=== PATIENT | male | born 1955 | race Hispanic/Latino ===

== ENCOUNTER 2017-10-12 10:39 | Emergency (ER) | payer MEDICARE, OTHER ==
[~2017-10-12] VITALS: Ht 190.5 cm; Wt 104.3 kg
[~2017-10-12 10:39] MED LIST: AMBIEN5 MG PO; ASPIR 8181 MG PO; AUGMENTIN 500-1 EACH PO; HUMALOG100 UNIT/1; HYDROCODON-ACE1 EAC9 PO; LOPRESSOR25 MG PO; LOVASTATIN20 MG PO; METOPROLOL SUC100 MG PO; NORCO 10-325 T1 EACH PO; PRINIVIL20 MG PO; RENAGEL800 MG; ULTRAM50 MG PO; Z.0.HUMALOG100 UNIT/; Z.0.JANUVIA100 MG; Z.0.LISINOPRIL20 MG PO; Z.0.PLAVIX75 MG PO
--- OUTSIDE RECORDS SUMMARY | 2017-10-12 10:42 | XMS REPORT | Clinical Summary ---
Author Author D[facility]ON [facility] Address Unknown Phone Unavailable Care Team Providers Care Academic Assistant Name Role Phone PCP Unavailable Allergies Active Allergy Reactions Severity Noted Date Comments Iodine And Iodide Rash High 05/09/2016 TO CONTRAST DYE Containing Products Medical Supply, Rash Low 05/09/2016 TO PLASTIC TAPE Miscellaneous Current Medications Prescription Sig. Disp. Refills Start End Date Status Date clopidogrel (PLAVIX) 75 Take 75 mg by mouth Active mg tablet daily. HYDROcodone-acetaminophen Take 1 tablet by mouth Active (NORCO 10-325) 10-325 mg every 6 (six) hours as per tablet needed for Pain. insulin lispro (HUMALOG) Inject 1.4 Units Active 100 unit/mL injection subcutaneously continuous DURING THE DAYTIME 1.4 UNITS CONTINUOUS, DURING THE NIGHTTIME IS VARIABLE. lovastatin (MEVACOR) 10 Take 10 mg by mouth Active MG tablet nightly. metoprolol (LOPRESSOR) 25 Take 25 mg by mouth 2 Active MG tablet (two) times daily. lisinopril Take 20 mg by mouth Active (PRINIVIL,ZESTRIL) 20 MG daily. tablet zolpidem (AMBIEN) 5 MG Take 2.5 mg by mouth Active tablet every night as needed for Insomnia . BABY ASPIRIN ORAL Take by mouth daily. Active Active Problems Problem Noted Date PAD (peripheral artery disease) ([facility]) 05/13/2016 Social History Tobacco Use Types Packs/Day Years Used Date Former Smoker Quit: 05/22/1985 Alcohol Use Drinks/Week oz/Week Comments No Sex Assigned at Date Recorded Not on file Last Filed Vital Signs Not on file Plan of Treatment Not on file Implants Implanted Type Area Cardiac Nurse Specialist Device Expiration Model / Identifier Date Serial / Lot Zilver Ptx Drug-Eluting Stents-Per [employer] 06/03/2016 [id number] Peripheral Stent ipheral 25-7-40-PT Implanted: Qty: 1 on 05/13/2016 by X / Jass Hong MD / [id number] [employer] Vascular Stents-Per [place] 03/21/2019 [id number] Implanted: Qty: 1 on 05/13/2016 by [employer] [id number] / Jass Hong MD / [id number] Results Not on fileafter 10/11/2016
--- OUTSIDE RECORDS SUMMARY | 2017-10-12 10:42 | XMS REPORT ---
Author Author [facility] Address Unknown Phone Unavailable Care Team Providers Care Geodetic Survey Director Name Role Phone DANNY PARKER Unavailable Unavailable Problems This patient has no known problems. Allergies, Adverse Reactions, Alerts This patient has no known allergies or adverse reactions. Medications This patient has no known medications. Results Test Description Test Time Test Comments Text Results Atomic Results Result Comments CHEST SINGLE (PORTABLE) [place] [address] Patient Name: RAKEL LIN MR #: [id number] : 1955 Age/Sex: 61/M Req #: [id number] Adm Physician: Ordered by: DANNY PARKER MD Report #: [id number] Location: ER Room/Bed: Procedure: [id number] DX/CHEST SINGLE (PORTABLE) Exam Date: 04/17/17 Exam Time: 1155 REPORT STATUS: Signed PROCEDURE: CHEST SINGLE (PORTABLE) TECHNIQUE: Portable AP chest INDICATION: Weakness; sweating COMPARISON: [facility], DX, CHEST SINGLE ( PORTABLE), 10/17/2016, 7:19. FINDINGS: Lungs are clear and symmetrically inflated. No pleural effusions. Mild cardiac prominence for technique, with postoperative sequela of CABG. Intact midline sternotomy wires. Intact skeleton. CONCLUSION: 1. No acute abnormality. 2. Stable postoperative sequela of CABG. Dictated by: Hudson Reid M.D. on 04/17/2017 at 12:26 Electronically approved by: Hudson Reid M.D. on 04/17/2017 at 12:26 Dictated By: HUDSON REID MD [id number] Transcribed By: ROBIN on 04/17/17 1226 COPY TO: DANNY PARKER MD
[2017-10-12] MEDS ORDERED: MORPHINE SULFATE 2 MG/ML SYR IV STA (10:56)
[2017-10-12] MEDS ORDERED: ASPIRIN 81 MG CHEW TAB PO ONE (11:00)
[2017-10-12 11:28] LABS: BASOPHILS % 0.5 % (0.0-1.0); EOSINOPHILS # (AUTO) 0.2 (0.0-0.4); EOSINOPHILS % 2.5 % (0.0-6.0); HEMATOCRIT 33.6 % (38.2-49.6); HEMOGLOBIN 11.4 g/dL (14.0-18.0); LYMPHOCYTES # (AUTO) 1.4 (1.0-3.2); LYMPHOCYTES % 17.7 % (18.0-39.1); MEAN CORPUSCULAR HEMOGLOBIN 30.7 pg (28-32); MEAN CORPUSCULAR HGB CONC 33.9 g/dL (31-35); MEAN CORPUSCULAR VOLUME 90.6 fL (81-99); MONOCYTES # (AUTO) 0.6 (0.2-0.8); MONOCYTES % 7.2 % (4.4-11.3); NEUTROPHILS # (AUTO) 5.8 (2.1-6.9); NEUTROPHILS % 71.6 % (38.7-80.0); PLATELET COUNT 213 x10e3/uL (140-360); RED BLOOD COUNT 3.71 x10e6/uL (4.3-5.7); RED CELL DISTRIBUTION WIDTH 12.9 % (11.7-14.4)
--- NOTE | 2017-10-12 11:40 | Diagnostic Imaging Report ---
PROCEDURE: X-RAY CHEST, TWO VIEWS COMPARISON: [facility], DX, CHEST SINGLE (PORTABLE), 04/17/2017, 11:53. INDICATIONS: FALL FINDINGS: LUNGS: No consolidations or edema. PLEURA: No effusions or pneumothorax. HEART \T\ MEDIASTINUM: The heart is within normal size-limits. There are sternotomy wire sutures and small mediastinal clips. BONES \T\ SOFT TISSUES: No obvious rib fractures. No acute findings. CONCLUSION: No acute thoracic abnormality. Chay Culver D.O. Dictated by: Chay Culver D.O. on 10/12/2017 at 11:42 Electronically approved by: Chay Culver D.O. on 10/12/2017 at 11:42
[2017-10-12 11:48] LABS: ANION GAP 14.8 mmol/L (8-16); CALCIUM 9.3 mg/dL (8.4-10.2); CREATININE, SERUM 1.35 mg/dL (0.72-1.25); MAGNESIUM 2.4 MG/DL (1.3-2.1); POTASSIUM 4.8 mmol/L (3.5-5.1)
--- NOTE | 2017-10-12 11:54 | Diagnostic Imaging Report ---
EXAMINATION: Head CT HISTORY: Status post fall, head trauma COMPARISON: Head CT on 01/16/2012 TECHNIQUE: Multidetector axial images were obtained without contrast from the foramen magnum to the vertex . The images were reconstructed using brain and bone algorithms. Thin section brain images were reformatted into coronal and sagittal planes. Intravenous contrast: None. Motion/streaking artifact limits the evaluation of the skull base and posterior cranial fossa. FINDINGS: Parenchyma: 1. Mildly confluent periventricular and ibrahim radiata white matter chronic microvascular ischemic changes. 2. Small chronic lacunar infarct in the posterior limb of the left internal capsule, left posterior lentiform nucleus, bilateral thalami and right frontal deep white matter. 3. No mass or hemorrhage. No CT evidence of acute territorial vascular insult. Extra-axial spaces:No abnormal density. No extra-axial fluid collections Brain volume: Significant development of generalized brain volume loss, which is slightly disproportionate for age, with particular involvement of the midbrain/al and cerebellar hemispheres. Ventricles: No hydrocephalus or displacement. Arteries: No density suggestive of thrombus. Dural sinuses: No abnormal density. Extra-axial spaces: No abnormal density. Foramen magnum: No mass, Chiari malformation, or basilar invagination. Sella: No obvious mass. Paranasal/mastoid sinuses: Persistent nonspecific likely chronic opacification, scleroses and hypo pneumatization of the right mastoid air cells and middle ear. Skull/Scalp: No lytic or blastic lesions. No fractures. IMPRESSION: 1. No acute posttraumatic intracranial abnormality, particularly no hemorrhage. 2. Significant progression of generalized brain volume loss with infratentorial predominance as detailed above. 3. Mild progression of nonspecific chronic microvascular ischemic changes and small chronic lacunar infarcts when compared to head CT on 01/16/2012. Signed by: Dr. Virgie Mitchell M.D. on 10/12/2017 11:50 AM
[2017-10-12 11:55] LABS: CREATINE KINASE MB 2.2 ng/mL (0-5.0)
[2017-10-12 13:51] VITALS: BP 143/75
[2017-10-12 13:59] LABS: CLARITY,URINE CLEAR (CLEAR); COLOR,URINE YELLOW (YELLOW); KETONES,URINE NEGATIVE (NEGATIVE); LEUKOCYTE ESTERASE ,URINE NEGATIVE (NEGATIVE); NITRITE,URINE NEGATIVE (NEGATIVE); PROTEIN,URINE DIPSTICK NEGATIVE (NEGATIVE); URINE UROBILINOGEN 0.2 mg/dL (0.2 - 1)
[2017-10-12 14:00] LABS: BILIRUBIN,URINE NEGATIVE (NEGATIVE); EPITHELIAL CELLS,URINE RARE /LPF; RBC,URINE 0-5 /HPF (0-5)
== END 2017-10-12 14:32 | disposition home or self-care (01) ==
LOC: ER 10:39
DX: S01.111A Laceration without foreign body of right eyelid and periocular area, initial encounter (principal); W01.0XXA Fall on same level from slipping, tripping and stumbling without subsequent striking against object, initial encounter; Y92.002 Bathroom of unspecified non-institutional (private) residence as the place of occurrence of the external cause; E86.0 Dehydration; E11.21 Type 2 diabetes mellitus with diabetic nephropathy; R94.31 Abnormal electrocardiogram [ECG] [EKG]; I10 Essential (primary) hypertension; I45.10 Unspecified right bundle-branch block; I51.9 Heart disease, unspecified
CPT/HCPCS: 12011; 36415; 70450; 71046; 80048; 81001; 82550; 82553; 83735; 83880; 84484; 85025; 93005; 99284; J2270

== ENCOUNTER → 2018-02-14 | Day surgery (SDC) | payer MEDICARE, OTHER ==
[2018-02-12 11:55] LABS: BASOPHILS % 0.4 % (0.0-1.0); EOSINOPHILS # (AUTO) 0.2 (0.0-0.4); EOSINOPHILS % 1.9 % (0.0-6.0); HEMATOCRIT 34.8 % (38.2-49.6); HEMOGLOBIN 11.7 g/dL (14.0-18.0); LYMPHOCYTES # (AUTO) 1.5 (1.0-3.2); LYMPHOCYTES % 13.3 % (18.0-39.1); MEAN CORPUSCULAR HEMOGLOBIN 29.8 pg (28-32); MEAN CORPUSCULAR HGB CONC 33.6 g/dL (31-35); MEAN CORPUSCULAR VOLUME 88.8 fL (81-99); MONOCYTES # (AUTO) 0.5 (0.2-0.8); MONOCYTES % 4.6 % (4.4-11.3); NEUTROPHILS % 79.4 % (38.7-80.0); PLATELET COUNT 218 x10e3/uL (140-360); RED BLOOD COUNT 3.92 x10e6/uL (4.3-5.7); RED CELL DISTRIBUTION WIDTH 13.1 % (11.7-14.4)
[2018-02-12 12:00] LABS: PROTHROMBIN TIME 14.1 seconds (11.9-14.5)
[2018-02-12 12:01] LABS: PARTIAL THROMBOPLASTIN TIME 33.4 seconds (23.8-35.5)
[2018-02-12 12:10] LABS: ALBUMIN 3.7 g/dL (3.5-5.0); ALBUMIN/GLOBULIN RATIO 1.1 (0.8-2.0); ANION GAP 14.1 mmol/L (8-16); CALCIUM 9.4 mg/dL (8.4-10.2); CREATININE, SERUM 1.44 mg/dL (0.72-1.25); POTASSIUM 4.1 mmol/L (3.5-5.1)
--- NOTE | 2018-02-12 12:51 | Diagnostic Imaging Report ---
EXAMINATION: PA and lateral views of the chest. COMPARISON: 10/17/2016 CLINICAL HISTORY: Preop DISCUSSION: The lungs are well-inflated and without focal consolidation, pleural effusion, or pneumothorax. Postsurgical changes of the mediastinum with otherwise stable cardiomediastinal contour. Atherosclerotic calcification of the aortic arch with normal heart size. No acute osseous abnormalities. IMPRESSION: No acute cardiopulmonary abnormalities. Signed by: Dr. Kendell Marina M.D. on 02/12/2018 12:46 PM
[~2018-02-14] VITALS: Ht 193 cm; Wt 104.3 kg
[~2018-02-14] MED LIST changes: +FENTANYL CITRATE/PF 100MCG/2 ML INJ ONE; +HEPARIN SOD/SOD CHLORIDE 2,000 ML ONE; +IOPAMIDOL 370 MG/ML 200 ML INFUS..BTL INJ ONE; +LIDOCAINE HCL 2% LOCAL 20 ML VIAL ONE; +MIDAZOLAM HCL 2 MG/2 ML VIAL ONE; +SODIUM CHLORIDE 0.9% 1000ML 1,000 ML ONE
[2018-02-14 08:00] VITALS: BP 173/95
--- OUTSIDE RECORDS SUMMARY | 2018-03-06 07:11 | XMS REPORT | Clinical Summary ---
Author Author DARRON [facility] Address Unknown Phone Unavailable Care Team Providers Care Warehouse Material Handler Name Role Phone PCP Unavailable Allergies Active [...] Not on file Implants Implanted Type Area Staff Trainer Device Expiration Model / Identifier Date Serial / Lot Zilver Ptx Drug-Eluting Stents-Per [employer] 06/03/2016 [id number] Peripheral Stent ipheral 25-7-40-PT Implanted: Qty: 1 on 05/13/2016 by X / Jass Hong MD / [id number] [employer] Vascular Stents-Per [place] 03/21/2019 [id number] Implanted: Qty: 1 on 05/13/2016 by kSARIA [id number] / Jass Hong MD / [id number] Results Not on fileafter 02/13/2017
== END | disposition home or self-care (01) ==
LOC: CATH LAB 06:32
DX: I25.10 Atherosclerotic heart disease of native coronary artery without angina pectoris (principal); Z53.8 Procedure and treatment not carried out for other reasons; R94.39 Abnormal result of other cardiovascular function study; Z79.01 Long term (current) use of anticoagulants; Z91.041 Radiographic dye allergy status; Z88.1 Allergy status to other antibiotic agents; Z87.891 Personal history of nicotine dependence; Z79.4 Long term (current) use of insulin; E78.5 Hyperlipidemia, unspecified; E11.51 Type 2 diabetes mellitus with diabetic peripheral angiopathy without gangrene; Z89.511 Acquired absence of right leg below knee; Z96.41 Presence of insulin pump (external) (internal); I50.22 Chronic systolic (congestive) heart failure; I45.19 Other right bundle-branch block; Z86.010 Personal history of colon polyps; Z01.810 Encounter for preprocedural cardiovascular examination; Z01.812 Encounter for preprocedural laboratory examination; Z01.811 Encounter for preprocedural respiratory examination; I11.0 Hypertensive heart disease with heart failure
CPT/HCPCS: 36415; 71046; 80053; 85025; 85610; 85730; 93005; J2001; J2250; J7030; Q9967

== ENCOUNTER 2018-06-30 15:39 | Emergency (ER) | payer MEDICARE, OTHER ==
[~2018-06-30] VITALS: Ht 193 cm; Wt 104.3 kg
[~2018-06-30 15:39] MED LIST changes: -FENTANYL CITRATE/PF 100MCG/2 ML INJ ONE; -HEPARIN SOD/SOD CHLORIDE 2,000 ML ONE; -IOPAMIDOL 370 MG/ML 200 ML INFUS..BTL INJ ONE; -LIDOCAINE HCL 2% LOCAL 20 ML VIAL ONE; -MIDAZOLAM HCL 2 MG/2 ML VIAL ONE; -SODIUM CHLORIDE 0.9% 1000ML 1,000 ML ONE
--- OUTSIDE RECORDS SUMMARY | 2018-06-30 15:43 | XMS REPORT | Clinical Summary ---
Author Author [facility]RXE[facility] Address Unknown Phone Unavailable Care Team Providers Care Organ Assembler Name Role Phone Rohan Hernandez PCP Allergies Comments Active Allergy Reactions Severity Noted Date Adhesive Tape 03/02/2018 Iodine Rash Low 04/21/2010 TO CONTRAST DYE Iodine And Iodide Rash High 05/09/2016 Containing Products TO PLASTIC TAPE Medical Supply, Rash Low 05/09/2016 Miscellaneous Vancomycin Rash Low 04/21/2010 Medications End Date Status Medication Sig Dispensed Refills Start Date Active clopidogrel (PLAVIX) 75 Take 75 mg by 0 mg tablet mouth daily. Active HYDROcodone-acetaminophen Take 1 tablet 0 (NORCO 10-325) 10-325 mg by mouth per tablet every 6 (six) hours as needed for Pain. Active insulin lispro (HUMALOG) Inject 1.4 0 100 unit/mL injection Units subcutaneousl y continuous DURING THE DAYTIME 1.4 UNITS CONTINUOUS, DURING THE NIGHTTIME IS VARIABLE. Active metoprolol (LOPRESSOR) 25 Take 25 mg by 0 MG tablet mouth 2 (two) times daily. Active lisinopril Take 20 mg by 0 (PRINIVIL,ZESTRIL) 20 MG mouth daily. tablet Active zolpidem (AMBIEN) 5 MG Take 2.5 mg 0 tablet by mouth every night as needed for Insomnia . Active aspirin 81 MG EC tablet Take 81 mg by 0 mouth daily. Active atorvastatin (LIPITOR) 80 Take 1 tablet 30 tablet 0 MG tablet (80 mg total) 8 by mouth nightly Take instead of lovastatin. Active cyanocobalamin (VITAMIN Take 1 tablet 30 tablet 0 B-12) 100 MCG tablet (100 mcg 8 total) by mouth daily. Active gabapentin (NEURONTIN) Take 1 30 capsule 0 100 MG capsule capsule (100 8 mg total) by mouth daily For nerve pain. 04/26/2018 Discontinued lovastatin (MEVACOR) 10 Take 10 mg by 0 MG tablet mouth nightly. 04/26/2018 Discontinued BABY ASPIRIN ORAL Take by mouth 0 daily. 04/27/2018 Discontinued atorvastatin (LIPITOR) 40 Take 1 tablet 30 tablet 0 MG tablet (40 mg total) 8 by mouth nightly Take instead of lovastatin for cholesterol. Active Problems Problem Noted Date Stroke 04/27/2018 CAD (coronary artery disease) 03/08/2018 PAD (peripheral artery disease) 05/13/2016 Encounters Care Team Description Date Type Specialty Leonora Oliver MD 04/25/2018 Anesthesia Event Segundo Hoyos MD PCI 04/25/2018 Surgery Segundo Hoyos MD Narcisse, Victor Joseph III, MD Lin, Fang-Ying, MD Coronary artery disease involving tuolumne coronary artery of tuolumne heart without angina pectoris (Primary Dx); S/P CABG (coronary artery bypass graft); PAD (peripheral artery disease) ([facility]); Stenosis of carotid artery, unspecified laterality; Essential hypertension; Hyperlipidemia, unspecified hyperlipidemia type; Type 1 diabetes mellitus on insulin therapy ([facility]); Type 2 diabetes mellitus treated with insulin ([facility]) 04/24/2018 Hospital Cardiology - Encounter 04/27/2018 04/24/2018 Travel Polo Guzmán III, MD 04/24/2018 Orders Only Internal Medicine Segundo Hoyos MD L CATH & CORONARY ANGIOS 03/08/2018 Surgery Segundo Hoyos MD Coronary artery disease involving tu[place]ne coronary artery of tuolumne heart without angina pectoris; PAD (peripheral artery disease) ([facility]); Essential hypertension; Other hyperlipidemia; Stenosis of carotid artery, unspecified laterality; Type 1 diabetes mellitus with diabetic chronic kidney disease, unspecified CKD stage ([facility]); Status post left heart catheterization (LHC); S/P CABG (coronary artery bypass graft); SOB (shortness of breath) 03/08/2018 Hospital Cardiology - Encounter 03/10/2018 03/08/2018 Orders Only General Internal Medicine Segundo Hoyos MD PAD (peripheral artery disease) ([facility]); Coronary artery disease involving tu[place]ne coronary artery of tuolumne heart without angina pectoris 03/07/2018 Hospital Radiology Encounter Segundo Hoyos MD PAD (peripheral artery disease) (HCC); Coronary artery disease involving tu[place]ne coronary artery of tuolumne heart without angina pectoris 03/07/2018 Hospital Radiology Encounter Segundo Hoyos MD PAD (peripheral artery disease) ([facility]) (Primary Dx); Coronary artery disease involving tu[place]ne coronary artery of tuolumne heart without angina pectoris 03/06/2018 Outside Orders Radiology after 06/29/2017 Social History Date Tobacco Use Types Packs/Day Years Used Quit: 05/22/1985 Former Smoker Smokeless Tobacco: Never Used Alcohol Use Drinks/Week oz/Week Comments No Sex Assigned at Date Recorded Not on file Industry Job Start Date Occupation Not on file Not on file Not on file Travel End Travel History Travel Start No recent travel history available. Last Filed Vital Signs Time Taken Vital Sign Reading 04/27/2018 12:57 PM TERMINOLOGIST Blood Pressure 140/65 04/27/2018 12:57 PM TERMINOLOGIST Pulse 78 04/27/2018 12:57 PM TERMINOLOGIST Temperature 36.7 C (98 F) 04/27/2018 12:57 PM TERMINOLOGIST Respiratory Rate 19 04/27/2018 12:57 PM TERMINOLOGIST Oxygen Saturation 100% 04/25/2018 11:51 PM TERMINOLOGIST Inhaled Oxygen 21% Concentration 04/26/2018 7:50 AM TERMINOLOGIST Weight 104.2 kg (229 lb 12.2 oz) 04/24/2018 3:30 PM TERMINOLOGIST Height 193 cm (6' 4") 04/26/2018 7:50 AM TERMINOLOGIST Body Mass Index 27.97 Plan of Treatment Not on file Implants Device Identifier Shelf Expiration Date Model / Serial / Lot Implanted Type Area [facility] [id number] 12/19/2018 [id number] / / [id number] Device Clsr Angio-Seal Vip 8fr Cardiovasc [facility] [id number] - [id number] esme MED:CARDIA Implanted: Qty: 1 on 04/25/2018 by Segundo Miller MD 06/03/2016 [id number] / / [id number] Zilvgermaine Ptx Drug-Eluting Stents-Per COOK Peripheral Stent ipheral VASCULAR Implanted: Qty: 1 on 05/13/2016 by Jass Hong MD 03/21/2019 [id number] / / [id number] Innova Vascular Stents-Per [place] Implanted: Qty: 1 on 05/13/2016 by HotchalkJass June MD [id number] 09/13/2019 [id number] / / [id number] Synergy [place] Implanted: Qty: 1 on 04/25/2018 by Segundo Kothari MD Procedures Comments Procedure Name Priority Date/Time Associated Diagnosis VASCULAR DIAGRAM -SCAN 05/07/2018 12:21 PM TERMINOLOGIST RHYTHM STRIP - SCAN 05/04/2018 10:01 AM TERMINOLOGIST CARDIAC CATH REPORT - 05/04/2018 SCAN 10:01 AM TERMINOLOGIST ECHOCARDIOGRAM REPORT - 04/27/2018 SCAN 4:20 PM TERMINOLOGIST 2D ECHO W/ DOPPLER Routine 04/27/2018 (CW/PW/COLOR) 11:05 AM TERMINOLOGIST POCT-GLUCOSE METER Routine 04/27/2018 9:48 AM TERMINOLOGIST T4, FREE Routine 04/27/2018 5:12 AM TERMINOLOGIST VITAMIN B12 AND FOLATE Routine 04/27/2018 5:12 AM TERMINOLOGIST HIV-1 ANTIGEN WITH Routine 04/27/2018 HIV-1/2 ANTIBODY 5:12 AM TERMINOLOGIST TSH/FREE T4 IF INDICATED Routine 04/27/2018 5:12 AM TERMINOLOGIST RPR Routine 04/27/2018 5:12 AM TERMINOLOGIST HEMOGLOBIN A1C Routine 04/27/2018 5:12 AM TERMINOLOGIST BASIC METABOLIC PANEL (7) Routine 04/27/2018 5:12 AM TERMINOLOGIST MR BRAIN WITHOUT IV STAT 04/26/2018 CONTRAST 10:20 PM TERMINOLOGIST MR MRA NECK WITHOUT IV STAT 04/26/2018 CONTRAST 10:20 PM TERMINOLOGIST MR MRA HEAD WITHOUT STAT 04/26/2018 CONTRAST 10:20 PM TERMINOLOGIST URINALYSIS WITH Routine 04/26/2018 MICROSCOPIC IF INDICATED 7:24 PM TERMINOLOGIST BLOOD CULTURE STAT 04/26/2018 7:24 PM TERMINOLOGIST CBC W/PLT COUNT & AUTO Routine 04/26/2018 DIFFERENTIAL 7:23 PM TERMINOLOGIST LACTIC ACID, VENOUS, Routine 04/26/2018 WHOLE BLOOD 7:23 PM TERMINOLOGIST PHOSPHORUS Routine 04/26/2018 7:23 PM TERMINOLOGIST MAGNESIUM Routine 04/26/2018 7:23 PM TERMINOLOGIST APTT Routine 04/26/2018 7:23 PM TERMINOLOGIST PROTHROMBIN TIME/INR Routine 04/26/2018 7:23 PM TERMINOLOGIST COMPREHENSIVE METABOLIC Routine 04/26/2018 PANEL 7:23 PM TERMINOLOGIST CBC W/PLT COUNT & AUTO Routine 04/26/2018 DIFFERENTIAL 7:23 PM TERMINOLOGIST POCT-GLUCOSE METER Routine 04/26/2018 6:21 PM TERMINOLOGIST POCT-GLUCOSE METER Routine 04/26/2018 6:[address] BRAIN WITHOUT IV STAT 04/26/2018 CONTRAST 5:16 PM TERMINOLOGIST POCT-GLUCOSE METER Routine 04/26/2018 11:36 AM TERMINOLOGIST POCT-GLUCOSE METER Routine 04/26/2018 7:57 AM TERMINOLOGIST CBC W/PLT COUNT & AUTO Routine 04/26/2018 DIFFERENTIAL 4:02 AM TERMINOLOGIST BASIC METABOLIC PANEL (7) Routine 04/26/2018 4:02 AM TERMINOLOGIST CBC W/PLT COUNT & AUTO Routine 04/26/2018 DIFFERENTIAL 4:02 AM TERMINOLOGIST PHOSPHORUS Routine 04/26/2018 4:02 AM TERMINOLOGIST MAGNESIUM Routine 04/26/2018 4:02 AM TERMINOLOGIST CALCIUM, IONIZED Routine 04/26/2018 4:02 AM TERMINOLOGIST POCT-GLUCOSE METER Routine 04/25/2018 9:21 PM TERMINOLOGIST ELECTROLYTE PANEL STAT 04/25/2018 4:09 PM TERMINOLOGIST CREATININE, RANDOM URINE Routine 04/25/2018 4:09 PM TERMINOLOGIST PROTEIN, RANDOM URINE Routine 04/25/2018 4:09 PM TERMINOLOGIST URINALYSIS W/ MICROSCOPIC Routine 04/25/2018 4:09 PM TERMINOLOGIST POCT-GLUCOSE METER Routine 04/25/2018 10:14 AM TERMINOLOGIST POCT-GLUCOSE METER Routine 04/25/2018 9:12 AM TERMINOLOGIST POCT-ACT Routine 04/25/2018 9:05 AM TERMINOLOGIST POCT-ACT Routine 04/25/2018 8:54 AM TERMINOLOGIST PCI 04/25/2018 Coronary artery disease 7:30 AM TERMINOLOGIST involving tu[place]umne heart, angina presence unspecified, unspecified vessel or lesion type Case Notes (1) CASE POP6 . 663mGy POCT-GLUCOSE METER Routine 04/25/2018 6:35 AM TERMINOLOGIST CBC W/PLT COUNT & AUTO STAT 04/25/2018 DIFFERENTIAL 4:40 AM TERMINOLOGIST LIPID PANEL Routine 04/25/2018 4:40 AM TERMINOLOGIST PROTHROMBIN TIME/INR STAT 04/25/2018 4:40 AM TERMINOLOGIST BASIC METABOLIC PANEL (7) STAT 04/25/2018 4:40 AM TERMINOLOGIST CBC W/PLT COUNT & AUTO STAT 04/25/2018 DIFFERENTIAL 4:40 AM TERMINOLOGIST ECG 12-LEAD Routine 04/25/2018 4:33 AM TERMINOLOGIST POCT-GLUCOSE METER Routine 04/25/2018 2:51 AM TERMINOLOGIST POCT-GLUCOSE METER Routine 04/24/2018 11:32 PM TERMINOLOGIST POCT-GLUCOSE METER Routine 04/24/2018 10:08 PM TERMINOLOGIST BASIC METABOLIC PANEL (7) Routine 04/24/2018 7:06 PM TERMINOLOGIST RHYTHM STRIP - SCAN 03/13/2018 11:20 AM CDT CARDIAC CATH REPORT - 03/13/2018 SCAN 11:20 AM CDT VASCULAR DIAGRAM -SCAN 03/13/2018 11:20 AM CDT POCT-GLUCOSE METER Routine 03/10/2018 12:13 PM CDT POCT-GLUCOSE METER Routine 03/10/2018 11:05 AM CDT POCT-GLUCOSE METER Routine 03/10/2018 8:06 AM CDT POCT-GLUCOSE METER Routine 03/10/2018 5:34 AM CDT POCT-GLUCOSE METER Routine 03/10/2018 4:46 AM CDT POCT-GLUCOSE METER Routine 03/10/2018 4:27 AM CDT CBC W/PLT COUNT & AUTO Routine 03/10/2018 DIFFERENTIAL 4:23 AM CDT CBC W/PLT COUNT & AUTO Routine 03/10/2018 DIFFERENTIAL 4:23 AM CDT MAGNESIUM Routine 03/10/2018 4:23 AM CDT BASIC METABOLIC PANEL (7) Routine 03/10/2018 4:23 AM CDT POCT-GLUCOSE METER Routine 03/10/2018 12:07 AM CDT POCT-GLUCOSE METER Routine 03/09/2018 10:17 PM CDT POCT-GLUCOSE METER Routine 03/09/2018 7:09 PM CDT TRANSFUSION SERVICE 03/09/2018 REPORT - SCAN 6:09 PM CDT POCT-GLUCOSE METER Routine 03/09/2018 3:08 PM CDT NM CARDIAC PET PERFUSION Routine 03/09/2018 REST AND/OR STRESS 2:56 PM CDT TREADMILL Routine 03/09/2018 TOLERANCE(NON-NUCLEAR 2:43 PM CDT TREADMILL) ECG 12-LEAD Routine 03/09/2018 2:30 PM CDT ECG 12-LEAD Routine 03/09/2018 2:30 PM CDT Procedure Note - Interface, External Ris In - 03/09/2018 3:00 PM CDT Ventricula r Rate 79 BPM Atrial Rate 79 BPM P-R Interval 154 ms QRS Duration 164 ms Q-T Interval 454 ms QTC Calculatio n(Bazett) 520 ms P E[place] 59 degrees R Eolia 67 degrees T E[place] 38 degrees Sinus rhythm with Premature atrial complexes Right bundle branch block Abnormal ECG POCT-GLUCOSE METER Routine 03/09/2018 1:08 PM CDT POCT-GLUCOSE METER Routine 03/09/2018 11:51 AM CDT PROTEIN, RANDOM URINE Routine 03/09/2018 7:10 AM CDT PHOSPHORUS Routine 03/09/2018 4:26 AM CDT MAGNESIUM Routine 03/09/2018 4:26 AM CDT CBC (HEMOGRAM ONLY) Routine 03/09/2018 4:26 AM CDT BASIC METABOLIC PANEL (7) Routine 03/09/2018 4:26 AM CDT POCT-GLUCOSE METER Routine 03/09/2018 2:07 AM CDT POCT-GLUCOSE METER Routine 03/09/2018 12:49 AM CDT POCT-GLUCOSE METER Routine 03/08/2018 10:10 PM CDT POCT-GLUCOSE METER Routine 03/08/2018 2:06 PM CDT L CATH & CORONARY ANGIOS 03/08/2018 Coronary artery disease 12:24 PM CDT involving tuolumne coronary artery of tuolumne heart, angina presence unspecified Case Notes POP6 PT ALLERGIC TO IODINE. Special Needs PT ALLERGIC TO IODINE ECG 12-LEAD Routine 03/08/2018 9:27 AM CDT Procedure Note - Interface, External Ris In - 03/08/2018 12:04 PM CDT Ventricula r Rate 78 BPM Atrial Rate 78 BPM P-R Interval 184 ms QRS Duration 170 ms Q-T Interval 424 ms QTC Calculatio n(Bazett) 483 ms P E[place] 54 degrees R Eolia 67 degrees T E[place] 47 degrees Sinus rhythm with Premature atrial complexes Right bundle branch block Abnormal ECG When compared with ECG of 6 11:29, Premature atrial complexes are now Present Inverted T waves have replaced nonspecifi c T wave abnormalit y in Anterior leads ECG 12-LEAD STAT 03/08/2018 9:27 AM CDT TYPE AND SCREEN, Routine 03/08/2018 AUTOMATED 9:16 AM CDT PROTHROMBIN TIME/INR STAT 03/08/2018 9:16 AM CDT CBC (HEMOGRAM ONLY) STAT 03/08/2018 9:16 AM CDT BASIC METABOLIC PANEL (7) STAT 03/08/2018 9:[address]/CTA ABDOMEN & PELVIS Routine 03/07/2018 PAD (peripheral artery 12:00 PM CDT disease) (HCC) Coronary artery disease involving tu[place] coronary artery of tuolumne heart without angina pectoris CT/CTA CHEST Routine 03/07/2018 PAD (peripheral artery 12:00 PM CDT disease) (HCC) Coronary artery disease involving tu[place] coronary artery of tu[place]ne heart without angina pectoris POCT-CREATININE Routine 03/07/2018 11:29 AM CDT after 06/29/2017 Results * VASCULAR DIAGRAM -SCAN (05/07/2018 12:21 PM TERMINOLOGIST) Only the most recent of 2 results within the time period is included. Narrative Performed At * RHYTHM STRIP - SCAN (05/04/2018 10:01 AM TERMINOLOGIST) Only the most recent of 2 results within the time period is included. Narrative Performed At * CARDIAC CATH REPORT - SCAN (05/04/2018 10:01 AM TERMINOLOGIST) Narrative Performed At * ECHOCARDIOGRAM REPORT - SCAN (04/27/2018 4:20 PM TERMINOLOGIST) Narrative Performed At * 2D Echo W/Doppler(CW/PW/Color) (04/27/2018 11:05 AM TERMINOLOGIST) Ejection Fraction [facility] Narrative Performed At Transthoracic Echocardiography Report (TTE) [facility] Demographics [facility] Patient Name TIM COUCH Date of Study 04/27/2018 MATIAS [id number] Male Visit Number [id number] Room Number C624 Number Date of Birth1955Referring Physician Soha Crews Age62 year(s)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 Clinical History HGB 12.2 HCT 36.6 % ANEMIA, CAD, DM I, HLD, HTN, SLEEP APNEA, CVA (04/2014), ACB X5 (2007), L. CATH (03/08/18), PCI (04/25/18), HX SMOKING Contrast Medium: Bubble Study. Height: 76 inches Weight: 103.87 kg (229 lbs) BSA: 2.35 m^2 BMI: 27.87 kg/m^2 HR: 74 bpm BP: 131/62 mmHg Summary IV saline contrast injection was negative for a PFO (patent foramen ovale) at rest and post Valsalva . The left ventricle is chamber size (by PSLAX dimension) is normal (male - LVIDd 4.2-5.8cm) . Mild concentric LV hypertrophy. Global LV systolic function mildly reduced . Estimated LVEF by qualitative assessment is low normal. (50-55%) . Abnormal septal motion due to conduction abnormality; all segments have low normal contractility. Grade 1 diastolic dysfunction (impaired relaxation and low-normal LA pressure). Otherwise, essentially normal exam. Signature Findings Left Ventricle The left ventricle is chamber size (by PSLAX dimension) is normal (male - LVIDd 4.2-5.8cm) . Mild concentric LV hypertrophy. Global LV systolic function mildly reduced . Estimated LVEF by qualitative assessment is low normal. (50-55%) . Abnormal septal motion due to conduction abnormality; all segments have low normal contractility. Grade 1 diastolic dysfunction (impaired relaxation and low-normal LA pressure). Left AtriumLA size is normal . Right VentricleNormal right ventricle structure and function. Right Atrium Normal right atrium. Atrial SeptumIV saline contrast injection was negative for a PFO (patent foramen ovale) at rest and post Valsalva . Aortic Valve Normal AoV structure and function. Mitral Valve Normal MV structure and function. Tricuspid ValveA trace of tricuspid regurgitation. Unable to estimate peak systolic PA pressure; inadequate TR velocity signal. Pulmonic Valve Normal PV structure and function by limited views and Doppler. AortaAortic root size (SInus of Valsalva diameter) is normal . PericardiumNo evidence of pericardial effusion. IVC/SVC/PA/PV/PleuralThe estimated RA pressure by IVC dynamics 5-10mmHg . Chambers/Structures Left Atrium LA Dimension: 3.68 cmLA Area: 19.03 cm^2 LA Volume: 54.37 ml LA Vol. Index: 23 ml/m^2 Left Ventricle LVIDd: 5.17 cm LVEDV:169.73 ml LV Septum Diastolic: 1.27 cm LV PW Diastolic: 1.37 cm LVEDV Cifuentes's:166.66 mlLV Length: 8.83 cm LVESV Cifuentes's:90.32 ml LVEF Cifuentes's: 45.8 % LVEDVI: 71 ml/m^2 LVESVI: 38 ml/m^2 LVOT Diameter: 2.22 cm Aorta Ao Root S of Sallie.: 3.69 cm Doppler/Quantitative Measurements Mitral Valve MV Peak E-Wave: 0.72 m/s MV Peak A-Wave: 0.95 m/s E/A Ratio: 0.76 Peak Gradient: 2.07 mmHg Decelera tion Time: 307.3 msec MV Williams. Peak: Aortic Valve Peak Velocity: 0.94 m/sMean Velocity: 0.68 m/s Peak Gradient: 3.55 mmHg Mean Gradient: 1.98 mmHg AV Area (continuity): 3.32 cm^2 AV VTI: 19.2 cm AV DVI: 0.86 LVOT Peak Velocity: 0.85 m/s Peak Gradient: 2.86 mmHg Mean Velocity: 0.42 m/s Mean Gradient: 0.97 mmHg LVOT Diameter: 2.22 cmLVOT VTI: 16.47 cm LVOT Area: 3.87 cm^2LVOT SV:63.72 ml LVOT CO: 4.72 l/min LVOT CI: 2.01 l/min/m^2 Procedure Note Interface, External Ris In - 04/27/2018 3:51 PM TERMINOLOGIST Transthoracic Echocardiography Report (TTE) Demographics Patient Name TIM COUCH Date of Study 04/27/2018 MATIAS Gender Male Visit Number [id number] Race Room Number C624 Number Date of 1955 Referring Physician Soha Crews Age 62 year(s) 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 Clinical History HGB 12.2 HCT 36.6 % ANEMIA, CAD, DM I, HLD, HTN, SLEEP APNEA, CVA (04/2014), ACB X5 (2007), L. CATH (03/08/18), PCI (04/25/18), HX SMOKING Contrast Medium: Bubble Study. Height: 76 inches Weight: 103.87 kg (229 lbs) BSA: 2.35 m^2 BMI: 27.87 kg/m^2 HR: 74 bpm BP: 131/62 mmHg Summary IV saline contrast injection was negative for a PFO (patent foramen ovale) at rest and post Valsalva . The left ventricle is chamber size (by PSLAX dimension) is normal (male - LVIDd 4.2-5.8cm) . Mild concentric LV hypertrophy. Global LV systolic function mildly reduced . Estimated LVEF by qualitative assessment is low normal. (50-55%) . Abnormal septal motion due to conduction abnormality; all segments have low normal contractility. Grade 1 diastolic dysfunction (impaired relaxation and low-normal LA pressure). Otherwise, essentially normal exam. Signature Findings Left Ventricle The left ventricle is chamber size (by PSLAX dimension) is normal (male - LVIDd 4.2-5.8cm) . Mild concentric LV hypertrophy. Global LV systolic function mildly reduced . Estimated LVEF by qualitative assessment is low normal. (50-55%) . Abnormal septal motion due to conduction abnormality; all segments have low normal contractility. Grade 1 diastolic dysfunction (impaired relaxation and low-normal LA pressure). Left Atrium LA size is normal . Right Ventricle Normal right ventricle structure and function. Right Atrium Normal right atrium. Atrial Septum IV saline contrast injection was negative for a PFO (patent foramen ovale) at rest and post Valsalva . Aortic Valve Normal AoV structure and function. Mitral Valve Normal MV structure and function. Tricuspid Valve A trace of tricuspid regurgitation. Unable to estimate peak systolic PA pressure; inadequate TR velocity signal. Pulmonic Valve Normal PV structure and function by limited views and Doppler. Aorta Aortic root size (SInus of Valsalva diameter) is normal . Pericardium No evidence of pericardial effusion. IVC/SVC/PA/PV/Pleural The estimated RA pressure by IVC dynamics 5-10mmHg . Chambers/Structures Left Atrium LA Dimension: 3.68 cm LA Area: 19.03 cm^2 LA Volume: 54.37 ml LA Vol. Index: 23 ml/m^2 Left Ventricle LVIDd: 5.17 cm LVEDV:169.73 ml LV Septum Diastolic: 1.27 cm LV PW Diastolic: 1.37 cm LVEDV Cifuentes's:166.66 ml LV Length: 8.83 cm LVESV Cifuentes's:90.32 ml LVEF Cifuentes's: 45.8 % LVEDVI: 71 ml/m^2 LVESVI: 38 ml/m^2 LVOT Diameter: 2.22 cm Aorta Ao Root S of Sallie.: 3.69 cm Doppler/Quantitative Measurements Mitral Valve MV Peak E-Wave: 0.72 m/s MV Peak A-Wave: 0.95 m/s E/A Ratio: 0.76 Peak Gradient: 2.07 mmHg Deceleration Time: 307.3 msec MV Williams. Peak: Aortic Valve Peak Velocity: 0.94 m/s Mean Velocity: 0.68 m/s Peak Gradient: 3.55 mmHg Mean Gradient: 1.98 mmHg AV Area (continuity): 3.32 cm^2 AV VTI: 19.2 cm AV DVI: 0.86 LVOT Peak Velocity: 0.85 m/s Peak Gradient: 2.86 mmHg Mean Velocity: 0.42 m/s Mean Gradient: 0.97 mmHg LVOT Diameter: 2.22 cm LVOT VTI: 16.47 cm LVOT Area: 3.87 cm^2 LVOT SV:63.72 ml LVOT CO: 4.72 l/min LVOT CI: 2.01 l/min/m^2 Performing Organization Address City/State/Zipcode Phone Number [facility] * POC-Glucose meter (04/27/2018 9:48 AM TERMINOLOGIST) Only the most recent of 28 results within the time period is included. POC-Glucose Meter 244 (H)Comment: TESTED AT 70 - 110 mg/dL [facility] [address] [facility] [address] Specimen Blood Performing Organization Address City/[facility] Phone Number [phone] [place] [address] * Vitamin B12 and Folate (04/27/2018 5:12 AM TERMINOLOGIST) Vitamin B12 206 (L) 213 - 816 pg/mL [facility] Folate 11.1 >=7.0 ng/mL [facility] Specimen Blood - Arm, Left Performing Organization Address City/[facility] Phone Number [phone] [place] [address] * TSH/Free T4 If Indicated (04/27/2018 5:12 AM TERMINOLOGIST) TSH 0.35 0.35 - 4.94 uIU/mL [facility] Specimen Blood - Arm, Left Performing Organization Address [facility] Phone Number [phone] [place] [address] * HIV-1 Antigen with HIV-1/2 Antibody (04/27/2018 5:12 AM TERMINOLOGIST) HIV-1 Antigen with HIV NON-REACTIVE Nonreactive [facility] 1&2 Antibody [facility] Specimen Blood - Arm, Left Performing Organization Address [facility] Phone Number [phone] [place] [address] * RPR (04/27/2018 5:12 AM TERMINOLOGIST) RPR Nonreactive Nonreactive [facility] Specimen Blood - Arm, Left Performing Organization Address City/[facility] Phone Number [phone] [place] [address] * T4, free (04/27/2018 5:12 AM TERMINOLOGIST) Free T4 1.30 0.70 - 1.48 ng/dL [facility] Specimen Blood - Arm, Left Performing Organization Address City/State/[facility] Phone Number [facility] [address] [place] [address] [facility] * Hemoglobin A1c (04/27/2018 5:12 AM TERMINOLOGIST) Hemoglobin A1C 8.7 (H) 4.3 - 6.1 % [facility] Specimen Blood - Arm, Left Performing Organization Address [facility] Phone Number [address] [phone] [facility] * Basic Metabolic Panel (04/27/2018 5:12 AM TERMINOLOGIST) Only the most recent of 7 results within the time period is included. Sodium 139 136 - 145 meq/L [facility] Potassium 4.1 3.5 - 5.1 meq/L [facility] Chloride 104 98 - 107 meq/L [facility] CO2 24 22 - 29 meq/L [facility] BUN 24 (H) 7 - 21 mg/dL [facility] Creatinine 1.23 0.57 - 1.25 mg/dL [facility] Glucose 215 (H) 70 - 105 mg/dL [facility] Calcium 9.3 8.4 - 10.2 mg/dL [facility] EGFR 59Comment: ESTIMATED GFR IS mL/min/1.[address] [facility] NOT ACCURATE CREATININE [facility] CLEARANCE IN PREDICTING GLOMERULAR FILTRATION RATE. ESTIMATED GFR IS NOT APPLICABLE FOR DIALYSIS PATIENTS. Specimen Blood - Arm, Left Performing Organization Address [facility] Phone Number [place] [phone] [place] [address] [facility] * MR brain without IV contrast (04/26/2018 10:20 PM TERMINOLOGIST) Narrative Performed At FINAL REPORT [employer] CLINICAL HISTORY: Stroke Ischemic Stroke Evaluation TECHNIQUE: MRI of the brain utilizing axial T2, FLAIR, GRE, DWI; sagittal and coronal T1-weighted images. MRA of the head utilizing 3-D zbhv-uw-tbnrca technique, with 3-D reconstructions. MRA of the neck utilizing 2-D and 3-D cemx-qf-mumipa technique, with 3-D reconstructions. COMPARISON: Same day CT head. 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 Small bilateral basal ganglia thalamic and ibrahim radiata infarctions. Multiple bilateral T2 and FLAIR hyperintense white matter foci likely represent chronic white matter microvascular disease. Generalized parenchymal volume loss with commensurate enlargement of CSF spaces and ventricles are advanced for age. In particular there is atrophy of the brainstem and vermis.There is no hydrocephalus or midline shift. There are no extra-axial fluid collections. The craniocervical junction is preserved. The major intracranial flow-voids appear patent. Mucosal thickening in the bilateral maxillary sinuses. Bilateral mastoid air cell effusions.Intraorbital contents are unremarkable. 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 MRA head: There is narrowing of the left internal carotid artery at the petrous canal and the clinoid portions. Possible 1 mm aneurysm emanating from the medial aspect of the distal right petrous internal carotid artery. Multifocal lsob-ft-mrlljnwe stenosis of the right A2 and A3 segments of the anterior cerebral artery. There is mild stenosis of the A1 segment of the left anterior cerebral artery. Multifocal mild stenosis of the left M1 middle cerebral artery. Moderate stenosis of the right M1 middle cerebral artery. The right vertebral artery is patent. There is stenosis of the proximal V4 segment of the left vertebral artery. Moderate stenosis of the P2 segment of the right posterior cerebral artery with mild stenosis of the junction of the P2 and P2 three segment right posterior cerebral artery. MRA Neck 50% stenosis of the left proximal internal carotid artery by NASCET criteria. 20% stenosis of the proximal right internal carotid artery by NASCET criteria. There is antegrade flow in the vertebral arteries in the neck. 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 Chronic ischemic and involutional changes as described above. MRA head: Multifocal intracranial arterial stenosis as described above, worst in the right M1 middle cerebral artery, V4 left vertebral artery and P2 right posterior cerebral artery where it is moderate. Possible 1 mm aneurysm emanating from the medial aspect of the distal right petrous internal carotid artery. This could be further evaluated with CTA head a nonemergent basis. MRA Neck 50% stenosis of the left and 20% stenosis of the right proximal internal carotid arteries by NASCET criteria. There is antegrade flow in the vertebral arteries in the neck. NOTIFICATION: The significant results of this study were discussed with and acknowledged by In house neurology resident, by telephone on 04/26/2018 11:10 PM. Signed: Katty Jarquin MD Report Verified Date/Time:04/26/2018 23:11:40 Reading Location: [address] Transitional Reading Room Procedure Note Interface, External Ris In - 04/26/2018 11:13 PM TERMINOLOGIST FINAL REPORT CLINICAL HISTORY: Stroke Ischemic Stroke Evaluation TECHNIQUE: MRI of the brain utilizing axial T2, FLAIR, GRE, DWI; sagittal and coronal T1-weighted images. MRA of the head utilizing 3-D ymfl-uf-pjjfwd technique, with 3-D reconstructions. MRA of the neck utilizing 2-D and 3-D cllo-zf-pdtszf technique, with 3-D reconstructions. COMPARISON: Same day CT head. 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 Small bilateral basal ganglia thalamic and ibrahim radiata infarctions. Multiple bilateral T2 and FLAIR hyperintense white matter foci likely represent chronic white matter microvascular disease. Generalized parenchymal volume loss with commensurate enlargement of CSF spaces and ventricles are advanced for age. In particular there is atrophy of the brainstem and vermis. There is no hydrocephalus or midline shift. There are no extra-axial fluid collections. The craniocervical junction is preserved. The major intracranial flow-voids appear patent. Mucosal thickening in the bilateral maxillary sinuses. Bilateral mastoid air cell effusions. Intraorbital contents are unremarkable. 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 MRA head: There is narrowing of the left internal carotid artery at the petrous canal and the clinoid portions. Possible 1 mm aneurysm emanating from the medial aspect of the distal right petrous internal carotid artery. Multifocal wcaf-qs-isfcflpn stenosis of the right A2 and A3 segments of the anterior cerebral artery. There is mild stenosis of the A1 segment of the left anterior cerebral artery. Multifocal mild stenosis of the left M1 middle cerebral artery. Moderate stenosis of the right M1 middle cerebral artery. The right vertebral artery is patent. There is stenosis of the proximal V4 segment of the left vertebral artery. Moderate stenosis of the P2 segment of the right posterior cerebral artery with mild stenosis of the junction of the P2 and P2 three segment right posterior cerebral artery. MRA Neck 50% stenosis of the left proximal internal carotid artery by NASCET criteria. 20% stenosis of the proximal right internal carotid artery by NASCET criteria. There is antegrade flow in the vertebral arteries in the neck. 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 Chronic ischemic and involutional changes as described above. MRA head: Multifocal intracranial arterial stenosis as described above, worst in the right M1 middle cerebral artery, V4 left vertebral artery and P2 right posterior cerebral artery where it is moderate. Possible 1 mm aneurysm emanating from the medial aspect of the distal right petrous internal carotid artery. This could be further evaluated with CTA head a nonemergent basis. MRA Neck 50% stenosis of the left and 20% stenosis of the right proximal internal carotid arteries by NASCET criteria. There is antegrade flow in the vertebral arteries in the neck. NOTIFICATION: The significant results of this study were discussed with and acknowledged by In house neurology resident, by telephone on 04/26/2018 11:10 PM. Signed: Katty Jarquin MD Report Verified Date/Time: 04/26/2018 23:11:40 Reading Location: [address] Reading Room Performing Organization Address City/State/Zipcode Phone Number [employer] [facility] * MRA neck without IV contrast (04/26/2018 10:20 PM TERMINOLOGIST) Narrative Performed At FINAL REPORT [employer] CLINICAL HISTORY: Stroke Ischemic Stroke Evaluation TECHNIQUE: MRI of the brain utilizing axial T2, FLAIR, GRE, DWI; sagittal and coronal T1-weighted images. MRA of the head utilizing 3-D yxya-aa-mqfrtr technique, with 3-D reconstructions. MRA of the neck utilizing 2-D and 3-D cfos-yi-uvbynd technique, with 3-D reconstructions. COMPARISON: Same day CT head. 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 Small bilateral basal ganglia thalamic and ibrahim radiata infarctions. Multiple bilateral T2 and FLAIR hyperintense white matter foci likely represent chronic white matter microvascular disease. Generalized parenchymal volume loss with commensurate enlargement of CSF spaces and ventricles are advanced for age. In particular there is atrophy of the brainstem and vermis.There is no hydrocephalus or midline shift. There are no extra-axial fluid collections. The craniocervical junction is preserved. The major intracranial flow-voids appear patent. Mucosal thickening in the bilateral maxillary sinuses. Bilateral mastoid air cell effusions.Intraorbital contents are unremarkable. 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 MRA head: There is narrowing of the left internal carotid artery at the petrous canal and the clinoid portions. Possible 1 mm aneurysm emanating from the medial aspect of the distal right petrous internal carotid artery. Multifocal vlyf-ap-wnnagyvx stenosis of the right A2 and A3 segments of the anterior cerebral artery. There is mild stenosis of the A1 segment of the left anterior cerebral artery. Multifocal mild stenosis of the left M1 middle cerebral artery. Moderate stenosis of the right M1 middle cerebral artery. The right vertebral artery is patent. There is stenosis of the proximal V4 segment of the left vertebral artery. Moderate stenosis of the P2 segment of the right posterior cerebral artery with mild stenosis of the junction of the P2 and P2 three segment right posterior cerebral artery. MRA Neck 50% stenosis of the left proximal internal carotid artery by NASCET criteria. 20% stenosis of the proximal right internal carotid artery by NASCET criteria. There is antegrade flow in the vertebral arteries in the neck. 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 Chronic ischemic and involutional changes as described above. MRA head: Multifocal intracranial arterial stenosis as described above, worst in the right M1 middle cerebral artery, V4 left vertebral artery and P2 right posterior cerebral artery where it is moderate. Possible 1 mm aneurysm emanating from the medial aspect of the distal right petrous internal carotid artery. This could be further evaluated with CTA head a nonemergent basis. MRA Neck 50% stenosis of the left and 20% stenosis of the right proximal internal carotid arteries by NASCET criteria. There is antegrade flow in the vertebral arteries in the neck. NOTIFICATION: The significant results of this study were discussed with and acknowledged by In house neurology resident, by telephone on 04/26/2018 11:10 PM. Signed: Katty Jarquin MD Report Verified Date/Time:04/26/2018 23:11:40 Reading Location: [id number] Transitional Reading Room Procedure Note Interface, External Ris In - 04/30/2018 11:08 PM TERMINOLOGIST FINAL REPORT CLINICAL HISTORY: Stroke Ischemic Stroke Evaluation TECHNIQUE: MRI of the brain utilizing axial T2, FLAIR, GRE, DWI; sagittal and coronal T1-weighted images. MRA of the head utilizing 3-D wrrp-yb-vjmpag technique, with 3-D reconstructions. MRA of the neck utilizing 2-D and 3-D hsug-qk-gfehey technique, with 3-D reconstructions. COMPARISON: Same day CT head. 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 Small bilateral basal ganglia thalamic and ibrahim radiata infarctions. Multiple bilateral T2 and FLAIR hyperintense white matter foci likely represent chronic white matter microvascular disease. Generalized parenchymal volume loss with commensurate enlargement of CSF spaces and ventricles are advanced for age. In particular there is atrophy of the brainstem and vermis. There is no hydrocephalus or midline shift. There are no extra-axial fluid collections. The craniocervical junction is preserved. The major intracranial flow-voids appear patent. Mucosal thickening in the bilateral maxillary sinuses. Bilateral mastoid air cell effusions. Intraorbital contents are unremarkable. 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 MRA head: There is narrowing of the left internal carotid artery at the petrous canal and the clinoid portions. Possible 1 mm aneurysm emanating from the medial aspect of the distal right petrous internal carotid artery. Multifocal ujxf-ra-hfbcxdpl stenosis of the right A2 and A3 segments of the anterior cerebral artery. There is mild stenosis of the A1 segment of the left anterior cerebral artery. Multifocal mild stenosis of the left M1 middle cerebral artery. Moderate stenosis of the right M1 middle cerebral artery. The right vertebral artery is patent. There is stenosis of the proximal V4 segment of the left vertebral artery. Moderate stenosis of the P2 segment of the right posterior cerebral artery with mild stenosis of the junction of the P2 and P2 three segment right posterior cerebral artery. MRA Neck 50% stenosis of the left proximal internal carotid artery by NASCET criteria. 20% stenosis of the proximal right internal carotid artery by NASCET criteria. There is antegrade flow in the vertebral arteries in the neck. 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 Chronic ischemic and involutional changes as described above. MRA head: Multifocal intracranial arterial stenosis as described above, worst in the right M1 middle cerebral artery, V4 left vertebral artery and P2 right posterior cerebral artery where it is moderate. Possible 1 mm aneurysm emanating from the medial aspect of the distal right petrous internal carotid artery. This could be further evaluated with CTA head a nonemergent basis. MRA Neck 50% stenosis of the left and 20% stenosis of the right proximal internal carotid arteries by NASCET criteria. There is antegrade flow in the vertebral arteries in the neck. NOTIFICATION: The significant results of this study were discussed with and acknowledged by In house neurology resident, by telephone on 04/26/2018 11:10 PM. Signed: Katty Jarquin MD Report Verified Date/Time: 04/26/2018 23:11:40 Reading Location: [address] Transitional Reading Room Performing Organization Address City/State/Zipcode Phone Number [employer] * MRA head without IV contrast (04/26/2018 10:20 PM TERMINOLOGIST) Narrative Performed At FINAL REPORT [employer] CLINICAL HISTORY: Stroke Ischemic Stroke Evaluation TECHNIQUE: MRI of the brain utilizing axial T2, FLAIR, GRE, DWI; sagittal and coronal T1-weighted images. MRA of the head utilizing 3-D sqcs-md-yhacbx technique, with 3-D reconstructions. MRA of the neck utilizing 2-D and 3-D zvfq-je-euolnj technique, with 3-D reconstructions. COMPARISON: Same day CT head. 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 Small bilateral basal ganglia thalamic and ibrahim radiata infarctions. Multiple bilateral T2 and FLAIR hyperintense white matter foci likely represent chronic white matter microvascular disease. Generalized parenchymal volume loss with commensurate enlargement of CSF spaces and ventricles are advanced for age. In particular there is atrophy of the brainstem and vermis.There is no hydrocephalus or midline shift. There are no extra-axial fluid collections. The craniocervical junction is preserved. The major intracranial flow-voids appear patent. Mucosal thickening in the bilateral maxillary sinuses. Bilateral mastoid air cell effusions.Intraorbital contents are unremarkable. 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 MRA head: There is narrowing of the left internal carotid artery at the petrous canal and the clinoid portions. Possible 1 mm aneurysm emanating from the medial aspect of the distal right petrous internal carotid artery. Multifocal yunw-xr-itjzpxkv stenosis of the right A2 and A3 segments of the anterior cerebral artery. There is mild stenosis of the A1 segment of the left anterior cerebral artery. Multifocal mild stenosis of the left M1 middle cerebral artery. Moderate stenosis of the right M1 middle cerebral artery. The right vertebral artery is patent. There is stenosis of the proximal V4 segment of the left vertebral artery. Moderate stenosis of the P2 segment of the right posterior cerebral artery with mild stenosis of the junction of the P2 and P2 three segment right posterior cerebral artery. MRA Neck 50% stenosis of the left proximal internal carotid artery by NASCET criteria. 20% stenosis of the proximal right internal carotid artery by NASCET criteria. There is antegrade flow in the vertebral arteries in the neck. 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 Chronic ischemic and involutional changes as described above. MRA head: Multifocal intracranial arterial stenosis as described above, worst in the right M1 middle cerebral artery, V4 left vertebral artery and P2 right posterior cerebral artery where it is moderate. Possible 1 mm aneurysm emanating from the medial aspect of the distal right petrous internal carotid artery. This could be further evaluated with CTA head a nonemergent basis. MRA Neck 50% stenosis of the left and 20% stenosis of the right proximal internal carotid arteries by NASCET criteria. There is antegrade flow in the vertebral arteries in the neck. NOTIFICATION: The significant results of this study were discussed with and acknowledged by In house neurology resident, by telephone on 04/26/2018 11:10 PM. Signed: Katty Jarquin MD Report Verified Date/Time:04/26/2018 23:11:40 Reading Location: [address] Reading Room Procedure Note Interface, External Ris In - 04/26/2018 11:13 PM TERMINOLOGIST FINAL REPORT CLINICAL HISTORY: Stroke Ischemic Stroke Evaluation TECHNIQUE: MRI of the brain utilizing axial T2, FLAIR, GRE, DWI; sagittal and coronal T1-weighted images. MRA of the head utilizing 3-D tmyj-zb-iwxjel technique, with 3-D reconstructions. MRA of the neck utilizing 2-D and 3-D ufnc-tr-dlfljc technique, with 3-D reconstructions. COMPARISON: Same day CT head. 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 Small bilateral basal ganglia thalamic and ibrahim radiata infarctions. Multiple bilateral T2 and FLAIR hyperintense white matter foci likely represent chronic white matter microvascular disease. Generalized parenchymal volume loss with commensurate enlargement of CSF spaces and ventricles are advanced for age. In particular there is atrophy of the brainstem and vermis. There is no hydrocephalus or midline shift. There are no extra-axial fluid collections. The craniocervical junction is preserved. The major intracranial flow-voids appear patent. Mucosal thickening in the bilateral maxillary sinuses. Bilateral mastoid air cell effusions. Intraorbital contents are unremarkable. 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 MRA head: There is narrowing of the left internal carotid artery at the petrous canal and the clinoid portions. Possible 1 mm aneurysm emanating from the medial aspect of the distal right petrous internal carotid artery. Multifocal psxl-nl-hgwxnfzp stenosis of the right A2 and A3 segments of the anterior cerebral artery. There is mild stenosis of the A1 segment of the left anterior cerebral artery. Multifocal mild stenosis of the left M1 middle cerebral artery. Moderate stenosis of the right M1 middle cerebral artery. The right vertebral artery is patent. There is stenosis of the proximal V4 segment of the left vertebral artery. Moderate stenosis of the P2 segment of the right posterior cerebral artery with mild stenosis of the junction of the P2 and P2 three segment right posterior cerebral artery. MRA Neck 50% stenosis of the left proximal internal carotid artery by NASCET criteria. 20% stenosis of the proximal right internal carotid artery by NASCET criteria. There is antegrade flow in the vertebral arteries in the neck. 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 Chronic ischemic and involutional changes as described above. MRA head: Multifocal intracranial arterial stenosis as described above, worst in the right M1 middle cerebral artery, V4 left vertebral artery and P2 right posterior cerebral artery where it is moderate. Possible 1 mm aneurysm emanating from the medial aspect of the distal right petrous internal carotid artery. This could be further evaluated with CTA head a nonemergent basis. MRA Neck 50% stenosis of the left and 20% stenosis of the right proximal internal carotid arteries by NASCET criteria. There is antegrade flow in the vertebral arteries in the neck. NOTIFICATION: The significant results of this study were discussed with and acknowledged by In house neurology resident, by telephone on 04/26/2018 11:10 PM. Signed: Katty Jarquin MD Report Verified Date/Time: 04/26/2018 23:11:40 Reading Location: [facility] [id number] Transitional Reading Room Performing Organization Address City/[facility] Phone Number [facility] * Urinalysis with Microscopic If Indicated (04/26/2018 7:24 PM TERMINOLOGIST) Color, UA Light Yellow [facility] Clarity, UA Clear [facility] Specific [place], UA 1.010 1.001 - 1.035 [facility] pH, UA 5.0 5.0 - 8.0 [facility] Protein, UA Negative Negative [facility] Glucose, UA Negative Negative [facility] Ketones, UA Negative Negative [facility] Bilirubin, UA Negative Negative [facility] Blood, UA Negative Negative [facility] Nitrite, UA Negative Negative [facility] Leukocytes, UA Negative Negative [facility] Urobilinogen, UA 0.2 0.2 - 1.0 mg/dL [facility] Specimen Source [facility] Specimen Urine Performing Organization Address City/[facility]/Zipcode Phone Number [facility] [phone] [place] [address] [facility] * Blood culture (04/26/2018 7:24 PM TERMINOLOGIST) Result No growth in 5 days [facility] Specimen Blood - Arm, Right Performing Organization Address City/State/Zipcode Phone Number [facility] [phone] [place] [address] [facility] * CBC with platelet count + automated diff (04/26/2018 7:23 PM TERMINOLOGIST) Only the most recent of 4 results within the time period is included. WBC 13.9 (H) 3.5 - 10.5 K/L [facility] RBC 4.05 (L) 4.63 - 6.08 M/L [facility] Hemoglobin 12.2 (L) 13.7 - 17.5 GM/DL [facility] Hematocrit 36.6 (L) 40.1 - 51.0 % [facility] MCV 90.4 79.0 - 92.2 fL [facility] MCH 30.1 25.7 - 32.2 pg [facility] MCHC 33.3 32.3 - 36.5 GM/DL [facility] RDW 13.7 11.6 - 14.4 % [facility] Platelets 217 150 - 450 K/CU MM [facility] MPV 10.7 9.4 - 12.4 fL [facility] nRBC 0 0 - 0 /100 WBC [facility] % Neutros 74 % [facility] % Lymphs 19 % [facility] % Monos 6 % [facility] % Eos 1 % [facility] % Baso 0 % [facility] # Neutros 10.27 (H) 1.78 - 5.38 K/L [facility] # Lymphs 2.60 1.32 - 3.57 K/L [facility] # Monos 0.88 (H) 0.30 - 0.82 K/L [facility] # Eos 0.08 0.04 - 0.54 K/L [facility] # Baso 0.03 0.01 - 0.08 K/L [facility] Immature 0 0 - 1 % [facility] Granulocytes-Relative [facility] Specimen Blood Performing Organization Address City/[facility] Phone Number [address] [address] [facility] * Lactic acid, venous, whole blood (04/26/2018 7:23 PM TERMINOLOGIST) Lactate, Venous 1.8Comment: Specimen slightly 0.5 - 2.2 mmol/L [facility] hemolyzed [facility] Specimen Blood Performing Organization Address City/[facility] [place] [address] [phone] [place] [address] * aPTT (04/26/2018 7:23 PM TERMINOLOGIST) PTT 31.0 22.5 - 36.0 seconds [facility] Specimen Blood Performing Organization Address City/[facility] [place] [address] [phone] [place] [address] * Prothrombin time/INR (04/26/2018 7:23 PM TERMINOLOGIST) Only the most recent of 3 results within the time period is included. Protime 13.5 11.7 - 14.7 seconds [facility] INR 1.0 <=5.9 [facility] Specimen Blood Narrative Performed At RECOMMENDED COUMADIN/WARFARIN INR THERAPY RANGES [facility] STANDARD DOSE: 2.0 - 3.0 Includes: PROPHYLAXIS for venous thrombosis, [facility] systemic embolization; TREATMENT for venous thrombosis and/or pulmonary embolus. HIGH RISK: Target INR is 2.5-3.5 for patients with mechanical heart valves. Performing Organization Address City/[facility] Phone Number [address] [address] [facility] * Phosphorus (04/26/2018 7:23 PM TERMINOLOGIST) Only the most recent of 3 results within the time period is included. Phosphorus 3.5Comment: Specimen markedly 2.3 - 4.7 mg/dL [facility] Specimen Blood Performing Organization Address City/[facility] Phone Number [address] [address] [facility] * Magnesium (04/26/2018 7:23 PM TERMINOLOGIST) Only the most recent of 4 results within the time period is included. Magnesium 3.1 (H)Comment: Specimen 1.6 - 2.6 mg/dL [facility] Specimen Blood Performing Organization Address [facility] [place] [address] [phone] [place] [address] * Comprehensive metabolic panel (04/26/2018 7:23 PM TERMINOLOGIST) Protein, Total 8.5 (H)Comment: Specimen 6.0 - 8.3 gm/dL [facility] markedly [facility] Albumin 4.2Comment: Specimen markedly 3.5 - 5.0 g/dL [facility] Alkaline Phosphatase 72 40 - 150 U/L [facility] Total Bilirubin 0.4Comment: Specimen markedly 0.2 - 1.2 mg/dL [facility] Sodium 139 136 - 145 meq/L [facility] Potassium 5.1Comment: Specimen markedly 3.5 - 5.1 meq/L [facility] Chloride 102 98 - 107 meq/L [facility] CO2 25 22 - 29 meq/L [facility] BUN 27 (H) 7 - 21 mg/dL [facility] Creatinine 1.34 (H)Comment: Specimen 0.57 - 1.25 mg/dL [facility] markedly hemolyzed [facility] Glucose 110 (H) 70 - 105 mg/dL [facility] Calcium 9.5 8.4 - 10.2 mg/dL [facility] AST 35 (H)Comment: Specimen 5 - 34 U/L [facility] markedly hemolyzed [facility] ALT 10Comment: Specimen markedly 6 - 55 U/L [facility] hemolyzed [facility] EGFR 54Comment: ESTIMATED GFR IS mL/min/1.[address] [facility] NOT ACCURATE CREATININE [facility] CLEARANCE IN PREDICTING GLOMERULAR FILTRATION RATE. ESTIMATED GFR IS NOT APPLICABLE FOR DIALYSIS PATIENTS. Specimen Blood Performing Organization Address City/State/Zipcode Phone Number [facility] [address] [place] [address] [facility] * CT brain without IV contrast (04/26/2018 5:16 PM TERMINOLOGIST) Narrative Performed At FINAL REPORT [employer] [facility] CT head without contrast 04/26/2018 5:12 PM CLINICAL HISTORY: acute monocular diplopia TECHNIQUE: Axial noncontrast CT images through the head were obtained. This examination was performed according to our departmental dose optimization program, which includes automated exposure control, adjustment of the mA and/or kV according to patient size, and/or use of iterated reconstruction technique. COMPARISON: None available FINDINGS: There is no hemorrhage, extra-axial collection, mass, hydrocephalus, or midline shift. 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 There is atherosclerotic calcification of the intracranial arterial vasculature. There is generalized parenchymal volume loss. There is debris in the bilateral mastoid air cells and right middle ear cavity, with a remote left mastoidectomy. 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 The paranasal sinuses are otherwise well aerated. The skull is otherwise intact. IMPRESSION: No intracranial hemorrhage or mass effect. Ischemic changes, which can be further characterized with MRI if clinically indicated. Tympanomastoid cavities disease. Signed: Manuel Cruz MD Report Verified Date/Time:04/26/2018 18:36:43 Reading Location: [facility] Radiology Reading Room Procedure Note Interface, External Ris In - 04/26/2018 6:49 PM TERMINOLOGIST FINAL REPORT CT head without contrast 04/26/2018 5:12 PM CLINICAL HISTORY: acute monocular diplopia TECHNIQUE: Axial noncontrast CT images through the head were obtained. This examination was performed according to our departmental dose optimization program, which includes automated exposure control, adjustment of the mA and/or kV according to patient size, and/or use of iterated reconstruction technique. COMPARISON: None available FINDINGS: There is no hemorrhage, extra-axial collection, mass, hydrocephalus, or midline shift. 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 There is atherosclerotic calcification of the intracranial arterial vasculature. There is generalized parenchymal volume loss. There is debris in the bilateral mastoid air cells and right middle ear cavity, with a remote left mastoidectomy. 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 The paranasal sinuses are otherwise well aerated. The skull is otherwise intact. IMPRESSION: No intracranial hemorrhage or mass effect. Ischemic changes, which can be further characterized with MRI if clinically indicated. Tympanomastoid cavities disease. Signed: Manuel Curz MD Report Verified Date/Time: 04/26/2018 18:36:43 Reading Location: [facility] Radiology Reading Room Performing Organization Address City/[facility]/Zipcode Phone Number [facility] * Calcium, Ionized (04/26/2018 4:02 AM TERMINOLOGIST) Calcium, Ion 1.13 1.12 - 1.27 mmol/L [facility] pH, Blood 7.39 [facility] Specimen Blood - Arm, Right Performing Organization Address [facility]/Zipcode Phone Number [facility] [address] [place] [address] [phone] * Protein, random urine (04/25/2018 4:09 PM TERMINOLOGIST) Only the most recent of 2 results within the time period is included. Protein, Urine 20 (H) 0 - 14 mg/dL [facility] Specimen Urine Performing Organization Address City/[facility] Phone Number [address] * Creatinine, random urine (04/25/2018 4:09 PM TERMINOLOGIST) Creatinine, Ur 73.5 mg/dL [facility] Specimen Urine Narrative Performed At Reference Range: No Normals [facility] Performing Organization Address [facility] Phone Number [address] * Urinalysis w/Microscopic (04/25/2018 4:09 PM TERMINOLOGIST) Color, UA Yellow [facility] Clarity, UA Clear [facility] Specific [place], UA 1.037 (H) 1.001 - 1.035 [facility] pH, UA 5.0 5.0 - 8.0 [facility] Protein, UA 20 mg/dL (A) Negative [facility] Glucose, UA 500 mg/dL (A) Negative [facility] Ketones, UA Negative Negative [facility] Bilirubin, UA Negative Negative [facility] Blood, UA Trace (A) Negative [facility] Nitrite, UA Negative Negative [facility] Leukocytes, UA Negative Negative [facility] Urobilinogen, UA 0.2 0.2 - 1.0 mg/dL [facility] RBC, UA 1 /HPF [facility] WBC, UA <1 /HPF [facility] Squam Epithel, UA <1 /HPF [facility] Specimen Source [facility] Specimen Urine Performing Organization Address City/[facility]/Zipcode Phone Number [address] * Electrolytes (04/25/2018 4:09 PM TERMINOLOGIST) Sodium 136 136 - 145 meq/L [facility] Potassium 4.1 3.5 - 5.1 meq/L [facility] Chloride 103 98 - 107 meq/L [facility] CO2 23 22 - 29 meq/L [facility] Specimen Blood Narrative Performed At Call [phone] with results [facility] Performing Organization Address City/[facility] Phone Number [address] * POC ACTIVATED CLOTTING TIME (04/25/2018 9:05 AM TERMINOLOGIST) Only the most recent of 2 results within the time period is included. Activated Clotting Time 362Comment: TESTED AT [facility] sec [address] Specimen Blood Performing Organization Address City/[facility] Phone Number [address] * Lipid panel (04/25/2018 4:40 AM TERMINOLOGIST) Triglycerides 90 mg/dL [facility] Cholesterol 159 mg/dL [facility] HDL 35 mg/dL [facility] LDL Calculated 106 mg/dL [facility] Specimen Blood - Arm, Right Narrative Performed At Triglyceride Reference Range: [facility] Low Risk <150 [facility] [id number] High Risk 200-499 Very High Risk>=500 Cholesterol Reference Range: Low Risk <200 Bqvotpcdeg113-150 High Risk>240 HDL Cholesterol Reference Range: Low Risk >=60 High Risk <40 LDL Cholesterol Reference Range: Optimal<100 Near [id number] [id number] Eucd316-393 Very High >=190 Performing Organization Address City/State/Zipcode Phone Number [facility] [address] [place] [address] [facility] * ECG 12 lead (04/25/2018 4:33 AM TERMINOLOGIST) Only the most recent of 3 results within the time period is included. Narrative Performed At Ventricular Rate 97 BPM GE MUSE Atrial Rate 97 BPM P-R Interval 188 ms QRS Duration 164 ms Q-T Interval 406 ms QTC Calculation(Bazett) 515 ms P Eolia 61 degrees R Eolia 151 degrees T Eolia 22 degrees Normal sinus rhythm Right bundle branch block Abnormal ECG When compared with ECG of 09-MAR-2018 14:30, Premature atrial complexes are no longer Present Confirmed by MD ESTEVEZ JORGE ([id number]) on 04/25/2018 1:58:33 PM Procedure Note Interface, External Ris In - 04/25/2018 1:58 PM TERMINOLOGIST Ventricular Rate 97 BPM Atrial Rate 97 BPM P-R Interval 188 ms QRS Duration 164 ms Q-T Interval 406 ms QTC Calculation(Bazett) 515 ms P Eolia 61 degrees R Eolia 151 degrees T Eolia 22 degrees Normal sinus rhythm Right bundle branch block Abnormal ECG When compared with ECG of 09-MAR-2018 14:30, Premature atrial complexes are no longer Present Confirmed by MD ESTEVEZ JORGE ([id number]) on 04/25/2018 1:58:33 PM Performing Organization Address City/[facility] Phone Number [employer] * CARDIAC CATH REPORT - SCAN (03/13/2018 11:20 AM CDT) Narrative Performed At * TRANSFUSION SERVICE REPORT - SCAN (03/09/2018 6:09 PM CDT) Narrative Performed At * NM myocardial perfusion PET (rest and stress) (03/09/2018 2:56 PM CDT) Narrative Performed At FINAL REPORT [employer] PROCEDURE:Rest/Stress MYOCARDIAL PERFUSION PET with regadenoson\\XA9\\ CPT CODE: 88603 INDICATION: CAD HISTORY:Cardiac risk factors: Diabetes, hypertension, hyperlipidemia, cerebrovascular disease. Other cardiovascular history: Abnormal EKG, PCI 04/2016, CABG 2007. PROTOCOL: Limited low-dose CT imaging was performed for attenuation correction. 40.2 mCi of Rb-82 chloride was injected iv at rest, and PET (positron emission tomography) images were obtained. Subsequently, 40.1 mCi of Rb-82 chloride was injected iv at expected peak pharmacologic effect, and PET images were obtained. Functional images were not adequate due to poor tracer uptake. PRELIMINARY STRESS TEST DATA FROM NONINVASIVE CARDIOLOGY: Pharmacologic stress was by 10-second iv infusion of 0.4 mg of regadenoson. Radiotracer was injected 30 seconds after start of stress. Heart rate was 78 beats/min at rest and 82 beats/min (52% of MPHR) at tracer injection. BP was 130/60 mmHg at rest and 139/52 mmHg at tracer injection. Stress was stopped for predetermined endpoint. The patient experienced palpitations; treatment was not required. Preliminary ECG evaluation was not available from cardiology at the time of this report. (Final ECG interpretation and other stress and monitoring data are reported separately by Cardiology.) IMAGING FINDINGS:Study quality is fair with stress and poor at rest due to delayed tracer uptake into the myocardium. Images obtained after stress injection show moderate to marked decrease in activity in the inferolateral and inferior LV. Resting images show normal distribution. LV volume appears normal. RV volume appears normal. IMPRESSION: 1. Abnormal study.2. Appropriate pharmacologic stress.3. Abnormal myocardial perfusion.There is a moderate to marked severity, large size, reversible, perfusion defect in the inferior and inferolateral LV.4.Extracardiac tracer distribution is normal.6. No prior study. Signed: Nuzhat Del Castillo MD Report Verified Date/Time:03/09/2018 16:42:51 Reading Location: [address] Reading Room Procedure Note Interface, External Ris In - 03/09/2018 4:45 PM CDT FINAL REPORT PROCEDURE: Rest/Stress MYOCARDIAL PERFUSION PET with regadenoson\\XA9\\ CPT CODE: 44871 INDICATION: CAD HISTORY: Cardiac risk factors: Diabetes, hypertension, hyperlipidemia, cerebrovascular disease. Other cardiovascular history: Abnormal EKG, PCI 04/2016, CABG 2007. PROTOCOL: Limited low-dose CT imaging was performed for attenuation correction. 40.2 mCi of Rb-82 chloride was injected iv at rest, and PET (positron emission tomography) images were obtained. Subsequently, 40.1 mCi of Rb-82 chloride was injected iv at expected peak pharmacologic effect, and PET images were obtained. Functional images were not adequate due to poor tracer uptake. PRELIMINARY STRESS TEST DATA FROM NONINVASIVE CARDIOLOGY: Pharmacologic stress was by 10-second iv infusion of 0.4 mg of regadenoson. Radiotracer was injected 30 seconds after start of stress. Heart rate was 78 beats/min at rest and 82 beats/min (52% of MPHR) at tracer injection. BP was 130/60 mmHg at rest and 139/52 mmHg at tracer injection. Stress was stopped for predetermined endpoint. The patient experienced palpitations; treatment was not required. Preliminary ECG evaluation was not available from cardiology at the time of this report. (Final ECG interpretation and other stress and monitoring data are reported separately by Cardiology.) IMAGING FINDINGS: Study quality is fair with stress and poor at rest due to delayed tracer uptake into the myocardium. Images obtained after stress injection show moderate to marked decrease in activity in the inferolateral and inferior LV. Resting images show normal distribution. LV volume appears normal. RV volume appears normal. IMPRESSION: 1. Abnormal study. 2. Appropriate pharmacologic stress. 3. Abnormal myocardial perfusion. There is a moderate to marked severity, large size, reversible, perfusion defect in the inferior and inferolateral LV. 4. Extracardiac tracer distribution is normal. 6. No prior study. Signed: Nuzhat Del Castillo MD Report Verified Date/Time: 03/09/2018 16:42:51 Reading Location: [address] Reading Room Performing Organization Address City/State/Zipcode Phone Number [facility] * Treadmill tolerance(Non-Nuclear Treadmill) (03/09/2018 2:43 PM CDT) Narrative Performed At Protocol Name Regadenoson [facility] Time In Exercise Phase 00:01:00 Max. Systolic BP 139 mmHg Max Diastolic BP 52 mmHg Max Heart Rate 82 BPM Max Predicted Heart Rate 157 BPM Reason For Termination Predetermined end point Reason for Test Chest Pain,Known CAD Target HR Formula (220 - Age)*100% Arrhythmias ventricular premature beats Resting ECG Normal sinus rhythm right bundle branch block Premature Ventricular contraction ST Changes No Significant Changes Overall Impression Indeterminate due to pharmacological stress Chest Pain none HR Response To Exercise BP Response To Exercise ECASA CLONIDINE plavix metoprolol LIPITOR Confirmed by fellow Bev Arnold ([id number]) on 03/12/2018 8:24:14 AM Confirmed by MD ESTEVEZ JORGE ([id number]) on 03/29/2018 3:47:55 PM Procedure Note Interface, External Ris In - 03/29/2018 3:48 PM TERMINOLOGIST Protocol Name [place] Time In Exercise Phase 00:01:00 Max. Systolic BP 139 mmHg Max Diastolic BP 52 mmHg Max Heart Rate 82 BPM Max Predicted Heart Rate 157 BPM Reason For Termination Predetermined end point Reason for Test Chest Pain,Known CAD Target HR Formula (220 - Age)*100% Arrhythmias ventricular premature beats Resting ECG Normal sinus rhythm right bundle branch block Premature Ventricular contraction ST Changes No Significant Changes Overall Impression Indeterminate due to pharmacological stress Chest Pain none HR Response To Exercise BP Response To Exercise ECASA CLONIDINE plavix metoprolol LIPITOR Confirmed by fellow Bev Arnold ([id number]) on 03/12/2018 8:24:14 AM Confirmed by MD ESTEVEZ JORGE ([id number]) on 03/29/2018 3:47:55 PM Performing Organization Address City/State/[facility] Phone Number [facility] * CBC (Hemogram only) (03/09/2018 4:26 AM CDT) Only the most recent of 2 results within the time period is included. WBC 10.7 (H) 3.5 - 10.5 K/L [facility] RBC 3.56 (L) 4.63 - 6.08 M/L [facility] Hemoglobin 10.7 (L) 13.7 - 17.5 GM/DL [facility] Hematocrit 31.7 (L) 40.1 - 51.0 % [facility] MCV 89.0 79.0 - 92.2 fL [facility] MCH 30.1 25.7 - 32.2 pg [facility] MCHC 33.8 32.3 - 36.5 GM/DL [facility] RDW 13.6 11.6 - 14.4 % [facility] Platelets 196 150 - 450 K/CU MM [facility] MPV 10.3 9.4 - 12.4 fL [facility] nRBC 0 0 - 0 /100 WBC [facility] Specimen Blood Performing Organization Address City/State/Zipcode Phone Number [facility] [address] [place] [address] [facility] * Type and screen, automated (03/08/2018 9:16 AM CDT) ABO/RH AUTOMATED (BEAKER) O POSITIVE [facility] Ab Scrn NEGATIVE [facility] Specimen Blood Performing Organization Address City/[facility] [place] [address] [phone] [place] [address] * CTA chest (03/07/2018 12:00 PM CDT) Narrative Performed At Addendum Begins [employer] [facility] REPORT STATUS:A Addendum: I agree with the previously described non vascular findings by Dr. Wilcox. Signed: Leo Mccloud MD Report Verified Date/Time:03/07/2018 16:03:23 Reading Location: [place] [address] Angio Body Reading Room Addendum Ends FINAL REPORT CT angiography of the thoracoabdominal aorta and pelvic arteries, 07 March 2018 INDICATION: This is a 62 year old male with PAD and coronary artery disease presents for assessment. The request is for thoracoabdominal aortic study. This study is performed in an attempt to avoid an invasive procedure. TECHNIQUE: Spiral acquisition before and during intravenous contrast administration using a [employer] multidetector CT scanner. Images were obtained before and during the dynamic passage of intravenous contrast material.Multi-planar 3-D volume-rendering reconstruction was performed using an independent workstation interactively by the interpreting physician as well as the 3-D specialist for optimal visualization of the thoracoabdominal aorta, the pelvic arteries as well as its proximal branches. Please refer to the contrast sheet scanned in the EPIC system for the amount and route of contrast given. This exam was performed according to our departmental dose-optimisation programme, which includes automated exposure control, adjustment of the mA and/or kV according to patient size and/or use of iterative reconstruction technique. Dose modulation, iterative reconstruction, and/or weight based adjustment of the mA/kV was utilized to reduce the radiation dose to as low as reasonably achievable. Two doses of contrast is being given as the initial dose has substantial imaging noise. Heart rate was 85 bpm systolic data set was obtained to minimize motion artefact. FINDINGS: VASCULAR: The central pulmonary artery is is at the upper limits of normal in calibre. The cardiac chambers demonstrate normal atrioventricular and ventriculoarterial concordance, and systemic and pulmonary venous return. In the systolic data set, the left ventricle is normal in size. There is likely mild left atrial prominence identified. Coronary artery origins are normal and diffuse coronary artery calcification is identified. The pericardium appears unremarkable. Patient is post coronary artery bypass surgery. In the second dynamic data set, a left internal mammary artery is identified, to the LAD territory. Minimum distance between the internal mammary graft to the sternum, at image 211 is approximately 16 mm. There are two other bypass grafts seen to the LAD and LCx territory. However, one of the graft is seen to be occluded at its ostium. There is another bypass graft presumably to the diagonal territory, and the minimum distance between the graft to the sternum at image 227 is approximately 2.3 cm. That could be a bypass graft to the right coronary territory, however, this could be occluded. The thoracoabdominal aorta is normal in course and calibre. Of note, there is minimal ectasia is seen in the aortic root. The ascending thoracic aorta is essentially free of calcification. Mild and scattered calcification is seen at the proximal descending thoracic aorta with associated noncalcific atherosclerosis. The abdominal aorta has moderate calcific atherosclerosis identified. No ectasia or aneurysmal dilation is seen. No acute pathology is identified including dissection or contained rupture. Arch vessel branching pattern is normal and the visualised arch vessels are seen to be widely patent proximally. Calcification that is nonobstructive is seen in the takeoff of the left subclavian artery. The coeliac axis, SMA, DYLAN are patent with nonobstructive calcification identified. Single left and right renal arteries are seen with nonobstructive calcific atherosclerosis identified. Mild to moderate calcific atherosclerosis seen at the ostium of the common iliac arteries, though they are nonobstructive. Remainder of the common iliac and external iliac arteries are also seen to be patent. The left SFA is unremarkable for nonobstructive calcific atherosclerosis increased calcific atherosclerosis is identified in the most distal right common femoral artery. Despite patient received 2 injections, enhancement of the SFA origin is suboptimal. The origin of the right SFA is likely unremarkable. However, some dilation is identified at visualised proximal right SFA, at image 627, and surgical clips are identified at this level. It is uncertain if there is localised dilation identified, versus the appearance is sequelae of prior right femoral bypass surgery as there appears to be a vascular structure that may be consistent with a bypass graft. Please correlate with patient's operative report. Quantitative dimensions of the aorta are as follows: 4.1 x 3.9 cm at the sinuses of Valsalva (the sino-tubular junction is preserved); 3.3 x 3.4 cm at the proximal ascending thoracic aorta; 3.9 x 3.8cm at the mid ascending aorta; 3.5cm at the distal ascending aorta; 2.9 cm at the mid transverse arch; 2.7 cm at the proximal descending aorta; 2.6 cm at the mid descending aorta; 2.4 cm at the diaphragmatic hiatus. In the abdomen,the aorta measures2.1 cm at the mesenteric segment; 1.9cm at the renal segment,; and 1.9 cm at the aortic bifurcation. NON-VASCULAR: The visualised thyroid gland appears unremarkable. The chest wall and mediastinum is remarkable for prior median sternotomy. The RV free wall is at most 3 to 4 mm behind the sternum at image 276. No significant adenopathy is identified except for some small lymph nodes, considered nonspecific in nature. In the lung windows, no obvious endobronchial lesion is seen and no pleural effusions identified. Some dependent changes are seen in the lung bases. Some subsegmental atelectatic changes are seen. Some apical scarring is noted. Overall, no suspicious pulmonary nodule is identified. In the abdomen, the liver and spleen appears unremarkable. The liver edge is smooth. No abnormal enhancing structure is identified. The adrenal glands are not enlarged. The gallbladder is not present. Assessment of the pancreas is limited and the pancreas could be atrophic. No acute renal pathology is seen and no hydronephrosis or perirenal fluid collections identified. Bowel is incompletely assessed by CT angiography as enteric contrast is not given. No obvious bowel dilation is identified. The appendix appears unremarkable. No free air or free fluid seen in the abdomen and pelvis. The prostate gland is prominent. High density material is seen that may represent radiation seeds. Correlate with procedure history. The bladder has contrast present, as expected. In the bony windows, no acute bony pathology is identified. Some degenerative changes are noted. CONCLUSIONS: 1.The aortic root and ascending thoracic aorta is free of calcification. There is calcification seen in the transverse arch and descending thoracic aorta and the abdominal aorta, however, no acute aortic pathology is identified. No acute aortic pathology is identified. Quantitative dimensions of the thoracoabdominal aorta as described above. There is mild ectasia is seen in the aortic root and mid ascending thoracic aorta with maximum diameter measures 4.1 and 3.9 cm, respectively. Thereafter, the transverse arch and descending thoracic aorta and the abdominal aorta is normal in calibre. The pelvic arteries are patent though with calcific atherosclerosis identified. Despite 2 injections, the origin of the SFA, in particular the right, is not well appreciated and some dilation is identified, at image 632. However, it is uncertain if this would represent localized dilation versus surgical sequelae due to prior femoral bypass as well as there appears to be a vascular structure identified medial to the expected [place] right SFA. Enhancement is suboptimal at this level. Please kindly correlate clinically. 2.Coronary atherosclerosis. Patient is post coronary artery bypass surgery. 3.The central pulmonary artery is at the upper limits of normal in calibre. No evidence of central pulmonary artery embolism is seen. 4.Other findings as described above. 5.An addendum will be dictated by the Procurement Cost Coordinator Radiologist regarding the nonvascular findings. Signed: Jose Wilcox MD Report Verified Date/Time:03/07/2018 13:30:05 Reading Location: [place] [address] Cardiology MRI Procedure Note Interface, External Ris In - 03/07/2018 4:05 PM CDT Addendum Begins REPORT STATUS:A Addendum: I agree with the previously described non vascular findings by Dr. Wilcox. Signed: Leo Mccloud MD Report Verified Date/Time: 03/07/2018 16:03:23 Reading Location: [place] [id number] Angio Body Reading Room Addendum Ends FINAL REPORT CT angiography of the thoracoabdominal aorta and pelvic arteries, 07 March 2018 INDICATION: This is a 62 year old male with PAD and coronary artery disease presents for assessment. The request is for thoracoabdominal aortic study. This study is performed in an attempt to avoid an invasive procedure. TECHNIQUE: Spiral acquisition before and during intravenous contrast administration using a [employer] multidetector CT scanner. Images were obtained before and during the dynamic passage of intravenous contrast material. Multi-planar 3-D volume-rendering reconstruction was performed using an independent workstation interactively by the interpreting physician as well as the 3-D specialist for optimal visualization of the thoracoabdominal aorta, the pelvic arteries as well as its proximal branches. Please refer to the contrast sheet scanned in the EPIC system for the amount and route of contrast given. This exam was performed according to our departmental dose-optimisation programme, which includes automated exposure control, adjustment of the mA and/or kV according to patient size and/or use of iterative reconstruction technique. Dose modulation, iterative reconstruction, and/or weight based adjustment of the mA/kV was utilized to reduce the radiation dose to as low as reasonably achievable. Two doses of contrast is being given as the initial dose has substantial imaging noise. Heart rate was 85 bpm systolic data set was obtained to minimize motion artefact. FINDINGS: VASCULAR: The central pulmonary artery is is at the upper limits of normal in calibre. The cardiac chambers demonstrate normal atrioventricular and ventriculoarterial concordance, and systemic and pulmonary venous return. In the systolic data set, the left ventricle is normal in size. There is likely mild left atrial prominence identified. Coronary artery origins are normal and diffuse coronary artery calcification is identified. The pericardium appears unremarkable. Patient is post coronary artery bypass surgery. In the second dynamic data set, a left internal mammary artery is identified, to the LAD territory. Minimum distance between the internal mammary graft to the sternum, at image 211 is approximately 16 mm. There are two other bypass grafts seen to the LAD and LCx territory. However, one of the graft is seen to be occluded at its ostium. There is another bypass graft presumably to the diagonal territory, and the minimum distance between the graft to the sternum at image 227 is approximately 2.3 cm. That could be a bypass graft to the right coronary territory, however, this could be occluded. The thoracoabdominal aorta is normal in course and calibre. Of note, there is minimal ectasia is seen in the aortic root. The ascending thoracic aorta is essentially free of calcification. Mild and scattered calcification is seen at the proximal descending thoracic aorta with associated noncalcific atherosclerosis. The abdominal aorta has moderate calcific atherosclerosis identified. No ectasia or aneurysmal dilation is seen. No acute pathology is identified including dissection or contained rupture. Arch vessel branching pattern is normal and the visualised arch vessels are seen to be widely patent proximally. Calcification that is nonobstructive is seen in the takeoff of the left subclavian artery. The coeliac axis, SMA, DYLAN are patent with nonobstructive calcification identified. Single left and right renal arteries are seen with nonobstructive calcific atherosclerosis identified. Mild to moderate calcific atherosclerosis seen at the ostium of the common iliac arteries, though they are nonobstructive. Remainder of the common iliac and external iliac arteries are also seen to be patent. The left SFA is unremarkable for nonobstructive calcific atherosclerosis increased calcific atherosclerosis is identified in the most distal right common femoral artery. Despite patient received 2 injections, enhancement of the SFA origin is suboptimal. The origin of the right SFA is likely unremarkable. However, some dilation is identified at visualised proximal right SFA, at image 627, and surgical clips are identified at this level. It is uncertain if there is localised dilation identified, versus the appearance is sequelae of prior right femoral bypass surgery as there appears to be a vascular structure that may be consistent with a bypass graft. Please correlate with patient's operative report. Quantitative dimensions of the aorta are as follows: 4.1 x 3.9 cm at the sinuses of Valsalva (the sino-tubular junction is preserved); 3.3 x 3.4 cm at the proximal ascending thoracic aorta; 3.9 x 3.8 cm at the mid ascending aorta; 3.5 cm at the distal ascending aorta; 2.9 cm at the mid transverse arch; 2.7 cm at the proximal descending aorta; 2.6 cm at the mid descending aorta; 2.4 cm at the diaphragmatic hiatus. In the abdomen, the aorta measures 2.1 cm at the mesenteric segment; 1.9 cm at the renal segment,; and 1.9 cm at the aortic bifurcation. NON-VASCULAR: The visualised thyroid gland appears unremarkable. The chest wall and mediastinum is remarkable for prior median sternotomy. The RV free wall is at most 3 to 4 mm behind the sternum at image 276. No significant adenopathy is identified except for some small lymph nodes, considered nonspecific in nature. In the lung windows, no obvious endobronchial lesion is seen and no pleural effusions identified. Some dependent changes are seen in the lung bases. Some subsegmental atelectatic changes are seen. Some apical scarring is noted. Overall, no suspicious pulmonary nodule is identified. In the abdomen, the liver and spleen appears unremarkable. The liver edge is smooth. No abnormal enhancing structure is identified. The adrenal glands are not enlarged. The gallbladder is not present. Assessment of the pancreas is limited and the pancreas could be atrophic. No acute renal pathology is seen and no hydronephrosis or perirenal fluid collections identified. Bowel is incompletely assessed by CT angiography as enteric contrast is not given. No obvious bowel dilation is identified. The appendix appears unremarkable. No free air or free fluid seen in the abdomen and pelvis. The prostate gland is prominent. High density material is seen that may represent radiation seeds. Correlate with procedure history. The bladder has contrast present, as expected. In the bony windows, no acute bony pathology is identified. Some degenerative changes are noted. CONCLUSIONS: 1. The aortic root and ascending thoracic aorta is free of calcification. There is calcification seen in the transverse arch and descending thoracic aorta and the abdominal aorta, however, no acute aortic pathology is identified. No acute aortic pathology is identified. Quantitative dimensions of the thoracoabdominal aorta as described above. There is mild ectasia is seen in the aortic root and mid ascending thoracic aorta with maximum diameter measures 4.1 and 3.9 cm, respectively. Thereafter, the transverse arch and descending thoracic aorta and the abdominal aorta is normal in calibre. The pelvic arteries are patent though with calcific atherosclerosis identified. Despite 2 injections, the origin of the SFA, in particular the right, is not well appreciated and some dilation is identified, at image 632. However, it is uncertain if this would represent localized dilation versus surgical sequelae due to prior femoral bypass as well as there appears to be a vascular structure identified medial to the expected [place] right SFA. Enhancement is suboptimal at this level. Please kindly correlate clinically. 2. Coronary atherosclerosis. Patient is post coronary artery bypass surgery. 3. The central pulmonary artery is at the upper limits of normal in calibre. No evidence of central pulmonary artery embolism is seen. 4. Other findings as described above. 5. An addendum will be dictated by the Procurement Cost Coordinator Radiologist regarding the nonvascular findings. Signed: Jose Wilcox MD Report Verified Date/Time: 03/07/2018 13:30:05 Reading Location: [place] [id number] Cardiology MRI Performing Organization Address City/State/Zipcode Phone Number [employer] [facility] * CTA abdomen & pelvis (03/07/2018 12:00 PM CDT) Narrative Performed At Addendum Begins [facility] REPORT STATUS:A Addendum: I agree with the previously described non vascular findings by Dr. Wilcox. Signed: Leo Mccloud MD Report Verified Date/Time:03/07/2018 16:03:23 Reading Location: [place] [id number] Angio Body Reading Room Addendum Ends FINAL REPORT CT angiography of the thoracoabdominal aorta and pelvic arteries, 07 March 2018 INDICATION: This is a 62 year old male with PAD and coronary artery disease presents for assessment. The request is for thoracoabdominal aortic study. This study is performed in an attempt to avoid an invasive procedure. TECHNIQUE: Spiral acquisition before and during intravenous contrast administration using a [employer] multidetector CT scanner. Images were obtained before and during the dynamic passage of intravenous contrast material.Multi-planar 3-D volume-rendering reconstruction was performed using an independent workstation interactively by the interpreting physician as well as the 3-D specialist for optimal visualization of the thoracoabdominal aorta, the pelvic arteries as well as its proximal branches. Please refer to the contrast sheet scanned in the EPIC system for the amount and route of contrast given. This exam was performed according to our departmental dose-optimisation programme, which includes automated exposure control, adjustment of the mA and/or kV according to patient size and/or use of iterative reconstruction technique. Dose modulation, iterative reconstruction, and/or weight based adjustment of the mA/kV was utilized to reduce the radiation dose to as low as reasonably achievable. Two doses of contrast is being given as the initial dose has substantial imaging noise. Heart rate was 85 bpm systolic data set was obtained to minimize motion artefact. FINDINGS: VASCULAR: The central pulmonary artery is is at the upper limits of normal in calibre. The cardiac chambers demonstrate normal atrioventricular and ventriculoarterial concordance, and systemic and pulmonary venous return. In the systolic data set, the left ventricle is normal in size. There is likely mild left atrial prominence identified. Coronary artery origins are normal and diffuse coronary artery calcification is identified. The pericardium appears unremarkable. Patient is post coronary artery bypass surgery. In the second dynamic data set, a left internal mammary artery is identified, to the LAD territory. Minimum distance between the internal mammary graft to the sternum, at image 211 is approximately 16 mm. There are two other bypass grafts seen to the LAD and LCx territory. However, one of the graft is seen to be occluded at its ostium. There is another bypass graft presumably to the diagonal territory, and the minimum distance between the graft to the sternum at image 227 is approximately 2.3 cm. That could be a bypass graft to the right coronary territory, however, this could be occluded. The thoracoabdominal aorta is normal in course and calibre. Of note, there is minimal ectasia is seen in the aortic root. The ascending thoracic aorta is essentially free of calcification. Mild and scattered calcification is seen at the proximal descending thoracic aorta with associated noncalcific atherosclerosis. The abdominal aorta has moderate calcific atherosclerosis identified. No ectasia or aneurysmal dilation is seen. No acute pathology is identified including dissection or contained rupture. Arch vessel branching pattern is normal and the visualised arch vessels are seen to be widely patent proximally. Calcification that is nonobstructive is seen in the takeoff of the left subclavian artery. The coeliac axis, SMA, DYLAN are patent with nonobstructive calcification identified. Single left and right renal arteries are seen with nonobstructive calcific atherosclerosis identified. Mild to moderate calcific atherosclerosis seen at the ostium of the common iliac arteries, though they are nonobstructive. Remainder of the common iliac and external iliac arteries are also seen to be patent. The left SFA is unremarkable for nonobstructive calcific atherosclerosis increased calcific atherosclerosis is identified in the most distal right common femoral artery. Despite patient received 2 injections, enhancement of the SFA origin is suboptimal. The origin of the right SFA is likely unremarkable. However, some dilation is identified at visualised proximal right SFA, at image 627, and surgical clips are identified at this level. It is uncertain if there is localised dilation identified, versus the appearance is sequelae of prior right femoral bypass surgery as there appears to be a vascular structure that may be consistent with a bypass graft. Please correlate with patient's operative report. Quantitative dimensions of the aorta are as follows: 4.1 x 3.9 cm at the sinuses of Valsalva (the sino-tubular junction is preserved); 3.3 x 3.4 cm at the proximal ascending thoracic aorta; 3.9 x 3.8cm at the mid ascending aorta; 3.5cm at the distal ascending aorta; 2.9 cm at the mid transverse arch; 2.7 cm at the proximal descending aorta; 2.6 cm at the mid descending aorta; 2.4 cm at the diaphragmatic hiatus. In the abdomen,the aorta measures2.1 cm at the mesenteric segment; 1.9cm at the renal segment,; and 1.9 cm at the aortic bifurcation. NON-VASCULAR: The visualised thyroid gland appears unremarkable. The chest wall and mediastinum is remarkable for prior median sternotomy. The RV free wall is at most 3 to 4 mm behind the sternum at image 276. No significant adenopathy is identified except for some small lymph nodes, considered nonspecific in nature. In the lung windows, no obvious endobronchial lesion is seen and no pleural effusions identified. Some dependent changes are seen in the lung bases. Some subsegmental atelectatic changes are seen. Some apical scarring is noted. Overall, no suspicious pulmonary nodule is identified. In the abdomen, the liver and spleen appears unremarkable. The liver edge is smooth. No abnormal enhancing structure is identified. The adrenal glands are not enlarged. The gallbladder is not present. Assessment of the pancreas is limited and the pancreas could be atrophic. No acute renal pathology is seen and no hydronephrosis or perirenal fluid collections identified. Bowel is incompletely assessed by CT angiography as enteric contrast is not given. No obvious bowel dilation is identified. The appendix appears unremarkable. No free air or free fluid seen in the abdomen and pelvis. The prostate gland is prominent. High density material is seen that may represent radiation seeds. Correlate with procedure history. The bladder has contrast present, as expected. In the bony windows, no acute bony pathology is identified. Some degenerative changes are noted. CONCLUSIONS: 1.The aortic root and ascending thoracic aorta is free of calcification. There is calcification seen in the transverse arch and descending thoracic aorta and the abdominal aorta, however, no acute aortic pathology is identified. No acute aortic pathology is identified. Quantitative dimensions of the thoracoabdominal aorta as described above. There is mild ectasia is seen in the aortic root and mid ascending thoracic aorta with maximum diameter measures 4.1 and 3.9 cm, respectively. Thereafter, the transverse arch and descending thoracic aorta and the abdominal aorta is normal in calibre. The pelvic arteries are patent though with calcific atherosclerosis identified. Despite 2 injections, the origin of the SFA, in particular the right, is not well appreciated and some dilation is identified, at image 632. However, it is uncertain if this would represent localized dilation versus surgical sequelae due to prior femoral bypass as well as there appears to be a vascular structure identified medial to the expected [place] right SFA. Enhancement is suboptimal at this level. Please kindly correlate clinically. 2.Coronary atherosclerosis. Patient is post coronary artery bypass surgery. 3.The central pulmonary artery is at the upper limits of normal in calibre. No evidence of central pulmonary artery embolism is seen. 4.Other findings as described above. 5.An addendum will be dictated by the Procurement Cost Coordinator Radiologist regarding the nonvascular findings. Signed: Jose Wilcox MD Report Verified Date/Time:03/07/2018 13:30:05 Reading Location: [place] [address] Cardiology MRI Procedure Note Interface, External Ris In - 03/07/2018 4:05 PM CDT Addendum Begins REPORT STATUS:A Addendum: I agree with the previously described non vascular findings by Dr. Wilcox. Signed: Leo Mccloud MD Report Verified Date/Time: 03/07/2018 16:03:23 Reading Location: [place] [address] Angio Body Reading Room Addendum Ends FINAL REPORT CT angiography of the thoracoabdominal aorta and pelvic arteries, 07 March 2018 INDICATION: This is a 62 year old male with PAD and coronary artery disease presents for assessment. The request is for thoracoabdominal aortic study. This study is performed in an attempt to avoid an invasive procedure. TECHNIQUE: Spiral acquisition before and during intravenous contrast administration using a [employer] multidetector CT scanner. Images were obtained before and during the dynamic passage of intravenous contrast material. Multi-planar 3-D volume-rendering reconstruction was performed using an independent workstation interactively by the interpreting physician as well as the 3-D specialist for optimal visualization of the thoracoabdominal aorta, the pelvic arteries as well as its proximal branches. Please refer to the contrast sheet scanned in the EPIC system for the amount and route of contrast given. This exam was performed according to our departmental dose-optimisation programme, which includes automated exposure control, adjustment of the mA and/or kV according to patient size and/or use of iterative reconstruction technique. Dose modulation, iterative reconstruction, and/or weight based adjustment of the mA/kV was utilized to reduce the radiation dose to as low as reasonably achievable. Two doses of contrast is being given as the initial dose has substantial imaging noise. Heart rate was 85 bpm systolic data set was obtained to minimize motion artefact. FINDINGS: VASCULAR: The central pulmonary artery is is at the upper limits of normal in calibre. The cardiac chambers demonstrate normal atrioventricular and ventriculoarterial concordance, and systemic and pulmonary venous return. In the systolic data set, the left ventricle is normal in size. There is likely mild left atrial prominence identified. Coronary artery origins are normal and diffuse coronary artery calcification is identified. The pericardium appears unremarkable. Patient is post coronary artery bypass surgery. In the second dynamic data set, a left internal mammary artery is identified, to the LAD territory. Minimum distance between the internal mammary graft to the sternum, at image 211 is approximately 16 mm. There are two other bypass grafts seen to the LAD and LCx territory. However, one of the graft is seen to be occluded at its ostium. There is another bypass graft presumably to the diagonal territory, and the minimum distance between the graft to the sternum at image 227 is approximately 2.3 cm. That could be a bypass graft to the right coronary territory, however, this could be occluded. The thoracoabdominal aorta is normal in course and calibre. Of note, there is minimal ectasia is seen in the aortic root. The ascending thoracic aorta is essentially free of calcification. Mild and scattered calcification is seen at the proximal descending thoracic aorta with associated noncalcific atherosclerosis. The abdominal aorta has moderate calcific atherosclerosis identified. No ectasia or aneurysmal dilation is seen. No acute pathology is identified including dissection or contained rupture. Arch vessel branching pattern is normal and the visualised arch vessels are seen to be widely patent proximally. Calcification that is nonobstructive is seen in the takeoff of the left subclavian artery. The coeliac axis, SMA, DYLAN are patent with nonobstructive calcification identified. Single left and right renal arteries are seen with nonobstructive calcific atherosclerosis identified. Mild to moderate calcific atherosclerosis seen at the ostium of the common iliac arteries, though they are nonobstructive. Remainder of the common iliac and external iliac arteries are also seen to be patent. The left SFA is unremarkable for nonobstructive calcific atherosclerosis increased calcific atherosclerosis is identified in the most distal right common femoral artery. Despite patient received 2 injections, enhancement of the SFA origin is suboptimal. The origin of the right SFA is likely unremarkable. However, some dilation is identified at visualised proximal right SFA, at image 627, and surgical clips are identified at this level. It is uncertain if there is localised dilation identified, versus the appearance is sequelae of prior right femoral bypass surgery as there appears to be a vascular structure that may be consistent with a bypass graft. Please correlate with patient's operative report. Quantitative dimensions of the aorta are as follows: 4.1 x 3.9 cm at the sinuses of Valsalva (the sino-tubular junction is preserved); 3.3 x 3.4 cm at the proximal ascending thoracic aorta; 3.9 x 3.8 cm at the mid ascending aorta; 3.5 cm at the distal ascending aorta; 2.9 cm at the mid transverse arch; 2.7 cm at the proximal descending aorta; 2.6 cm at the mid descending aorta; 2.4 cm at the diaphragmatic hiatus. In the abdomen, the aorta measures 2.1 cm at the mesenteric segment; 1.9 cm at the renal segment,; and 1.9 cm at the aortic bifurcation. NON-VASCULAR: The visualised thyroid gland appears unremarkable. The chest wall and mediastinum is remarkable for prior median sternotomy. The RV free wall is at most 3 to 4 mm behind the sternum at image 276. No significant adenopathy is identified except for some small lymph nodes, considered nonspecific in nature. In the lung windows, no obvious endobronchial lesion is seen and no pleural effusions identified. Some dependent changes are seen in the lung bases. Some subsegmental atelectatic changes are seen. Some apical scarring is noted. Overall, no suspicious pulmonary nodule is identified. In the abdomen, the liver and spleen appears unremarkable. The liver edge is smooth. No abnormal enhancing structure is identified. The adrenal glands are not enlarged. The gallbladder is not present. Assessment of the pancreas is limited and the pancreas could be atrophic. No acute renal pathology is seen and no hydronephrosis or perirenal fluid collections identified. Bowel is incompletely assessed by CT angiography as enteric contrast is not given. No obvious bowel dilation is identified. The appendix appears unremarkable. No free air or free fluid seen in the abdomen and pelvis. The prostate gland is prominent. High density material is seen that may represent radiation seeds. Correlate with procedure history. The bladder has contrast present, as expected. In the bony windows, no acute bony pathology is identified. Some degenerative changes are noted. CONCLUSIONS: 1. The aortic root and ascending thoracic aorta is free of calcification. There is calcification seen in the transverse arch and descending thoracic aorta and the abdominal aorta, however, no acute aortic pathology is identified. No acute aortic pathology is identified. Quantitative dimensions of the thoracoabdominal aorta as described above. There is mild ectasia is seen in the aortic root and mid ascending thoracic aorta with maximum diameter measures 4.1 and 3.9 cm, respectively. Thereafter, the transverse arch and descending thoracic aorta and the abdominal aorta is normal in calibre. The pelvic arteries are patent though with calcific atherosclerosis identified. Despite 2 injections, the origin of the SFA, in particular the right, is not well appreciated and some dilation is identified, at image 632. However, it is uncertain if this would represent localized dilation versus surgical sequelae due to prior femoral bypass as well as there appears to be a vascular structure identified medial to the expected [place] right SFA. Enhancement is suboptimal at this level. Please kindly correlate clinically. 2. Coronary atherosclerosis. Patient is post coronary artery bypass surgery. 3. The central pulmonary artery is at the upper limits of normal in calibre. No evidence of central pulmonary artery embolism is seen. 4. Other findings as described above. 5. An addendum will be dictated by the Procurement Cost Coordinator Radiologist regarding the nonvascular findings. Signed: Jose Wilcox MD Report Verified Date/Time: 03/07/2018 13:30:05 Reading Location: [place] [address] Cardiology MRI Performing Organization Address City/State/Zipcode Phone Number [facility] * POC-Creatinine (03/07/2018 11:29 AM CDT) POC-Creatinine 1.3Comment: TESTED AT [facility]-KG 0.6 - 1.3 mg/dL [facility] [address] [place] [address] POC-EGFR Comment: Insufficient clinical mL/min/1.73M2 [facility] data to calculate estimated [facility] GFR Specimen Blood Narrative Performed At Performing Organization Address City/State/Zipcode Phone Number [facility] [address] [place] [address] [facility] after 06/29/2017 Insurance Payer Benefit Subscriber ID Type Phone Address Plan / Group MEDICARE MEDICARE A xxxxxxxxxxx Medicare B [employer] - MGD UNITED HMO xxxxxxxxx HMO/POS CARE POS [employer] [facility] ([facility]) [place] [address] Advance Directives For more information, please contact: [facility] [address] [place], [place] [id number] Date Inactivated Comments Code Status Date Activated Full Code 04/24/2018 3:34 PM This code status was determined by: Patient 03/10/2018 7:38 PM Full Code 03/08/2018 8:39 AM This code status was determined by: Patient 05/13/2016 3:28 PM Full Code 05/13/2016 7:52 AM This code status was determined by: Patient
--- OUTSIDE RECORDS SUMMARY | 2018-06-30 15:43 | XMS REPORT | Continuity of Care Document ---
Author Author [facility] Interface Address Unknown Phone Unavailable Problems Problem Status Onset Date Classification Date Reported Comments Source FIRST NIGHT 23867 Active 04/09/2018 [facility] 92034/ 384.20 Active 01/24/2013 [facility] 388.60 - OTORRHEA NOS Active 01/08/2013 [facility] DIARRHEA Active 10/01/2012 [facility] EAR INFECTION Active 08/23/2012 [facility] CAD (<span ID="[id number]">Confirmed</span>) Resolved Problem 09/04/2015 [facility] [place] Cholesterol<sup>1</sup> Resolved Problem 09/04/2015 high [facility] [place] Diabetes mellitus type II Resolved Problem 09/04/2015 [facility] [place] History of - chronic ear infection Resolved Problem 09/04/2015 [facility] [place] HTN - Hypertension Resolved Problem 09/04/2015 [facility] [place] Neuropathy Resolved Problem 09/04/2015 [facility] [place] Pseudomonas<sup>2</sup> Active Problem 09/04/2015 Problem added by Discern Expert. [facility] [place] PVD (<span ID="[id number]">Confirmed</span>) Resolved Problem 09/04/2015 [facility] [place] CAD Resolved Problem 02/09/2013 [facility] Cholesterol<sup>1</sup> Resolved Problem 02/09/2013 1high [facility] Diabetes mellitus type II Resolved Problem 02/09/2013 [facility] History of - chronic ear infection Resolved Problem 02/09/2013 [facility] HTN - Hypertension Resolved Problem 02/09/2013 [facility] Neuropathy Resolved Problem 02/09/2013 [facility] PVD Resolved Problem 02/09/2013 [facility] MASTOIDITIS NOS Active [facility] PERFORAT TYMPAN MEMB NOS Active [facility] OBSTRUCTIVE SLEEP APNEA (ADULT) (PEDIATR Active [facility] Medications Medication Details Route Status Patient Instructions Ordering Provider Order Date Source Vicodin 5/500 oral tablet 1-2 tablets, PO, Q4-6H, PRN, 20 tab, for Pain, Substitution Allowed, Maintenance PO Active [facility] 02/07/2013 [facility] Bactrim DS oral tablet 1 tab, PO, BID, 14 tab, Substitution Allowed, Maintenance PO Active [facility] 02/07/2013 [facility] ondansetron 4 mg, 2 mL, Route: IVP, Drug form: INJ, ONCE, Dosing Weight 114.545, kg, PRN Nausea & Vomiting, Start date: 02/07/13 13:37:00 IVP No Longer Active [facility] 02/07/2013 [facility] labetalol 5 mg, 1 mL, Route: IVP, Drug form: INJ, Q5Min, Dosing Weight 114.545, kg, PRN Elevated BP, Start date: 02/07/13 13:37:00, Duration: 5 doses or times, Stop date: Limited # of times IVP No Longer Active [facility] 02/07/2013 [facility] acetaminophen-10 mg/mL INTRAVENOUS solution 1,000 mg, 100 mL, Route: IV, Drug form: INJ, ONCE, Dosing Weight 114.545, kg, PRN Pain Score 4-6, Start date: 02/07/13 13:37:00, Duration: 1 doses or times, Stop date: Limited # of times, Infuse over 15 minutes (for patient weight 50 kg or greater)Infuse over 15 minutes (for patient weight 50 kg or greater) IV No Longer Active [facility] 02/07/2013 [facility] Lactated Ringers Injection IV 1,000 mL 1,000 mL, Rate: 50 ml/hr, Infuse over: 20 hr, Route: IV, Dosing Weight 114.545 kg, Total Volume: 1,000, Start date: 02/07/13 13:37:00, Duration: 30 day, Stop date: 03/09/13 13:36:00 IV No Longer Active [facility] 02/07/2013 [facility] flumazenil 0.2 mg, 2 mL, Route: IVP, Drug form: INJ, PRN, Dosing Weight 114.545, kg, PRN Benzodiazepine Reversal, Initial dose, Start date: 02/07/13 13:37:00, Duration: 30 day, Stop date: 03/09/13 13:36:00 [facility]2013 [facility] meperidine 12.5 mg, 0.25 mL, Route: IVP, Drug form: INJ, Q30Min, Dosing Weight 114.545, kg, PRN Other -See Comment, For shivering, Start date: 02/07/13 13:37:00, Duration: 2 doses or times, Stop date: Limited # of times IVP No Longer Active [facility] 02/07/2013 [facility] naloxone 0.04 mg, 0.1 mL, Route: IVP, Drug form: INJ, Q2MIN, Dosing Weight 114.545, kg, PRN Narcotic Reversal, Start date: 02/07/13 13:37:00, Duration: 8 doses or times, Stop date: Limited # of times IVP No Longer [facility] 02/07/2013 [facility] acetaminophen-hydrocodone 325 mg-5 mg oral tablet 2 tab, Route: PO, Drug Form: TAB, Dosing Weight 114.545, kg, Q4H, PRN Pain Score 4-6, Start date: 02/07/13 13:37:00, Duration: 30 day, Stop date: 03/09/13 13:36:00 PO No Longer [facility] 02/07/2013 [facility] acetaminophen-hydrocodone 300 mg-10 mg/15 mL oral liquid 15 mL, Route: PO, Drug Form: SOLN, Dosing Weight 114.545, kg, Q4H, PRN Pain Score 4-6, Start date: 02/07/13 13:37:00, Duration: 30 day, Stop date: 03/09/13 13:36:00 PO No Longer Active [facility] 02/07/2013 [facility] morphine Sulfate 2 mg, 1 mL, Route: IVP, Drug form: INJ, Q5Min, Dosing Weight 114.545, kg, PRN Pain Score 4-6, Start date: 02/07/13 13:37:00, Duration: 5 doses or times, Stop date: Limited # of times IVP No Longer Active [facility] 02/07/2013 [facility] Lactated Ringers Injection IV 1,000 mL 1,000 mL, Rate: 25 ml/hr, Infuse over: 40 hr, Route: IV, Dosing Weight 114.545 kg, Total Volume: 1,000, Start date: 02/07/13 9:45:00, Duration: 30 day, Stop date: 03/09/13 9:44:00 IV No Longer Active [facility] 02/07/2013 [facility] Insulin Diluting Medium for Novolog intravenous solution IV, Substitution Allowed, Maintenance IV Active 02/05/2013 [facility] aspirin 81 mg tablet, enteric coated 81 mg, 1 tab, PO, Daily, 0 tab, Substitution Allowed, ECTAB PO Active 02/05/2013 [facility] lovastatin 20 mg oral tablet 20 mg, 1 tab, PO, Daily, Substitution Allowed PO Active 02/05/2013 [facility] lisinopril 20 mg oral tablet 20 mg, 1 tab, PO, Daily, Substitution Allowed PO Active 02/05/2013 [facility] Plavix 75 mg oral tablet 75 mg, 1 tab, PO, Daily, Substitution Allowed PO Active 02/05/2013 [facility] influenza virus vaccine, inactivated 0.5 mL, Route: IM, Drug Form: SUSP, ONCALL, Start date: 02/05/13 11:59:32, Stop date: 03/07/13 11:54:32 IM No Longer Active [facility] 02/05/2013 [facility] Phenergan 25 mg oral tablet 25 mg, 1 tab, PO, Q4H, PRN, 15 tab, Nausea, Substitution Allowed PO Active [facility] 10/02/2012 [facility] tramadol 50 mg oral tablet 50 mg, PO, Q4-6H, PRN, 20 tab, Pain, Substitution Allowed PO Active [facility] 10/02/2012 [facility] Flagyl 500 mg oral tablet 500 mg, 1 tab, PO, Q8H, 30 tab, Substitution Allowed PO Active [facility] 10/02/2012 [facility] Insulin regular 4 unit, Route: SUB-Q, ONCE, Dosing Weight 113.636, kg, Start date: 10/02/12 1:07:00, Stop date: 10/02/12 1:07:00 SUB-Q No Longer Active [facility] 10/02/2012 [facility] hydrALAZINE 20 mg, Route: IVP, ONCE, Dosing Weight 113.636, kg, Priority: STAT, Start date: 10/02/12 0:11:00, Stop date: 10/02/12 0:11:00 IVP No Longer Active [facility] 10/02/2012 [facility] clonidine 0.2 mg oral tablet 1 tab, Route: PO, ONCE, Dosing Weight 113.636, kg, Start date: 10/01/12 22:11:00, Stop date: 10/01/12 22:11:00 PO No Longer Active [facility] 10/02/2012 [facility] morphine Sulfate 4 mg, Route: IVP, ONCE, Dosing Weight 113.636, kg, Priority: STAT, Start date: 10/01/12 21:54:00, Stop date: 10/01/12 21:54:00 IVP No Longer Active [facility] 10/02/2012 [facility] ondansetron 4 mg, Route: IVP, ONCE, Dosing Weight 113.636, kg, Priority: STAT, Start date: 10/01/12 21:54:00, Stop date: 10/01/12 21:54:00 IVP No Longer Active [facility] 10/02/2012 [facility] Sodium Chloride 0.9% (Bolus) IV 500 mL 500 mL, Rate: 1,000 ml/hr, Infuse over: 30 minutes, Route: IV, Dosing Weight 113.636 kg, Total Volume: 500, Priority: STAT, Start date: 10/01/12 21:54:00, Duration: 1 doses or times, Stop date: 10/01/12 22:23:00 IV No Longer Active [facility] 10/02/2012 [facility] Saline Flush 0.9% 5 mL, Route: IVP, Drug Form: INJ, Dosing Weight 113.636, kg, PRN, PRN Line Flush, Start date: 10/01/12 21:54:00, Duration: 24 hr, Stop date: 10/02/12 21:53:00 IVP No Longer Active [facility] 10/02/2012 [facility] pneumococcal 23-valent vaccine 0.5 ml, Route: IM, Drug Form: INJ, Start date: 08/09/06 9:00:00 IM No Longer Active [facility] 08/09/2006 MARY KAY [facility] Allergies, Adverse Reactions, Alerts Substance Category Reaction Severity Reaction type Status Date Reported Comments Source contrast media (iodine-based) drug allergy Allergy Active [facility] Plastic Tape propensity to adverse reactions to substance Adverse Reaction Active [facility] Immunizations Immunization Date Given Site Status Last Updated Comments Source pneumococcal 23-valent vaccine 08/09/2006 Left Arm completed Duogo MARY K[facility] [place] pneumococcal 23-valent vaccine 08/09/2006 completed Jeison MUÑIZ [facility] Results Order Name Results Value Reference Range Date Interpretation Comments Source Knee wo contrast MRI Knee wo contrast MRI EXAMINATION: MRI of the right knee without contrast. HISTORY: M25.569 Pain in unspecified knee; lateral right knee pain; right knee medial meniscus tear FINDINGS: Radiographs dated 08/24/2015 are reviewed demonstrating post surgical changes of [id number] amputation. Multiplanar, multisequence magnetic resonance imaging of the right knee is performed with an extremity coil without contrast. Menisci: Medial: There is a horizontal undersurface tear involving the posterior body and posterior horn of the medial meniscus. Lateral: Intact. Ligaments: The cruciate and collateral ligaments are intact. Extensor mechanism: The extensor mechanism is intact with note made of enthesopathic heterotopic ossification at the distal quadriceps insertion and proximal patellar tendon origin. Muscles: There is mild diffuse fatty infiltration of the musculature at the knee in keeping with the patient's history of [id number] amputation. Cartilage: Within the medial compartment, there is minimal, superficial, partial-thickness articular surface irregularity along the mesial aspect of the medial femoral condyle without subchondral edema. Within the lateral and patellofemoral compartments, there is no focal chondrosis or subchondral marrow edema. Bone: There are no fractures. There are no bone marrow replacing lesions. Soft tissues: There is a small knee effusion without Tay's cyst. IMPRESSION: 1. Horizontal undersurface tear involving the posterior body and posterior horn of the right knee medial meniscus. 2. Minimal medial compartment chondrosis of the right knee with minimal superficial, partial-thickness articular surface irregularity along the mesial aspect of the medial femoral condyle. 3. Small right knee effusion. 4. Mild diffuse fatty infiltration of the musculature at the knee in keeping with the patient's history of [id number] amputation. 5. Intact right knee cruciate and collateral ligaments without lateral or patellofemoral compartment chondrosis. 09/01/2015 - - Read by: Adan Schwartz MD Dictated Date/time: 09/01/15 10:55 Electronically Signed by: Adan Schwartz MD 09/01/15 11:03 FINAL REPORT SH[facility] Knee 1-2 Views unilateral DX Knee 1-2 Views unilateral DX Exam: Right knee x-ray, 3 views Reason for Exam: pain Comparison Exam: none Discussion: Patient is status post below-knee amputation. The surgical site appears unremarkable. No acute bony abnormalities identified. No suspicious osteoblastic or osteolytic lesions seen to suggest pathologic involvement. No evidence seen to suggest osteomyelitis. Moderate to heavy vascular calcifications are seen within the deep arterial system. Impression: 1. No acute bony abnormalities seen within the right knee. Moderate to heavy vascular calcifications are seen within the deep arterial system. 08/24/2015 - - Read by: Guille Elena MD Dictated Date/time: 08/24/15 15:05 Electronically Signed by: Guille Elena MD 08/24/15 15:07 FINAL REPORT [facility] BEDSIDE GLUCOSE TESTING Gluc POC 110 mg/dL 70 - 99 02/07/2013 [place] 1Interpretive Data: Upper Reportable Limit: 200 mg/dL. [facility] BEDSIDE GLUCOSE TESTING Gluc POC 149 mg/dL 70 - 99 02/07/2013 [place] 2Interpretive Data: Upper Reportable Limit: 200 mg/dL. [facility] BEDSIDE GLUCOSE TESTING Gluc POC Comment 1 Notify RN/MD 02/07/2013 NA [facility] Microbiology Culture: Anaerobic 02/07/2013 [facility] Microbiology Culture: Aspirate/Body Fluid/Tissue 02/07/2013 [facility] CHEMISTRY eGFR 74 mL/min/1.73m2 02/05/2013 NA 3Result Comment: The eGFR is calculated using the CKD-EPI formula. In most young, healthy individuals the eGFR will be >90 mL/min/1.73m2. The eGFR declines with age. An eGFR of 60-89 may be normal in some populations, particularly the elderly, for whom the CKD-EPI formula has not been extensively validated. Use of the eGFR is not recommended in the following populations: Individuals with unstable creatinine concentrations, including patients and those with serious co-morbid conditions. Patients with extremes in muscle mass or diet. The data above are obtained from the National Kidney Disease Education Program (NKDEP) which additionally recommends that when the eGFR is used in patients with extremes of body mass index for purposes of drug dosing, the eGFR should be multiplied by the estimated BMI. [facility] CHEMISTRY Glucose Lvl 120 mg/dL 70 - 99 02/05/2013 [place] 4Interpretive Data: Adult reference range values reflect the clinical guidelines of the [place] [employer]. [facility] CHEMISTRY Potassium Lvl 4.6 meq/L 3.5 - 5.1 02/05/2013 Normal [facility] CHEMISTRY Sodium Lvl 142 meq/L 135 - 145 02/05/2013 Normal [facility] CHEMISTRY Creatinine Lvl 1.1 mg/dL 0.5 - 1.4 02/05/2013 Normal [facility] CHEMISTRY BUN 17 mg/dL 7 - 22 02/05/2013 Normal [facility] CHEMISTRY Calcium Lvl 8.5 mg/dL 8.5 - 10.5 02/05/2013 Normal [facility] CHEMISTRY CO2 30 meq/L 24 - 32 02/05/2013 Normal [facility] CHEMISTRY Chloride Lvl 104 meq/L 95 - 109 02/05/2013 Normal [facility] CHEMISTRY AGAP 12.6 meq/L 10.0 - 20.0 02/05/2013 Normal [facility] HEMATOLOGY Eosinophils 3.4 % 0.0 - 4.0 02/05/2013 Normal [facility] HEMATOLOGY Lymphocytes # 2.1 K/CMM 1.0 - 5.5 02/05/2013 Normal [facility] HEMATOLOGY Eosinophils # 0.3 K/CMM 0.0 - 0.5 02/05/2013 Normal [facility] HEMATOLOGY Basophils # 0.0 K/CMM 0.0 - 0.2 02/05/2013 Normal [facility] HEMATOLOGY Monocytes # 0.6 K/CMM 0.0 - 0.8 02/05/2013 Normal [facility] HEMATOLOGY Segs-Bands # 5.4 K/CMM 1.5 - 8.1 02/05/2013 Normal [facility] HEMATOLOGY Basophils 0.3 % 0.0 - 1.0 02/05/2013 Normal [facility] HEMATOLOGY Lymphocytes 25.4 % 20.0 - 40.0 02/05/2013 Normal [facility] HEMATOLOGY Monocytes 6.6 % 2.0 - 12.0 02/05/2013 Normal [facility] HEMATOLOGY Segs 64.3 % 45.0 - 75.0 02/05/2013 Normal [facility] HEMATOLOGY INR 1.06 0.85 - 1.17 02/05/2013 Normal 5Interpretive Data: RECOMMENDED RANGES FOR PROTIME INR: 2.0-3.0 for most medical and surgical thromboembolic states. 2.5-3.5 for artificial heart valves and recurrent embolism. INR SHOULD BE USED ONLY FOR PATIENTS ON STABLE ANTICOAGULANT THERAPY. [facility] HEMATOLOGY PT 13.7 s 12.0 - 14.7 02/05/2013 Normal [facility] HEMATOLOGY PTT 37.7 s 22.9 - 35.8 02/05/2013 [place] 6Interpretive Data: Heparin Therapeutic Range: 57 - 92 Seconds [facility] RBC 4.05 M/CMM 4.70 - 6.10 02/05/2013 LOW [facility] HEMATOLOGY Hgb 12.1 g/dL 14.0 - 18.0 02/05/2013 LOW [facility] WBC 8.4 K/CMM 3.7 - 10.4 02/05/2013 Normal [facility] MPV 8.0 fL 7.4 - 10.4 02/05/2013 Normal [facility] Platelet 243 K/CMM 133 - 450 02/05/2013 Normal [facility] RDW 13.8 % 11.5 - 14.5 02/05/2013 Normal [facility] MCHC 34.1 g/dL 32.0 - 36.0 02/05/2013 Normal [facility] Hct 35.3 % 42.0 - 54.0 02/05/2013 LOW [facility] MCV 87.2 fL 80.0 - 94.0 02/05/2013 Normal [facility] MCH 29.8 pg 27.0 - 31.0 02/05/2013 Normal [facility] Temporal bone wo contrast CT Temporal bone wo contrast CT CT TEMPORAL BONE WITHOUT CONTRAST: CLINICAL HISTORY: 383.1 chronic mastoiditis. TECHNIQUE AND FINDINGS: Multiple contiguous high resolution transaxial and coronal noncontrast CT images were obtained through the temporal bones. COMPARISON: No prior similar examinations are currently available for comparison. RIGHT TEMPORAL BONE: The external auditory canal is clear, but some mild thickening is seen along the osseous portion extending to the level of the thickened tympanic membrane. The majority of the right mastoid air cells are opacified. Opacity is also seen in the right middle air cavity including Prussak's space. No definitive erosion of the scutum. The ossicular chain is intact. The inner ear structures are normal a nd symmetrical in comparison with the contralateral side. LEFT TEMPORAL BONE: The external auditory canal appears mildly narrowed along the cartilaginous portion. The remainder of the external auditory canal is clear with a thin mildly retracted tympanic membrane noted. The majority of the left mastoid air cells are opacified. Mild thickening is seen in the middle ear cavity including minimal extension into Prussak's space. The scutum is preserved. The ossicular chain is intact. The inner ear structures are normal. IMPRESSION: Opacification of the bilateral mastoids and middle ear cavities, greater on the right, is suspicious for chronic otomastoiditis. However, clinical correlation and follow-up are needed after appropriate treatment to document resolution and exclude underlying or developing cholesteatoma. SL:17 01/08/2013 - - Read by: Manuel Gipson Dictated Date/time: 01/08/13 12:18 Electronically Signed by: Manuel Gipson MD 01/08/13 12:27 FINAL REPORT [facility] URINALYSIS UA Color Ltyellow 10/02/2012 NA [facility] URINALYSIS UA Urobilinogen <=1.0 mg/dL
*NA*
(10/01/2012 23:50:00) <sup> </sup> 0.1 - 1.0 10/02/2012 NA [facility] URINALYSIS UA Glucose 500 mg/dL *ABN* (10/01/2012 23:50:00) Negative 10/02/2012 ABN [facility] URINALYSIS UA Ketones Trace mg/dL *ABN* (10/01/2012 23:50:00) Negative 10/02/2012 ABN [facility] URINALYSIS UA Spec Grav 1.005 <=1.030 10/02/2012 Normal [facility] URINALYSIS UA pH 7.0 5.0 - 8.0 10/02/2012 Normal [facility] URINALYSIS UA Protein Negative mg/dL (10/01/2012 23:50:00) Negative 10/02/2012 Normal [facility] URINALYSIS UA Leuk Est Negative (10/01/2012 23:50:00) Negative 10/02/2012 Normal [facility] URINALYSIS UA WBC null 0 - 5 10/02/2012 Normal [facility] URINALYSIS UA Bili Negative *NA* (10/01/2012 23:50:00) Negative 10/02/2012 [facility] URINALYSIS UA Turbidity Clear (10/01/2012 23:50:00) Clear 10/02/2012 Normal [facility] URINALYSIS UA RBC 2 /HPF 0 - 2 10/02/2012 Normal [facility] URINALYSIS UA Bacteria Occasional /HPF *NA* (10/01/2012 23:50:00) None Seen 10/02/2012 [facility] URINALYSIS UA Blood Small *ABN* (10/01/2012 23:50:00) Negative 10/02/2012 ABN [facility] URINALYSIS UA Nitrite Negative (10/01/2012 23:50:00) Negative 10/02/2012 Normal [facility] URINALYSIS UA Sq Epi None Seen 10/02/2012 NA [facility] Microbiology Culture: Urine 10/02/2012 [facility] CHEMISTRY A/G Ratio 1.0 0.7 - 1.6 10/02/2012 Normal [facility] CHEMISTRY Globulin 4.0 g/dL 2.0 - 4.0 10/02/2012 Normal [facility] CHEMISTRY B/C Ratio 14 6 - 25 10/02/2012 Normal [facility] CHEMISTRY AGAP 13.4 meq/L 10.0 - 20.0 10/02/2012 Normal [facility] CHEMISTRY eGFR 83 mL/min/1.73m2 10/02/2012 NA 1Result Comment: The eGFR is calculated using the CKD-EPI formula. In most young, healthy individuals the eGFR will be >90 mL/min/1.73m2. The eGFR declines with age. An eGFR of 60-89 may be normal in some populations, particularly the elderly, for whom the CKD-EPI formula has not been extensively validated. Use of the eGFR is not recommended in the following populations: Individuals with unstable creatinine concentrations, including patients and those with serious co-morbid conditions. Patients with extremes in muscle mass or diet. The data above are obtained from the National Kidney Disease Education Program (NKDEP) which additionally recommends that when the eGFR is used in patients with extremes of body mass index for purposes of drug dosing, the eGFR should be multiplied by the estimated BMI. [facility] CHEMISTRY Creatinine Lvl 1.0 mg/dL 0.5 - 1.4 10/02/2012 Normal [facility] CHEMISTRY CO2 30 meq/L 24 - 32 10/02/2012 Normal [facility] CHEMISTRY Total Protein 8.1 g/dL 6.4 - 8.4 10/02/2012 Normal [facility] CHEMISTRY Calcium Lvl 8.8 mg/dL 8.5 - 10.5 10/02/2012 Normal [facility] CHEMISTRY Alk Phos 85 unit/L 39 - 136 10/02/2012 Normal [facility] CHEMISTRY ALT 40 unit/L 0 - 65 10/02/2012 Normal [facility] CHEMISTRY Albumin Lvl 4.1 g/dL 3.5 - 5.0 10/02/2012 Normal [facility] CHEMISTRY AST 37 unit/L 0 - 37 10/02/2012 Normal [facility] CHEMISTRY Bili Total 0.7 mg/dL 0.2 - 1.3 10/02/2012 Normal [facility] CHEMISTRY BUN 14 mg/dL 7 - 22 10/02/2012 Normal [facility] CHEMISTRY Glucose Lvl 245 mg/dL 70 - 99 10/02/2012 [place] 2Interpretive Data: Adult reference range values reflect the clinical guidelines of the [place] [employer]. [facility] CHEMISTRY Chloride Lvl 98 meq/L 95 - 109 10/02/2012 Normal [facility] CHEMISTRY Sodium Lvl 137 meq/L 135 - 145 10/02/2012 Normal [facility] CHEMISTRY Potassium Lvl 4.4 meq/L 3.5 - 5.1 10/02/2012 Normal [facility] CHEMISTRY Lipase Lvl 70 unit/L 73 - 393 10/02/2012 LOW [facility] HEMATOLOGY PTT 33.8 s 22.9 - 35.8 10/02/2012 Normal 4Interpretive Data: Heparin Therapeutic Range: 57 - 92 Seconds [facility] HEMATOLOGY PT 14.4 s 12.0 - 14.7 10/02/2012 Normal [facility] HEMATOLOGY INR 1.10 0.85 - 1.17 10/02/2012 Normal 3Interpretive Data: RECOMMENDED RANGES FOR PROTIME INR: 2.0-3.0 for most medical and surgical thromboembolic states. 2.5-3.5 for artificial heart valves and recurrent embolism. INR SHOULD BE USED ONLY FOR PATIENTS ON STABLE ANTICOAGULANT THERAPY. [facility] HEMATOLOGY Hct 41.4 % 42.0 - 54.0 10/02/2012 LOW [facility] HEMATOLOGY MCV 88.0 fL 80.0 - 94.0 10/02/2012 Normal [facility] HEMATOLOGY RBC 4.71 M/CMM 4.70 - 6.10 10/02/2012 Normal [facility] HEMATOLOGY Hgb 13.5 g/dL 14.0 - 18.0 10/02/2012 LOW [facility] HEMATOLOGY MCH 28.6 pg 27.0 - 31.0 10/02/2012 Normal [facility] HEMATOLOGY MCHC 32.5 g/dL 32.0 - 36.0 10/02/2012 Normal [facility] HEMATOLOGY RDW 14.5 % 11.5 - 14.5 10/02/2012 Normal [facility] HEMATOLOGY WBC 14.0 K/CMM 3.7 - 10.4 10/02/2012 HI [facility] HEMATOLOGY MPV 7.9 fL 7.4 - 10.4 10/02/2012 Normal [facility] HEMATOLOGY Platelet 267 K/CMM 133 - 450 10/02/2012 Normal [facility] HEMATOLOGY Basophils # 0.0 K/CMM 0.0 - 0.2 10/02/2012 Normal [facility] HEMATOLOGY Hypochrom Slight (10/01/2012 22:45:00) None Seen 10/02/2012 Normal [facility] HEMATOLOGY Eosinophils 0.4 % 0.0 - 4.0 10/02/2012 Normal [facility] HEMATOLOGY Basophils 0.2 % 0.0 - 1.0 10/02/2012 Normal [facility] HEMATOLOGY Segs-Bands # 12.2 K/CMM 1.5 - 8.1 10/02/2012 HI [facility] HEMATOLOGY Segs 86.7 % 45.0 - 75.0 10/02/2012 HI [facility] HEMATOLOGY Lymphocytes 8.2 % 20.0 - 40.0 10/02/2012 LOW [facility] HEMATOLOGY Monocytes 4.5 % 2.0 - 12.0 10/02/2012 Normal [facility] HEMATOLOGY Lymphocytes # 1.2 K/CMM 1.0 - 5.5 10/02/2012 Normal [facility] HEMATOLOGY Monocytes # 0.6 K/CMM 0.0 - 0.8 10/02/2012 Normal [facility] HEMATOLOGY Eosinophils # 0.1 K/CMM 0.0 - 0.5 10/02/2012 Normal [facility] HEMATOLOGY Plt Morph Normal (10/01/2012 22:45:00) 10/02/2012 Normal [facility] Vital Signs Vital Sign Value Date Comments Source Respitory Rate 13 02/07/2013 [facility] Systolic (mm Hg) 107 02/07/2013 [facility] Diastolic (mm Hg) 59 02/07/2013 [facility] Respitory Rate 15 02/07/2013 [facility] Systolic (mm Hg) 134 02/07/2013 [facility] Respitory Rate 14 02/07/2013 [facility] Diastolic (mm Hg) 69 02/07/2013 [facility] Systolic (mm Hg) 139 02/07/2013 [facility] Diastolic (mm Hg) 69 02/07/2013 [facility] Heart Rate 72 02/07/2013 [facility] Heart Rate 73 02/05/2013 [facility] Weight 114.545 02/05/2013 [facility] Height 193.04 cm 02/05/2013 [facility] Encounters Location Location Details Encounter Type Encounter Number Reason For Visit Attending Provider ADM Date DC Date Status Source [facility] Outpatient [id number] VERITO ROJASUlises 08/24/2012 08/24/2012 Active [facility] Emergency [id number] GASTON MCKEONAN 10/01/2012 10/02/2012 Active [facility] OD [id number] 388.60 - OTORRHEA NOS LYNNE PATHAKLEY 01/08/2013 01/08/2013 Active [facility] DS [id number] LYNNE SCHNEIDER 02/07/2013 02/07/2013 Active [facility] [place] [facility] [id number] Rohan Hernandez 08/24/2015 08/25/2015 [facility] [place] [facility] [place] [facility] [id number] Rohan Hernandez 09/01/2015 09/02/2015 [facility] [place] Procedures Procedure Code Date Perfomer Comments Source Allograft bypass of coronary artery [id number] [facility] [place] Amputation of toe [id number] [facility] [place] Aorto-femoral arterial bypass [id number] [facility] [place] Cardiac catheterization [id number] [facility] [place] Excision of gallbladder [id number] [facility] [place] Allograft bypass of coronary artery [id number] [facility] Amputation of toe [id number] [facility] Excision of gallbladder [id number] [facility] Aorto-femoral arterial bypass [facility] Cardiac catheterization [id number] [facility]
--- OUTSIDE RECORDS SUMMARY | 2018-06-30 15:44 | XMS REPORT | CCD ---
Author Author Auto Generated Organization [facility] Address Unknown Phone Unavailable Care Team Providers Care Tinsmith Helper Name Role Phone Carroll العراقي RP Allergies, Adverse Reactions, Alerts Substance Reaction Status contrast media (iodine-based) Active Plastic Tape Active Problem List Condition Effective Dates Status CAD (coronary artery disease) Resolved Cholesterol1 Resolved Diabetes mellitus type II Resolved History of - chronic ear infection Resolved HTN - Hypertension Resolved Neuropathy Resolved PVD (peripheral vascular disease) Resolved 1high Medications Medication Instructions Start Date End Date Status Vicodin 5/500 oral 1-2 tablets, PO, Q4-6H, PRN, 20 02/07/2013 02/12/2013 Ordered tablet tab, for Pain, Substitution Allowed, Maintenance ondansetron 4 mg, 2 mL, Route: IVP, Drug form: 02/07/2013 02/07/2013 Discontinued INJ, ONCE, Dosing Weight 114.545, kg, PRN Nausea & Vomiting, Start date: 02/07/13 13:37:00 labetalol 5 mg, 1 mL, Route: IVP, Drug form: 02/07/2013 02/07/2013 Discontinued INJ, Q5Min, Dosing Weight 114.545, kg, PRN Elevated BP, Start date: 02/07/13 13:37:00, Duration: 5 doses or times, Stop date: Limited # of times acetaminophen-10 1,000 mg, 100 mL, Route: IV, Drug 02/07/2013 02/07/2013 Completed mg/mL INTRAVENOUS form: INJ, ONCE, Dosing Weight solution 114.545, kg, PRN Pain Score 4-6, Start date: 02/07/13 13:37:00, Duration: 1 doses or times, Stop date: Limited # of times, Infuse over 15 minutes (for patient weight 50 kg or greater) Infuse over 15 minutes (for patient weight 50 kg or greater) Lactated Ringers 1,000 mL, Rate: 50 ml/hr, Infuse 02/07/2013 02/07/2013 Discontinued Injection IV 1,000 over: 20 hr, Route: IV, Dosing mL Weight 114.545 kg, Total Volume: 1,000, Start date: 02/07/13 13:37:00, Duration: 30 day, Stop date: 03/09/13 13:36:00 flumazenil 0.2 mg, 2 mL, Route: IVP, Drug 02/07/2013 02/07/2013 Discontinued form: INJ, PRN, Dosing Weight 114.545, kg, PRN Benzodiazepine Reversal, Initial dose, Start date: 02/07/13 13:37:00, Duration: 30 day, Stop date: 03/09/13 13:36:00 meperidine 12.5 mg, 0.25 mL, Route: IVP, Drug 02/07/2013 02/07/2013 Discontinued form: INJ, Q30Min, Dosing Weight 114.545, kg, PRN Other -See Comment, For shivering, Start date: 02/07/13 13:37:00, Duration: 2 doses or times, Stop date: Limited # of times naloxone 0.04 mg, 0.1 mL, Route: IVP, Drug 02/07/2013 02/07/2013 Discontinued form: INJ, Q2MIN, Dosing Weight 114.545, kg, PRN Narcotic Reversal, Start date: 02/07/13 13:37:00, Duration: 8 doses or times, Stop date: Limited # of times acetaminophen-hydroc 2 tab, Route: PO, Drug Form: TAB, 02/07/2013 02/07/2013 Discontinued odone 325 mg-5 mg Dosing Weight 114.545, kg, Q4H, PRN oral tablet Pain Score 4-6, Start date: 02/07/13 13:37:00, Duration: 30 day, Stop date: 03/09/13 13:36:00 acetaminophen-hydroc 15 mL, Route: PO, Drug Form: SOLN, 02/07/2013 02/07/2013 Discontinued odone 300 mg-10 Dosing Weight 114.545, kg, Q4H, PRN mg/15 mL oral liquid Pain Score 4-6, Start date: 02/07/13 13:37:00, Duration: 30 day, Stop date: 03/09/13 13:36:00 morphine Sulfate 2 mg, 1 mL, Route: IVP, Drug form: 02/07/2013 02/07/2013 Discontinued INJ, Q5Min, Dosing Weight 114.545, kg, PRN Pain Score 4-6, Start date: 02/07/13 13:37:00, Duration: 5 doses or times, Stop date: Limited # of times Bactrim DS oral 1 tab, PO, BID, 14 tab, 02/07/2013 02/14/2013 Ordered tablet Substitution Allowed, Maintenance influenza virus 0.5 mL, Route: IM, Drug Form: SUSP, 02/05/2013 02/07/2013 Discontinued vaccine, inactivated ONCALL, Start date: 02/05/13 11:59:32, Stop date: 03/07/13 11:54:32 pneumococcal 0.5 ml, Route: IM, Drug Form: INJ, 08/09/2006 08/09/2006 Completed 23-valent vaccine Start date: 08/09/06 9:00:00 Insulin Diluting IV, Substitution Allowed, 02/05/2013 Ordered Medium for Novolog Maintenance intravenous solution aspirin 81 mg 81 mg, 1 tab, PO, Daily, 0 tab, 02/05/2013 Ordered tablet, enteric Substitution Allowed, ECTAB coated lovastatin 20 mg 20 mg, 1 tab, PO, Daily, 02/05/2013 Ordered oral tablet Substitution Allowed lisinopril 20 mg 20 mg, 1 tab, PO, Daily, 02/05/2013 Ordered oral tablet Substitution Allowed Plavix 75 mg oral 75 mg, 1 tab, PO, Daily, 02/05/2013 Ordered tablet Substitution Allowed Lactated Ringers 1,000 mL, Rate: 25 ml/hr, Infuse 02/07/2013 02/07/2013 Discontinued Injection IV 1,000 over: 40 hr, Route: IV, Dosing mL Weight 114.545 kg, Total Volume: 1,000, Start date: 02/07/13 9:45:00, Duration: 30 day, Stop date: 03/09/13 9:44:00 Immunizations Vaccine Date Status pneumococcal 23-valent vaccine 08/09/2006 Auth (Verified) Vital Signs Most recent to oldest [Reference Range]: 1 2 3 Height 193.04 cm (02/05/2013 11:52:00) Systolic Blood Pressure [90-140 mmHg] 107 mmHg (02/07/2013 16:20:00) 134 mmHg (02/07/2013 16:00:00) 139 mmHg (02/07/2013 15:45:00) Diastolic Blood Pressure [60-90 mmHg] 59 mmHg *LOW* (02/07/2013 16:20:00) 69 mmHg (02/07/2013 16:00:00) 69 mmHg (02/07/2013 15:45:00) Respiratory Rate [14-20 BRMIN] 13 BRMIN *LOW* (02/07/2013 16:20:00) 15 BRMIN (02/07/2013 16:15:00) 14 BRMIN (02/07/2013 16:00:00) Peripheral Pulse Rate [60-100 bpm] 72 bpm (02/07/2013 08:45:00) 73 bpm (02/05/2013 11:53:00) Weight 114.545 kg (02/05/2013 11:52:00) Results BEDSIDE GLUCOSE TESTING Most recent to oldest [Reference Range]: 1 2 Gluc POC [70-99 mg/dL] 110 mg/dL 1 *HI* (02/07/2013 16:16:00) 149 mg/dL 2 *HI* (02/07/2013 15:26:00) Gluc POC Comment 1 Notify RN/MD *NA* (02/07/2013 15:26:00) 1Interpretive Data: Upper Reportable Limit: 200 mg/dL. 2Interpretive Data: Upper Reportable Limit: 200 mg/dL. CHEMISTRY Most recent to oldest [Reference Range]: 1 2 Sodium Lvl [135-145 mEq/L] 142 mEq/L (02/05/2013 11:10:00) Potassium Lvl [3.5-5.1 mEq/L] 4.6 mEq/L (02/05/2013 11:10:00) Chloride Lvl [95-109 mEq/L] 104 mEq/L (02/05/2013 11:10:00) CO2 [24-32 mEq/L] 30 mEq/L (02/05/2013 11:10:00) AGAP [10.0-20.0 mEq/L] 12.6 mEq/L (02/05/2013 11:10:00) Creatinine Lvl [0.5-1.4 mg/dL] 1.1 mg/dL (02/05/2013 11:10:00) eGFR 74 mL/min/1.73m2 3 *NA* (02/05/2013:10:00) BUN [7-22 mg/dL] 17 mg/dL (02/05/2013:10:00) Glucose Lvl [70-99 mg/dL] 120 mg/dL 4 *HI* (02/05/2013:10:00) Calcium Lvl [8.5-10.5 mg/dL] 8.5 mg/dL (02/05/2013:10:00) 3Result Comment: The eGFR is calculated using [...] from the National Kidney Disease Education Program ( NKDEP) which additionally recommends that when the eGFR is used in patients with extremes of body mass index for purposes of drug dosing, the eGFR should be mul tiplied by the estimated BMI. 4Interpretive Data: Adult reference range values reflect the clinical guidelines of the [place] [employer]. HEMATOLOGY Most recent to oldest [Reference Range]: 1 2 WBC [3.7-10.4 K/CMM] 8.4 K/CMM (02/05/2013:10:00) RBC [4.70-6.10 M/CMM] 4.05 M/CMM *LOW* (02/05/2013:10:00) Hgb [14.0-18.0 g/dL] 12.1 g/dL *LOW* (02/05/2013:10:00) Hct [42.0-54.0 %] 35.3 % *LOW* (02/05/2013 11:10:00) MCV [80.0-94.0 fL] 87.2 fL (02/05/2013:10:00) MCH [27.0-31.0 pg] 29.8 pg (02/05/2013 11:10:00) MCHC [32.0-36.0 g/dL] 34.1 g/dL (02/05/2013:10:00) RDW [11.5-14.5 %] 13.8 % (02/05/2013 11:10:00) Platelet [133-450 K/CMM] 243 K/CMM (02/05/2013:10:00) MPV [7.4-10.4 fL] 8.0 fL (02/05/2013 11:10:00) Segs [45.0-75.0 %] 64.3 % (02/05/2013:10:00) Lymphocytes [20.0-40.0 %] 25.4 % (02/05/2013:10:00) Monocytes [2.0-12.0 %] 6.6 % (02/05/2013:10:00) Eosinophils [0.0-4.0 %] 3.4 % (02/05/2013:10:00) Basophils [0.0-1.0 %] 0.3 % (02/05/2013 11:10:00) Segs-Bands # [1.5-8.1 K/CMM] 5.4 K/CMM (02/05/2013:10:00) Lymphocytes # [1.0-5.5 K/CMM] 2.1 K/CMM (02/05/2013:10:00) Monocytes # [0.0-0.8 K/CMM] 0.6 K/CMM (02/05/2013 11:10:00) Eosinophils # [0.0-0.5 K/CMM] 0.3 K/CMM (02/05/2013 11:10:00) Basophils # [0.0-0.2 K/CMM] 0.0 K/CMM (02/05/2013 11:10:00) PT [12.0-14.7 seconds] 13.7 seconds (02/05/2013 11:10:00) INR [0.85-1.17] 1.06 5 (02/05/2013 11:10:00) PTT [22.9-35.8 seconds] 37.7 seconds 6 *HI* (02/05/2013 11:10:00) 5Interpretive Data: RECOMMENDED RANGES FOR PROTIME INR: 2.0-3.0 for most medical and surgical thromboembolic states. 2.5-3.5 for artificial heart valves and recurrent embolism. INR SHOULD BE USED ONLY FOR PATIENTS ON STABLE ANTICOAGULANT THERAPY. 6Interpretive Data: Heparin Therapeutic Range: 57 - 92 Seconds Microbiology Reports PROCEDURE:Culture: Anaerobic STATUS: In Progress BODY SITE: Ear L COLLECTED DATE/TIME: 02/07/2013 11:30:00 SOURCE: Ear Fluid FREE TEXT SOURCE: PRELIMINARY REPORTS Preliminary Report Culture In Progress PROCEDURE:Culture: Aspirate/Body Fluid/Tissue STATUS: In Progress BODY SITE: Ear L COLLECTED DATE/TIME: 02/07/2013 11:30:00 SOURCE: Ear Fluid FREE TEXT SOURCE: PRELIMINARY REPORTS Preliminary Report Many Staphylococcus aureus : Susceptibility To Follow Many Gram Negative Rods, Non-Lactose Fermenters : Identification And Sensitivity To Follow Growth In Subculture Broth Only Alpha Streptococcus, Not Enterococcus Preliminary Report Holding For Better Growth STAIN REPORTS Stain Report No Wbc'S Or Organisms Seen Procedures Procedures Date Related Diagnosis Aorto-femoral arterial bypass Cardiac catheterization
--- OUTSIDE RECORDS SUMMARY | 2018-06-30 15:44 | XMS REPORT | CCD ---
Author Author Auto Generated Organization [facility] Outpatient Imaging [facility] Address Unknown Phone Unavailable Care Team Providers Care Taco Maker Name Role Phone Carroll العراقي CP Allergies, Adverse Reactions, Alerts Substance Reaction Status NKDA Active Problem List Condition Effective Dates Status Cholesterol1 Resolved Diabetes mellitus type II Resolved History of - chronic ear infection Resolved HTN - Hypertension Resolved 1high Medications Medication Instructions Start Date End Date Status pneumococcal 0.5 ml, Route: IM, Drug Form: INJ, 08/09/2006 08/09/2006 Completed 23-valent vaccine Start date: 08/09/06 9:00:00 Immunizations Vaccine Date Status pneumococcal 23-valent vaccine 08/09/2006 Auth (Verified)
--- OUTSIDE RECORDS SUMMARY | 2018-06-30 15:44 | XMS REPORT | CCD ---
Author Author Auto Generated Organization [facility] Address Unknown Phone Unavailable Care Team Providers Care Retail Cashier Associate Name Role Phone Casey Mark CP Allergies, Adverse Reactions, Alerts Substance Reaction Status NKDA Active Problem List Condition Effective Dates Status Cholesterol1 Resolved Diabetes mellitus type II Resolved History of - chronic ear infection Resolved HTN - Hypertension Resolved 1high Medications Medication Instructions Start Date End Date Status Phenergan 25 mg oral 25 mg, 1 tab, PO, Q4H, PRN, 15 tab, 10/02/2012 Ordered tablet Nausea, Substitution Allowed tramadol 50 mg oral 50 mg, PO, Q4-6H, PRN, 20 tab, 10/02/2012 10/06/2012 Ordered tablet Pain, Substitution Allowed morphine Sulfate 4 mg, Route: IVP, ONCE, Dosing 10/01/2012 10/01/2012 Completed Weight 113.636, kg, Priority: STAT, Start date: 10/01/12 21:54:00, Stop date: 10/01/12 21:54:00 ondansetron 4 mg, Route: IVP, ONCE, Dosing 10/01/2012 10/01/2012 Completed Weight 113.636, kg, Priority: STAT, Start date: 10/01/12 21:54:00, Stop date: 10/01/12 21:54:00 Sodium Chloride 0.9% 500 mL, Rate: 1,000 ml/hr, Infuse 10/01/2012 10/01/2012 Completed (Bolus) IV 500 mL over: 30 minutes, Route: IV, Dosing Weight 113.636 kg, Total Volume: 500, Priority: STAT, Start date: 10/01/12 21:54:00, Duration: 1 doses or times, Stop date: 10/01/12 22:23:00 Saline Flush 0.9% 5 mL, Route: IVP, Drug Form: INJ, 10/01/2012 10/02/2012 Discontinued Dosing Weight 113.636, kg, PRN, PRN Line Flush, Start date: 10/01/12 21:54:00, Duration: 24 hr, Stop date: 10/02/12 21:53:00 Flagyl 500 mg oral 500 mg, 1 tab, PO, Q8H, 30 tab, 10/02/2012 10/12/2012 Ordered tablet Substitution Allowed Insulin regular 4 unit, Route: SUB-Q, ONCE, Dosing 10/02/2012 10/02/2012 Completed Weight 113.636, kg, Start date: 10/02/12 1:07:00, Stop date: 10/02/12 1:07:00 pneumococcal 0.5 ml, Route: IM, Drug Form: INJ, 08/09/2006 08/09/2006 Completed 23-valent vaccine Start date: 08/09/06 9:00:00 clonidine 0.2 mg 1 tab, Route: PO, ONCE, Dosing 10/01/2012 10/01/2012 Completed oral tablet Weight 113.636, kg, Start date: 10/01/12 22:11:00, Stop date: 10/01/12 22:11:00 hydrALAZINE 20 mg, Route: IVP, ONCE, Dosing 10/02/2012 10/02/2012 Completed Weight 113.636, kg, Priority: STAT, Start date: 10/02/12 0:11:00, Stop date: 10/02/12 0:11:00 Immunizations Vaccine Date Status pneumococcal 23-valent vaccine 08/09/2006 Auth (Verified) Results URINALYSIS Most recent to oldest [Reference Range]: 1 UA Turbidity [Clear] Clear (10/01/2012 23:50:00) UA Color Ltyellow *NA* (10/01/2012 23:50:00) UA pH [5.0-8.0] 7.0 (10/01/2012 23:50:00) UA Spec Grav [<=1.030] 1.005 (10/01/2012 23:50:00) UA Glucose [Negative mg/dL] 500 mg/dL *ABN* (10/01/2012 23:50:00) UA Blood [Negative] Small *ABN* (10/01/2012 23:50:00) UA Ketones [Negative mg/dL] Trace mg/dL *ABN* (10/01/2012 23:50:00) UA Protein [Negative mg/dL] Negative mg/dL (10/01/2012 23:50:00) UA Urobilinogen [0.1-1.0 mg/dL] <=1.0 mg/dL *NA* (10/01/2012 23:50:00) UA Bili [Negative] Negative *NA* (10/01/2012 23:50:00) UA Leuk Est [Negative] Negative (10/01/2012 23:50:00) UA Nitrite [Negative] Negative (10/01/2012 23:50:00) UA WBC [0-5 /HPF] <1 /HPF (10/01/2012 23:50:00) UA RBC [0-2 /HPF] 2 /HPF (10/01/2012 23:50:00) UA Bacteria [None Seen /HPF] Occasional /HPF *NA* (10/01/2012 23:50:00) UA Sq Epi None Seen *NA* (10/01/2012 23:50:00) CHEMISTRY Most recent to oldest [Reference Range]: 1 Sodium Lvl [135-145 mEq/L] 137 mEq/L (10/01/2012 22:45:00) Potassium Lvl [3.5-5.1 mEq/L] 4.4 mEq/L (10/01/2012 22:45:00) Chloride Lvl [95-109 mEq/L] 98 mEq/L (10/01/2012 22:45:00) CO2 [24-32 mEq/L] 30 mEq/L (10/01/2012 22:45:00) AGAP [10.0-20.0 mEq/L] 13.4 mEq/L (10/01/2012 22:45:00) Creatinine Lvl [0.5-1.4 mg/dL] 1.0 mg/dL (10/01/2012 22:45:00) eGFR 83 mL/min/1.73m2 1 *NA* (10/01/2012 22:45:00) BUN [7-22 mg/dL] 14 mg/dL (10/01/2012 22:45:00) B/C Ratio [6-25] 14 (10/01/2012 22:45:00) Glucose Lvl [70-99 mg/dL] 245 mg/dL 2 *HI* (10/01/2012 22:45:00) Total Protein [6.4-8.4 g/dL] 8.1 g/dL (10/01/2012:45:00) Albumin Lvl [3.5-5.0 g/dL] 4.1 g/dL (10/01/2012:45:00) Globulin [2.0-4.0 g/dL] 4.0 g/dL (10/01/2012:45:00) A/G Ratio [0.7-1.6] 1.0 (10/01/2012:45:00) Calcium Lvl [8.5-10.5 mg/dL] 8.8 mg/dL (10/01/2012:45:00) ALT [0-65 unit/L] 40 unit/L (10/01/2012:45:00) AST [0-37 unit/L] 37 unit/L (10/01/2012:45:00) Alk Phos [39-136 unit/L] 85 unit/L (10/01/2012:45:00) Bili Total [0.2-1.3 mg/dL] 0.7 mg/dL (10/01/2012:45:00) Lipase Lvl [73-393 unit/L] 70 unit/L *LOW* (10/01/2012:45:00) 1Result Comment: The eGFR is calculated using [...] be mul tiplied by the estimated BMI. 2Interpretive Data: Adult reference range values reflect the clinical guidelines of the [place] [employer]. HEMATOLOGY Most recent to oldest [Reference Range]: 1 WBC [3.7-10.4 K/CMM] 14.0 K/CMM *HI* (10/01/2012 22:45:00) RBC [4.70-6.10 M/CMM] 4.71 M/CMM (10/01/2012 22:45:00) Hgb [14.0-18.0 g/dL] 13.5 g/dL *LOW* (10/01/2012 22:45:00) Hct [42.0-54.0 %] 41.4 % *LOW* (10/01/2012 22:45:00) MCV [80.0-94.0 fL] 88.0 fL (10/01/2012 22:45:00) MCH [27.0-31.0 pg] 28.6 pg (10/01/2012 22:45:00) MCHC [32.0-36.0 g/dL] 32.5 g/dL (10/01/2012 22:45:00) RDW [11.5-14.5 %] 14.5 % (10/01/2012 22:45:00) Platelet [133-450 K/CMM] 267 K/CMM (10/01/2012 22:45:00) MPV [7.4-10.4 fL] 7.9 fL (10/01/2012 22:45:00) Segs [45.0-75.0 %] 86.7 % *HI* (10/01/2012 22:45:00) Lymphocytes [20.0-40.0 %] 8.2 % *LOW* (10/01/2012 22:45:00) Monocytes [2.0-12.0 %] 4.5 % (10/01/2012 22:45:00) Eosinophils [0.0-4.0 %] 0.4 % (10/01/2012 22:45:00) Basophils [0.0-1.0 %] 0.2 % (10/01/2012 22:45:00) Segs-Bands # [1.5-8.1 K/CMM] 12.2 K/CMM *HI* (10/01/2012 22:45:00) Lymphocytes # [1.0-5.5 K/CMM] 1.2 K/CMM (10/01/2012 22:45:00) Monocytes # [0.0-0.8 K/CMM] 0.6 K/CMM (10/01/2012 22:45:00) Eosinophils # [0.0-0.5 K/CMM] 0.1 K/CMM (10/01/2012 22:45:00) Basophils # [0.0-0.2 K/CMM] 0.0 K/CMM (10/01/2012 22:45:00) Hypochrom [None Seen] Slight (10/01/2012 22:45:00) Plt Morph Normal (10/01/2012 22:45:00) PT [12.0-14.7 seconds] 14.4 seconds (10/01/2012 22:45:00) INR [0.85-1.17] 1.10 3 (10/01/2012 22:45:00) PTT [22.9-35.8 seconds] 33.8 seconds 4 (10/01/2012 22:45:00) 3Interpretive Data: RECOMMENDED RANGES FOR PROTIME INR: 2.0-3.0 for most medical and surgical thromboembolic states. 2.5-3.5 for artificial heart valves and recurrent embolism. INR SHOULD BE USED ONLY FOR PATIENTS ON STABLE ANTICOAGULANT THERAPY. 4Interpretive Data: Heparin Therapeutic Range: 57 - 92 Seconds Microbiology Reports PROCEDURE:Culture: Urine STATUS: Auth (Verified) BODY SITE: COLLECTED DATE/TIME: 10/01/2012 23:50:00 SOURCE: Urine, Clean Catch FREE TEXT SOURCE: FINAL REPORTS Final Report No Growth PRELIMINARY REPORTS Preliminary Report No Growth; Holding Procedures Procedures Date Related Diagnosis Allograft bypass of coronary artery Amputation of toe Excision of gallbladder
--- OUTSIDE RECORDS SUMMARY | 2018-06-30 15:44 | XMS REPORT | Summary of Care ---
Author Author [facility] [place] Organization [facility] [place] Address Unknown Phone Unavailable Encounter HQ Lisa_demetra(FIN) [id number] Date(s): 09/01/15 - 09/01/15 [facility] - [place] [address] [place] [address] [phone] Discharge Disposition: Home Attending Physician: Rohan Hernandez MD Vital Signs No data available for this section Problem List Condition Effective Dates Status Health Status Informant CAD (coronary artery Resolved disease)(Confirmed) Cholesterol(Confirme Resolved d)1 Diabetes mellitus Resolved type II(Confirmed) History of - chronic Resolved ear infection(Confirmed) HTN - Resolved Hypertension(Confirm ed) Neuropathy(Confirmed Resolved ) Pseudomonas(Confirme Active d)2 PVD (peripheral Resolved vascular disease)(Confirmed) 1high 2Problem added by Discern Expert. Allergies, Adverse Reactions, Alerts Substance Reaction Severity Status contrast media Active (iodine-based) Plastic Tape Active Medications No data available for this section Results No data available for this section Immunizations Vaccine Date Refusal Reason pneumococcal 23-valent vaccine 08/09/06 Procedures Procedure Date Related Diagnosis Body Site Allograft bypass of coronary artery Amputation of toe Aorto-femoral arterial bypass Cardiac catheterization Excision of gallbladder Social History No data available for this section Assessment and Plan No data available for this section
--- OUTSIDE RECORDS SUMMARY | 2018-06-30 15:44 | XMS REPORT | Summary of Care ---
Author Author [facility] [place] Organization [facility] [place] Address Unknown Phone Unavailable Encounter HQ Lisa_demetra(FIN) [id number] Date(s): 08/24/15 - 08/24/15 [facility] [place] [address] [place] [address] [phone] Discharge Disposition: Home Attending Physician: Rohan Hernandez [...]
--- NOTE | 2018-06-30 16:52 | NUR ---
stopped in restroom on way to room, was not able to provide urine sample at this time. patient took home hydrocodone after ok from er md.
--- NOTE | 2018-06-30 17:29 | Diagnostic Imaging Report ---
Exam: AP pelvis radiograph-1 view; coccyx radiographs-3 views. History: Fell onto buttocks. Comparison: None. Findings: There is diffuse osteopenia. Bowel gas partially obscures visualization of the sacrum. No evidence of displaced fracture in the pelvis. Surgical clips project over the pelvis and bilateral thighs. Mild degenerative changes of bilateral hips. Partially seen degenerative changes of the lower lumbar spine. Dedicated coccygeal radiographs demonstrate no evidence of displaced fracture. Impression: No acute radiographic abnormality. Signed by: Dr. Manish Hooker MD on 06/30/2018 5:26 PM
[2018-06-30] MEDS ORDERED: SODIUM CHLORIDE 0.9% 1000ML 1,000 ML IV SCH (17:30)
== END 2018-06-30 19:11 | disposition home or self-care (01) ==
LOC: ER 15:39
DX: M54.5 Low back pain (principal); S30.0XXA Contusion of lower back and pelvis, initial encounter; W18.30XA Fall on same level, unspecified, initial encounter; Y92.008 Other place in unspecified non-institutional (private) residence as the place of occurrence of the external cause; N30.90 Cystitis, unspecified without hematuria; I10 Essential (primary) hypertension; E11.9 Type 2 diabetes mellitus without complications; I25.10 Atherosclerotic heart disease of native coronary artery without angina pectoris; Z89.511 Acquired absence of right leg below knee; Z86.73 Personal history of transient ischemic attack (TIA), and cerebral infarction without residual deficits; Z95.1 Presence of aortocoronary bypass graft
CPT/HCPCS: 36415; 72170; 72220; 82948; 99283; J7030

== ENCOUNTER 2018-10-23 18:35 | Observation (INO) | payer MEDICARE, OTHER ==
[~2018-10-23] VITALS: Ht 193 cm; Wt 97.6 kg
--- OUTSIDE RECORDS SUMMARY | 2018-10-23 18:39 | XMS REPORT | Continuity of Care Document ---
Author Author [facility] Interface Address Unknown Phone Unavailable Problems Problem Status Onset Date Classification Date Reported Comments Source FIRST NIGHT [address]25 Active 04/09/2018 [facility] 29662/ 384.20 Active 01/24/2013 [facility] 388.60 - OTORRHEA NOS Active 01/08/2013 [facility] DIARRHEA Active 10/01/2012 [facility] EAR INFECTION Active 08/23/2012 [facility] CAD (<span ID="[id number]">Confirmed</span>) Resolved Problem 09/04/2015 [facility] Cholesterol<sup>1</sup> Resolved Problem 09/04/2015 high [facility] Diabetes mellitus type II Resolved Problem 09/04/2015 [facility] History of - chronic ear infection Resolved Problem 09/04/2015 [facility] HTN - Hypertension Resolved Problem 09/04/2015 [facility] Neuropathy Resolved Problem 09/04/2015 [facility] Pseudomonas<sup>2</sup> Active Problem 09/04/2015 Problem added by Discern Expert. [facility] PVD (<span ID="[id number]">Confirmed</span>) Resolved Problem 09/04/2015 [facility] CAD Resolved Problem 02/09/2013 [facility] Cholesterol<sup>1</sup> Resolved Problem 02/09/2013 1high [facility] Diabetes mellitus type II Resolved Problem 02/09/2013 [facility] History of - chronic ear infection Resolved Problem 02/09/2013 [facility] HTN - Hypertension Resolved Problem 02/09/2013 [facility] Neuropathy Resolved Problem 02/09/2013 [facility] PVD Resolved Problem 02/09/2013 [facility] MASTOIDITIS NOS Active [facility] PERFORAT TYMPAN MEMB NOS Active [facility] OBSTRUCTIVE SLEEP APNEA (ADULT) (PEDIATR Active [facility] Medications Medication Details Route Status Patient Instructions Ordering Provider Order Date Source Vicodin 5/500 oral tablet 1-2 tablets, PO, Q4-6H, PRN, 20 tab, for Pain, Substitution Allowed, Maintenance PO Active [facility] 02/07/2013 [facility] Bactrim DS oral tablet 1 tab, PO, BID, 14 tab, Substitution Allowed, Maintenance PO Active [facility] 02/07/2013 [facility] ondansetron 4 mg, 2 mL, Route: IVP, Drug form: INJ, ONCE, Dosing Weight 114.545, kg, PRN Nausea & Vomiting, Start date: 02/07/13 13:37:00 IVP No Longer Active [facility] 02/07/2013 [facility] labetalol 5 mg, 1 mL, Route: IVP, Drug form: INJ, Q5Min, Dosing Weight 114.545, kg, PRN Elevated BP, Start date: 02/07/13 13:37:00, Duration: 5 doses or times, Stop date: Limited # of times IVP No Longer Active [facility] 02/07/2013 [facility] acetaminophen-10 mg/mL INTRAVENOUS solution 1,000 mg, 100 mL, Route: IV, Drug form: INJ, ONCE, Dosing Weight 114.545, kg, PRN Pain Score 4-6, Start date: 02/07/13 13:37:00, Duration: 1 doses or times, Stop date: Limited # of times, Infuse over 15 minutes (for patient weight 50 kg or greater)Infuse over 15 minutes (for patient weight 50 kg or greater) IV No Longer Active [facility] 02/07/2013 [facility] Lactated Ringers Injection IV 1,000 mL 1,000 mL, Rate: 50 ml/hr, Infuse over: 20 hr, Route: IV, Dosing Weight 114.545 kg, Total Volume: 1,000, Start date: 02/07/13 13:37:00, Duration: 30 day, Stop date: 03/09/13 13:36:00 IV No Longer Active [facility] 02/07/2013 [facility] flumazenil 0.2 mg, 2 mL, Route: IVP, Drug form: INJ, PRN, Dosing Weight 114.545, kg, PRN Benzodiazepine Reversal, Initial dose, Start date: 02/07/13 13:37:00, Duration: 30 day, Stop date: 03/09/13 13:36:[address] Longer Active [facility] 02/07/2013 [facility] meperidine 12.5 mg, 0.25 mL, Route: IVP, Drug form: INJ, Q30Min, Dosing Weight 114.545, kg, PRN Other -See Comment, For shivering, Start date: 02/07/13 13:37:00, Duration: 2 doses or times, Stop date: Limited # of times IVP No Longer Active [facility] 02/07/2013 [facility] naloxone 0.04 mg, 0.1 mL, Route: IVP, Drug form: INJ, Q2MIN, Dosing Weight 114.545, kg, PRN Narcotic Reversal, Start date: 02/07/13 13:37:00, Duration: 8 doses or times, Stop date: Limited # of times IVP No Longer Active [facility] 02/07/2013 [facility] acetaminophen-hydrocodone 325 mg-5 mg oral tablet 2 tab, Route: PO, Drug Form: TAB, Dosing Weight 114.545, kg, Q4H, PRN Pain Score 4-6, Start date: 02/07/13 13:37:00, Duration: 30 day, Stop date: 03/09/13 13:36:[address] [facility] 02/07/2013 [facility] acetaminophen-hydrocodone 300 mg-10 mg/15 mL oral liquid 15 mL, Route: PO, Drug Form: SOLN, Dosing Weight 114.545, kg, Q4H, PRN Pain Score 4-6, Start date: 02/07/13 13:37:00, Duration: 30 day, Stop date: 03/09/13 13:36:[address] [facility] 02/07/2013 [facility] morphine Sulfate 2 mg, 1 mL, Route: IVP, Drug form: INJ, Q5Min, Dosing Weight 114.545, kg, PRN Pain Score 4-6, Start date: 02/07/13 13:37:00, Duration: 5 doses or times, Stop date: Limited # of times IVP No Longer Active [facility] 02/07/2013 [facility] Lactated Ringers Injection IV 1,000 mL 1,000 mL, Rate: 25 ml/hr, Infuse over: 40 hr, Route: IV, Dosing Weight 114.545 kg, Total Volume: 1,000, Start date: 02/07/13 9:45:00, Duration: 30 day, Stop date: 03/09/13 9:44:00 IV No Longer Active [facility] 02/07/2013 [facility] Insulin Diluting Medium for Novolog intravenous solution IV, Substitution Allowed, Maintenance IV Active 02/05/2013 [facility] aspirin 81 mg tablet, enteric coated 81 mg, 1 tab, PO, Daily, 0 tab, Substitution Allowed, ECTAB PO Active 02/05/2013 [facility] lovastatin 20 mg oral tablet 20 mg, 1 tab, PO, Daily, Substitution Allowed PO Active 02/05/2013 [facility] lisinopril 20 mg oral tablet 20 mg, 1 tab, PO, Daily, Substitution Allowed PO Active 02/05/2013 [facility] Plavix 75 mg oral tablet 75 mg, 1 tab, PO, Daily, Substitution Allowed PO Active 02/05/2013 [facility] influenza virus vaccine, inactivated 0.5 mL, Route: IM, Drug Form: SUSP, ONCALL, Start date: 02/05/13 11:59:32, Stop date: 03/07/13 11:54:32 IM No Longer Active [facility] 02/05/2013 [facility] Phenergan 25 mg oral tablet 25 mg, 1 tab, PO, Q4H, PRN, 15 tab, Nausea, Substitution Allowed PO Active [facility] 10/02/2012 [facility] tramadol 50 mg oral tablet 50 mg, PO, Q4-6H, PRN, 20 tab, Pain, Substitution Allowed PO Active [facility] 10/02/2012 [facility] Flagyl 500 mg oral tablet 500 mg, 1 tab, PO, Q8H, 30 tab, Substitution Allowed PO Active [facility] 10/02/2012 [facility] Insulin regular 4 unit, Route: SUB-Q, ONCE, Dosing Weight 113.636, kg, Start date: 10/02/12 1:07:00, Stop date: 10/02/12 1:07:00 SUB-Q No Longer Active [facility] 10/02/2012 [facility] hydrALAZINE 20 mg, Route: IVP, ONCE, Dosing Weight 113.636, kg, Priority: STAT, Start date: 10/02/12 0:11:00, Stop date: 10/02/12 0:11:00 IVP No Longer Active [facility] 10/02/2012 [facility] clonidine 0.2 mg oral tablet 1 tab, Route: PO, ONCE, Dosing Weight 113.636, kg, Start date: 10/01/12 22:11:00, Stop date: 10/01/12 22:11:00 PO No Longer Active [facility] 10/02/2012 [facility] morphine Sulfate 4 mg, Route: IVP, ONCE, Dosing Weight 113.636, kg, Priority: STAT, Start date: 10/01/12 21:54:00, Stop date: 10/01/12 21:54:00 IVP No Longer Active [facility] 10/02/2012 [facility] ondansetron 4 mg, Route: IVP, ONCE, Dosing Weight 113.636, kg, Priority: STAT, Start date: 10/01/12 21:54:00, Stop date: 10/01/12 21:54:00 IVP No Longer Active [facility] 10/02/2012 [facility] Sodium Chloride 0.9% (Bolus) IV 500 mL 500 mL, Rate: 1,000 ml/hr, Infuse over: 30 minutes, Route: IV, Dosing Weight 113.636 kg, Total Volume: 500, Priority: STAT, Start date: 10/01/12 21:54:00, Duration: 1 doses or times, Stop date: 10/01/12 22:23:00 IV No Longer Active [facility] 10/02/2012 [facility] Saline Flush 0.9% 5 mL, Route: IVP, Drug Form: INJ, Dosing Weight 113.636, kg, PRN, PRN Line Flush, Start date: 10/01/12 21:54:00, Duration: 24 hr, Stop date: 10/02/12 21:53:00 IVP No Longer Active [facility] 10/02/2012 [facility] pneumococcal 23-valent vaccine 0.5 ml, Route: IM, Drug Form: INJ, Start date: 08/09/06 9:00:00 IM No Longer Active [facility] 08/09/2006 MARY KAY [facility] Allergies, Adverse Reactions, Alerts Substance Category Reaction Severity Reaction type Status Date Reported Comments Source contrast media (iodine-based) Assertion Drug allergy Active [facility] K[facility] Plastic Tape Assertion Propensity to adverse reactions to substance Active [facility] Immunizations Immunization Date Given Site Status Last Updated Comments Source pneumococcal 23-valent vaccine 08/09/2006 Left Arm completed Duogo MARY KAY [place] pneumococcal 23-valent vaccine 08/09/2006 completed Jeison MUÑIZ [facility] Results Order Name Results Value Reference Range Date Interpretation Comments Source Knee wo contrast MRI Knee wo contrast MRI EXAMINATION: MRI of the right knee without contrast. HISTORY: M25.569 Pain in unspecified knee; lateral right knee pain; right knee medial meniscus tear FINDINGS: Radiographs dated 08/24/2015 are reviewed demonstrating post surgical changes of [id number] amputation. Multiplanar, multisequence magnetic resonance imaging of [...] in keeping with the patient's history of eybkv-[id number] amputation. Cartilage: Within the medial compartment, there [...] in keeping with the patient's history of qafms-mls-hrcx amputation. 5. Intact right knee cruciate and [...] MD 08/24/15 15:07 FINAL REPORT MARY [facility] [place] BEDSIDE GLUCOSE TESTING Gluc POC 110 mg/dL 70 - 99 02/07/2013 [place] 1Interpretive Data: Upper Reportable Limit: 200 mg/dL. [facility] BEDSIDE GLUCOSE TESTING Gluc POC 149 mg/dL 70 - 99 02/07/2013 [place] 2Interpretive Data: Upper Reportable Limit: 200 mg/dL. [facility] BEDSIDE GLUCOSE TESTING Gluc POC Comment 1 Notify RN/MD 02/07/2013 NA [facility] Microbiology Culture: Anaerobic 02/07/2013 [facility] Microbiology Culture: Aspirate/Body Fluid/Tissue 02/07/2013 [facility] CHEMISTRY eGFR 74 mL/min/1.73m2 02/05/2013 NA 3Result [...] should be multiplied by the estimated BMI. [facility] CHEMISTRY Glucose Lvl 120 mg/dL 70 - 99 02/05/2013 [place] 4Interpretive Data: Adult reference range values reflect the clinical guidelines of the [place] [employer]. [facility] CHEMISTRY Potassium Lvl 4.6 meq/L 3.5 - 5.1 02/05/2013 Normal [facility] CHEMISTRY Sodium Lvl 142 meq/L 135 - 145 02/05/2013 Normal [facility] CHEMISTRY Creatinine Lvl 1.1 mg/dL 0.5 - 1.4 02/05/2013 Normal [facility] CHEMISTRY BUN 17 mg/dL 7 - 22 02/05/2013 Normal [facility] CHEMISTRY Calcium Lvl 8.5 mg/dL 8.5 - 10.5 02/05/2013 Normal [facility] CHEMISTRY CO2 30 meq/L 24 - 32 02/05/2013 Normal [facility] CHEMISTRY Chloride Lvl 104 meq/L 95 - 109 02/05/2013 Normal [facility] CHEMISTRY AGAP 12.6 meq/L 10.0 - 20.0 02/05/2013 Normal [facility] HEMATOLOGY Eosinophils 3.4 % 0.0 - 4.0 02/05/2013 Normal [facility] HEMATOLOGY Lymphocytes # 2.1 K/CMM 1.0 - 5.5 02/05/2013 Normal [facility] HEMATOLOGY Eosinophils # 0.3 K/CMM 0.0 - 0.5 02/05/2013 Normal [facility] HEMATOLOGY Basophils # 0.0 K/CMM 0.0 - 0.2 02/05/2013 Normal [facility] HEMATOLOGY Monocytes # 0.6 K/CMM 0.0 - 0.8 02/05/2013 Normal [facility] HEMATOLOGY Segs-Bands # 5.4 K/CMM 1.5 - 8.1 02/05/2013 Normal [facility] HEMATOLOGY Basophils 0.3 % 0.0 - 1.0 02/05/2013 Normal [facility] HEMATOLOGY Lymphocytes 25.4 % 20.0 - 40.0 02/05/2013 Normal [facility] HEMATOLOGY Monocytes 6.6 % 2.0 - 12.0 02/05/2013 Normal [facility] HEMATOLOGY Segs 64.3 % 45.0 - 75.0 02/05/2013 Normal [facility] HEMATOLOGY INR 1.06 0.85 - 1.17 02/05/2013 Normal 5Interpretive Data: RECOMMENDED RANGES FOR PROTIME INR: 2.0-3.0 for most medical and surgical thromboembolic states. 2.5-3.5 for artificial heart valves and recurrent embolism. INR SHOULD BE USED ONLY FOR PATIENTS ON STABLE ANTICOAGULANT THERAPY. [facility] HEMATOLOGY PT 13.7 s 12.0 - 14.7 02/05/2013 Normal [facility] PTT 37.7 s 22.9 - 35.8 02/05/2013 [place] 6Interpretive Data: Heparin Therapeutic Range: 57 - 92 Seconds [facility] RBC 4.05 M/CMM 4.70 - 6.10 02/05/2013 LOW [facility] HEMATOLOGY Hgb 12.1 g/dL 14.0 - 18.0 02/05/2013 LOW [facility] WBC 8.4 K/CMM 3.7 - 10.4 02/05/2013 Normal [facility] MPV 8.0 fL 7.4 - 10.4 02/05/2013 Normal [facility] Platelet 243 K/CMM 133 - 450 02/05/2013 Normal [facility] RDW 13.8 % 11.5 - 14.5 02/05/2013 Normal [facility] MCHC 34.1 g/dL 32.0 - 36.0 02/05/2013 Normal [facility] Hct 35.3 % 42.0 - 54.0 02/05/2013 LOW [facility] MCV 87.2 fL 80.0 - 94.0 02/05/2013 Normal [facility] MCH 29.8 pg 27.0 - 31.0 02/05/2013 Normal [facility] Temporal bone wo contrast CT Temporal bone [...] Gipson MD 01/08/13 12:27 FINAL REPORT [facility] URINALYSIS UA Color Ltyellow 10/02/2012 NA [facility] URINALYSIS UA Urobilinogen <=1.0 mg/dL
*NA*
(10/01/2012 23:50:00) <sup> </sup> 0.1 - 1.0 10/02/2012 NA [facility] URINALYSIS UA Glucose 500 mg/dL *ABN* (10/01/2012 23:50:00) Negative 10/02/2012 ABN [facility] URINALYSIS UA Ketones Trace mg/dL *ABN* (10/01/2012 23:50:00) Negative 10/02/2012 ABN [facility] URINALYSIS UA Spec Grav 1.005 <=1.030 10/02/2012 Normal [facility] URINALYSIS UA pH 7.0 5.0 - 8.0 10/02/2012 Normal [facility] URINALYSIS UA Protein Negative mg/dL (10/01/2012 23:50:00) Negative 10/02/2012 Normal [facility] URINALYSIS UA Leuk Est Negative (10/01/2012 23:50:00) Negative 10/02/2012 Normal [facility] URINALYSIS UA WBC null 0 - 5 10/02/2012 Normal [facility] URINALYSIS UA Bili Negative *NA* (10/01/2012 23:50:00) Negative 10/02/2012 [facility] URINALYSIS UA Turbidity Clear (10/01/2012 23:50:00) Clear 10/02/2012 Normal [facility] URINALYSIS UA RBC 2 /HPF 0 - 2 10/02/2012 Normal [facility] URINALYSIS UA Bacteria Occasional /HPF *NA* (10/01/2012 23:50:00) None Seen 10/02/2012 NA [facility] URINALYSIS UA Blood Small *ABN* (10/01/2012 23:50:00) Negative 10/02/2012 ABN [facility] URINALYSIS UA Nitrite Negative (10/01/2012 23:50:00) Negative 10/02/2012 Normal [facility] URINALYSIS UA Sq Epi None Seen 10/02/2012 [facility] Microbiology Culture: Urine 10/02/2012 [facility] CHEMISTRY A/G Ratio 1.0 0.7 - 1.6 10/02/2012 Normal [facility] CHEMISTRY Globulin 4.0 g/dL 2.0 - 4.0 10/02/2012 Normal [facility] CHEMISTRY B/C Ratio 14 6 - 25 10/02/2012 Normal [facility] CHEMISTRY AGAP 13.4 meq/L 10.0 - 20.0 10/02/2012 Normal [facility] CHEMISTRY eGFR 83 mL/min/1.73m2 10/02/2012 NA 1Result [...] should be multiplied by the estimated BMI. [facility] CHEMISTRY Creatinine Lvl 1.0 mg/dL 0.5 - 1.4 10/02/2012 Normal [facility] CHEMISTRY CO2 30 meq/L 24 - 32 10/02/2012 Normal [facility] CHEMISTRY Total Protein 8.1 g/dL 6.4 - 8.4 10/02/2012 Normal [facility] CHEMISTRY Calcium Lvl 8.8 mg/dL 8.5 - 10.5 10/02/2012 Normal [facility] CHEMISTRY Alk Phos 85 unit/L 39 - 136 10/02/2012 Normal [facility] CHEMISTRY ALT 40 unit/L 0 - 65 10/02/2012 Normal [facility] CHEMISTRY Albumin Lvl 4.1 g/dL 3.5 - 5.0 10/02/2012 Normal [facility] CHEMISTRY AST 37 unit/L 0 - 37 10/02/2012 Normal [facility] CHEMISTRY Bili Total 0.7 mg/dL 0.2 - 1.3 10/02/2012 Normal [facility] CHEMISTRY BUN 14 mg/dL 7 - 22 10/02/2012 Normal [facility] CHEMISTRY Glucose Lvl 245 mg/dL 70 - 99 10/02/2012 [place] 2Interpretive Data: Adult reference range values reflect the clinical guidelines of the [place] [employer]. [facility] CHEMISTRY Chloride Lvl 98 meq/L 95 - 109 10/02/2012 Normal [facility] CHEMISTRY Sodium Lvl 137 meq/L 135 - 145 10/02/2012 Normal [facility] CHEMISTRY Potassium Lvl 4.4 meq/L 3.5 - 5.1 10/02/2012 Normal [facility] CHEMISTRY Lipase Lvl 70 unit/L 73 - 393 10/02/2012 LOW [facility] HEMATOLOGY PTT 33.8 s 22.9 - 35.8 10/02/2012 Normal 4Interpretive Data: Heparin Therapeutic Range: 57 - 92 Seconds [facility] HEMATOLOGY PT 14.4 s 12.0 - 14.7 10/02/2012 Normal [facility] HEMATOLOGY INR 1.10 0.85 - 1.17 10/02/2012 Normal 3Interpretive Data: RECOMMENDED RANGES FOR PROTIME INR: 2.0-3.0 for most medical and surgical thromboembolic states. 2.5-3.5 for artificial heart valves and recurrent embolism. INR SHOULD BE USED ONLY FOR PATIENTS ON STABLE ANTICOAGULANT THERAPY. [facility] HEMATOLOGY Hct 41.4 % 42.0 - 54.0 10/02/2012 LOW [facility] HEMATOLOGY MCV 88.0 fL 80.0 - 94.0 10/02/2012 Normal [facility] HEMATOLOGY RBC 4.71 M/CMM 4.70 - 6.10 10/02/2012 Normal [facility] HEMATOLOGY Hgb 13.5 g/dL 14.0 - 18.0 10/02/2012 LOW [facility] HEMATOLOGY MCH 28.6 pg 27.0 - 31.0 10/02/2012 Normal [facility] HEMATOLOGY MCHC 32.5 g/dL 32.0 - 36.0 10/02/2012 Normal [facility] HEMATOLOGY RDW 14.5 % 11.5 - 14.5 10/02/2012 Normal [facility] HEMATOLOGY WBC 14.0 K/CMM 3.7 - 10.4 10/02/2012 HI [facility] HEMATOLOGY MPV 7.9 fL 7.4 - 10.4 10/02/2012 Normal [facility] HEMATOLOGY Platelet 267 K/CMM 133 - 450 10/02/2012 Normal [facility] HEMATOLOGY Basophils # 0.0 K/CMM 0.0 - 0.2 10/02/2012 Normal [facility] HEMATOLOGY Hypochrom Slight (10/01/2012 22:45:00) None Seen 10/02/2012 Normal [facility] HEMATOLOGY Eosinophils 0.4 % 0.0 - 4.0 10/02/2012 Normal [facility] HEMATOLOGY Basophils 0.2 % 0.0 - 1.0 10/02/2012 Normal [facility] HEMATOLOGY Segs-Bands # 12.2 K/CMM 1.5 - 8.1 10/02/2012 [facility] HEMATOLOGY Segs 86.7 % 45.0 - 75.0 10/02/2012 [facility] HEMATOLOGY Lymphocytes 8.2 % 20.0 - 40.0 10/02/2012 LOW [facility] HEMATOLOGY Monocytes 4.5 % 2.0 - 12.0 10/02/2012 Normal [facility] HEMATOLOGY Lymphocytes # 1.2 K/CMM 1.0 - 5.5 10/02/2012 Normal [facility] HEMATOLOGY Monocytes # 0.6 K/CMM 0.0 - 0.8 10/02/2012 Normal [facility] HEMATOLOGY Eosinophils # 0.1 K/CMM 0.0 - 0.5 10/02/2012 Normal [facility] HEMATOLOGY Plt Morph Normal (10/01/2012 22:45:00) 10/02/2012 Normal [facility] Vital Signs Vital Sign Value Date Comments Source Respitory Rate 13 02/07/2013 [facility] Systolic (mm Hg) 107 02/07/2013 [facility] Diastolic (mm Hg) 59 02/07/2013 [facility] Respitory Rate 15 02/07/2013 [facility] Systolic (mm Hg) 134 02/07/2013 [facility] Respitory Rate 14 02/07/2013 [facility] Diastolic (mm Hg) 69 02/07/2013 [facility] Systolic (mm Hg) 139 02/07/2013 [facility] Diastolic (mm Hg) 69 02/07/2013 [facility] Heart Rate 72 02/07/2013 [facility] Heart Rate 73 02/05/2013 [facility] Weight 114.545 02/05/2013 [facility] Height 193.04 cm 02/05/2013 [facility] Encounters Location Location Details Encounter Type Encounter Number Reason For Visit Attending Provider ADM Date DC Date Status Source [facility] Outpatient [id number] VERITO ROJASUlises 08/24/2012 08/24/2012 Active [facility] Emergency [id number] GASTON SILVER 10/01/2012 10/02/2012 Active [facility] OD [id number] 388.60 - OTORRHEA NOS LYNNE PATHAKLEY 01/08/2013 01/08/2013 Active [facility] DS [id number] LYNNE SCHNEIDRE 02/07/2013 02/07/2013 Active [facility] [place] [facility] [id number] Rohan Hernandez 08/24/2015 08/25/2015 [facility] [place] [facility] [place] [facility] [id number] Rohan Hernandez 09/01/2015 09/02/2015 [facility] [place] Procedures Procedure Code Date Perfomer Comments Source Allograft bypass of coronary artery [id number] [facility] [place] Amputation of toe [id number] [facility] [place] Aorto-femoral arterial bypass [id number] [facility] [place] Cardiac catheterization [id number] [facility] [place] [id number] of coronary artery [id number] [facility] Amputation of toe [id number] [facility] Excision of gallbladder [id number] [facility] Aorto-femoral arterial bypass [facility] Cardiac catheterization [id number] [facility]
--- OUTSIDE RECORDS SUMMARY | 2018-10-23 18:39 | XMS REPORT | Clinical Summary ---
Author Author DARRON 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 angina pectoris (Primary Dx); S/P CABG (coronary artery bypass graft); PAD (peripheral artery disease) ([facility]); Stenosis of carotid artery, unspecified laterality; Essential hypertension; Hyperlipidemia, unspecified hyperlipidemia type; Type 1 diabetes mellitus on insulin therapy ([facility]); Type 2 diabetes mellitus treated with insulin ([facility]) 04/24/2018 Hospital Cardiology - Encounter 04/27/2018 04/24/2018 Travel Polo Guzmán III, MD 04/24/2018 Orders Only Internal Medicine Segundo Hoyos MD L CATH & CORONARY ANGIOS 03/08/2018 Surgery Segundo Hoyos MD Coronary artery disease involving ambler coronary artery of ambler heart without angina pectoris; PAD (peripheral artery disease) ([facility]); Essential hypertension; Other hyperlipidemia; Stenosis of carotid artery, unspecified laterality; Type 1 diabetes mellitus with diabetic chronic kidney disease, unspecified CKD stage ([facility]); Status post left heart catheterization (LHC); S/P CABG (coronary artery bypass graft); SOB (shortness of breath) 03/08/2018 Hospital Cardiology - Encounter 03/10/2018 03/08/2018 Orders Only General Internal Medicine Segundo Hoyos MD PAD (peripheral artery disease) ([facility]); Coronary artery disease involving ambler coronary artery of ambler heart without angina pectoris 03/07/2018 Hospital Radiology Encounter Segundo Hoyos MD PAD (peripheral artery disease) (HCC); Coronary artery disease involving ambler coronary artery of ambler heart without angina pectoris 03/07/2018 Hospital Radiology Encounter Segundo Hoyos MD PAD (peripheral artery disease) ([facility]) (Primary Dx); Coronary artery disease involving ambler coronary artery of ambler heart without angina pectoris 03/06/2018 Outside Orders Radiology after 10/22/2017 Social History Date Tobacco Use Types Packs/Day [...] Taken Vital Sign Reading 04/27/2018 12:57 PM ACCESS NURSE Blood Pressure 140/65 04/27/2018 12:57 PM ACCESS NURSE Pulse 78 04/27/2018 12:57 PM ACCESS NURSE Temperature 36.7 C (98 F) 04/27/2018 12:57 PM ACCESS NURSE Respiratory Rate 19 04/27/2018 12:57 PM ACCESS NURSE Oxygen Saturation 100% 04/25/2018 11:51 PM ACCESS NURSE Inhaled Oxygen 21% Concentration 04/26/2018 7:50 AM ACCESS NURSE Weight 104.2 kg (229 lb 12.2 oz) 04/24/2018 3:30 PM ACCESS NURSE Height 193 cm (6' 4") 04/26/2018 7:50 AM ACCESS NURSE Body Mass Index 27.97 Plan of Treatment Not on file Implants Device Identifier Shelf Expiration Date Model / Serial / Lot Implanted Type Area [facility] [id number] 12/19/2018 [id number] / / [id number] Device Clsr Angio-Seal Vip 8fr Cardiovasc [facility] [id number] - [id number] esme MED:CARDIA Implanted: Qty: 1 on 04/25/2018 by Segundo Miller MD 06/03/2016 [id number] / / [id number] Zilvgermaine Ptx Drug-Eluting Stents-Per COOK Peripheral Stent ipheral VASCULAR Implanted: Qty: 1 on 05/13/2016 by Jass Hong MD 03/21/2019 [id number] / / [id number] Innova Vascular Stents-Per [place] Implanted: Qty: 1 on 05/13/2016 by Prismic PharmaceuticalsJass June MD [id number] 09/13/2019 [id number] / / [id number] Synergy [place] Implanted: Qty: 1 on 04/25/2018 by Segundo Kothari MD Procedures Comments Procedure Name Priority Date/Time Associated Diagnosis RHYTHM STRIP - SCAN 08/28/2018 8:50 AM CDT VASCULAR DIAGRAM -SCAN 05/07/2018 12:21 PM ACCESS NURSE RHYTHM STRIP - SCAN 05/04/2018 10:01 AM ACCESS NURSE CARDIAC CATH REPORT - 05/04/2018 SCAN 10:01 AM ACCESS NURSE ECHOCARDIOGRAM REPORT - 04/27/2018 SCAN 4:20 PM ACCESS NURSE 2D ECHO W/ DOPPLER Routine 04/27/2018 (CW/PW/COLOR) 11:05 AM ACCESS NURSE POCT-GLUCOSE METER Routine 04/27/2018 9:48 AM ACCESS NURSE T4, FREE Routine 04/27/2018 5:12 AM ACCESS NURSE VITAMIN B12 AND FOLATE Routine 04/27/2018 5:12 AM ACCESS NURSE HIV-1 ANTIGEN WITH Routine 04/27/2018 HIV-1/2 ANTIBODY 5:12 AM ACCESS NURSE TSH/FREE T4 IF INDICATED Routine 04/27/2018 5:12 AM ACCESS NURSE RPR Routine 04/27/2018 5:12 AM ACCESS NURSE HEMOGLOBIN A1C Routine 04/27/2018 5:12 AM ACCESS NURSE BASIC METABOLIC PANEL (7) Routine 04/27/2018 5:12 AM ACCESS NURSE MR BRAIN WITHOUT IV STAT 04/26/2018 CONTRAST 10:20 PM ACCESS NURSE MR MRA NECK WITHOUT IV STAT 04/26/2018 CONTRAST 10:20 PM ACCESS NURSE MR MRA HEAD WITHOUT STAT 04/26/2018 CONTRAST 10:20 PM ACCESS NURSE URINALYSIS WITH Routine 04/26/2018 MICROSCOPIC IF INDICATED 7:24 PM ACCESS NURSE BLOOD CULTURE STAT 04/26/2018 7:24 PM ACCESS NURSE CBC W/PLT COUNT & AUTO Routine 04/26/2018 DIFFERENTIAL 7:23 PM ACCESS NURSE LACTIC ACID, VENOUS Routine 04/26/2018 7:23 PM ACCESS NURSE PHOSPHORUS Routine 04/26/2018 7:23 PM ACCESS NURSE MAGNESIUM Routine 04/26/2018 7:23 PM ACCESS NURSE APTT Routine 04/26/2018 7:23 PM ACCESS NURSE PROTHROMBIN TIME/INR Routine 04/26/2018 7:23 PM ACCESS NURSE COMPREHENSIVE METABOLIC Routine 04/26/2018 PANEL 7:23 PM ACCESS NURSE CBC W/PLT COUNT & AUTO Routine 04/26/2018 DIFFERENTIAL 7:23 PM ACCESS NURSE POCT-GLUCOSE METER Routine 04/26/2018 6:21 PM ACCESS NURSE POCT-GLUCOSE METER Routine 04/26/2018 6:[address] BRAIN WITHOUT IV STAT 04/26/2018 CONTRAST 5:16 PM ACCESS NURSE POCT-GLUCOSE METER Routine 04/26/2018 11:36 AM ACCESS NURSE POCT-GLUCOSE METER Routine 04/26/2018 7:57 AM ACCESS NURSE CBC W/PLT COUNT & AUTO Routine 04/26/2018 DIFFERENTIAL 4:02 AM ACCESS NURSE BASIC METABOLIC PANEL (7) Routine 04/26/2018 4:02 AM ACCESS NURSE CBC W/PLT COUNT & AUTO Routine 04/26/2018 DIFFERENTIAL 4:02 AM ACCESS NURSE PHOSPHORUS Routine 04/26/2018 4:02 AM ACCESS NURSE MAGNESIUM Routine 04/26/2018 4:02 AM ACCESS NURSE CALCIUM, IONIZED Routine 04/26/2018 4:02 AM ACCESS NURSE POCT-GLUCOSE METER Routine 04/25/2018 9:21 PM ACCESS NURSE ELECTROLYTE PANEL STAT 04/25/2018 4:09 PM ACCESS NURSE CREATININE, RANDOM URINE Routine 04/25/2018 4:09 PM ACCESS NURSE PROTEIN, RANDOM URINE Routine 04/25/2018 4:09 PM ACCESS NURSE URINALYSIS W/ MICROSCOPIC Routine 04/25/2018 4:09 PM ACCESS NURSE POCT-GLUCOSE METER Routine 04/25/2018 10:14 AM ACCESS NURSE POCT-GLUCOSE METER Routine 04/25/2018 9:12 AM ACCESS NURSE POCT-ACT Routine 04/25/2018 9:05 AM ACCESS NURSE POCT-ACT Routine 04/25/2018 8:54 AM ACCESS NURSE PCI 04/25/2018 Coronary artery disease 7:30 AM ACCESS NURSE involving ambler heart, angina presence unspecified, unspecified vessel or lesion type Case Notes (1) CASE POP6 . 663mGy POCT-GLUCOSE METER Routine 04/25/2018 6:35 AM ACCESS NURSE CBC W/PLT COUNT & AUTO STAT 04/25/2018 DIFFERENTIAL 4:40 AM ACCESS NURSE LIPID PANEL Routine 04/25/2018 4:40 AM ACCESS NURSE PROTHROMBIN TIME/INR STAT 04/25/2018 4:40 AM ACCESS NURSE BASIC METABOLIC PANEL (7) STAT 04/25/2018 4:40 AM ACCESS NURSE CBC W/PLT COUNT & AUTO STAT 04/25/2018 DIFFERENTIAL 4:40 AM ACCESS NURSE ECG 12-LEAD Routine 04/25/2018 4:33 AM ACCESS NURSE POCT-GLUCOSE METER Routine 04/25/2018 2:51 AM ACCESS NURSE POCT-GLUCOSE METER Routine 04/24/2018 11:32 PM ACCESS NURSE POCT-GLUCOSE METER Routine 04/24/2018 10:08 PM ACCESS NURSE BASIC METABOLIC PANEL (7) Routine 04/24/2018 7:06 PM ACCESS NURSE RHYTHM STRIP - SCAN 03/13/2018 11:20 AM [...] ms QTC Calculatio n(Bazett) 520 ms P [place] 59 degrees R [place] 67 degrees T [place] 38 degrees Sinus rhythm with Premature atrial [...] Coronary artery disease 12:24 PM CDT involving ambler coronary artery of ambler heart, angina presence unspecified Case Notes POP6 PT ALLERGIC TO IODINE. Special Needs PT ALLERGIC TO IODINE ECG 12-LEAD Routine 03/08/2018 9:27 AM CDT Procedure Note - Interface, External Ris In - 03/08/2018 12:04 PM CDT Ventricula r Rate 78 BPM Atrial Rate 78 BPM P-R Interval 184 ms QRS Duration 170 ms Q-T Interval 424 ms QTC Calculatio n(Bazett) 483 ms P [place] 54 degrees R [place] 67 degrees T [place] 47 degrees Sinus rhythm with Premature atrial complexes Right bundle branch block Abnormal ECG When compared with ECG of 11:29, Premature atrial complexes are now Present [...] CDT disease) (HCC) Coronary artery disease involving ambler coronary artery of ambler heart without angina pectoris CT/CTA CHEST Routine 03/07/2018 PAD (peripheral artery 12:00 PM CDT disease) (HCC) Coronary artery disease involving ambler coronary artery of ambler heart without angina pectoris POCT-CREATININE Routine 03/07/2018 11:29 AM CDT after 10/22/2017 Results * RHYTHM STRIP - SCAN (08/28/2018 8:50 AM CDT) Only the most recent of 3 results within the time period is included. Narrative Performed At * VASCULAR DIAGRAM -SCAN (05/07/2018 12:21 PM ACCESS NURSE) Only the most recent of 2 results within the time period is included. Narrative Performed At * CARDIAC CATH REPORT - SCAN (05/04/2018 10:01 AM ACCESS NURSE) Narrative Performed At * ECHOCARDIOGRAM REPORT - SCAN (04/27/2018 4:20 PM ACCESS NURSE) Narrative Performed At * 2D Echo W/Doppler(CW/PW/Color) (04/27/2018 11:05 AM ACCESS NURSE) Ejection Fraction [facility] Specimen Narrative Performed At Transthoracic Echocardiography Report (TTE) [facility] Patient Name TIM COUCH Date of Study 04/27/2018 MATIAS [id number] Male Visit Number [id number] Room Number C624 Number Date of Birth1955Referring Physician Soha Crews Age62 year(s)Filament Tester Jasen Douglas [facility] AnalystAlex Helio Olivares, Physician Procedure Type of [...] External Ris In - 04/27/2018 3:51 PM ACCESS NURSE Transthoracic Echocardiography Report (TTE) Demographics Patient Name RILEY TIM Date of Study 04/27/2018 MATIAS Gender Male Visit Number [id number] Race Room Number C624 Number Date of 1955 Referring Physician Soha Crews Age 62 year(s) Filament Tester Jasen Douglas RDCS Presales Engineer Alberto Cadet Interpreting Rod Olivares, Physician Procedure [...] City/State/Zipcode Phone Number [facility] * POC-Glucose meter (04/27/2018 9:48 AM ACCESS NURSE) Only the most recent of 28 results within the time period is included. POC-Glucose Meter 244 (H)Comment: TESTED AT 70 - 110 mg/dL [facility] [address] [place] [id number] Specimen Blood Performing Organization Address City/State/Zipcode Phone Number [phone] [place] [address] * Vitamin B12 and Folate (04/27/2018 5:12 AM ACCESS NURSE) Vitamin B12 206 (L) 213 - 816 pg/mL [facility] Folate 11.1 >=7.0 ng/mL [facility] Specimen Blood Performing Organization Address City/[facility] Cent[facility] Phone Number [phone] [place] [address] * TSH/Free T4 If Indicated (04/27/2018 5:12 AM ACCESS NURSE) TSH 0.35 0.35 - 4.94 uIU/mL [facility] Specimen Blood Performing Organization Address City/[facility] Centercode Phone Number [phone] [place] [address] * HIV-1 Antigen with HIV-1/2 Antibody (04/27/2018 5:12 AM ACCESS NURSE) HIV-1 Antigen with HIV NON-REACTIVE Nonreactive [facility] 1&2 Antibody [facility] Specimen Blood Performing Organization Address City/[facility] Centercode Phone Number [address] * RPR (04/27/2018 5:12 AM ACCESS NURSE) RPR Nonreactive Nonreactive [facility] Specimen Blood Performing Organization Address City/State/Zipcode Phone Number [address] * T4, free (04/27/2018 5:12 AM ACCESS NURSE) Free T4 1.30 0.70 - 1.48 ng/dL [facility] Specimen Blood Performing Organization Address City/State/Zipcode Phone Number [facility] [address] [place] [address] [facility] * Hemoglobin A1c (04/27/2018 5:12 AM ACCESS NURSE) Hemoglobin A1C 8.7 (H) 4.3 - 6.1 % [facility] Specimen Blood Performing Organization Address [facility]/Zipcode Phone Number [facility] [address] [place], [place] [phone] [facility] * Basic Metabolic Panel (04/27/2018 5:12 AM ACCESS NURSE) Only the most recent of 7 results within the time period is included. Sodium 139 136 - 145 meq/L [facility] Potassium 4.1 3.5 - 5.1 meq/L [facility] Chloride 104 98 - 107 meq/L [facility] CO2 24 22 - 29 meq/L [facility] BUN 24 (H) 7 - 21 mg/dL [facility] Creatinine 1.23 0.57 - 1.25 mg/dL [facility] Glucose 215 (H) 70 - 105 mg/dL [facility] Calcium 9.3 8.4 - 10.2 mg/dL [facility] EGFR 59Comment: ESTIMATED GFR IS mL/min/1.73 sq m [facility] NOT ACCURATE CREATININE [facility] CLEARANCE IN PREDICTING GLOMERULAR FILTRATION RATE. ESTIMATED GFR IS NOT APPLICABLE FOR DIALYSIS PATIENTS. Specimen Blood Performing Organization Address City/[facility]/Zipcode Phone Number [facility] [address] [place], [place] [phone] [facility] * MR brain without IV contrast (04/26/2018 10:20 PM ACCESS NURSE) Specimen Narrative Performed At FINAL REPORT [employer] CLINICAL HISTORY: Stroke Ischemic Stroke Evaluation TECHNIQUE: MRI of the brain utilizing axial T2, FLAIR, GRE, DWI; sagittal and coronal T1-weighted images. MRA of the head utilizing 3-D jsfu-kx-peojap technique, with 3-D reconstructions. MRA of the neck utilizing 2-D and 3-D zwyt-zx-iezyvk technique, with 3-D reconstructions. COMPARISON: Same day [...] distal right petrous internal carotid artery. Multifocal hnco-wp-owjomfgo stenosis of the right A2 and A3 [...] MD Report Verified Date/Time:04/26/2018 23:11:40 Reading Location: [address] Transitional Reading Room Procedure Note Interface, External Ris In - 04/26/2018 11:13 PM ACCESS NURSE FINAL REPORT CLINICAL HISTORY: Stroke Ischemic Stroke Evaluation TECHNIQUE: MRI of the brain utilizing axial T2, FLAIR, GRE, DWI; sagittal and coronal T1-weighted images. MRA of the head utilizing 3-D spww-jz-ckowpc technique, with 3-D reconstructions. MRA of the neck utilizing 2-D and 3-D txmy-fv-ksdsrf technique, with 3-D reconstructions. COMPARISON: Same day [...] distal right petrous internal carotid artery. Multifocal zzpm-ko-pftxrehm stenosis of the right A2 and A3 [...] Report Verified Date/Time: 04/26/2018 23:11:40 Reading Location: [address] Transitional Reading Room Performing Organization Address City/State/Zipcode Phone Number [employer] * MRA neck without IV contrast (04/26/2018 10:20 PM ACCESS NURSE) Specimen Narrative Performed At FINAL REPORT [employer] CLINICAL HISTORY: Stroke Ischemic Stroke Evaluation TECHNIQUE: MRI of the brain utilizing axial T2, FLAIR, GRE, DWI; sagittal and coronal T1-weighted images. MRA of the head utilizing 3-D grlu-wk-eezjnc technique, with 3-D reconstructions. MRA of the neck utilizing 2-D and 3-D unlj-dh-jhwfla technique, with 3-D reconstructions. COMPARISON: Same day [...] distal right petrous internal carotid artery. Multifocal tmut-bu-erhdjhel stenosis of the right A2 and A3 [...] MD Report Verified Date/Time:04/26/2018 23:11:40 Reading Location: [facility] B1 [id number] Transitional Reading Room Procedure Note Interface, External Ris In - 04/30/2018 11:08 PM ACCESS NURSE FINAL REPORT CLINICAL HISTORY: Stroke Ischemic Stroke Evaluation TECHNIQUE: MRI of the brain utilizing axial T2, FLAIR, GRE, DWI; sagittal and coronal T1-weighted images. MRA of the head utilizing 3-D totb-ji-ttvqgw technique, with 3-D reconstructions. MRA of the neck utilizing 2-D and 3-D zfje-zo-umudrt technique, with 3-D reconstructions. COMPARISON: Same day [...] distal right petrous internal carotid artery. Multifocal bonr-lm-jspcmxgu stenosis of the right A2 and A3 [...] Report Verified Date/Time: 04/26/2018 23:11:40 Reading Location: [address] Reading Room Performing Organization Address City/State/Zipcode Phone Number [employer] * MRA head without IV contrast (04/26/2018 10:20 PM ACCESS NURSE) Specimen Narrative Performed At FINAL REPORT [employer] CLINICAL HISTORY: Stroke Ischemic Stroke Evaluation TECHNIQUE: MRI of the brain utilizing axial T2, FLAIR, GRE, DWI; sagittal and coronal T1-weighted images. MRA of the head utilizing 3-D tkfm-kx-fvoryz technique, with 3-D reconstructions. MRA of the neck utilizing 2-D and 3-D dpth-rv-ybsbgp technique, with 3-D reconstructions. COMPARISON: Same day [...] distal right petrous internal carotid artery. Multifocal eidi-aa-epssinfo stenosis of the right A2 and A3 [...] MD Report Verified Date/Time:04/26/2018 23:11:40 Reading Location: [address] Transitional Reading Room Procedure Note Interface, External Ris In - 04/26/2018 11:13 PM ACCESS NURSE FINAL REPORT CLINICAL HISTORY: Stroke Ischemic Stroke Evaluation TECHNIQUE: MRI of the brain utilizing axial T2, FLAIR, GRE, DWI; sagittal and coronal T1-weighted images. MRA of the head utilizing 3-D uooi-gs-njdxit technique, with 3-D reconstructions. MRA of the neck utilizing 2-D and 3-D kbyd-iy-osxsyw technique, with 3-D reconstructions. COMPARISON: Same day [...] distal right petrous internal carotid artery. Multifocal fhdz-od-muznhnpz stenosis of the right A2 and A3 [...] Report Verified Date/Time: 04/26/2018 23:11:40 Reading Location: [facility] Transitional Reading Room Performing Organization Address City/[facility] Centercode Phone Number GE RIS * Urinalysis with Microscopic If Indicated (04/26/2018 7:24 PM ACCESS NURSE) Color, UA Light Yellow [facility] Clarity, UA Clear [facility] Specific [place], UA 1.010 1.001 - 1.035 [facility] pH, UA 5.0 5.0 - 8.0 [facility] Protein, UA Negative Negative [facility] Glucose, UA Negative Negative [facility] Ketones, UA Negative Negative [facility] Bilirubin, UA Negative Negative [facility] Blood, UA Negative Negative [facility] Nitrite, UA Negative Negative [facility] Leukocytes, UA Negative Negative [facility] Urobilinogen, UA 0.2 0.2 - 1.0 mg/dL [facility] Specimen Source [facility] Specimen Urine Performing Organization Address City/[facility]/Zipcode Phone Number [facility] [address] [place] [address] [facility] * Blood culture (04/26/2018 7:24 PM ACCESS NURSE) Result No growth in 5 days [facility] Specimen Blood Performing Organization Address City/State/Zipcode Phone Number [facility] [address] [place] [address] [facility] * CBC with platelet count + automated diff (04/26/2018 7:23 PM ACCESS NURSE) Only the most recent of 4 results within the time period is included. WBC 13.9 (H) 3.5 - 10.5 K/L [facility] RBC 4.05 (L) 4.63 - 6.08 M/L [facility] Hemoglobin 12.2 (L) 13.7 - 17.5 GM/DL [facility] Hematocrit 36.6 (L) 40.1 - 51.0 % [facility] MCV 90.4 79.0 - 92.2 fL [facility] MCH 30.1 25.7 - 32.2 pg [facility] MCHC 33.3 32.3 - 36.5 GM/DL [facility] RDW 13.7 11.6 - 14.4 % [facility] Platelets 217 150 - 450 K/CU MM [facility] MPV 10.7 9.4 - 12.4 fL [facility] nRBC 0 0 - 0 /100 WBC [facility] % Neutros 74 % [facility] % Lymphs 19 % [facility] % Monos 6 % [facility] % Eos 1 % [facility] % Baso 0 % [facility] # Neutros 10.27 (H) 1.78 - 5.38 K/L [facility] # Lymphs 2.60 1.32 - 3.57 K/L [facility] # Monos 0.88 (H) 0.30 - 0.82 K/L [facility] # Eos 0.08 0.04 - 0.54 K/L [facility] # Baso 0.03 0.01 - 0.08 K/L [facility] Immature 0 0 - 1 % [facility] Granulocytes-Relative [facility] Specimen Blood Performing Organization Address City/[facility] Centercode Phone Number [address] [phone] [facility] * Lactic acid, venous, whole blood (04/26/2018 7:23 PM ACCESS NURSE) Lactate, Venous 1.8Comment: Specimen slightly 0.5 - 2.2 mmol/L [facility] hemolyzed [facility] Specimen Blood Performing Organization Address [facility] [place] [address] [facility] * aPTT (04/26/2018 7:23 PM ACCESS NURSE) PTT 31.0 22.5 - 36.0 seconds [facility] Specimen Blood Performing Organization Address City/[facility] Centercode Phone Number [address] [address] [facility] * Prothrombin time/INR (04/26/2018 7:23 PM ACCESS NURSE) Only the most recent of 3 results within the time period is included. Protime 13.5 11.7 - 14.7 seconds [facility] INR 1.0 <=5.9 [facility] Specimen Blood Narrative Performed At RECOMMENDED COUMADIN/WARFARIN INR THERAPY RANGES [facility] STANDARD DOSE: 2.0 - 3.0 Includes: PROPHYLAXIS for venous thrombosis, [facility] systemic embolization; TREATMENT for venous thrombosis and/or pulmonary embolus. HIGH RISK: Target INR is 2.5-3.5 for patients with mechanical heart valves. Performing Organization Address City/[facility] Centercode [place] [address] [phone] * Phosphorus (04/26/2018 7:23 PM ACCESS NURSE) Only the most recent of 3 results within the time period is included. Phosphorus 3.5Comment: Specimen markedly 2.3 - 4.7 mg/dL [facility] Specimen Blood Performing Organization Address [facility] Centerconm Phone Number [address] * Magnesium (04/26/2018 7:23 PM ACCESS NURSE) Only the most recent of 4 results within the time period is included. Magnesium 3.1 (H)Comment: Specimen 1.6 - 2.6 mg/dL [facility] markedly [facility] Specimen Blood Performing Organization Address [facility] Center[facility] Phone Number [address] * Comprehensive metabolic panel (04/26/2018 7:23 PM ACCESS NURSE) Protein, Total 8.5 (H)Comment: Specimen 6.0 - 8.3 gm/dL [facility] Albumin 4.2Comment: Specimen markedly 3.5 - 5.0 g/dL [facility] Alkaline Phosphatase 72 40 - 150 U/L [facility] Total Bilirubin 0.4Comment: Specimen markedly 0.2 - 1.2 mg/dL [facility] Sodium 139 136 - 145 meq/L [facility] Potassium 5.1Comment: Specimen markedly 3.5 - 5.1 meq/L [facility] Chloride 102 98 - 107 meq/L [facility] CO2 25 22 - 29 meq/L [facility] BUN 27 (H) 7 - 21 mg/dL [facility] Creatinine 1.34 (H)Comment: Specimen 0.57 - 1.25 mg/dL [facility] markedly hemolyzed [facility] Glucose 110 (H) 70 - 105 mg/dL [facility] Calcium 9.5 8.4 - 10.2 mg/dL [facility] AST 35 (H)Comment: Specimen 5 - 34 U/L [facility] markedly hemolyzed [facility] ALT 10Comment: Specimen markedly 6 - 55 U/L [facility] hemolyzed [facility] EGFR 54Comment: ESTIMATED GFR IS mL/min/1.73 sq m [facility] NOT ACCURATE CREATININE [facility] CLEARANCE IN PREDICTING GLOMERULAR FILTRATION RATE. ESTIMATED GFR IS NOT APPLICABLE FOR DIALYSIS PATIENTS. Specimen Blood Performing Organization Address City/State/Zipcode Phone Number [facility] [address] [place] [address] [facility] * CT brain without IV contrast (04/26/2018 5:16 PM ACCESS NURSE) Specimen Narrative Performed At FINAL REPORT [employer] CT head without contrast 04/26/2018 5:12 PM [...] MD Report Verified Date/Time:04/26/2018 18:36:43 Reading Location: [facility] Radiology Reading Room Procedure Note Interface, External Ris In - 04/26/2018 6:49 PM ACCESS NURSE FINAL REPORT CT head without contrast 04/26/2018 [...] disease. Signed: Manuel Cruz MD Report Verified Date/Time: 04/26/2018 18:36:43 Reading Location: [facility] Radiology Reading Room Performing Organization Address City/[facility]/Zipcode Phone Number [facility]IS * Calcium, Ionized (04/26/2018 4:02 AM ACCESS NURSE) Calcium, Ion 1.13 1.12 - 1.27 mmol/L [facility] pH, Blood 7.39 [facility] Specimen Blood Performing Organization Address City/[facility]/Zipcode Phone Number [facility] [address] [place] [address] [facility] * Protein, random urine (04/25/2018 4:09 PM ACCESS NURSE) Only the most recent of 2 results within the time period is included. Protein, Urine 20 (H) 0 - 14 mg/dL [facility] Specimen Urine Performing Organization Address City/[facility] Cent[facility] Phone Number [address] [address] [phone] [address] * Creatinine, random urine (04/25/2018 4:09 PM ACCESS NURSE) Creatinine, Ur 73.5 mg/dL [facility] Specimen Urine Narrative Performed At Reference Range: No Normals [facility] Performing Organization Address [facility] Centercode Phone Number [place] [phone] [place] [address] * Urinalysis w/Microscopic (04/25/2018 4:09 PM ACCESS NURSE) Color, UA Yellow [facility] Clarity, UA Clear [facility] Specific [place], UA 1.037 (H) 1.001 - 1.035 [facility] pH, UA 5.0 5.0 - 8.0 [facility] Protein, UA 20 mg/dL (A) Negative [facility] Glucose, UA 500 mg/dL (A) Negative [facility] Ketones, UA Negative Negative [facility] Bilirubin, UA Negative Negative [facility] Blood, UA Trace (A) Negative [facility] Nitrite, UA Negative Negative [facility] Leukocytes, UA Negative Negative [facility] Urobilinogen, UA 0.2 0.2 - 1.0 mg/dL [facility] RBC, UA 1 /HPF [facility] WBC, UA <1 /HPF [facility] Squam Epithel, UA <1 /HPF [facility] Specimen Source [facility] Specimen Urine Performing Organization Address City/State/[place] [address] [facility] * Electrolytes (04/25/2018 4:09 PM ACCESS NURSE) Sodium 136 136 - 145 meq/L [facility] Potassium 4.1 3.5 - 5.1 meq/L [facility] Chloride 103 98 - 107 meq/L [facility] CO2 23 22 - 29 meq/L [facility] Specimen Blood Narrative Performed At Call [phone] with results [facility] Performing Organization Address City/[facility]/[place] [address] [facility] * POC ACTIVATED CLOTTING TIME (04/25/2018 9:05 AM ACCESS NURSE) Only the most recent of 2 results within the time period is included. Activated Clotting Time 362Comment: TESTED AT [facility] sec [address] Specimen Blood Performing Organization Address City/[facility]/[place] [address] [facility] * Lipid panel (04/25/2018 4:40 AM ACCESS NURSE) Triglycerides 90 mg/dL [facility] Cholesterol 159 mg/dL [facility] HDL 35 mg/dL [facility] LDL Calculated 106 mg/dL [facility] Specimen Blood Narrative Performed At Triglyceride Reference Range: [facility] Low Risk <150 [facility] [id number] High Risk 200-499 Very High Risk>=500 Cholesterol Reference Range: Low Risk <200 Malvujmitb237-992 High Risk>240 HDL Cholesterol Reference Range: Low Risk >=60 High Risk <40 LDL Cholesterol Reference Range: Optimal<100 Near Ptocdyy003-422 Jttmsbusyb278-660 Pief536-076 Very High >=190 Performing Organization Address City/State/Zipcode Phone Number [facility] [address] [place] [address] [facility] * ECG 12 lead (04/25/2018 4:33 AM ACCESS NURSE) Only the most recent of 3 results within the time period is included. Specimen Narrative Performed At Ventricular Rate 97 BPM GE MUSE Atrial Rate 97 BPM P-R Interval 188 ms QRS Duration 164 ms Q-T Interval 406 ms QTC Calculation(Bazett) 515 ms P [place] 61 degrees R [place] 151 degrees T [place] 22 degrees Normal sinus rhythm Right bundle branch block Abnormal ECG When compared with ECG of 09-MAR-2018 14:30, Premature atrial complexes are no longer Present Confirmed by MD ESTEVEZ JORGE ([id number]) on 04/25/2018 1:58:33 PM Procedure Note Interface, External Ris In - 04/25/2018 1:58 PM ACCESS NURSE Ventricular Rate 97 BPM Atrial Rate 97 BPM P-R Interval 188 ms QRS Duration 164 ms Q-T Interval 406 ms QTC Calculation(Bazett) 515 ms P [place] 61 degrees R [place] 151 degrees T [place] 22 degrees Normal sinus rhythm Right bundle branch block Abnormal ECG When compared with ECG of 09-MAR-2018 14:30, Premature atrial complexes are no longer Present Confirmed by MD ESTEVEZ JORGE ([id number]) on 04/25/2018 1:58:33 PM Performing Organization Address City/State/Zipcode Phone Number [employer] [facility] * CARDIAC CATH REPORT - SCAN (03/13/2018 11:20 AM CDT) Narrative Performed At * TRANSFUSION SERVICE REPORT - SCAN (03/09/2018 6:09 PM CDT) Narrative Performed At * NM myocardial perfusion PET (rest and stress) (03/09/2018 2:56 PM CDT) Specimen Narrative Performed At FINAL REPORT [employer] PROCEDURE:Rest/Stress MYOCARDIAL PERFUSION PET with regadenoson\\XA9\\ CPT CODE: 19708 INDICATION: CAD HISTORY:Cardiac risk factors: Diabetes, hypertension, [...] MD Report Verified Date/Time:03/09/2018 16:42:51 Reading Location: [address] Reading Room Procedure Note Interface, External Ris In - 03/09/2018 4:45 PM CDT FINAL REPORT PROCEDURE: Rest/Stress MYOCARDIAL PERFUSION PET with regadenoson\\XA9\\ CPT CODE: 25630 INDICATION: CAD HISTORY: Cardiac risk factors: Diabetes, [...] Report Verified Date/Time: 03/09/2018 16:42:51 Reading Location: [address] Reading Room Performing Organization Address City/State/Zipcode Phone Number [facility] * Treadmill tolerance(Non-Nuclear Treadmill) (03/09/2018 2:43 PM CDT) Specimen Narrative Performed At Protocol Name Regadenoson GE MUSE Time In Exercise Phase 00:01:00 Max. Systolic [...] metoprolol LIPITOR Confirmed by fellow Bev Arnold ([id number]) on 03/12/2018 8:24:14 AM Confirmed by MD ESTEVEZ JORGE ([id number]) on 03/29/2018 3:47:55 PM Procedure Note Interface, External Ris In - 03/29/2018 3:48 PM ACCESS NURSE Protocol Name Ariadna Time In Exercise Phase [...] 8:24:14 AM Confirmed by MD ESTEVEZ JORGE ([id number]) on 03/29/2018 3:47:55 PM Performing Organization Address City/State/Zipcode Phone Number [facility] * CBC (Hemogram only) (03/09/2018 4:26 AM CDT) Only the most recent of 2 results within the time period is included. WBC 10.7 (H) 3.5 - 10.5 K/L [facility] RBC 3.56 (L) 4.63 - 6.08 M/L [facility] Hemoglobin 10.7 (L) 13.7 - 17.5 GM/DL [facility] Hematocrit 31.7 (L) 40.1 - 51.0 % [facility] MCV 89.0 79.0 - 92.2 fL [facility] MCH 30.1 25.7 - 32.2 pg [facility] MCHC 33.8 32.3 - 36.5 GM/DL [facility] RDW 13.6 11.6 - 14.4 % [facility] Platelets 196 150 - 450 K/CU MM [facility] MPV 10.3 9.4 - 12.4 fL [facility] nRBC 0 0 - 0 /100 WBC [facility] Specimen Blood Performing Organization Address City/State/Zipcode Phone Number [facility] [address] [place], [place] [phone] [place] [address] * Type and screen, automated (03/08/2018 9:16 AM CDT) ABO/RH AUTOMATED (BEAKER) O POSITIVE [facility] Ab Scrn NEGATIVE [facility] Specimen Blood Performing Organization Address City/State/Zipcode Phone Number [facility] [address] [place] [address] [phone] [place] [address] * CTA chest (03/07/2018 12:00 PM CDT) Specimen Narrative Performed At Addendum Begins [employer] RIS REPORT STATUS:A Addendum: I agree with the previously described non vascular findings by Dr. Wilcox. Signed: Leo Mccloud MD Report Verified Date/Time:03/07/2018 16:03:23 Reading Location: [place] [address] Angio Body Reading Room Addendum Ends FINAL [...] and during intravenous contrast administration using a [employer] multidetector CT scanner. Images were obtained before [...] vascular structure identified medial to the expected ambler right SFA. Enhancement is suboptimal at this level. Please kindly correlate clinically. 2.Coronary atherosclerosis. Patient is post coronary artery bypass surgery. 3.The central pulmonary artery is at the upper limits of normal in calibre. No evidence of central pulmonary artery embolism is seen. 4.Other findings as described above. 5.An addendum will be dictated by the [employer] Radiologist regarding the nonvascular findings. Signed: Jose Wilcox MD Report Verified Date/Time:03/07/2018 13:30:05 Reading Location: [place] [address] Cardiology MRI Procedure Note Interface, External Ris In - 03/07/2018 4:05 PM CDT Addendum Begins REPORT STATUS:A Addendum: I agree with the previously described non vascular findings by Dr. Wilcox. Signed: Leo Mccloud MD Report Verified Date/Time: 03/07/2018 16:03:23 Reading Location: [place] [address] Angio Body Reading Room Addendum Ends FINAL [...] and during intravenous contrast administration using a GE multidetector CT scanner. Images were obtained before [...] vascular structure identified medial to the expected ambler right SFA. Enhancement is suboptimal at this level. Please kindly correlate clinically. 2. Coronary atherosclerosis. Patient is post coronary artery bypass surgery. 3. The central pulmonary artery is at the upper limits of normal in calibre. No evidence of central pulmonary artery embolism is seen. 4. Other findings as described above. 5. An addendum will be dictated by the [employer] Radiologist regarding the nonvascular findings. Signed: Jose Wilcox MD Report Verified Date/Time: 03/07/2018 13:30:05 Reading Location: [place] [id number] Cardiology MRI Performing Organization Address City/State/Zipcode Phone Number [employer] [facility] * CTA abdomen & pelvis (03/07/2018 12:00 PM CDT) Specimen Narrative Performed At Addendum Begins [facility] RIS REPORT STATUS:A Addendum: I agree with the previously described non vascular findings by Dr. Wilcox. Signed: Leo Mccloud MD Report Verified Date/Time:03/07/2018 16:03:23 Reading Location: [place] [id number] Angio Body Reading Room Addendum Ends FINAL [...] and during intravenous contrast administration using a [employer] multidetector CT scanner. Images were obtained before [...] vascular structure identified medial to the expected ambler right SFA. Enhancement is suboptimal at this level. Please kindly correlate clinically. 2.Coronary atherosclerosis. Patient is post coronary artery bypass surgery. 3.The central pulmonary artery is at the upper limits of normal in calibre. No evidence of central pulmonary artery embolism is seen. 4.Other findings as described above. 5.An addendum will be dictated by the [employer] Radiologist regarding the nonvascular findings. Signed: Jose Wilcox MD Report Verified Date/Time:03/07/2018 13:30:05 Reading Location: [place] [address] Cardiology MRI Procedure Note Interface, External Ris In - 03/07/2018 4:05 PM CDT Addendum Begins REPORT STATUS:A Addendum: I agree with the previously described non vascular findings by Dr. Wilcox. Signed: Leo Mccloud MD Report Verified Date/Time: 03/07/2018 16:03:23 Reading Location: [place] [address] Angio Body Reading Room Addendum Ends FINAL [...] and during intravenous contrast administration using a [employer] multidetector CT scanner. Images were obtained before [...] vascular structure identified medial to the expected ambler right SFA. Enhancement is suboptimal at this level. Please kindly correlate clinically. 2. Coronary atherosclerosis. Patient is post coronary artery bypass surgery. 3. The central pulmonary artery is at the upper limits of normal in calibre. No evidence of central pulmonary artery embolism is seen. 4. Other findings as described above. 5. An addendum will be dictated by the [employer] Radiologist regarding the nonvascular findings. Signed: Jose Wilcox MD Report Verified Date/Time: 03/07/2018 13:30:05 Reading Location: [place] [address] Cardiology MRI Performing Organization Address City/State/Zipcode Phone Number [facility] * POC-Creatinine (03/07/2018 11:29 AM CDT) POC-Creatinine 1.3Comment: TESTED AT [facility]-KG 0.6 - 1.3 mg/dL [facility] [address] [place] [address] POC-EGFR Comment: Insufficient clinical mL/min/1.73M2 [facility] data to calculate estimated [facility] GFR Specimen Blood Narrative Performed At Performing Organization Address City/State/Zipcode Phone Number [facility] [address] [place] [address] [facility]ENTER after 10/22/2017 Insurance Payer Benefit Subscriber ID Type Phone Address Plan / Group MEDICARE MEDICARE A xxxxxxxxxxx Medicare B [employer] - [employer]GD UNITED HMO xxxxxxxxx HMO/POS CARE POS SELECT CHOICE Advance Directives For more information, please contact: [facility] [address] [place], [place] [phone] Date Inactivated Comments Code Status Date Activated Full Code 04/24/2018 3:34 PM This code status was determined by: Patient 03/10/2018 7:38 PM Full Code 03/08/2018 8:39 AM This code status was determined by: Patient 05/13/2016 3:28 PM Full Code 05/13/2016 7:52 AM This code status was determined by: Patient
[2018-10-23] MEDS ORDERED: SODIUM CHLORIDE 0.9% 1000ML 1,000 ML IV STA (18:59)
[2018-10-23] MEDS ORDERED: CEFTRIAXONE SOD 1 GM/NS 50 ML 50 ML IV NR ×2 (19:00→20:15)
[2018-10-23] MEDS ORDERED: ACETAMINOPHEN 1000 MG/100 ML IV NR (19:15)
--- NOTE | 2018-10-23 19:37 | Diagnostic Imaging Report ---
Examination: Single AP view of the chest. COMPARISON: None. INDICATION: Altered mental status, vomiting DISCUSSION: Lines/tubes: Sternotomy wires. Lungs: The lungs are well inflated and clear. No pneumonia or pulmonary edema. Pleura: There is no pleural effusion or pneumothorax. Heart and mediastinum: Enlarged heart. Bones and soft tissues: No acute bony abnormalities. IMPRESSION: 1. Cardiomegaly without decompensation Signed by: Dr. Rj Jo M.D. on 10/23/2018 7:33 PM
[2018-10-23 20:16] LABS: BASOPHILS % 0.2 % (0.0-1.0); EOSINOPHILS # (AUTO) 0.2 (0.0-0.4); HEMATOCRIT 31.4 % (38.2-49.6); HEMOGLOBIN 10.9 g/dL (14.0-18.0); LYMPHOCYTES # (AUTO) 0.3 (1.0-3.2); LYMPHOCYTES % 3.4 % (18.0-39.1); MEAN CORPUSCULAR HEMOGLOBIN 30.6 pg (28-32); MEAN CORPUSCULAR HGB CONC 34.7 g/dL (31-35); MEAN CORPUSCULAR VOLUME 88.2 fL (81-99); MONOCYTES # (AUTO) 0.5 (0.2-0.8); MONOCYTES % 6.1 % (4.4-11.3); NEUTROPHILS # (AUTO) 7.5 (2.1-6.9); NEUTROPHILS % 87.9 % (38.7-80.0); PLATELET COUNT 163 x10e3/uL (140-360); RED BLOOD COUNT 3.56 x10e6/uL (4.3-5.7); RED CELL DISTRIBUTION WIDTH 13.4 % (11.7-14.4)
[2018-10-23 20:27] LABS: INR 1.14; PROTHROMBIN TIME 15.2 seconds (11.9-14.5)
[2018-10-23 20:35] LABS: ALBUMIN 3.6 g/dL (3.5-5.0); ALBUMIN/GLOBULIN RATIO 1.2 (0.8-2.0); ANION GAP 19.3 mmol/L (8-16); CALCIUM 8.9 mg/dL (8.4-10.2); CREATININE, SERUM 1.84 mg/dL (0.72-1.25); POTASSIUM 4.3 mmol/L (3.5-5.1)
[2018-10-23 20:40] LABS: B-TYPE NATRIURETIC PEPTIDE2 168.6 pg/mL (0-100)
[2018-10-23 20:43] LABS: CREATINE KINASE MB 1.2 ng/mL (0-5.0)
[2018-10-23] MEDS ORDERED: INSULIN REGULAR, HUMAN 100 UNIT/1 ML 3ML VIAL SQ NR (20:45)
[2018-10-23 22:02] LABS: BILIRUBIN,URINE NEGATIVE (NEGATIVE); CLARITY,URINE CLEAR (CLEAR); COLOR,URINE YELLOW (YELLOW); KETONES,URINE 1+ (NEGATIVE); LEUKOCYTE ESTERASE ,URINE NEGATIVE (NEGATIVE); NITRITE,URINE NEGATIVE (NEGATIVE); PROTEIN,URINE DIPSTICK 1+ (NEGATIVE); URINE UROBILINOGEN 0.2 mg/dL (0.2 - 1)
[2018-10-23 22:50] LABS: BACTERIA,URINE MANY /HPF; EPITHELIAL CELLS,URINE MODERATE /LPF
[2018-10-23] MEDS ORDERED: DEXTROSE 50% SYRINGE 50 ML IV PRN (23:00)
[2018-10-23] MEDS ORDERED: ACETAMINOPHEN 325 MG TAB PO PRN (23:00)
[2018-10-23] MEDS ORDERED: MORPHINE SULFATE 2 MG/ML SYR 1ML IV PRN (23:00)
[2018-10-23] MEDS ORDERED: INSULIN LISPRO 100 UNIT/1 ML 3ML VIAL SQ ONE (23:03)
[2018-10-23] MEDS ORDERED: INSULIN LISPRO 100 UNIT/1 ML 3ML VIAL SQ STA (23:05)
--- OUTSIDE RECORDS SUMMARY | 2018-10-23 23:09 | XMS REPORT | Clinical Summary ---
Author Author DARRON HowGoodNell [facility] Hospitaltravelfox [facility] Address Unknown Phone Unavailable Care Team Providers Care Boiler Assistant Operator Name Role Phone Rohan Hernandez PCP [...] Lin, Fang-Ying, MD Coronary artery disease involving kluti kaah coronary artery of kluti kaah heart without angina pectoris (Primary Dx); S/P CABG (coronary artery bypass graft); PAD (peripheral artery disease) ([facility]); Stenosis of carotid artery, unspecified laterality; Essential hypertension; Hyperlipidemia, unspecified hyperlipidemia type; Type 1 diabetes mellitus on insulin therapy ([facility]); Type 2 diabetes mellitus treated with insulin ([facility]) 04/24/2018 Hospital Cardiology - Encounter 04/27/2018 04/24/2018 Travel Polo Guzmán III, MD 04/24/2018 Orders Only Internal Medicine Segundo Hoyos MD L CATH & CORONARY ANGIOS 03/08/2018 Surgery Segundo Hoyos MD Coronary artery disease involving kluti kaah coronary artery of kluti kaah heart without angina pectoris; PAD (peripheral artery disease) ([facility]); Essential hypertension; Other hyperlipidemia; Stenosis of carotid artery, unspecified laterality; Type 1 diabetes mellitus with diabetic chronic kidney disease, unspecified CKD stage ([facility]); Status post left heart catheterization (LHC); S/P CABG (coronary artery bypass graft); SOB (shortness of breath) 03/08/2018 Hospital Cardiology - Encounter 03/10/2018 03/08/2018 Orders Only General Internal Medicine Segundo Hoyos MD PAD (peripheral artery disease) ([facility]); Coronary artery disease involving kluti kaah coronary artery of kluti kaah heart without angina pectoris 03/07/2018 Hospital Radiology Encounter Segundo Hoyos MD PAD (peripheral artery disease) (HCC); Coronary artery disease involving kluti kaah coronary artery of kluti kaah heart without angina pectoris 03/07/2018 Hospital Radiology Encounter Segundo Hoyos MD PAD (peripheral artery disease) ([facility]) (Primary Dx); Coronary artery disease involving kluti kaah coronary artery of kluti kaah heart without angina pectoris 03/06/2018 Outside Orders [...] Taken Vital Sign Reading 04/27/2018 12:57 PM ST[facility]NER Blood Pressure 140/65 04/27/2018 12:57 PM ST[facility]NER Pulse 78 04/27/2018 12:57 PM ST[facility] Temperature 36.7 C (98 F) 04/27/2018 12:57 PM [facility] Respiratory Rate 19 04/27/2018 12:57 PM ST[facility]NER Oxygen Saturation 100% 04/25/2018 11:51 PM ST[facility]NER Inhaled Oxygen 21% Concentration 04/26/2018 7:50 AM ST[facility]NER Weight 104.2 kg (229 lb 12.2 oz) 04/24/2018 3:30 PM [facility] Height 193 cm (6' 4") 04/26/2018 7:50 AM ST[facility] Body Mass Index 27.97 Plan of Treatment Not on file Implants Device Identifier Shelf Expiration Date Model / Serial / Lot Implanted Type Area [facility] [id number] 12/19/2018 [id number] / / [id number] Device Clsr Angio-Seal Vip 8fr Cardiovasc [facility] [id number] - [id number] esme MED:CARDIA Implanted: Qty: 1 on 04/25/2018 by Segundo Miller MD 06/03/2016 [id number] / / [id number] Zilvgermaine Ptx Drug-Eluting Stents-Per COOK Peripheral Stent ipheral VASCULAR Implanted: Qty: 1 on 05/13/2016 by Jass Hong MD 03/21/2019 [id number] / / [id number] Innova Vascular Stents-Per [place] Implanted: Qty: 1 on 05/13/2016 by [employer] Pet[employer] CompanyJass June MD [id number] 09/13/2019 [id number] / / [id number] Synergy [place] Implanted: Qty: 1 on 04/25/2018 by Segundo Kothari MD Procedures Comments Procedure Name Priority Date/Time Associated Diagnosis RHYTHM STRIP - SCAN 08/28/2018 8:50 AM CDT VASCULAR DIAGRAM -SCAN 05/07/2018 12:21 PM ST[facility]NER RHYTHM STRIP - SCAN 05/04/2018 10:01 AM [facility] CARDIAC CATH REPORT - 05/04/2018 SCAN 10:01 AM [facility] ECHOCARDIOGRAM REPORT - 04/27/2018 SCAN 4:20 PM ST[facility]NER 2D ECHO W/ DOPPLER Routine 04/27/2018 (CW/PW/COLOR) 11:05 AM [facility] POCT-GLUCOSE METER Routine 04/27/2018 9:48 AM ST[facility] T4, FREE Routine 04/27/2018 5:12 AM [facility] VITAMIN B12 AND FOLATE Routine 04/27/2018 5:12 AM [facility] HIV-1 ANTIGEN WITH Routine 04/27/2018 HIV-1/2 ANTIBODY 5:12 AM [facility] TSH/FREE T4 IF INDICATED Routine 04/27/2018 5:12 AM ST[facility] RPR Routine 04/27/2018 5:12 AM [facility] HEMOGLOBIN A1C Routine 04/27/2018 5:12 AM [facility] BASIC METABOLIC PANEL (7) Routine 04/27/2018 5:12 AM [facility] MR BRAIN WITHOUT IV STAT 04/26/2018 CONTRAST 10:20 PM [facility] MR MRA NECK WITHOUT IV STAT 04/26/2018 CONTRAST 10:20 PM [facility] MR MRA HEAD WITHOUT STAT 04/26/2018 CONTRAST 10:20 PM [facility] URINALYSIS WITH Routine 04/26/2018 MICROSCOPIC IF INDICATED 7:24 PM [facility] BLOOD CULTURE STAT 04/26/2018 7:24 PM ST[facility] CBC W/PLT COUNT & AUTO Routine 04/26/2018 DIFFERENTIAL 7:23 PM [facility] LACTIC ACID, VENOUS Routine 04/26/2018 7:23 PM [facility] PHOSPHORUS Routine 04/26/2018 7:23 PM [facility] MAGNESIUM Routine 04/26/2018 7:23 PM ST[facility]NER APTT Routine 04/26/2018 7:23 PM ST[facility]NER PROTHROMBIN TIME/INR Routine 04/26/2018 7:23 PM [facility] COMPREHENSIVE METABOLIC Routine 04/26/2018 PANEL 7:23 PM ST[facility] CBC W/PLT COUNT & AUTO Routine 04/26/2018 DIFFERENTIAL 7:23 PM [facility] POCT-GLUCOSE METER Routine 04/26/2018 6:21 PM [facility] POCT-GLUCOSE METER Routine 04/26/2018 6:[address] BRAIN WITHOUT IV STAT 04/26/2018 CONTRAST 5:16 PM [facility] POCT-GLUCOSE METER Routine 04/26/2018 11:36 AM ST[facility] POCT-GLUCOSE METER Routine 04/26/2018 7:57 AM [facility] CBC W/PLT COUNT & AUTO Routine 04/26/2018 DIFFERENTIAL 4:02 AM [facility] BASIC METABOLIC PANEL (7) Routine 04/26/2018 4:02 AM [facility] CBC W/PLT COUNT & AUTO Routine 04/26/2018 DIFFERENTIAL 4:02 AM [facility] PHOSPHORUS Routine 04/26/2018 4:02 AM [facility] MAGNESIUM Routine 04/26/2018 4:02 AM [facility] CALCIUM, IONIZED Routine 04/26/2018 4:02 AM [facility] POCT-GLUCOSE METER Routine 04/25/2018 9:21 PM [facility] ELECTROLYTE PANEL STAT 04/25/2018 4:09 PM [facility] CREATININE, RANDOM URINE Routine 04/25/2018 4:09 PM [facility] PROTEIN, RANDOM URINE Routine 04/25/2018 4:09 PM [facility] URINALYSIS W/ MICROSCOPIC Routine 04/25/2018 4:09 PM [facility] POCT-GLUCOSE METER Routine 04/25/2018 10:14 AM [facility] POCT-GLUCOSE METER Routine 04/25/2018 9:12 AM [facility] POCT-ACT Routine 04/25/2018 9:05 AM [facility] POCT-ACT Routine 04/25/2018 8:54 AM [facility] PCI 04/25/2018 Coronary artery disease 7:30 AM ST[facility] involving kluti kaah heart, angina presence unspecified, unspecified vessel or lesion type Case Notes (1) CASE POP6 . 663mGy POCT-GLUCOSE METER Routine 04/25/2018 6:35 AM [facility] CBC W/PLT COUNT & AUTO STAT 04/25/2018 DIFFERENTIAL 4:40 AM [facility] LIPID PANEL Routine 04/25/2018 4:40 AM [facility] PROTHROMBIN TIME/INR STAT 04/25/2018 4:40 AM [facility] BASIC METABOLIC PANEL (7) STAT 04/25/2018 4:40 AM [facility] CBC W/PLT COUNT & AUTO STAT 04/25/2018 DIFFERENTIAL 4:40 AM [facility] ECG 12-LEAD Routine 04/25/2018 4:33 AM [facility] POCT-GLUCOSE METER Routine 04/25/2018 2:51 AM [facility] POCT-GLUCOSE METER Routine 04/24/2018 11:32 PM ST[facility] POCT-GLUCOSE METER Routine 04/24/2018 10:08 PM [facility] BASIC METABOLIC PANEL (7) Routine 04/24/2018 7:06 PM [facility] RHYTHM STRIP - SCAN 03/13/2018 11:20 AM [...] ms QTC Calculatio n(Bazett) 520 ms P [place] 59 degrees R [place] 67 degrees T [place] 38 degrees Sinus rhythm with Premature atrial [...] Coronary artery disease 12:24 PM CDT involving kluti kaah coronary artery of kluti kaah heart, angina presence unspecified Case Notes POP6 PT ALLERGIC TO IODINE. Special Needs PT ALLERGIC TO IODINE ECG 12-LEAD Routine 03/08/2018 9:27 AM CDT Procedure Note - Interface, External Ris In - 03/08/2018 12:04 PM CDT Ventricula r Rate 78 BPM Atrial Rate 78 BPM P-R Interval 184 ms QRS Duration 170 ms Q-T Interval 424 ms QTC Calculatio n(Bazett) 483 ms P [place] 54 degrees R [place] 67 degrees T [place] 47 degrees Sinus rhythm with Premature atrial [...] CDT disease) (HCC) Coronary artery disease involving kluti kaah coronary artery of kluti kaah heart without angina pectoris CT/CTA CHEST Routine 03/07/2018 PAD (peripheral artery 12:00 PM CDT disease) (HCC) Coronary artery disease involving kluti kaah coronary artery of kluti kaah heart without angina pectoris POCT-CREATININE Routine 03/07/2018 11:29 AM CDT after 10/22/2017 Results * RHYTHM STRIP - SCAN (08/28/2018 8:50 AM CDT) Only the most recent of 3 results within the time period is included. Narrative Performed At * VASCULAR DIAGRAM -SCAN (05/07/2018 12:21 PM ST[facility]) Only the most recent of 2 results within the time period is included. Narrative Performed At * CARDIAC CATH REPORT - SCAN (05/04/2018 10:01 AM ST[facility]) Narrative Performed At * ECHOCARDIOGRAM REPORT - SCAN (04/27/2018 4:20 PM ST[facility]) Narrative Performed At * 2D Echo W/Doppler(CW/PW/Color) (04/27/2018 11:05 AM ST[facility]) Ejection Fraction [facility] Specimen Narrative Performed At Transthoracic Echocardiography Report (TTE) [facility] Patient Name TIM COUCH Date of Study 04/27/2018 MATIAS [id number] Male Visit Number [id number] Room Number C624 Number Date of Birth1955Referring Physician Soha Crews Age62 year(s)Core Analysis Operator Jasen Douglas [facility] AnalystAlex Helio Olivares, Physician Procedure Type of [...] External Ris In - 04/27/2018 3:51 PM ST[facility] Transthoracic Echocardiography Report (TTE) Demographics Patient Name RILEY TIM Date of Study 04/27/2018 MATIAS Gender Male Visit Number [id number] Race Room Number C624 Number Date of 1955 Referring Physician Soha Crews Age 62 year(s) Core Analysis Operator Jasen Douglas RDCS Stop Attacher Alberto Cadet Interpreting Rod Olivares, Physician Procedure [...] CPACS * POC-Glucose meter (04/27/2018 9:48 AM ST[facility]) Only the most recent of 28 results within the time period is included. POC-Glucose Meter 244 (H)Comment: TESTED AT 70 - 110 mg/dL [facility] [address] [place] [id number] Specimen Blood Performing Organization Address City/State/Zipcode Phone Number [phone] [place] [address] * Vitamin B12 and Folate (04/27/2018 5:12 AM ST[facility]) Vitamin B12 206 (L) 213 - 816 pg/mL [facility] Folate 11.1 >=7.0 ng/mL [facility] Specimen Blood Performing Organization Address City/[facility] Phone Number [phone] [place] [address] * TSH/Free T4 If Indicated (04/27/2018 5:12 AM ST[facility]) TSH 0.35 0.35 - 4.94 uIU/mL [facility] Specimen Blood Performing Organization Address City/[facility] Phone Number [phone] [place] [address] * HIV-1 Antigen with HIV-1/2 Antibody (04/27/2018 5:12 AM ST[facility]) HIV-1 Antigen with HIV NON-REACTIVE Nonreactive [facility] 1&2 Antibody [facility] Specimen Blood Performing Organization Address City/[facility] Phone Number [address] * RPR (04/27/2018 5:12 AM ST[facility]) RPR Nonreactive Nonreactive [facility] Specimen Blood Performing Organization Address City/State/Zipcode Phone Number [address] * T4, free (04/27/2018 5:12 AM ST[facility]) Free T4 1.30 0.70 - 1.48 ng/dL [facility] Specimen Blood Performing Organization Address City/State/Zipcode Phone Number [facility] [address] [place] [address] [facility] * Hemoglobin A1c (04/27/2018 5:12 AM ST[facility]) Hemoglobin A1C 8.7 (H) 4.3 - 6.1 % [facility] Specimen Blood Performing Organization Address [facility]/Zipcode Phone Number [facility] [address] [place], [place] [id number] [facility] * Basic Metabolic Panel (04/27/2018 5:12 AM ST[facility]) Only the most recent of 7 results within the time period is included. Sodium 139 136 - 145 meq/L [facility] Potassium 4.1 3.5 - 5.1 meq/L [facility] Chloride 104 98 - 107 meq/L [facility] CO2 24 22 - 29 meq/L [facility] BUN 24 (H) 7 - 21 mg/dL [facility] Creatinine 1.23 0.57 - 1.25 mg/dL [facility] Glucose 215 (H) 70 - 105 mg/dL [facility] Calcium 9.3 8.4 - 10.2 mg/dL [facility] EGFR 59Comment: ESTIMATED GFR IS mL/min/1.73 sq m [facility] NOT ACCURATE CREATININE [facility] CLEARANCE IN PREDICTING GLOMERULAR FILTRATION RATE. ESTIMATED GFR IS NOT APPLICABLE FOR DIALYSIS PATIENTS. Specimen Blood Performing Organization Address City/[facility]/Zipcode Phone Number [facility] [address] [place], [place] [phone] [facility] * MR brain without IV contrast (04/26/2018 10:20 PM ST[facility]) Specimen Narrative Performed At FINAL REPORT [facility] CLINICAL HISTORY: Stroke Ischemic Stroke Evaluation TECHNIQUE: MRI of the brain utilizing axial T2, FLAIR, GRE, DWI; sagittal and coronal T1-weighted images. MRA of the head utilizing 3-D ylor-iv-mzabim technique, with 3-D reconstructions. MRA of the neck utilizing 2-D and 3-D oodo-eg-udzzou technique, with 3-D reconstructions. COMPARISON: Same day [...] distal right petrous internal carotid artery. Multifocal tnfi-rq-ldtvnvra stenosis of the right A2 and A3 [...] MD Report Verified Date/Time:04/26/2018 23:11:40 Reading Location: [address] Transitional Reading Room Procedure Note Interface, External Ris In - 04/26/2018 11:13 PM [facility] FINAL REPORT CLINICAL HISTORY: Stroke Ischemic Stroke Evaluation TECHNIQUE: MRI of the brain utilizing axial T2, FLAIR, GRE, DWI; sagittal and coronal T1-weighted images. MRA of the head utilizing 3-D xpxa-fo-zfjwsj technique, with 3-D reconstructions. MRA of the neck utilizing 2-D and 3-D liub-op-hlrysf technique, with 3-D reconstructions. COMPARISON: Same day [...] distal right petrous internal carotid artery. Multifocal oboa-pd-higyzfjk stenosis of the right A2 and A3 [...] Report Verified Date/Time: 04/26/2018 23:11:40 Reading Location: [address] Transitional Reading Room Performing Organization Address City/State/Zipcode Phone Number [facility] * MRA neck without IV contrast (04/26/2018 10:20 PM [facility]) Specimen Narrative Performed At FINAL REPORT [facility] CLINICAL HISTORY: Stroke Ischemic Stroke Evaluation TECHNIQUE: MRI of the brain utilizing axial T2, FLAIR, GRE, DWI; sagittal and coronal T1-weighted images. MRA of the head utilizing 3-D bvom-jf-giikyd technique, with 3-D reconstructions. MRA of the neck utilizing 2-D and 3-D fkfr-ez-glnekv technique, with 3-D reconstructions. COMPARISON: Same day [...] distal right petrous internal carotid artery. Multifocal mqhp-un-agbgwslm stenosis of the right A2 and A3 [...] MD Report Verified Date/Time:04/26/2018 23:11:40 Reading Location: [facility] B1 [id number] Transitional Reading Room Procedure Note Interface, External Ris In - 04/30/2018 11:08 PM ST[facility] FINAL REPORT CLINICAL HISTORY: Stroke Ischemic Stroke Evaluation TECHNIQUE: MRI of the brain utilizing axial T2, FLAIR, GRE, DWI; sagittal and coronal T1-weighted images. MRA of the head utilizing 3-D pjob-dl-aovjsu technique, with 3-D reconstructions. MRA of the neck utilizing 2-D and 3-D sgmk-fe-dyljpn technique, with 3-D reconstructions. COMPARISON: Same day [...] distal right petrous internal carotid artery. Multifocal ikmk-xq-bnopoygr stenosis of the right A2 and A3 [...] Report Verified Date/Time: 04/26/2018 23:11:40 Reading Location: [address] Reading Room Performing Organization Address City/State/Zipcode Phone Number [facility] * MRA head without IV contrast (04/26/2018 10:20 PM [facility]) Specimen Narrative Performed At FINAL REPORT [facility] CLINICAL HISTORY: Stroke Ischemic Stroke Evaluation TECHNIQUE: MRI of the brain utilizing axial T2, FLAIR, GRE, DWI; sagittal and coronal T1-weighted images. MRA of the head utilizing 3-D cejq-ml-hcyiba technique, with 3-D reconstructions. MRA of the neck utilizing 2-D and 3-D ompm-qo-ftcimr technique, with 3-D reconstructions. COMPARISON: Same day [...] distal right petrous internal carotid artery. Multifocal vnwi-tv-vtgmckuz stenosis of the right A2 and A3 [...] MD Report Verified Date/Time:04/26/2018 23:11:40 Reading Location: [address] Transitional Reading Room Procedure Note Interface, External Ris In - 04/26/2018 11:13 PM [facility] FINAL REPORT CLINICAL HISTORY: Stroke Ischemic Stroke Evaluation TECHNIQUE: MRI of the brain utilizing axial T2, FLAIR, GRE, DWI; sagittal and coronal T1-weighted images. MRA of the head utilizing 3-D bbpt-uq-qwtfjt technique, with 3-D reconstructions. MRA of the neck utilizing 2-D and 3-D iwzg-fz-tbbbrj technique, with 3-D reconstructions. COMPARISON: Same day [...] distal right petrous internal carotid artery. Multifocal jlfp-qw-iteaqagv stenosis of the right A2 and A3 [...] Report Verified Date/Time: 04/26/2018 23:11:40 Reading Location: [facility] Transitional Reading Room Performing Organization Address City/[facility] [place] [facility] Cent[facility] Phone Number GE RIS * Urinalysis with Microscopic If Indicated (04/26/2018 7:24 PM ST[facility]) Color, UA Light Yellow [facility] Clarity, UA Clear [facility] Specific Camp, UA 1.010 1.001 - 1.035 [facility] pH, UA 5.0 5.0 - 8.0 [facility] Protein, UA Negative Negative [facility] Glucose, UA Negative Negative [facility] Ketones, UA Negative Negative [facility] Bilirubin, UA Negative Negative [facility] Blood, UA Negative Negative [facility] Nitrite, UA Negative Negative [facility] Leukocytes, UA Negative Negative [facility] Urobilinogen, UA 0.2 0.2 - 1.0 mg/dL [facility] Specimen Source [facility] Specimen Urine Performing Organization Address City/[facility]/Zipcode Phone Number [facility] [address] [place] [address] [facility] * Blood culture (04/26/2018 7:24 PM ST[facility]) Result No growth in 5 days [facility] Specimen Blood Performing Organization Address City/State/Zipcode Phone Number [facility] [address] [place] [address] [facility] * CBC with platelet count + automated diff (04/26/2018 7:23 PM ST[facility]) Only the most recent of 4 results within the time period is included. WBC 13.9 (H) 3.5 - 10.5 K/L [facility] RBC 4.05 (L) 4.63 - 6.08 M/L [facility] Hemoglobin 12.2 (L) 13.7 - 17.5 GM/DL [facility] Hematocrit 36.6 (L) 40.1 - 51.0 % [facility] MCV 90.4 79.0 - 92.2 fL [facility] MCH 30.1 25.7 - 32.2 pg [facility] MCHC 33.3 32.3 - 36.5 GM/DL [facility] RDW 13.7 11.6 - 14.4 % [facility] Platelets 217 150 - 450 K/CU MM [facility] MPV 10.7 9.4 - 12.4 fL [facility] nRBC 0 0 - 0 /100 WBC [facility] % Neutros 74 % [facility] % Lymphs 19 % [facility] % Monos 6 % [facility] % Eos 1 % [facility] % Baso 0 % [facility] # Neutros 10.27 (H) 1.78 - 5.38 K/L [facility] # Lymphs 2.60 1.32 - 3.57 K/L [facility] # Monos 0.88 (H) 0.30 - 0.82 K/L [facility] # Eos 0.08 0.04 - 0.54 K/L [facility] # Baso 0.03 0.01 - 0.08 K/L [facility] Immature 0 0 - 1 % [facility] Granulocytes-Relative [facility] Specimen Blood Performing Organization Address City/[facility] [place] [facility] Centercode Phone Number [address] [address] [facility] * Lactic acid, venous, whole blood (04/26/2018 7:23 PM ST[facility]NER) Lactate, Venous 1.8Comment: Specimen slightly 0.5 - 2.2 mmol/L [facility] hemolyzed [facility] Specimen Blood Performing Organization Address [facility] [place] [address] [facility] * aPTT (04/26/2018 7:23 PM ST[facility]URNER) PTT 31.0 22.5 - 36.0 seconds [facility] Specimen Blood Performing Organization Address City/[facility] [place] [facility]ode Phone Number [address] [address] [facility] * Prothrombin time/INR (04/26/2018 7:23 PM ST[facility]NER) Only the most recent of 3 results within the time period is included. Protime 13.5 11.7 - 14.7 seconds [facility] INR 1.0 <=5.9 [facility] Specimen Blood Narrative Performed At RECOMMENDED COUMADIN/WARFARIN INR THERAPY RANGES [facility] STANDARD DOSE: 2.0 - 3.0 Includes: PROPHYLAXIS for venous thrombosis, [facility] systemic embolization; TREATMENT for venous thrombosis and/or pulmonary embolus. HIGH RISK: Target INR is 2.5-3.5 for patients with mechanical heart valves. Performing Organization Address City/[facility] [place] [facility] Centercode Phone [place] [address] [phone] * Phosphorus (04/26/2018 7:23 PM ST[facility]) Only the most recent of 3 results within the time period is included. Phosphorus 3.5Comment: Specimen markedly 2.3 - 4.7 mg/dL [facility] Specimen Blood Performing Organization Address [facility] Centercoin Phone Number [address] * Magnesium (04/26/2018 7:23 PM ST[facility]NER) Only the most recent of 4 results within the time period is included. Magnesium 3.1 (H)Comment: Specimen 1.6 - 2.6 mg/dL [facility] markedly [facility] Specimen Blood Performing Organization Address [facility] Phone Number [address] * Comprehensive metabolic panel (04/26/2018 7:23 PM ST[facility]URNER) Protein, Total 8.5 (H)Comment: Specimen 6.0 - 8.3 gm/dL [facility] Albumin 4.2Comment: Specimen markedly 3.5 - 5.0 g/dL [facility] Alkaline Phosphatase 72 40 - 150 U/L [facility] Total Bilirubin 0.4Comment: Specimen markedly 0.2 - 1.2 mg/dL [facility] Sodium 139 136 - 145 meq/L [facility] Potassium 5.1Comment: Specimen markedly 3.5 - 5.1 meq/L [facility] Chloride 102 98 - 107 meq/L [facility] CO2 25 22 - 29 meq/L [facility] BUN 27 (H) 7 - 21 mg/dL [facility] Creatinine 1.34 (H)Comment: Specimen 0.57 - 1.25 mg/dL [facility] markedly hemolyzed [facility] Glucose 110 (H) 70 - 105 mg/dL [facility] Calcium 9.5 8.4 - 10.2 mg/dL [facility] AST 35 (H)Comment: Specimen 5 - 34 U/L [facility] markedly hemolyzed [facility] ALT 10Comment: Specimen markedly 6 - 55 U/L [facility] hemolyzed [facility] EGFR 54Comment: ESTIMATED GFR IS mL/min/1.73 sq m [facility] NOT ACCURATE CREATININE [facility] CLEARANCE IN PREDICTING GLOMERULAR FILTRATION RATE. ESTIMATED GFR IS NOT APPLICABLE FOR DIALYSIS PATIENTS. Specimen Blood Performing Organization Address City/State/Zipcode Phone Number [facility] [address] [place] [address] [facility] * CT brain without IV contrast (04/26/2018 5:16 PM STOCK TURNER) Specimen Narrative Performed At FINAL REPORT [facility] CT head without contrast 04/26/2018 5:12 PM [...] MD Report Verified Date/Time:04/26/2018 18:36:43 Reading Location: [facility] Radiology Reading Room Procedure Note Interface, External Ris In - 04/26/2018 6:49 PM STOCK TURNER FINAL REPORT CT head without contrast 04/26/2018 [...] Report Verified Date/Time: 04/26/2018 18:36:43 Reading Location: [facility] Radiology Reading Room Performing Organization Address City/[facility]/Zipcode Phone Number RIS * Calcium, Ionized (04/26/2018 4:02 AM STOCK TURNER) Calcium, Ion 1.13 1.12 - 1.27 mmol/L [facility] pH, Blood 7.39 [facility] Specimen Blood Performing Organization Address City/[facility]/Zipcode Phone Number [facility] [address] [place] [address] [facility] * Protein, random urine (04/25/2018 4:09 PM STOCK TURNER) Only the most recent of 2 results within the time period is included. Protein, Urine 20 (H) 0 - 14 mg/dL [facility] Specimen Urine Performing Organization Address City/[facility] Phone Number [address] [address] [phone] * Creatinine, random urine (04/25/2018 4:09 PM STOCK TURNER) Creatinine, Ur 73.5 mg/dL [facility] Specimen Urine Narrative Performed At Reference Range: No Normals [facility] Performing Organization Address [facility] Cent[facility] Phone Number [place] [phone] [place] [address] * Urinalysis w/Microscopic (04/25/2018 4:09 PM STOCK TURNER) Color, UA Yellow [facility] Clarity, UA Clear [facility] Specific Camp, UA 1.037 (H) 1.001 - 1.035 [facility] pH, UA 5.0 5.0 - 8.0 [facility] Protein, UA 20 mg/dL (A) Negative [facility] Glucose, UA 500 mg/dL (A) Negative [facility] Ketones, UA Negative Negative [facility] Bilirubin, UA Negative Negative [facility] Blood, UA Trace (A) Negative [facility] Nitrite, UA Negative Negative [facility] Leukocytes, UA Negative Negative [facility] Urobilinogen, UA 0.2 0.2 - 1.0 mg/dL [facility] RBC, UA 1 /HPF [facility] WBC, UA <1 /HPF [facility] Squam Epithel, UA <1 /HPF [facility] Specimen Source [facility] Specimen Urine Performing Organization Address City/State/[place] [address] [facility] * Electrolytes (04/25/2018 4:09 PM STOCK TURNER) Sodium 136 136 - 145 meq/L [facility] Potassium 4.1 3.5 - 5.1 meq/L [facility] Chloride 103 98 - 107 meq/L [facility] CO2 23 22 - 29 meq/L [facility] Specimen Blood Narrative Performed At Call [phone] with results [facility] Performing Organization Address City/[facility]/[place] [address] [facility] * POC ACTIVATED CLOTTING TIME (04/25/2018 9:05 AM STOCK TURNER) Only the most recent of 2 results within the time period is included. Activated Clotting Time 362Comment: TESTED AT [facility] sec [address] Specimen Blood Performing Organization Address City/[facility]/[place] [address] [facility] * Lipid panel (04/25/2018 4:40 AM STOCK TURNER) Triglycerides 90 mg/dL [facility] Cholesterol 159 mg/dL [facility] HDL 35 mg/dL [facility] LDL Calculated 106 mg/dL [facility] Specimen Blood Narrative Performed At Triglyceride Reference Range: [facility] Low Risk <150 [facility] [id number] High Risk 200-499 Very High Risk>=500 Cholesterol Reference Range: Low Risk <200 [id number] High Risk>240 HDL Cholesterol Reference Range: Low Risk >=60 High Risk <40 LDL Cholesterol Reference Range: Optimal<100 Near [id number] Mlnfzyxcvl415-318 [id number] Very High >=190 Performing Organization Address City/State/Zipcode Phone Number [facility] [address] [place] [address] [facility] * ECG 12 lead (04/25/2018 4:33 AM STOCK TURNER) Only the most recent of 3 results within the time period is included. Specimen Narrative Performed At Ventricular Rate 97 BPM GE MUSE Atrial Rate 97 BPM P-R Interval 188 ms QRS Duration 164 ms Q-T Interval 406 ms QTC Calculation(Bazett) 515 ms P [place] 61 degrees R [place] 151 degrees T [place] 22 degrees Normal sinus rhythm Right bundle branch block Abnormal ECG When compared with ECG of 09-MAR-2018 14:30, Premature atrial complexes are no longer Present Confirmed by MD ESTEVEZ JORGE ([id number]) on 04/25/2018 1:58:33 PM Procedure Note Interface, External Ris In - 04/25/2018 1:58 PM STOCK TURNER Ventricular Rate 97 BPM Atrial Rate 97 BPM P-R Interval 188 ms QRS Duration 164 ms Q-T Interval 406 ms QTC Calculation(Bazett) 515 ms P [place] 61 degrees R [place] 151 degrees T [place] 22 degrees Normal sinus rhythm Right bundle branch block Abnormal ECG When compared with ECG of 09-MAR-2018 14:30, Premature atrial complexes are no longer Present Confirmed by MD ESTEVEZ JORGE ([id number]) on 04/25/2018 1:58:33 PM Performing Organization Address City/State/Zipcode Phone Number [facility] * CARDIAC CATH REPORT - SCAN (03/13/2018 11:20 AM CDT) Narrative Performed At * TRANSFUSION SERVICE REPORT - SCAN (03/09/2018 6:09 PM CDT) Narrative Performed At * NM myocardial perfusion PET (rest and stress) (03/09/2018 2:56 PM CDT) Specimen Narrative Performed At FINAL REPORT [facility] PROCEDURE:Rest/Stress MYOCARDIAL PERFUSION PET with regadenoson\\XA9\\ CPT CODE: 38993 INDICATION: CAD HISTORY:Cardiac risk factors: Diabetes, hypertension, [...] MD Report Verified Date/Time:03/09/2018 16:42:51 Reading Location: [address] Reading Room Procedure Note Interface, External Ris In - 03/09/2018 4:45 PM CDT FINAL REPORT PROCEDURE: Rest/Stress MYOCARDIAL PERFUSION PET with regadenoson\\XA9\\ CPT CODE: [id number] INDICATION: CAD HISTORY: Cardiac risk factors: Diabetes, [...] Report Verified Date/Time: 03/09/2018 16:42:51 Reading Location: [address] Reading Room Performing Organization Address City/State/Zipcode [...] metoprolol LIPITOR Confirmed by fellow Bev Arnold ([id number]) on 03/12/2018 8:24:14 AM Confirmed by MD ESTEVEZ JORGE ([id number]) on 03/29/2018 3:47:55 PM Procedure Note Interface, External Ris In - 03/29/2018 3:48 PM STOCK TURNER Protocol Name Ariadna Time In Exercise Phase [...] 8:24:14 AM Confirmed by MD ESTEVEZ JORGE ([id number]) on 03/29/2018 3:47:55 PM Performing Organization Address City/State/Zipcode Phone Number GE MUSE * CBC (Hemogram only) (03/09/2018 4:26 AM CDT) Only the most recent of 2 results within the time period is included. WBC 10.7 (H) 3.5 - 10.5 K/L [facility] RBC 3.56 (L) 4.63 - 6.08 M/L [facility] Hemoglobin 10.7 (L) 13.7 - 17.5 GM/DL [facility] Hematocrit 31.7 (L) 40.1 - 51.0 % [facility] MCV 89.0 79.0 - 92.2 fL [facility] MCH 30.1 25.7 - 32.2 pg [facility] MCHC 33.8 32.3 - 36.5 GM/DL [facility] RDW 13.6 11.6 - 14.4 % [facility] Platelets 196 150 - 450 K/CU MM [facility] MPV 10.3 9.4 - 12.4 fL [facility] nRBC 0 0 - 0 /100 WBC [facility] Specimen Blood Performing Organization Address City/State/Zipcode Phone Number [facility] [address] [place], [place] [id number] [phone] [place] [address] * Type and screen, automated (03/08/2018 9:16 AM CDT) ABO/RH AUTOMATED (BEAKER) O POSITIVE [facility] Ab Scrn NEGATIVE [facility] Specimen Blood Performing Organization Address City/State/Zipcode Phone Number [facility] [address] [place] [address] [phone] [place] [address] * CTA chest (03/07/2018 12:00 PM CDT) Specimen Narrative Performed At Addendum Begins [employer] RIS REPORT STATUS:A Addendum: I agree with the previously described non vascular findings by Dr. Wilcox. Signed: Leo Mccloud MD Report Verified Date/Time:03/07/2018 16:03:23 Reading Location: [place] [address] Angio Body Reading Room Addendum Ends FINAL [...] and during intravenous contrast administration using a [employer] multidetector CT scanner. Images were obtained before [...] vascular structure identified medial to the expected [place] right SFA. Enhancement is suboptimal at this level. Please kindly correlate clinically. 2.Coronary atherosclerosis. Patient is post coronary artery bypass surgery. 3.The central pulmonary artery is at the upper limits of normal in calibre. No evidence of central pulmonary artery embolism is seen. 4.Other findings as described above. 5.An addendum will be dictated by the Linux Consultant Radiologist regarding the nonvascular findings. Signed: Jose Wilcox MD Report Verified Date/Time:03/07/2018 13:30:05 Reading Location: [place] [address] Cardiology MRI Procedure Note Interface, External Ris In - 03/07/2018 4:05 PM CDT Addendum Begins REPORT STATUS:A Addendum: I agree with the previously described non vascular findings by Dr. Wilcox. Signed: Leo Mccloud MD Report Verified Date/Time: 03/07/2018 16:03:23 Reading Location: [place] [address] Angio Body Reading Room Addendum Ends FINAL [...] vascular structure identified medial to the expected [place] right SFA. Enhancement is suboptimal at this level. Please kindly correlate clinically. 2. Coronary atherosclerosis. Patient is post coronary artery bypass surgery. 3. The central pulmonary artery is at the upper limits of normal in calibre. No evidence of central pulmonary artery embolism is seen. 4. Other findings as described above. 5. An addendum will be dictated by the Linux Consultant Radiologist regarding the nonvascular findings. Signed: Jose Wilcox MD Report Verified Date/Time: 03/07/2018 13:30:05 Reading Location: [place] [id number] Cardiology MRI Performing Organization Address City/State/Zipcode Phone Number [employer] RIS * CTA abdomen & pelvis (03/07/2018 12:00 PM CDT) Specimen Narrative Performed At Addendum Begins GE RIS REPORT STATUS:A Addendum: I agree with the previously described non vascular findings by Dr. Wilcox. Signed: Leo Mccloud MD Report Verified Date/Time:03/07/2018 16:03:23 Reading Location: [place] [id number] Angio Body Reading Room Addendum Ends FINAL [...] and during intravenous contrast administration using a [employer] multidetector CT scanner. Images were obtained before [...] vascular structure identified medial to the expected [place] right SFA. Enhancement is suboptimal at this level. Please kindly correlate clinically. 2.Coronary atherosclerosis. Patient is post coronary artery bypass surgery. 3.The central pulmonary artery is at the upper limits of normal in calibre. No evidence of central pulmonary artery embolism is seen. 4.Other findings as described above. 5.An addendum will be dictated by the Linux Consultant Radiologist regarding the nonvascular findings. Signed: Jose Wilcox MD Report Verified Date/Time:03/07/2018 13:30:05 Reading Location: [place] [address] Cardiology MRI Procedure Note Interface, External Ris In - 03/07/2018 4:05 PM CDT Addendum Begins REPORT STATUS:A Addendum: I agree with the previously described non vascular findings by Dr. Wilcox. Signed: Leo Mccloud MD Report Verified Date/Time: 03/07/2018 16:03:23 Reading Location: [place] [address] Angio Body Reading Room Addendum Ends FINAL [...] and during intravenous contrast administration using a [employer] multidetector CT scanner. Images were obtained before [...] vascular structure identified medial to the expected [place] right SFA. Enhancement is suboptimal at this level. Please kindly correlate clinically. 2. Coronary atherosclerosis. Patient is post coronary artery bypass surgery. 3. The central pulmonary artery is at the upper limits of normal in calibre. No evidence of central pulmonary artery embolism is seen. 4. Other findings as described above. 5. An addendum will be dictated by the Linux Consultant Radiologist regarding the nonvascular findings. Signed: Jose Wilcox MD Report Verified Date/Time: 03/07/2018 13:30:05 Reading Location: [place] [address] Cardiology MRI Performing Organization Address City/State/Zipcode Phone Number GE RIS * POC-Creatinine (03/07/2018 11:29 AM CDT) POC-Creatinine 1.3Comment: TESTED AT [facility]-KG 0.6 - 1.3 mg/dL [facility] [address] [facility] [place] [address] [place] [address] POC-EGFR Comment: Insufficient clinical mL/min/1.73M2 [facility] data to calculate estimated [facility] GFR Specimen Blood Narrative Performed At Performing Organization Address City/State/Zipcode Phone Number [facility] [address] [place] [address] [facility] after 10/22/2017 Insurance Payer Benefit Subscriber ID Type Phone Address Plan / Group MEDICARE MEDICARE A xxxxxxxxxxx Medicare B [employer] - MGD UNITED HMO xxxxxxxxx HMO/POS CARE POS SELECT CHOICE Advance Directives For more information, please contact: [facility] [address] [place], [place] [phone] Date Inactivated Comments Code Status Date Activated Full Code 04/24/2018 3:34 PM This code status was determined by: Patient 03/10/2018 7:38 PM Full Code 03/08/2018 8:39 AM This code status was determined by: Patient 05/13/2016 3:28 PM Full Code 05/13/2016 7:52 AM This code status was determined by: Patient
[2018-10-23] MEDS: CEFTRIAXONE SOD 1 GM/NS 50 ML 50 ML IV SCH (23:22)
[2018-10-24] VITALS (10 sets, daily range): BP systolic 125–189; BP diastolic 59–83
[2018-10-24] MEDS ORDERED: INSULIN REGULAR, HUMAN 100 UNIT/1 ML 3ML VIAL IV ONE (00:15)
[2018-10-24] MEDS: SODIUM CHLORIDE 0.9% 1000ML 1,000 ML IV SCH ×4 (00:42→21:32)
[2018-10-24] MEDS ORDERED: ATORVASTATIN CA80 MG PO (00:59)
[2018-10-24] MEDS ORDERED: TRAZODONE HCL100 MG PO (00:59)
[2018-10-24] MEDS ORDERED: LISINOPRIL10 MG PO (00:59)
[2018-10-24] MEDS ORDERED: HUMALOG100 UNIT/3 SQ (00:59)
[2018-10-24] MEDS: ONDANSETRON HCL INJ 2MG/ML 2ML 2 MG/ML VIAL IV PRN ×5 (03:33→19:40)
--- NOTE | 2018-10-24 03:34 | NUR ---
Received report from ER. Patient arrived to unit @0232 with spouse for dental infection, uncontrolled DM, UTI, and fever. Patient is A/Ox3 with pain level of 7/0 on the mouth which 4 teeth were pulled out at the dentist office. The spouse stated after coming home, she noticed her was not feeling well and was feeling hot. She was unable to take him to the ER, therefore called the EMS to take the patient to the ER. 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 Skin is intact. Bed is set low, side rails up x2, wheels lock and call light within reach. Monitor patient for fever and pain.
--- NOTE | 2018-10-24 07:20 | NUR ---
Walking rounds done. at the bedside. POC discussed. Patient is awake and alertx3, and able to make needs known. Bed in lowest position, locked and call walker within reach.
[2018-10-24 07:28] LABS: BASOPHILS % 0.2 % (0.0-1.0); EOSINOPHILS % 0.1 % (0.0-6.0); HEMATOCRIT 30.8 % (38.2-49.6); HEMOGLOBIN 10.7 g/dL (14.0-18.0); LYMPHOCYTES # (AUTO) 1.2 (1.0-3.2); LYMPHOCYTES % 11.5 % (18.0-39.1); MEAN CORPUSCULAR HGB CONC 34.7 g/dL (31-35); MEAN CORPUSCULAR VOLUME 89.3 fL (81-99); MONOCYTES % 9.5 % (4.4-11.3); NEUTROPHILS # (AUTO) 8.1 (2.1-6.9); NEUTROPHILS % 78.3 % (38.7-80.0); PLATELET COUNT 150 x10e3/uL (140-360); RED BLOOD COUNT 3.45 x10e6/uL (4.3-5.7); RED CELL DISTRIBUTION WIDTH 13.5 % (11.7-14.4)
[2018-10-24 07:45] LABS: ALBUMIN 3.3 g/dL (3.5-5.0); ALBUMIN/GLOBULIN RATIO 1.1 (0.8-2.0); ANION GAP 14.7 mmol/L (8-16); CALCIUM 8.8 mg/dL (8.4-10.2); CREATININE, SERUM 1.81 mg/dL (0.72-1.25); POTASSIUM 4.7 mmol/L (3.5-5.1)
[2018-10-24] MEDS: MORPHINE SULFATE INJ 4 MG/ML INJ 1ML IV PRN ×4 (07:58→19:40)
--- NOTE | 2018-10-24 08:00 | NUR ---
Spoke to Fabio Dobson NP regarding BS 385. Per STILL OPERATOR BATCH OR CONTINUOUS Patient needs to receive highest amount on SSI, 12units Humalog SQ to be given.
[2018-10-24] MEDS: INSULIN LISPRO 100 UNIT/1 ML 3ML VIAL SQ SCH ×4 (08:20→21:31)
--- NOTE | 2018-10-24 10:30 | NUR ---
Spoke to Kiel Amado NP regarding restarting home medications and high blood sugars. Per SANG Dyson he will review medications after he finishes with his discharges.
[2018-10-24] MEDS ORDERED: METOPROLOL SUCC50 MG PO (11:06)
--- NOTE | 2018-10-24 15:18 | NUR ---
Notified Kiel Amado NP regarding critical result of one bottle of blood culture for gram positive cocci in pairs and chains. No new orders received at this time.
--- NOTE | 2018-10-24 19:00 | NUR ---
Report given to oncoming shift.
--- NOTE | 2018-10-24 19:10 | NUR ---
Bedside report and walking rounds complete. Pt resting in bed and in no apparent distress. at bedside. Pt on room air, no tele. Pt has right BKA and uses walker to ambulate with prosthetic leg. All safety measures ensured, bed alarm on, and call walker near. Pt encouraged to use call walker for assistance.
[2018-10-24] MEDS ORDERED: HYDRALAZINE HCL 20 MG/ML VIAL IV PRN (20:15)
[2018-10-24] MEDS ORDERED: TRAMADOL HCL 50 MG TAB PO PRN (20:15)
[2018-10-24] MEDS ORDERED: NON-FORMULARY MEDICATION (Trazodone Hcl 100 MG) PO SCH (21:00)
[2018-10-24] MEDS ORDERED: INSULIN GLARGINE 100 UNITS/ML VIAL SQ SCH (21:00)
[2018-10-24] MEDS: TRAZODONE HCL 50 MG TAB PO SCH (21:30)
[2018-10-24] MEDS: HYDROCODONE/APAP 10MG-325MG TAB PO PRN (21:31)
[2018-10-24] MEDS: ATORVASTATIN 40 MG TAB PO SCH (21:31)
--- NOTE | 2018-10-24 22:26 | Diagnostic Imaging Report ---
EXAM: Abdomen 2 Views INDICATION: ^constipation ^[id number] ^2139 ^Y COMPARISON: None FINDINGS: Nonobstructive bowel gas pattern. No signs of pneumoperitoneum. Normal colonic stool burden. No calcification overlying renal shadows. No acute osseous abnormality. Degenerative changes of lower lumbar spine. Pelvic surgical clips. Lung bases are clear. Median sternotomy wires. IMPRESSION: 1. Nonobstructive bowel gas pattern. 2. Normal colonic stool burden. Signed by: Dr. Chemo Joyner MD on 10/24/2018 10:22 PM
[2018-10-24] MEDS: CEFTRIAXONE SOD 1 GM/NS 50 ML 50 ML IV SCH (23:51)
[2018-10-25] MEDS: ONDANSETRON HCL INJ 2MG/ML 2ML 2 MG/ML VIAL IV PRN ×4 (00:20→23:15)
[2018-10-25] MEDS: MORPHINE SULFATE INJ 4 MG/ML INJ 1ML IV PRN ×5 (00:20→23:15)
[2018-10-25] MEDS: HYDROCODONE/APAP 10MG-325MG TAB PO PRN ×3 (03:50→20:31)
[2018-10-25 04:00] VITALS: BP 130/60
[2018-10-25 05:40] LABS: BASOPHILS % 0.3 % (0.0-1.0); EOSINOPHILS # (AUTO) 0.2 (0.0-0.4); EOSINOPHILS % 3.2 % (0.0-6.0); HEMATOCRIT 27.4 % (38.2-49.6); HEMOGLOBIN 9.1 g/dL (14.0-18.0); LYMPHOCYTES # (AUTO) 1.3 (1.0-3.2); LYMPHOCYTES % 17.2 % (18.0-39.1); MEAN CORPUSCULAR HEMOGLOBIN 30.6 pg (28-32); MEAN CORPUSCULAR HGB CONC 33.2 g/dL (31-35); MEAN CORPUSCULAR VOLUME 92.3 fL (81-99); MONOCYTES # (AUTO) 0.7 (0.2-0.8); MONOCYTES % 9.7 % (4.4-11.3); NEUTROPHILS # (AUTO) 5.2 (2.1-6.9); NEUTROPHILS % 69.2 % (38.7-80.0); PLATELET COUNT 131 x10e3/uL (140-360); RED BLOOD COUNT 2.97 x10e6/uL (4.3-5.7); RED CELL DISTRIBUTION WIDTH 13.4 % (11.7-14.4)
[2018-10-25] MEDS: SODIUM CHLORIDE 0.9% 1000ML 1,000 ML IV SCH ×2 (05:59→15:49)
[2018-10-25 06:02] LABS: CALCIUM 8.4 mg/dL (8.4-10.2); CHOL/HDL RATIO 3.5 (3.9-4.7); CREATININE, SERUM 1.43 mg/dL (0.72-1.25); MAGNESIUM 1.7 MG/DL (1.3-2.1); PHOSPHORUS 2.6 MG/DL (2.3-4.7)
[2018-10-25 06:22] LABS: THYROID STIMULATING HORMONE 1.094 uIU/mL (0.350-4.940)
--- NOTE | 2018-10-25 06:53 | NUR ---
Walking rounds done and report received. Patient is awake, alert and able to make needs known. Patient states mouth pain is better today. POC discussed. Patient was instructed to call for assistance and verbalized understanding. Call walker within reach.
--- NOTE | 2018-10-25 06:58 | NUR ---
Bedside report and walking rounds complete with day shift RN.
[2018-10-25 07:30] VITALS: BP 130/60
[2018-10-25] MEDS: INSULIN LISPRO 100 UNIT/1 ML 3ML VIAL SQ SCH ×4 (07:30→20:32)
[2018-10-25 08:24] VITALS: BP 142/65
[2018-10-25] MEDS: DOCUSATE SODIUM LIQD 100 MG/10 ML UDC NG SCH (08:59)
[2018-10-25] MEDS: CLOPIDOGREL BISULFATE 75 MG TAB PO SCH (08:59)
[2018-10-25] MEDS: METOPROLOL SUCCINATE 50 MG TAB XL PO SCH ×2 (08:59→16:53)
[2018-10-25] MEDS ORDERED: NON-FORMULARY MEDICATION (Atorvastatin Calcium 80 MG) PO SCH (09:00)
[2018-10-25] MEDS: POLYETHYLENE GLYCOL 3350 17 GM PACK PO PRN ×2 (09:00→16:53)
[2018-10-25] MEDS ORDERED: INSULIN LISPRO 100 UNIT/1 ML 3ML VIAL SQ SCH (12:00)
[2018-10-25 12:26] VITALS: BP 127/57
--- NOTE | 2018-10-25 14:31 | NUR ---
Nutrition Screen Note RD Recommendation for Physician: -Rec ADA 1800 as medically appropriate Plan of Care: RD following, monitoring for tolerance and adequacy Nutrition reason for involvement: Nutrition Risk Trigger MST Primary Diagnose(s): dental infection, fever, uncontrolled DM PMH: DM Ht: 76in Wt: 214lb BMI: N/A (amputation) IBW: - RD Assessment: (10/25) Chart reviewed. Labs and meds reviewed. 63yo M, who was admitted for dental infection. HbA1c at 10.9%. Visited pt in the room. Pt reported good appetite with >75% of lunch intake today. No complains of nausea or vomiting. No complains of nausea or vomiting. Pt denied any chewing or swallowing difficulty. Pt has had ~15lbs weight loss since 06/2018. No physical sign of muscle and fat loss upon observation. Not meeting criteria for malnutrition at this time. Pt with hx of DM for over 30 years and not interested in any diet education. Will continue to monitor and follow. Current Diet: renal diabetic diet Malnutrition Evaluation (10/25) The patient does not meet criteria for a specified degree of malnutrition at this time. Will re-evaluate at follow-up as appropriate. Diet Education Needs Assessment: Diet education indicated, pt is not interested. Nutrition Care Level: low Signed: Aura England, MS, RD, LD
[2018-10-25 17:13] VITALS: BP 138/63
--- NOTE | 2018-10-25 19:10 | NUR ---
Walking rounds done and report given.
--- NOTE | 2018-10-25 19:16 | NUR ---
Bedside report and walking rounds complete. Pt resting in bed and in no apparent distress. All safety measures ensured.
[2018-10-25 20:00] VITALS: BP 149/68
[2018-10-25] MEDS: TRAZODONE HCL 50 MG TAB PO SCH (20:31)
[2018-10-25] MEDS: ATORVASTATIN 40 MG TAB PO SCH (20:31)
[2018-10-25] MEDS ORDERED: INSULIN GLARGINE 100 UNITS/ML VIAL SQ SCH (21:00)
[2018-10-25] MEDS: CEFTRIAXONE SOD 1 GM/NS 50 ML 50 ML IV SCH (23:14)
[2018-10-26] VITALS: BP 129/58
[2018-10-26] MEDS: SODIUM CHLORIDE 0.9% 1000ML 1,000 ML IV SCH ×2 (02:54→11:51)
[2018-10-26 04:00] VITALS: BP 141/62
[2018-10-26 04:39] LABS: BASOPHILS % 0.3 % (0.0-1.0); EOSINOPHILS # (AUTO) 0.4 (0.0-0.4); HEMATOCRIT 26.8 % (38.2-49.6); HEMOGLOBIN 9.2 g/dL (14.0-18.0); LYMPHOCYTES # (AUTO) 1.5 (1.0-3.2); LYMPHOCYTES % 21.9 % (18.0-39.1); MEAN CORPUSCULAR HEMOGLOBIN 30.9 pg (28-32); MEAN CORPUSCULAR HGB CONC 34.3 g/dL (31-35); MEAN CORPUSCULAR VOLUME 89.9 fL (81-99); MONOCYTES # (AUTO) 0.7 (0.2-0.8); MONOCYTES % 10.3 % (4.4-11.3); NEUTROPHILS # (AUTO) 4.1 (2.1-6.9); NEUTROPHILS % 61.1 % (38.7-80.0); PLATELET COUNT 148 x10e3/uL (140-360); RED BLOOD COUNT 2.98 x10e6/uL (4.3-5.7); RED CELL DISTRIBUTION WIDTH 13.5 % (11.7-14.4)
[2018-10-26 04:58] LABS: ANION GAP 9.5 mmol/L (8-16); CALCIUM 8.5 mg/dL (8.4-10.2); CREATININE, SERUM 1.26 mg/dL (0.72-1.25); MAGNESIUM 1.8 MG/DL (1.3-2.1); PHOSPHORUS 3.2 MG/DL (2.3-4.7); POTASSIUM 4.5 mmol/L (3.5-5.1)
[2018-10-26] MEDS: HYDROCODONE/APAP 10MG-325MG TAB PO PRN ×3 (05:17→14:47)
[2018-10-26] MEDS: METOPROLOL SUCCINATE 50 MG TAB XL PO SCH (08:46)
[2018-10-26] MEDS: INSULIN LISPRO 100 UNIT/1 ML 3ML VIAL SQ SCH ×2 (08:46→11:55)
[2018-10-26] MEDS: CLOPIDOGREL BISULFATE 75 MG TAB PO SCH (08:46)
[2018-10-26] MEDS: DOCUSATE SODIUM LIQD 100 MG/10 ML UDC NG SCH (08:46)
[2018-10-26 10:07] VITALS: BP 134/76
[2018-10-26 11:53] VITALS: BP 138/62
[2018-10-26 12:03] VITALS: BP 138/62
[2018-10-26] MEDS ORDERED: AMOXICILLIN875 MG PO (13:57)
--- NOTE | 2018-10-26 16:06 | Diagnostic Imaging Report ---
Exam: Coccyx 2 views History: Pain Comparison: None. Findings: No displaced fracture. Sacroiliac joints and pubic symphysis are unremarkable. Scattered surgical clips. Impression: No displaced fracture Signed by: Dr. Rj Jo M.D. on 10/26/2018 4:03 PM
--- NOTE | 2018-10-27 06:40 | Discharge Summary ---
HISTORY OF PRESENT ILLNESS: Mr. Couch is a 63-year-old male, who was admitted on 10/23/2018 after having four teeth extracted on that same date at the dentist. Apparently, the procedure was uneventful. However, after the procedure, the patient was feeling weak and then upon arriving home, he was too weak to get out of his vehicle alone. A wheelchair was used to get him inside the house. The patient does not recall the specific events, however, his is at the bedside and stated that he did not pass out. He was assisted from the vehicle to the wheelchair by his , who indicates that the lever that he has used to tilt the seat back got caught on his buttocks and he suffered a soft tissue injury. At that point, there was no break in the skin. The patient vomited once prior to leaving home and once upon [facility]. Overall, he has not felt well in the past two months. PAST MEDICAL HISTORY: Significant for type 2 diabetes mellitus, hypertension, hyperlipidemia. He had a mild stroke after stent placement in 2018, hard of hearing, diabetic gastroparesis, and use of insulin pump at home. PAST SURGICAL HISTORY: Right BKA and 4th and 5th toe amputated from the left foot, CABG 2008, coronary stent in April 2018, cholecystectomy. FAMILY HISTORY: Father diabetic. Mother diabetic and had breast cancer. SOCIAL HISTORY: The patient admits to smoking about 1.5 pack per day for five years for a total of 7.5 pack years. He did drink alcohol. He admits to smoking marijuana in the distant past. He lives with his . 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 Regarding ambulation, he uses a walker and a right lower extremity prosthesis in order to walk. ADMITTING DIAGNOSES: 1. Sepsis due to oral abscess, status post dental procedure with extraction of four teeth on 10/23/2018. 2. Uncontrolled type 2 diabetes mellitus complicated with chronic kidney disease and peripheral vascular disease. 3. Uncontrolled hypertension with chronic kidney disease and coronary artery disease. 4. Acute kidney injury on chronic kidney disease. 5. Acute pain. 6. Severe weakness. 7. Ambulatory dysfunction with history of right BKA. 8. Slow transit constipation. 9. Chronic kidney disease. 10. Hyperlipidemia. DISCHARGE DIAGNOSES: 1. Sepsis due to oral abscess, status post dental procedure with extraction of four teeth on 10/23/2018. 2. Uncontrolled type 2 diabetes mellitus complicated by chronic kidney disease, coronary artery disease and peripheral vascular disease. 3. Uncontrolled hypertension complicated by chronic kidney disease and coronary artery disease. 4. Acute kidney injury on chronic kidney disease. 5. Acute pain. 6. Soft tissue injury at buttocks/coccyx area. 7. Severe weakness. 8. Ambulatory dysfunction with history of right BKA. 9. Chronic kidney disease. 10. Hyperlipidemia. HOSPITAL COURSE: On admission, BUN 28, creatinine 1.81, GFR 38, glucose 445. WBCs 10.3. B-type natriuretic peptide 168.6. Lactic acid 11.6. Hemoglobin 10.7, hematocrit 30.8. Blood culture and sensitivity, preliminary showed gram-positive cocci in pairs and chains. Chest x-ray showed cardiomegaly with decompression. The patient was febrile with temperature of 101.5. Normal saline was used at 125 mL an hour through most of the hospitalization. He was given IV Rocephin for treatment of the sepsis. As the patient was not using his insulin pump during the hospital stay, he was given sliding scale insulin along with Lantus 15 units at bedtime. This needed to be increased during his hospital stay as he was still hyperglycemic. His pain was not well controlled on October 24 and his pain medication was changed to include morphine, [place], and tramadol. His pain was subsequently improved. He stated that he had not had a bowel movement for about a week before he came in. Lactulose was started. A KUB was done and the KUB showed nonobstructive bowel gas pattern. The patient did have a bowel movement during his stay. His hemoglobin A1c was 10.9%. I had a angel discussion with the patient and explained to him that likely his diabetes was not very well controlled on an outpatient basis and that he should follow up closely with his glazing superintendent, Dr. Karen Adan. I told him should follow up with his dentist within the week. Follow up with his PCP in 1 to 2 weeks. A prescription for amoxicillin 875 mg p.o. q.12 hours for 10 days is provided. We will check a coccyx x-ray to ensure did that he did not fracture his coccyx. Today on the day of discharge, temperature 98.7, heart rate 64, blood pressure 138/62, respirations 18, oxygen saturation 97%. Sodium 138, potassium 4.5, chloride 106, CO2 is 27, BUN 16, creatinine 1.26, GFR 58. WBC 6.72, hemoglobin 9.2, hematocrit 26.8, platelets 148. Fingerstick blood glucose 155 and 261 this morning. Calcium 8.5, phosphorus 3.2, and magnesium 1.8. The patient will continue renal diabetic diet at home. Follow up with physicians as aforementioned. He needs to be sure and follow up with his PCP, glazing superintendent, and dentist. Activity level as tolerated. Dictated by Kiel Amado NP MD MOHAMUD BessP/MODL /[id number]
== END 2018-10-26 16:25 | disposition home or self-care (01) ==
LOC: ER 18:35 → ERHOLD 23:06 → IMCU 10-24 02:32
PROVIDERS: ADMIT Internal Medicine; ATTEND Internal Medicine
DX: A41.9 Sepsis, unspecified organism (principal); K04.7 Periapical abscess without sinus; E11.65 Type 2 diabetes mellitus with hyperglycemia; E11.22 Type 2 diabetes mellitus with diabetic chronic kidney disease; I13.10 Hypertensive heart and chronic kidney disease without heart failure, with stage 1 through stage 4 chronic kidney disease, or unspecified chronic kidney disease; N18.9 Chronic kidney disease, unspecified; Z95.1 Presence of aortocoronary bypass graft; K59.00 Constipation, unspecified; R53.1 Weakness; N17.9 Acute kidney failure, unspecified; I25.10 Atherosclerotic heart disease of native coronary artery without angina pectoris; S30.0XXA Contusion of lower back and pelvis, initial encounter; X58.XXXA Exposure to other specified factors, initial encounter; Y93.89 Activity, other specified; E78.5 Hyperlipidemia, unspecified; Z98.818 Other dental procedure status; B95.4 Other streptococcus as the cause of diseases classified elsewhere; Z89.511 Acquired absence of right leg below knee; Y92.014 Private driveway to single-family (private) house as the place of occurrence of the external cause; Z86.73 Personal history of transient ischemic attack (TIA), and cerebral infarction without residual deficits; E11.43 Type 2 diabetes mellitus with diabetic autonomic (poly)neuropathy; K31.84 Gastroparesis; Z72.0 Tobacco use; Z88.1 Allergy status to other antibiotic agents; Z96.41 Presence of insulin pump (external) (internal); Z83.3 Family history of diabetes mellitus; Z80.3 Family history of malignant neoplasm of breast; Z91.041 Radiographic dye allergy status; Z91.048 Other nonmedicinal substance allergy status; Z79.4 Long term (current) use of insulin
CPT/HCPCS: 36415 ×4; 71045; 72220; 74018; 80048 ×2; 80053 ×2; 80061; 81001; 82550; 82553; 82948 ×3; 83036; 83605 ×2; 83735 ×2; 83880; 84100 ×2; 84443; 84484; 85025 ×4; 85610; 85730; 87040; 87071; 87086; 87205; 93005; 97116; 97161; 99284; G0378 ×4; J0131; J0696 ×3; J1815; J2270 ×2; J2405 ×3; J7030 ×4

== ENCOUNTER 2018-11-01 21:20 | Emergency (ER) | payer MEDICARE, OTHER ==
[~2018-11-01] VITALS: Ht 193 cm; Wt 97.5 kg
[~2018-11-01 21:20] MED LIST changes: +AMOXICILLIN875 MG PO; +ATORVASTATIN CA80 MG PO; +HUMALOG100 UNIT/3 SQ; +LISINOPRIL10 MG PO; +METOPROLOL SUCC50 MG PO; +TRAZODONE HCL100 MG PO
--- OUTSIDE RECORDS SUMMARY | 2018-11-01 21:23 | XMS REPORT | Continuity of Care Document ---
Author Author [facility] Interface Address Unknown Phone Unavailable Problems Problem Status Onset Date Classification Date Reported Comments Source Obstructive sleep apnea (pediatric) 04/18/2018 10/30/2018 [facility] FIRST NIGHT 03270 Active 04/09/2018 [facility] 17344/ 384.20 Active 01/24/2013 [facility] 388.60 - OTORRHEA NOS Active 01/08/2013 [facility] DIARRHEA Active 10/01/2012 [facility] EAR INFECTION Active 08/23/2012 [facility] CAD Resolved Problem 02/09/2013 [facility] Cholesterol<sup>1</sup> Resolved Problem 02/09/2013 1high OPID [facility] Diabetes mellitus type II Resolved Problem 02/09/2013 OPID [facility] History of - chronic ear infection Resolved Problem 02/09/2013 OP[facility] HTN - Hypertension Resolved Problem 02/09/2013 OP[facility] Neuropathy Resolved Problem 02/09/2013 [facility] PVD Resolved Problem 02/09/2013 [facility] CAD (<span ID="[id number]">Confirmed</span>) Resolved Problem 10/30/2018 [facility] [place],[facility] Cholesterol<sup>1</sup> Resolved Problem 10/30/2018 high [facility] [place],[facility] Diabetes mellitus type II Resolved Problem 10/30/2018 [facility] [place],[facility] History of - chronic ear infection Resolved Problem 10/30/2018 [facility] [place],[facility] HTN - Hypertension Resolved Problem 10/30/2018 [facility] [place],[facility] Neuropathy Resolved Problem 10/30/2018 [facility] [place],[facility] Pseudomonas<sup>2</sup> Active Problem 10/30/2018 Problem added by Discern Expert. OP[facility] [place],[facility] PVD (<span ID="[id number]">Confirmed</span>) Resolved Problem 10/30/2018 [facility] [place],[facility] MASTOIDITIS NOS Active [facility] PERFORAT TYMPAN MEMB NOS Active [facility] OBSTRUCTIVE SLEEP APNEA (ADULT) (PEDIATR Active [facility] Medications Medication Details Route Status Patient Instructions Ordering Provider Order Date Source Vicodin 5/500 oral tablet 1-2 tablets, PO, Q4-6H, PRN, 20 tab, for Pain, Substitution Allowed, Maintenance PO Active [facility] 02/07/2013 [facility] Bactrim DS oral tablet 1 tab, PO, BID, 14 tab, Substitution Allowed, Maintenance PO Active [facility] 02/07/2013 [facility] ondansetron 4 mg, 2 mL, Route: IVP, Drug form: INJ, ONCE, Dosing Weight 114.545, kg, PRN Nausea & Vomiting, Start date: 02/07/13 13:37:00 IVP No Longer Active [facility] 02/07/2013 [facility] labetalol 5 mg, 1 mL, Route: IVP, Drug form: INJ, Q5Min, Dosing Weight 114.545, kg, PRN Elevated BP, Start date: 02/07/13 13:37:00, Duration: 5 doses or times, Stop date: Limited # of times IVP No Longer Active [facility] 02/07/2013 [facility] acetaminophen-10 mg/mL INTRAVENOUS solution 1,000 [...] kg or greater) IV No Longer Active [facility] 02/07/2013 [facility] Lactated Ringers Injection IV 1,000 mL 1,000 mL, Rate: 50 ml/hr, Infuse over: 20 hr, Route: IV, Dosing Weight 114.545 kg, Total Volume: 1,000, Start date: 02/07/13 13:37:00, Duration: 30 day, Stop date: 03/09/13 13:36:00 IV No Longer Active [facility] 02/07/2013 [facility] flumazenil 0.2 mg, 2 mL, Route: IVP, Drug form: INJ, PRN, Dosing Weight 114.545, kg, PRN Benzodiazepine Reversal, Initial dose, Start date: 02/07/13 13:37:00, Duration: 30 day, Stop date: 03/09/13 13:36:00 IVP No Long[facility] 02/07[facility]2013 [facility] meperidine 12.5 mg, 0.25 mL, Route: IVP, Drug form: INJ, Q30Min, Dosing Weight 114.545, kg, PRN Other -See Comment, For shivering, Start date: 02/07/13 13:37:00, Duration: 2 doses or times, Stop date: Limited # of times IVP No Longer Active [facility] 02/07/2013 [facility] naloxone 0.04 mg, 0.1 mL, Route: IVP, Drug form: INJ, Q2MIN, Dosing Weight 114.545, kg, PRN Narcotic Reversal, Start date: 02/07/13 13:37:00, Duration: 8 doses or times, Stop date: Limited # of times IVP No Longer Active [facility] 02/07/2013 [facility] acetaminophen-hydrocodone 325 mg-5 mg oral tablet 2 tab, Route: PO, Drug Form: TAB, Dosing Weight 114.545, kg, Q4H, PRN Pain Score 4-6, Start date: 02/07/13 13:37:00, Duration: 30 day, Stop date: 03/09/13 13:36:00 PO No Longer Active [facility] 02/07/2013 [facility] acetaminophen-hydrocodone 300 mg-10 mg/15 mL oral liquid 15 mL, Route: PO, Drug Form: SOLN, Dosing Weight 114.545, kg, Q4H, PRN Pain Score 4-6, Start date: 02/07/13 13:37:00, Duration: 30 day, Stop date: 03/09/13 13:36:00 PO No Longer Active [facility] 02/07/2013 [facility] morphine Sulfate 2 mg, 1 mL, Route: IVP, Drug form: INJ, Q5Min, Dosing Weight 114.545, kg, PRN Pain Score 4-6, Start date: 02/07/13 13:37:00, Duration: 5 doses or times, Stop date: Limited # of times IVP No Longer [facility] 02/07/2013 [facility] Lactated Ringers Injection IV 1,000 mL 1,000 mL, Rate: 25 ml/hr, Infuse over: 40 hr, Route: IV, Dosing Weight 114.545 kg, Total Volume: 1,000, Start date: 02/07/13 9:45:00, Duration: 30 day, Stop date: 03/09/13 9:44:00 IV No Longer Active [facility] 02/07/2013 [facility] Insulin Diluting Medium for Novolog intravenous solution IV, Substitution Allowed, Maintenance IV Active 02/05/2013 [facility] aspirin 81 mg tablet, enteric coated 81 mg, 1 tab, PO, Daily, 0 tab, Substitution Allowed, ECTAB PO Active 02/05/2013 [facility] lovastatin 20 mg oral tablet 20 mg, 1 tab, PO, Daily, Substitution Allowed PO Active 02/05/2013 [facility] lisinopril 20 mg oral tablet 20 mg, 1 tab, PO, Daily, Substitution Allowed PO Active 02/05/2013 [facility] Plavix 75 mg oral tablet 75 mg, 1 tab, PO, Daily, Substitution Allowed PO Active 02/05/2013 [facility] influenza virus vaccine, inactivated 0.5 mL, Route: IM, Drug Form: SUSP, ONCALL, Start date: 02/05/13 11:59:32, Stop date: 03/07/13 11:54:32 IM No Longer Active [facility] 02/05/2013 [facility] Phenergan 25 mg oral tablet 25 mg, 1 tab, PO, Q4H, PRN, 15 tab, Nausea, Substitution Allowed PO Active [facility] 10/02/2012 [facility] tramadol 50 mg oral tablet 50 mg, PO, Q4-6H, PRN, 20 tab, Pain, Substitution Allowed PO Active [facility] 10/02/2012 [facility] Flagyl 500 mg oral tablet 500 mg, 1 tab, PO, Q8H, 30 tab, Substitution Allowed PO Active [facility] 10/02/2012 [facility] Insulin regular 4 unit, Route: SUB-Q, ONCE, Dosing Weight 113.636, kg, Start date: 10/02/12 1:07:00, Stop date: 10/02/12 1:07:00 SUB-Q No Longer Active [facility] 10/02/2012 [facility] hydrALAZINE 20 mg, Route: IVP, ONCE, Dosing Weight 113.636, kg, Priority: STAT, Start date: 10/02/12 0:11:00, Stop date: 10/02/12 0:11:00 IVP No Longer Active [facility] 10/02/2012 [facility] clonidine 0.2 mg oral tablet 1 tab, Route: PO, ONCE, Dosing Weight 113.636, kg, Start date: 10/01/12 22:11:00, Stop date: 10/01/12 22:11:00 PO No Longer Active [facility] 10/02/2012 [facility] morphine Sulfate 4 mg, Route: IVP, ONCE, Dosing Weight 113.636, kg, Priority: STAT, Start date: 10/01/12 21:54:00, Stop date: 10/01/12 21:54:00 IVP No Longer Active [facility] 10/02/2012 [facility] ondansetron 4 mg, Route: IVP, ONCE, Dosing Weight 113.636, kg, Priority: STAT, Start date: 10/01/12 21:54:00, Stop date: 10/01/12 21:54:00 IVP No Longer Active [facility] 10/02/2012 [facility] Sodium Chloride 0.9% (Bolus) IV 500 mL 500 mL, Rate: 1,000 ml/hr, Infuse over: 30 minutes, Route: IV, Dosing Weight 113.636 kg, Total Volume: 500, Priority: STAT, Start date: 10/01/12 21:54:00, Duration: 1 doses or times, Stop date: 10/01/12 22:23:00 IV No Longer Active [facility] 10/02/2012 [facility] Saline Flush 0.9% 5 mL, Route: IVP, Drug Form: INJ, Dosing Weight 113.636, kg, PRN, PRN Line Flush, Start date: 10/01/12 21:54:00, Duration: 24 hr, Stop date: 10/02/12 21:53:00 IVP No Longer Active [facility] 10/02/2012 [facility] pneumococcal 23-valent vaccine 0.5 ml, Route: IM, Drug Form: INJ, Start date: 08/09/06 9:00:00 IM No Longer Active [facility] 08/09/2006 MARY KAY [facility] Allergies, Adverse Reactions, Alerts Substance Category Reaction Severity Reaction type Status Date Reported Comments Source contrast media (iodine-based) Assertion Drug allergy Active [facility] Plastic Tape Assertion Propensity to adverse reactions to substance Active [facility] Immunizations Immunization Date Given Site Status Last Updated Comments Source pneumococcal 23-valent vaccine 08/09/2006 completed Jeison MUÑIZ [facility] pneumococcal 23-valent vaccine 08/09/2006 Left Arm completed Jeison MUÑIZ [place],[facility] Results Order Name Results Value Reference Range Date Interpretation Comments Source Knee wo contrast MRI Knee wo contrast MRI EXAMINATION: MRI of the right knee without contrast. HISTORY: M25.569 Pain in unspecified knee; lateral right knee pain; right knee medial meniscus tear FINDINGS: Radiographs dated 08/24/2015 are reviewed demonstrating post surgical changes of ebrcu-[id number] amputation. Multiplanar, multisequence magnetic resonance imaging of [...] in keeping with the patient's history of ysyvd-yfq-lqqb amputation. Cartilage: Within the medial compartment, there [...] in keeping with the patient's history of kctfx-dqf-[id number] amputation. 5. Intact right knee cruciate and collateral ligaments without lateral or patellofemoral compartment chondrosis. 09/01/2015 - - Read by: Adan Schwartz MD Dictated Date/time: 09/01/15 10:55 Electronically Signed by: Adan Schwartz MD 09/01/15 11:03 FINAL REPORT MARY KAY Rod[facility] Knee 1-2 Views unilateral DX Knee [...] MD 08/24/15 15:07 FINAL REPORT MARY KAY [facility] BEDSIDE GLUCOSE TESTING Gluc POC 110 mg/dL 70 - 99 02/07/2013 [place] 1Interpretive Data: Upper Reportable Limit: 200 mg/dL. [facility] BEDSIDE GLUCOSE TESTING Gluc POC 149 mg/dL 70 - 99 02/07/2013 [place] 2Interpretive Data: Upper Reportable Limit: 200 mg/dL. [facility] BEDSIDE GLUCOSE TESTING Gluc POC Comment 1 Notify RN/ 02/07/2013 DAVIS [facility] Microbiology Culture: Anaerobic 02/07/2013 [facility] Microbiology Culture: Aspirate/Body Fluid/Tissue 02/07/2013 [facility] CHEMISTRY eGFR 74 mL/min/1.73m2 02/05/2013 [...] should be multiplied by the estimated BMI. [facility] CHEMISTRY Glucose Lvl 120 mg/dL 70 - 99 02/05/2013 [place] 4Interpretive Data: Adult reference range values reflect the clinical guidelines of the [place] [employer]. [facility] CHEMISTRY Potassium Lvl 4.6 meq/L 3.5 - 5.1 02/05/2013 Normal [facility] CHEMISTRY Sodium Lvl 142 meq/L 135 - 145 02/05/2013 Normal [facility] CHEMISTRY Creatinine Lvl 1.1 mg/dL 0.5 - 1.4 02/05/2013 Normal [facility] CHEMISTRY BUN 17 mg/dL 7 - 22 02/05/2013 Normal [facility] CHEMISTRY Calcium Lvl 8.5 mg/dL 8.5 - 10.5 02/05/2013 Normal [facility] CHEMISTRY CO2 30 meq/L 24 - 32 02/05/2013 Normal [facility] CHEMISTRY Chloride Lvl 104 meq/L 95 - 109 02/05/2013 Normal [facility] CHEMISTRY AGAP 12.6 meq/L 10.0 - 20.0 02/05/2013 Normal [facility] HEMATOLOGY Eosinophils 3.4 % 0.0 - 4.0 02/05/2013 Normal [facility] HEMATOLOGY Lymphocytes # 2.1 K/CMM 1.0 - 5.5 02/05/2013 Normal [facility] HEMATOLOGY Eosinophils # 0.3 K/CMM 0.0 - 0.5 02/05/2013 Normal [facility] HEMATOLOGY Basophils # 0.0 K/CMM 0.0 - 0.2 02/05/2013 Normal [facility] HEMATOLOGY Monocytes # 0.6 K/CMM 0.0 - 0.8 02/05/2013 Normal [facility] HEMATOLOGY Segs-Bands # 5.4 K/CMM 1.5 - 8.1 02/05/2013 Normal [facility] HEMATOLOGY Basophils 0.3 % 0.0 - 1.0 02/05/2013 Normal [facility] HEMATOLOGY Lymphocytes 25.4 % 20.0 - 40.0 02/05/2013 Normal [facility] HEMATOLOGY Monocytes 6.6 % 2.0 - 12.0 02/05/2013 Normal [facility] HEMATOLOGY Segs 64.3 % 45.0 - 75.0 02/05/2013 Normal [facility] HEMATOLOGY INR 1.06 0.85 - 1.17 02/05/2013 Normal 5Interpretive Data: RECOMMENDED RANGES FOR PROTIME INR: 2.0-3.0 for most medical and surgical thromboembolic states. 2.5-3.5 for artificial heart valves and recurrent embolism. INR SHOULD BE USED ONLY FOR PATIENTS ON STABLE ANTICOAGULANT THERAPY. [facility] HEMATOLOGY PT 13.7 s 12.0 - 14.7 02/05/2013 Normal [facility] HEMATOLOGY PTT 37.7 s 22.9 - 35.8 02/05/2013 [place] 6Interpretive Data: Heparin Therapeutic Range: 57 - 92 Seconds [facility] HEMATOLOGY RBC 4.05 M/CMM 4.70 - 6.10 02/05/2013 LOW [facility] Hgb 12.1 g/dL 14.0 - 18.0 02/05/2013 LOW [facility] WBC 8.4 K/CMM 3.7 - 10.4 02/05/2013 Normal [facility] MPV 8.0 fL 7.4 - 10.4 02/05/2013 Normal [facility] Platelet 243 K/CMM 133 - 450 02/05/2013 Normal [facility] RDW 13.8 % 11.5 - 14.5 02/05/2013 Normal [facility] MCHC 34.1 g/dL 32.0 - 36.0 02/05/2013 Normal [facility] Hct 35.3 % 42.0 - 54.0 02/05/2013 LOW [facility] MCV 87.2 fL 80.0 - 94.0 02/05/2013 Normal [facility] MCH 29.8 pg 27.0 - 31.0 02/05/2013 Normal [facility] Temporal bone wo contrast CT [...] Gipson MD 01/08/13 12:27 FINAL REPORT OPID [facility] URINALYSIS UA Color Ltyellow 10/02/2012 NA [facility] URINALYSIS UA Urobilinogen <=1.0 mg/dL
*NA*
(10/01/2012 23:50:00) <sup> </sup> 0.1 - 1.0 10/02/2012 NA [facility] URINALYSIS UA Glucose 500 mg/dL *ABN* (10/01/2012 23:50:00) Negative 10/02/2012 ABN [facility] URINALYSIS UA Ketones Trace mg/dL *ABN* (10/01/2012 23:50:00) Negative 10/02/2012 ABN [facility] URINALYSIS UA Spec Grav 1.005 <=1.030 10/02/2012 Normal [facility] URINALYSIS UA pH 7.0 5.0 - 8.0 10/02/2012 Normal [facility] URINALYSIS UA Protein Negative mg/dL (10/01/2012 23:50:00) Negative 10/02/2012 Normal [facility] URINALYSIS UA Leuk Est Negative (10/01/2012 23:50:00) Negative 10/02/2012 Normal [facility] URINALYSIS UA WBC null 0 - 5 10/02/2012 Normal [facility] URINALYSIS UA Bili Negative *NA* (10/01/2012 23:50:00) Negative 10/02/2012 NA [facility] URINALYSIS UA Turbidity Clear (10/01/2012 23:50:00) Clear 10/02/2012 Normal [facility] URINALYSIS UA RBC 2 /HPF 0 - 2 10/02/2012 Normal [facility] URINALYSIS UA Bacteria Occasional /HPF *NA* (10/01/2012 23:50:00) None Seen 10/02/2012 NA [facility] URINALYSIS UA Blood Small *ABN* (10/01/2012 23:50:00) Negative 10/02/2012 ABN [facility] URINALYSIS UA Nitrite Negative (10/01/2012 23:50:00) Negative 10/02/2012 Normal [facility] URINALYSIS UA Sq Epi None Seen 10/02/2012 NA [facility] Microbiology Culture: Urine 10/02/2012 [facility] CHEMISTRY A/G Ratio 1.0 0.7 - 1.6 10/02/2012 Normal [facility] CHEMISTRY Globulin 4.0 g/dL 2.0 - 4.0 10/02/2012 Normal [facility] CHEMISTRY B/C Ratio 14 6 - 25 10/02/2012 Normal [facility] CHEMISTRY AGAP 13.4 meq/L 10.0 - 20.0 10/02/2012 Normal [facility] CHEMISTRY eGFR 83 mL/min/1.73m2 10/02/2012 NA [...] should be multiplied by the estimated BMI. [facility] CHEMISTRY Creatinine Lvl 1.0 mg/dL 0.5 - 1.4 10/02/2012 Normal [facility] CHEMISTRY CO2 30 meq/L 24 - 32 10/02/2012 Normal [facility] CHEMISTRY Total Protein 8.1 g/dL 6.4 - 8.4 10/02/2012 Normal [facility] CHEMISTRY Calcium Lvl 8.8 mg/dL 8.5 - 10.5 10/02/2012 Normal [facility] CHEMISTRY Alk Phos 85 unit/L 39 - 136 10/02/2012 Normal [facility] CHEMISTRY ALT 40 unit/L 0 - 65 10/02/2012 Normal [facility] CHEMISTRY Albumin Lvl 4.1 g/dL 3.5 - 5.0 10/02/2012 Normal [facility] CHEMISTRY AST 37 unit/L 0 - 37 10/02/2012 Normal [facility] CHEMISTRY Bili Total 0.7 mg/dL 0.2 - 1.3 10/02/2012 Normal [facility] CHEMISTRY BUN 14 mg/dL 7 - 22 10/02/2012 Normal [facility] CHEMISTRY Glucose Lvl 245 mg/dL 70 - 99 10/02/2012 [place] 2Interpretive Data: Adult reference range values reflect the clinical guidelines of the [place] [employer]. [facility] CHEMISTRY Chloride Lvl 98 meq/L 95 - 109 10/02/2012 Normal [facility] CHEMISTRY Sodium Lvl 137 meq/L 135 - 145 10/02/2012 Normal [facility] CHEMISTRY Potassium Lvl 4.4 meq/L 3.5 - 5.1 10/02/2012 Normal [facility] CHEMISTRY Lipase Lvl 70 unit/L 73 - 393 10/02/2012 LOW [facility] HEMATOLOGY PTT 33.8 s 22.9 - 35.8 10/02/2012 Normal 4Interpretive Data: Heparin Therapeutic Range: 57 - 92 Seconds [facility] HEMATOLOGY PT 14.4 s 12.0 - 14.7 10/02/2012 Normal [facility] HEMATOLOGY INR 1.10 0.85 - 1.17 10/02/2012 Normal 3Interpretive Data: RECOMMENDED RANGES FOR PROTIME INR: 2.0-3.0 for most medical and surgical thromboembolic states. 2.5-3.5 for artificial heart valves and recurrent embolism. INR SHOULD BE USED ONLY FOR PATIENTS ON STABLE ANTICOAGULANT THERAPY. [facility] HEMATOLOGY Hct 41.4 % 42.0 - 54.0 10/02/2012 LOW [facility] HEMATOLOGY MCV 88.0 fL 80.0 - 94.0 10/02/2012 Normal [facility] HEMATOLOGY RBC 4.71 M/CMM 4.70 - 6.10 10/02/2012 Normal [facility] HEMATOLOGY Hgb 13.5 g/dL 14.0 - 18.0 10/02/2012 LOW [facility] HEMATOLOGY MCH 28.6 pg 27.0 - 31.0 10/02/2012 Normal [facility] HEMATOLOGY MCHC 32.5 g/dL 32.0 - 36.0 10/02/2012 Normal [facility] HEMATOLOGY RDW 14.5 % 11.5 - 14.5 10/02/2012 Normal [facility] HEMATOLOGY WBC 14.0 K/CMM 3.7 - 10.4 10/02/2012 HI [facility] HEMATOLOGY MPV 7.9 fL 7.4 - 10.4 10/02/2012 Normal [facility] HEMATOLOGY Platelet 267 K/CMM 133 - 450 10/02/2012 Normal [facility] HEMATOLOGY Basophils # 0.0 K/CMM 0.0 - 0.2 10/02/2012 Normal [facility] HEMATOLOGY Hypochrom Slight (10/01/2012 22:45:00) None Seen 10/02/2012 Normal [facility] HEMATOLOGY Eosinophils 0.4 % 0.0 - 4.0 10/02/2012 Normal [facility] HEMATOLOGY Basophils 0.2 % 0.0 - 1.0 10/02/2012 Normal [facility] HEMATOLOGY Segs-Bands # 12.2 K/CMM 1.5 - 8.1 10/02/2012 HI [facility] HEMATOLOGY Segs 86.7 % 45.0 - 75.0 10/02/2012 HI [facility] HEMATOLOGY Lymphocytes 8.2 % 20.0 - 40.0 10/02/2012 LOW [facility] HEMATOLOGY Monocytes 4.5 % 2.0 - 12.0 10/02/2012 Normal [facility] HEMATOLOGY Lymphocytes # 1.2 K/CMM 1.0 - 5.5 10/02/2012 Normal [facility] HEMATOLOGY Monocytes # 0.6 K/CMM 0.0 - 0.8 10/02/2012 Normal [facility] HEMATOLOGY Eosinophils # 0.1 K/CMM 0.0 - 0.5 10/02/2012 Normal [facility] HEMATOLOGY Plt Morph Normal (10/01/2012 22:45:00) 10/02/2012 Normal [facility] Vital Signs Vital Sign Value Date Comments Source Respitory Rate 13 02/07/2013 [facility] Systolic (mm Hg) 107 02/07/2013 [facility] Diastolic (mm Hg) 59 02/07/2013 [facility] Respitory Rate 15 02/07/2013 [facility] Systolic (mm Hg) 134 02/07/2013 [facility] Respitory Rate 14 02/07/2013 [facility] Diastolic (mm Hg) 69 02/07/2013 [facility] Systolic (mm Hg) 139 02/07/2013 [facility] Diastolic (mm Hg) 69 02/07/2013 [facility] Heart Rate 72 02/07/2013 [facility] Heart Rate 73 02/05/2013 [facility] Weight 114.545 02/05/2013 [facility] Height 193.04 cm 02/05/2013 [facility] Encounters Location Location Details Encounter Type Encounter Number Reason For Visit Attending Provider ADM Date DC Date Status Source [facility] Outpatient [id number] VERITO ROJASUlises 08/24/2012 08/24/2012 Active [facility] [id number] GASTON MCKEONAN 10/01/2012 10/02/2012 Active [facility] OD [id number] 388.60 - OTORRHEA NOS LYNNE SCHNEIDER 01/08/2013 01/08/2013 Active [facility] [place] DS [id number] LYNNE SCHNEIDER 02/07/2013 02/07/2013 Active [facility] - [place] [facility] [id number] Rohan Hernandez 08/24/2015 08/25/2015 OPID [place] [facility] - [place] [facility] [id number] Rohan Hernandez 09/01/2015 09/02/2015 OPID [place] [facility] Outpatient [id number] Deepak Morejon 04/12/2018 04/12/2018 [facility] Procedures Procedure Code Date Perfomer Comments Source Allograft bypass of coronary artery [id number] [facility] [place] Amputation of toe [id number] [facility] [place] Aorto-femoral arterial bypass [id number] [facility] [place] Cardiac catheterization [id number] [facility] [place] Excision of gallbladder [id number] [facility] [place] Allograft bypass of coronary artery [id number] [facility] Amputation of toe [id number] [facility] Excision of gallbladder [id number] [facility] Aorto-femoral arterial bypass [facility] Cardiac catheterization [id number] [facility] Allograft bypass of coronary artery [id number] [facility] Amputation of toe [id number] [facility] Aorto-femoral arterial bypass [id number] [facility] Cardiac catheterization [id number] [facility] Excision of gallbladder [id number] [facility]
--- OUTSIDE RECORDS SUMMARY | 2018-11-01 21:23 | XMS REPORT | Summary of Care ---
Author Author [facility] Organization [facility] Address Unknown Phone Unavailable Encounter HQ Melly(FIN) [id number] Date(s): 04/11/18 - 04/11/18 [facility] [address] [place] [address]- Encounter Diagnosis Obstructive sleep apnea (adult) (pediatric) (Final) - 04/17/18 Discharge Disposition: Home or Self Care Attending Physician: Deepak Morejon MD Referring Physician: Deepak Morejon MD Vital Signs No data available for [...] Adverse Reactions, Alerts Substance Reaction Severity Status Plastic Tape Active contrast media Active (iodine-based) Medications No data available for this section Results No data available for this section Immunizations Given and Recorded Vaccine Date Status Refusal Reason pneumococcal 23-valent vaccine 08/09/06 Given Procedures Procedure Date Related Diagnosis Body Site Status Allograft bypass of coronary artery Completed Amputation of toe Completed Aorto-femoral arterial bypass Completed Cardiac catheterization Completed Excision of gallbladder Completed Social History No data available for this section Assessment and Plan No data available for this section
[2018-11-01 22:06] LABS: BASOPHILS % 0.1 % (0.0-1.0); EOSINOPHILS # (AUTO) 0.2 (0.0-0.4); EOSINOPHILS % 2.1 % (0.0-6.0); HEMATOCRIT 27.5 % (38.2-49.6); HEMOGLOBIN 9.5 g/dL (14.0-18.0); LYMPHOCYTES # (AUTO) 1.7 (1.0-3.2); LYMPHOCYTES % 19.7 % (18.0-39.1); MEAN CORPUSCULAR HEMOGLOBIN 30.6 pg (28-32); MEAN CORPUSCULAR HGB CONC 34.5 g/dL (31-35); MEAN CORPUSCULAR VOLUME 88.7 fL (81-99); MONOCYTES # (AUTO) 0.5 (0.2-0.8); MONOCYTES % 5.3 % (4.4-11.3); NEUTROPHILS # (AUTO) 6.3 (2.1-6.9); NEUTROPHILS % 72.5 % (38.7-80.0); PLATELET COUNT 244 x10e3/uL (140-360); RED CELL DISTRIBUTION WIDTH 13.5 % (11.7-14.4)
[2018-11-01 22:11] LABS: INR 0.97; PROTHROMBIN TIME 13.4 seconds (11.9-14.5)
[2018-11-01 22:12] LABS: PARTIAL THROMBOPLASTIN TIME 30.4 seconds (23.8-35.5)
[2018-11-01 22:18] LABS: CALCIUM 9.2 mg/dL (8.4-10.2); CREATININE, SERUM 1.51 mg/dL (0.72-1.25)
[2018-11-01 22:30] VITALS: BP 168/74
== END 2018-11-01 22:37 | disposition home or self-care (01) ==
LOC: ER 21:20
DX: K06.8 Other specified disorders of gingiva and edentulous alveolar ridge (principal); K08.409 Partial loss of teeth, unspecified cause, unspecified class; E78.5 Hyperlipidemia, unspecified; I10 Essential (primary) hypertension; E11.9 Type 2 diabetes mellitus without complications; Z95.5 Presence of coronary angioplasty implant and graft; Z79.01 Long term (current) use of anticoagulants
CPT/HCPCS: 36415; 80048; 85025; 85610; 85730; 99283

== ENCOUNTER 2018-12-02 09:42 | Inpatient (IN) | payer MEDICARE, OTHER ==
[~2018-12-02] VITALS: Ht 193 cm; Wt 95.3 kg
[2018-12-02] MEDS ORDERED: SODIUM CHLORIDE 0.9% 1000ML 1,000 ML IV STA ×2 (09:46→11:21)
--- OUTSIDE RECORDS SUMMARY | 2018-12-02 09:46 | XMS REPORT | Clinical Summary ---
Author Author DARRON CorvilBo[facility] CenterDynamo Pl[facility] Address Unknown Phone Unavailable Care Team Providers Care Combination Machine Tender Name Role Phone Rohan Hernandez PCP Allergies [...] Lin, Fang-Ying, MD Coronary artery disease involving [place] coronary artery of [place] heart without angina pectoris (Primary Dx); S/P CABG (coronary artery bypass graft); PAD (peripheral artery disease) ([facility]); Stenosis of carotid artery, unspecified laterality; Essential hypertension; Hyperlipidemia, unspecified hyperlipidemia type; Type 1 diabetes mellitus on insulin therapy ([facility]); Type 2 diabetes mellitus treated with insulin ([facility]) 04/24/2018 Hospital Cardiology - Encounter 04/27/2018 04/24/2018 Travel Polo Guzmán III, MD 04/24/2018 Orders Only Internal Medicine Segundo Hoyos MD L CATH & CORONARY ANGIOS 03/08/2018 Surgery Segundo Hoyos MD Coronary artery disease involving [place] coronary artery of [place] heart without angina pectoris; PAD (peripheral artery disease) ([facility]); Essential hypertension; Other hyperlipidemia; Stenosis of carotid artery, unspecified laterality; Type 1 diabetes mellitus with diabetic chronic kidney disease, unspecified CKD stage ([facility]); Status post left heart catheterization (LHC); S/P CABG (coronary artery bypass graft); SOB (shortness of breath) 03/08/2018 Hospital Cardiology - Encounter 03/10/2018 03/08/2018 Orders Only General Internal Medicine Segundo Hoyos MD PAD (peripheral artery disease) ([facility]); Coronary artery disease involving [place] coronary artery of [place] heart without angina pectoris 03/07/2018 Hospital Radiology Encounter Segundo Hoyos MD PAD (peripheral artery disease) (HCC); Coronary artery disease involving [place] coronary artery of [place] heart without angina pectoris 03/07/2018 Hospital Radiology Encounter Segundo Hoyos MD PAD (peripheral artery disease) ([facility]) (Primary Dx); Coronary artery disease involving [place] coronary artery of [place] heart without angina pectoris 03/06/2018 Outside Orders Radiology after 12/01/2017 Social History Date Tobacco Use Types Packs/Day [...] Taken Vital Sign Reading 04/27/2018 12:57 PM AUTO ADJUDICATION SPECIALIST Blood Pressure 140/65 04/27/2018 12:57 PM AUTO ADJUDICATION SPECIALIST Pulse 78 04/27/2018 12:57 PM AUTO ADJUDICATION SPECIALIST Temperature 36.7 C (98 F) 04/27/2018 12:57 PM AUTO ADJUDICATION SPECIALIST Respiratory Rate 19 04/27/2018 12:57 PM AUTO ADJUDICATION SPECIALIST Oxygen Saturation 100% 04/25/2018 11:51 PM AUTO ADJUDICATION SPECIALIST Inhaled Oxygen 21% Concentration 04/26/2018 7:50 AM AUTO ADJUDICATION SPECIALIST Weight 104.2 kg (229 lb 12.2 oz) 04/24/2018 3:30 PM AUTO ADJUDICATION SPECIALIST Height 193 cm (6' 4") 04/26/2018 7:50 AM AUTO ADJUDICATION SPECIALIST Body Mass Index 27.97 Plan of Treatment Not on file Implants Device Identifier Shelf Expiration Date Model / Serial / Lot Implanted Type Area [facility] [id number] 12/19/2018 [id number] / / [id number] Device Clsr Angio-Seal Vip 8fr Cardiovasc [facility] [id number] - [id number] esme MED:CARDIA Implanted: Qty: 1 on 04/25/2018 by Segundo Miller MD 06/03/2016 [id number] / / [id number] Zilvgermaine Ptx Drug-Eluting Stents-Per COOK Peripheral Stent ipheral VASCULAR Implanted: Qty: 1 on 05/13/2016 by Jass Hong MD 03/21/2019 [id number] / / [id number] Innova Vascular Stents-Per [place] Implanted: Qty: 1 on 05/13/2016 by ManageSocialJass June MD [id number] 09/13/2019 [id number] / / [id number] Synergy [place] Implanted: Qty: 1 on 04/25/2018 by Segundo Kothari MD Procedures Comments Procedure Name Priority Date/Time Associated Diagnosis RHYTHM STRIP - SCAN 08/28/2018 8:50 AM CDT VASCULAR DIAGRAM -SCAN 05/07/2018 12:21 PM AUTO ADJUDICATION SPECIALIST RHYTHM STRIP - SCAN 05/04/2018 10:01 AM AUTO ADJUDICATION SPECIALIST CARDIAC CATH REPORT - 05/04/2018 SCAN 10:01 AM AUTO ADJUDICATION SPECIALIST ECHOCARDIOGRAM REPORT - 04/27/2018 SCAN 4:20 PM AUTO ADJUDICATION SPECIALIST 2D ECHO W/ DOPPLER Routine 04/27/2018 (CW/PW/COLOR) 11:05 AM AUTO ADJUDICATION SPECIALIST POCT-GLUCOSE METER Routine 04/27/2018 9:48 AM AUTO ADJUDICATION SPECIALIST T4, FREE Routine 04/27/2018 5:12 AM AUTO ADJUDICATION SPECIALIST VITAMIN B12 AND FOLATE Routine 04/27/2018 5:12 AM AUTO ADJUDICATION SPECIALIST HIV-1 ANTIGEN WITH Routine 04/27/2018 HIV-1/2 ANTIBODY 5:12 AM AUTO ADJUDICATION SPECIALIST TSH/FREE T4 IF INDICATED Routine 04/27/2018 5:12 AM AUTO ADJUDICATION SPECIALIST RPR Routine 04/27/2018 5:12 AM AUTO ADJUDICATION SPECIALIST HEMOGLOBIN A1C Routine 04/27/2018 5:12 AM AUTO ADJUDICATION SPECIALIST BASIC METABOLIC PANEL (7) Routine 04/27/2018 5:12 AM AUTO ADJUDICATION SPECIALIST MR BRAIN WITHOUT IV STAT 04/26/2018 CONTRAST 10:20 PM AUTO ADJUDICATION SPECIALIST MR MRA NECK WITHOUT IV STAT 04/26/2018 CONTRAST 10:20 PM AUTO ADJUDICATION SPECIALIST MR MRA HEAD WITHOUT STAT 04/26/2018 CONTRAST 10:20 PM AUTO ADJUDICATION SPECIALIST URINALYSIS WITH Routine 04/26/2018 MICROSCOPIC IF INDICATED 7:24 PM AUTO ADJUDICATION SPECIALIST BLOOD CULTURE STAT 04/26/2018 7:24 PM AUTO ADJUDICATION SPECIALIST CBC W/PLT COUNT & AUTO Routine 04/26/2018 DIFFERENTIAL 7:23 PM AUTO ADJUDICATION SPECIALIST LACTIC ACID, VENOUS Routine 04/26/2018 7:23 PM AUTO ADJUDICATION SPECIALIST PHOSPHORUS Routine 04/26/2018 7:23 PM AUTO ADJUDICATION SPECIALIST MAGNESIUM Routine 04/26/2018 7:23 PM AUTO ADJUDICATION SPECIALIST APTT Routine 04/26/2018 7:23 PM AUTO ADJUDICATION SPECIALIST PROTHROMBIN TIME/INR Routine 04/26/2018 7:23 PM AUTO ADJUDICATION SPECIALIST COMPREHENSIVE METABOLIC Routine 04/26/2018 PANEL 7:23 PM AUTO ADJUDICATION SPECIALIST CBC W/PLT COUNT & AUTO Routine 04/26/2018 DIFFERENTIAL 7:23 PM AUTO ADJUDICATION SPECIALIST POCT-GLUCOSE METER Routine 04/26/2018 6:21 PM AUTO ADJUDICATION SPECIALIST POCT-GLUCOSE METER Routine 04/26/2018 6:16 PM [address]O ADJUDICATION [employer]IST CT BRAIN WITHOUT IV STAT 04/26/2018 CONTRAST 5:16 PM AUTO ADJUDICATION SPECIALIST POCT-GLUCOSE METER Routine 04/26/2018 11:36 AM AUTO ADJUDICATION SPECIALIST POCT-GLUCOSE METER Routine 04/26/2018 7:57 AM AUTO ADJUDICATION SPECIALIST CBC W/PLT COUNT & AUTO Routine 04/26/2018 DIFFERENTIAL 4:02 AM AUTO ADJUDICATION SPECIALIST BASIC METABOLIC PANEL (7) Routine 04/26/2018 4:02 AM AUTO ADJUDICATION SPECIALIST CBC W/PLT COUNT & AUTO Routine 04/26/2018 DIFFERENTIAL 4:02 AM AUTO ADJUDICATION SPECIALIST PHOSPHORUS Routine 04/26/2018 4:02 AM AUTO ADJUDICATION SPECIALIST MAGNESIUM Routine 04/26/2018 4:02 AM AUTO ADJUDICATION SPECIALIST CALCIUM, IONIZED Routine 04/26/2018 4:02 AM AUTO ADJUDICATION SPECIALIST POCT-GLUCOSE METER Routine 04/25/2018 9:21 PM AUTO ADJUDICATION SPECIALIST ELECTROLYTE PANEL STAT 04/25/2018 4:09 PM AUTO ADJUDICATION SPECIALIST CREATININE, RANDOM URINE Routine 04/25/2018 4:09 PM AUTO ADJUDICATION SPECIALIST PROTEIN, RANDOM URINE Routine 04/25/2018 4:09 PM AUTO ADJUDICATION SPECIALIST URINALYSIS W/ MICROSCOPIC Routine 04/25/2018 4:09 PM AUTO ADJUDICATION SPECIALIST POCT-GLUCOSE METER Routine 04/25/2018 10:14 AM AUTO ADJUDICATION SPECIALIST POCT-GLUCOSE METER Routine 04/25/2018 9:12 AM AUTO ADJUDICATION SPECIALIST POCT-ACT Routine 04/25/2018 9:05 AM AUTO ADJUDICATION SPECIALIST POCT-ACT Routine 04/25/2018 8:54 AM AUTO ADJUDICATION SPECIALIST PCI 04/25/2018 Coronary artery disease 7:30 AM AUTO ADJUDICATION SPECIALIST involving [place] heart, angina presence unspecified, unspecified vessel or lesion type Case Notes (1) CASE POP6 . 663mGy POCT-GLUCOSE METER Routine 04/25/2018 6:35 AM AUTO ADJUDICATION SPECIALIST CBC W/PLT COUNT & AUTO STAT 04/25/2018 DIFFERENTIAL 4:40 AM AUTO ADJUDICATION SPECIALIST LIPID PANEL Routine 04/25/2018 4:40 AM AUTO ADJUDICATION SPECIALIST PROTHROMBIN TIME/INR STAT 04/25/2018 4:40 AM AUTO ADJUDICATION SPECIALIST BASIC METABOLIC PANEL (7) STAT 04/25/2018 4:40 AM AUTO ADJUDICATION SPECIALIST CBC W/PLT COUNT & AUTO STAT 04/25/2018 DIFFERENTIAL 4:40 AM AUTO ADJUDICATION SPECIALIST ECG 12-LEAD Routine 04/25/2018 4:33 AM AUTO ADJUDICATION SPECIALIST POCT-GLUCOSE METER Routine 04/25/2018 2:51 AM AUTO ADJUDICATION SPECIALIST POCT-GLUCOSE METER Routine 04/24/2018 11:32 PM AUTO ADJUDICATION SPECIALIST POCT-GLUCOSE METER Routine 04/24/2018 10:08 PM AUTO ADJUDICATION SPECIALIST BASIC METABOLIC PANEL (7) Routine 04/24/2018 7:06 PM AUTO ADJUDICATION SPECIALIST RHYTHM STRIP - SCAN 03/13/2018 11:20 AM [...] ms QTC Calculatio n(Bazett) 520 ms P [place] 59 degrees R [place] 67 degrees T [place] 38 degrees Sinus rhythm with Premature atrial [...] Coronary artery disease 12:24 PM CDT involving [place] coronary artery of [place] heart, angina presence unspecified Case Notes POP6 PT ALLERGIC TO IODINE. Special Needs PT ALLERGIC TO IODINE ECG 12-LEAD Routine 03/08/2018 9:27 AM CDT Procedure Note - Interface, External Ris In - 03/08/2018 12:04 PM CDT Ventricula r Rate 78 BPM Atrial Rate 78 BPM P-R Interval 184 ms QRS Duration 170 ms Q-T Interval 424 ms QTC Calculatio n(Bazett) 483 ms P [place] 54 degrees R [place] 67 degrees T [place] 47 degrees Sinus rhythm with Premature atrial [...] CDT disease) (HCC) Coronary artery disease involving [place] coronary artery of [place] heart without angina pectoris CT/CTA CHEST Routine 03/07/2018 PAD (peripheral artery 12:00 PM CDT disease) (HCC) Coronary artery disease involving [place] coronary artery of [place] heart without angina pectoris POCT-CREATININE Routine 03/07/2018 11:29 AM CDT after 12/01/2017 Results * RHYTHM STRIP - SCAN (08/28/2018 8:50 AM CDT) Only the most recent of 3 results within the time period is included. Narrative Performed At * VASCULAR DIAGRAM -SCAN (05/07/2018 12:21 PM AUTO ADJUDICATION SPECIALIST) Only the most recent of 2 results within the time period is included. Narrative Performed At * CARDIAC CATH REPORT - SCAN (05/04/2018 10:01 AM AUTO ADJUDICATION SPECIALIST) Narrative Performed At * ECHOCARDIOGRAM REPORT - SCAN (04/27/2018 4:20 PM AUTO ADJUDICATION SPECIALIST) Narrative Performed At * 2D Echo W/Doppler(CW/PW/Color) (04/27/2018 11:05 AM AUTO ADJUDICATION SPECIALIST) Ejection Fraction [facility] Specimen Narrative Performed At Transthoracic Echocardiography Report (TTE) [facility] Patient Name TMI COUCH Date of Study 04/27/2018 MATIAS [id number] Male Visit Number [id number] Room Number C624 Number Date of Birth1955Referring Physician Soha Crews Age62 year(s)Zoning Technician Jasen Douglas [facility] AnalystAlex Helio Olivares, Physician Procedure Type of [...] External Ris In - 04/27/2018 3:51 PM AUTO ADJUDICATION SPECIALIST Transthoracic Echocardiography Report (TTE) Demographics Patient Name RILEY TIM Date of Study 04/27/2018 MATIAS Gender Male Visit Number [id number] Race Room Number C624 Number Date of 1955 Referring Physician Soha Crews Age 62 year(s) Zoning Technician Jasen Douglas RDCS Offender Job Retention Specialist Alberto Cadet Interpreting Rod Olivares, Physician Procedure [...] CPACS * POC-Glucose meter (04/27/2018 9:48 AM AUTO ADJUDICATION SPECIALIST) Only the most recent of 28 results within the time period is included. POC-Glucose Meter 244 (H)Comment: TESTED AT 70 - 110 mg/dL [facility] [address] [place] [id number] Specimen Blood Performing Organization Address City/State/Zipcode Phone Number [phone] [place] [address] * Vitamin B12 and Folate (04/27/2018 5:12 AM AUTO ADJUDICATION SPECIALIST) Vitamin B12 206 (L) 213 - 816 pg/mL [facility] Folate 11.1 >=7.0 ng/mL [facility] Specimen Blood Performing Organization Address City/[facility] Phone Number [phone] [place] [address] * TSH/Free T4 If Indicated (04/27/2018 5:12 AM AUTO ADJUDICATION SPECIALIST) TSH 0.35 0.35 - 4.94 uIU/mL [facility] Specimen Blood Performing Organization Address City/[facility] Phone Number [phone] [place] [address] * HIV-1 Antigen with HIV-1/2 Antibody (04/27/2018 5:12 AM AUTO ADJUDICATION SPECIALIST) HIV-1 Antigen with HIV Nonreactive Nonreactive [facility] 1&2 Antibody [facility] Specimen Blood Performing Organization Address City/[facility] Phone Number [address] * RPR (04/27/2018 5:12 AM AUTO ADJUDICATION SPECIALIST) RPR Nonreactive Nonreactive [facility] Specimen Blood Performing Organization Address City/State/Zipcode Phone Number [address] * T4, free (04/27/2018 5:12 AM AUTO ADJUDICATION SPECIALIST) Free T4 1.30 0.70 - 1.48 ng/dL [facility] Specimen Blood Performing Organization Address City/State/Zipcode Phone Number [facility] [address] [place] [address] [facility] * Hemoglobin A1c (04/27/2018 5:12 AM AUTO ADJUDICATION SPECIALIST) Hemoglobin A1C 8.7 (H) 4.3 - 6.1 % [facility] Specimen Blood Performing Organization Address City/[facility] Phone Number [facility] [address] [place], [place] [phone] [facility] * Basic Metabolic Panel (04/27/2018 5:12 AM AUTO ADJUDICATION SPECIALIST) Only the most recent of 7 results within the time period is included. Sodium 139 136 - 145 meq/L [facility] Potassium 4.1 3.5 - 5.1 meq/L [facility] Chloride 104 98 - 107 meq/L [facility] CO2 24 22 - 29 meq/L [facility] BUN 24 (H) 7 - 21 mg/dL [facility] Creatinine 1.23 0.57 - 1.25 mg/dL [facility] Glucose 215 (H) 70 - 105 mg/dL [facility] Calcium 9.3 8.4 - 10.2 mg/dL [facility] EGFR 59Comment: ESTIMATED GFR IS mL/min/1.73 sq m [facility] NOT ACCURATE CREATININE [facility] CLEARANCE IN PREDICTING GLOMERULAR FILTRATION RATE. ESTIMATED GFR IS NOT APPLICABLE FOR DIALYSIS PATIENTS. Specimen Blood Performing Organization Address City/[facility]/Zipcode Phone Number [facility] [address] [place], [place] [phone] [facility] * MR brain without IV contrast (04/26/2018 10:20 PM AUTO ADJUDICATION SPECIALIST) Specimen Narrative Performed At FINAL REPORT [facility] CLINICAL HISTORY: Stroke Ischemic Stroke Evaluation TECHNIQUE: MRI of the brain utilizing axial T2, FLAIR, GRE, DWI; sagittal and coronal T1-weighted images. MRA of the head utilizing 3-D ocgq-zk-ligews technique, with 3-D reconstructions. MRA of the neck utilizing 2-D and 3-D kjkn-gq-wdzmko technique, with 3-D reconstructions. COMPARISON: Same day [...] distal right petrous internal carotid artery. Multifocal idfc-bz-zzonqvnk stenosis of the right A2 and A3 [...] MD Report Verified Date/Time:04/26/2018 23:11:40 Reading Location: [address] Transitional Reading Room Procedure Note Interface, External Ris In - 04/26/2018 11:13 PM AUTO ADJUDICATION SPECIALIST FINAL REPORT CLINICAL HISTORY: Stroke Ischemic Stroke Evaluation TECHNIQUE: MRI of the brain utilizing axial T2, FLAIR, GRE, DWI; sagittal and coronal T1-weighted images. MRA of the head utilizing 3-D wlfz-mo-tlomxd technique, with 3-D reconstructions. MRA of the neck utilizing 2-D and 3-D kygc-ik-dwozew technique, with 3-D reconstructions. COMPARISON: Same day [...] distal right petrous internal carotid artery. Multifocal fggd-cz-ppnxybzk stenosis of the right A2 and A3 [...] Report Verified Date/Time: 04/26/2018 23:11:40 Reading Location: [address] Transitional Reading Room Performing Organization Address City/State/Zipcode Phone Number [facility] * MRA neck without IV contrast (04/26/2018 10:20 PM AUTO ADJUDICATION SPECIALIST) Specimen Narrative Performed At FINAL REPORT [facility] CLINICAL HISTORY: Stroke Ischemic Stroke Evaluation TECHNIQUE: MRI of the brain utilizing axial T2, FLAIR, GRE, DWI; sagittal and coronal T1-weighted images. MRA of the head utilizing 3-D owbf-by-yqvjwk technique, with 3-D reconstructions. MRA of the neck utilizing 2-D and 3-D ycce-hr-fnmnth technique, with 3-D reconstructions. COMPARISON: Same day [...] distal right petrous internal carotid artery. Multifocal wona-gq-nupqjgas stenosis of the right A2 and A3 [...] MD Report Verified Date/Time:04/26/2018 23:11:40 Reading Location: [facility] B1 [id number] Transitional Reading Room Procedure Note Interface, External Ris In - 04/30/2018 11:08 PM AUTO ADJUDICATION SPECIALIST FINAL REPORT CLINICAL HISTORY: Stroke Ischemic Stroke Evaluation TECHNIQUE: MRI of the brain utilizing axial T2, FLAIR, GRE, DWI; sagittal and coronal T1-weighted images. MRA of the head utilizing 3-D fhnu-yz-uhxxez technique, with 3-D reconstructions. MRA of the neck utilizing 2-D and 3-D xynb-ne-esqwyw technique, with 3-D reconstructions. COMPARISON: Same day [...] distal right petrous internal carotid artery. Multifocal qwbm-ql-vbhdgdre stenosis of the right A2 and A3 [...] Report Verified Date/Time: 04/26/2018 23:11:40 Reading Location: [address] Reading Room Performing Organization Address City/State/Zipcode Phone Number [facility] * MRA head without IV contrast (04/26/2018 10:20 PM AUTO ADJUDICATION SPECIALIST) Specimen Narrative Performed At FINAL REPORT [facility] CLINICAL HISTORY: Stroke Ischemic Stroke Evaluation TECHNIQUE: MRI of the brain utilizing axial T2, FLAIR, GRE, DWI; sagittal and coronal T1-weighted images. MRA of the head utilizing 3-D phuz-yh-ujzpvn technique, with 3-D reconstructions. MRA of the neck utilizing 2-D and 3-D ovoz-qn-azsduw technique, with 3-D reconstructions. COMPARISON: Same day [...] distal right petrous internal carotid artery. Multifocal appg-yn-mqxduktx stenosis of the right A2 and A3 [...] MD Report Verified Date/Time:04/26/2018 23:11:40 Reading Location: [address] Transitional Reading Room Procedure Note Interface, External Ris In - 04/26/2018 11:13 PM AUTO ADJUDICATION SPECIALIST FINAL REPORT CLINICAL HISTORY: Stroke Ischemic Stroke Evaluation TECHNIQUE: MRI of the brain utilizing axial T2, FLAIR, GRE, DWI; sagittal and coronal T1-weighted images. MRA of the head utilizing 3-D gzzj-cm-vdfsgv technique, with 3-D reconstructions. MRA of the neck utilizing 2-D and 3-D kyzv-sy-xnuhox technique, with 3-D reconstructions. COMPARISON: Same day [...] distal right petrous internal carotid artery. Multifocal qlxl-ry-kqchzdod stenosis of the right A2 and A3 [...] Report Verified Date/Time: 04/26/2018 23:11:40 Reading Location: [facility] [id number] Transitional Reading Room Performing Organization Address City/[facility] Phone Number GE [facility] * Urinalysis with Microscopic If Indicated (04/26/2018 7:24 PM AUTO ADJUDICATION SPECIALIST) Color, UA Light Yellow [facility] Clarity, UA Clear [facility] Specific [place], UA 1.010 1.001 - 1.035 [facility] pH, UA 5.0 5.0 - 8.0 [facility] Protein, UA Negative Negative [facility] Glucose, UA Negative Negative [facility] Ketones, UA Negative Negative [facility] Bilirubin, UA Negative Negative [facility] Blood, UA Negative Negative [facility] Nitrite, UA Negative Negative [facility] Leukocytes, UA Negative Negative [facility] Urobilinogen, UA 0.2 0.2 - 1.0 mg/dL [facility] Specimen Source [facility] Specimen Urine Performing Organization Address City/[facility]/Zipcode Phone Number [facility] [address] [place] [address] [facility] * Blood culture (04/26/2018 7:24 PM AUTO ADJUDICATION SPECIALIST) Result No growth in 5 days [facility] Specimen Blood Performing Organization Address City/State/Zipcode Phone Number [facility] [address] [place] [address] [facility] * CBC with platelet count + automated diff (04/26/2018 7:23 PM AUTO ADJUDICATION SPECIALIST) Only the most recent of 4 results within the time period is included. WBC 13.9 (H) 3.5 - 10.5 K/L [facility] RBC 4.05 (L) 4.63 - 6.08 M/L [facility] Hemoglobin 12.2 (L) 13.7 - 17.5 GM/DL [facility] Hematocrit 36.6 (L) 40.1 - 51.0 % [facility] MCV 90.4 79.0 - 92.2 fL [facility] MCH 30.1 25.7 - 32.2 pg [facility] MCHC 33.3 32.3 - 36.5 GM/DL [facility] RDW 13.7 11.6 - 14.4 % [facility] Platelets 217 150 - 450 K/CU MM [facility] MPV 10.7 9.4 - 12.4 fL [facility] nRBC 0 0 - 0 /100 WBC [facility] % Neutros 74 % [facility] % Lymphs 19 % [facility] % Monos 6 % [facility] % Eos 1 % [facility] % Baso 0 % [facility] # Neutros 10.27 (H) 1.78 - 5.38 K/L [facility] # Lymphs 2.60 1.32 - 3.57 K/L [facility] # Monos 0.88 (H) 0.30 - 0.82 K/L [facility] # Eos 0.08 0.04 - 0.54 K/L [facility] # Baso 0.03 0.01 - 0.08 K/L [facility] Immature 0 0 - 1 % [facility] Granulocytes-Relative [facility] Specimen Blood Performing Organization Address City/[facility] Phone Number [address] [address] [facility] * Lactic acid, venous, whole blood (04/26/2018 7:23 PM AUTO ADJUDICATION SPECIALIST) Lactate, Venous 1.8Comment: Specimen slightly 0.5 - 2.2 mmol/L [facility] hemolyzed [facility] Specimen Blood Performing Organization Address City/[facility] [place] [address] [facility] * aPTT (04/26/2018 7:23 PM AUTO ADJUDICATION SPECIALIST) PTT 31.0 22.5 - 36.0 seconds [facility] Specimen Blood Performing Organization Address City/[facility] [place] [address] [facility] * Prothrombin time/INR (04/26/2018 7:23 PM AUTO ADJUDICATION SPECIALIST) Only the most recent of 3 results within the time period is included. Protime 13.5 11.7 - 14.7 seconds [facility] INR 1.0 <=5.9 [facility] Specimen Blood Narrative Performed At RECOMMENDED COUMADIN/WARFARIN INR THERAPY RANGES [facility] STANDARD DOSE: 2.0 - 3.0 Includes: PROPHYLAXIS for venous thrombosis, [facility] systemic embolization; TREATMENT for venous thrombosis and/or pulmonary embolus. HIGH RISK: Target INR is 2.5-3.5 for patients with mechanical heart valves. Performing Organization Address City/[facility] Phone Number [address] [place] [address] [phone] * Phosphorus (04/26/2018 7:23 PM AUTO ADJUDICATION SPECIALIST) Only the most recent of 3 results within the time period is included. Phosphorus 3.5Comment: Specimen markedly 2.3 - 4.7 mg/dL [facility] Specimen Blood Performing Organization Address [facility] Veg[facility]otx Phone Number [address] * Magnesium (04/26/2018 7:23 PM AUTO ADJUDICATION SPECIALIST) Only the most recent of 4 results within the time period is included. Magnesium 3.1 (H)Comment: Specimen 1.6 - 2.6 mg/dL [facility] markedly [facility] Specimen Blood Performing Organization Address [facility] Veg[facility] Phone Number [address] * Comprehensive metabolic panel (04/26/2018 7:23 PM AUTO ADJUDICATION SPECIALIST) Protein, Total 8.5 (H)Comment: Specimen 6.0 - 8.3 gm/dL [facility] Albumin 4.2Comment: Specimen markedly 3.5 - 5.0 g/dL [facility] Alkaline Phosphatase 72 40 - 150 U/L [facility] Total Bilirubin 0.4Comment: Specimen markedly 0.2 - 1.2 mg/dL [facility] Sodium 139 136 - 145 meq/L [facility] Potassium 5.1Comment: Specimen markedly 3.5 - 5.1 meq/L [facility] Chloride 102 98 - 107 meq/L [facility] CO2 25 22 - 29 meq/L [facility] BUN 27 (H) 7 - 21 mg/dL [facility] Creatinine 1.34 (H)Comment: Specimen 0.57 - 1.25 mg/dL [facility] markedly hemolyzed [facility] Glucose 110 (H) 70 - 105 mg/dL [facility] Calcium 9.5 8.4 - 10.2 mg/dL [facility] AST 35 (H)Comment: Specimen 5 - 34 U/L [facility] markedly hemolyzed [facility] ALT 10Comment: Specimen markedly 6 - 55 U/L [facility] hemolyzed [facility] EGFR 54Comment: ESTIMATED GFR IS mL/min/1.73 sq m [facility] NOT ACCURATE CREATININE [facility] CLEARANCE IN PREDICTING GLOMERULAR FILTRATION RATE. ESTIMATED GFR IS NOT APPLICABLE FOR DIALYSIS PATIENTS. Specimen Blood Performing Organization Address City/State/Zipcode Phone Number [facility] [address] [place] [address] [facility] * CT brain without IV contrast (04/26/2018 5:16 PM AUTO ADJUDICATION SPECIALIST) Specimen Narrative Performed At FINAL REPORT [facility] CT head without contrast [...] MD Report Verified Date/Time:04/26/2018 18:36:43 Reading Location: [facility] Radiology Reading Room Procedure Note Interface, External Ris In - 04/26/2018 6:49 PM AUTO ADJUDICATION SPECIALIST FINAL REPORT CT head without contrast 04/26/2018 [...] Report Verified Date/Time: 04/26/2018 18:36:43 Reading Location: [facility] Radiology Reading Room Performing Organization Address City/[facility]/Zipcode Phone Number RIS * Calcium, Ionized (04/26/2018 4:02 AM AUTO ADJUDICATION SPECIALIST) Calcium, Ion 1.13 1.12 - 1.27 mmol/L [facility] pH, Blood 7.39 [facility] Specimen Blood Performing Organization Address City/[facility]/Zipcode Phone Number [facility] [address] [place] [address] [facility] * Protein, random urine (04/25/2018 4:09 PM AUTO ADJUDICATION SPECIALIST) Only the most recent of 2 results within the time period is included. Protein, Urine 20 (H) 0 - 14 mg/dL [facility] Specimen Urine Performing Organization Address [facility] Phone Number [place] [phone] * Creatinine, random urine (04/25/2018 4:09 PM AUTO ADJUDICATION SPECIALIST) Creatinine, Ur 73.5 mg/dL [facility] Specimen Urine Narrative Performed At Reference Range: No Normals [facility] Performing Organization Address [facility] Phone Number [address] * Urinalysis w/Microscopic (04/25/2018 4:09 PM AUTO ADJUDICATION SPECIALIST) Color, UA Yellow [facility] Clarity, UA Clear [facility] Specific [place], UA 1.037 (H) 1.001 - 1.035 [facility] pH, UA 5.0 5.0 - 8.0 [facility] Protein, UA 20 mg/dL (A) Negative [facility] Glucose, UA 500 mg/dL (A) Negative [facility] Ketones, UA Negative Negative [facility] Bilirubin, UA Negative Negative [facility] Blood, UA Trace (A) Negative [facility] Nitrite, UA Negative Negative [facility] Leukocytes, UA Negative Negative [facility] Urobilinogen, UA 0.2 0.2 - 1.0 mg/dL [facility] RBC, UA 1 /HPF [facility] WBC, UA <1 /HPF [facility] Squam Epithel, UA <1 /HPF [facility] Specimen Source [facility] Specimen Urine Performing Organization Address City/State/[place] [address] [facility] * Electrolytes (04/25/2018 4:09 PM AUTO ADJUDICATION SPECIALIST) Sodium 136 136 - 145 meq/L [facility] Potassium 4.1 3.5 - 5.1 meq/L [facility] Chloride 103 98 - 107 meq/L [facility] CO2 23 22 - 29 meq/L [facility] Specimen Blood Narrative Performed At Call [phone] with results [facility] Performing Organization Address City/[facility]/[place] [address] [facility] * POC ACTIVATED CLOTTING TIME (04/25/2018 9:05 AM AUTO ADJUDICATION SPECIALIST) Only the most recent of 2 results within the time period is included. Activated Clotting Time 362Comment: TESTED AT [facility] sec [address] Specimen Blood Performing Organization Address City/[facility]/Zipcode Phone Number [address] [address] [phone] [place] [address] * Lipid panel (04/25/2018 4:40 AM AUTO ADJUDICATION SPECIALIST) Triglycerides 90 mg/dL [facility] Cholesterol 159 mg/dL [facility] HDL 35 mg/dL [facility] LDL Calculated 106 mg/dL [facility] Specimen Blood Narrative Performed At Triglyceride Reference Range: [facility] Low Risk <150 [facility] [id number] High Risk 200-499 Very High Risk>=500 Cholesterol Reference Range: Low Risk <200 [id number] High Risk>240 HDL Cholesterol Reference Range: Low Risk >=60 High Risk <40 LDL Cholesterol Reference Range: Optimal<100 Near [id number] [id number] Very High >=190 Performing Organization Address City/State/Zipcode Phone Number [facility] [address] [place] [address] [facility] * ECG 12 lead (04/25/2018 4:33 AM AUTO ADJUDICATION SPECIALIST) Only the most recent of 3 results within the time period is included. Specimen Narrative Performed At Ventricular Rate 97 BPM GE MUSE Atrial Rate 97 BPM P-R Interval 188 ms QRS Duration 164 ms Q-T Interval 406 ms QTC Calculation(Bazett) 515 ms P [place] 61 degrees R [place] 151 degrees T [place] 22 degrees Normal sinus rhythm Right bundle branch block Abnormal ECG When compared with ECG of 09-MAR-2018 14:30, Premature atrial complexes are no longer Present Confirmed by MD ESTEVEZ JORGE ([id number]) on 04/25/2018 1:58:33 PM Procedure Note Interface, External Ris In - 04/25/2018 1:58 PM AUTO ADJUDICATION SPECIALIST Ventricular Rate 97 BPM Atrial Rate 97 BPM P-R Interval 188 ms QRS Duration 164 ms Q-T Interval 406 ms QTC Calculation(Bazett) 515 ms P [place] 61 degrees R [place] 151 degrees T [place] 22 degrees Normal sinus rhythm Right bundle branch block Abnormal ECG When compared with ECG of 09-MAR-2018 14:30, Premature atrial complexes are no longer Present Confirmed by MD ESTEVEZ JORGE ([id number]) on 04/25/2018 1:58:33 PM Performing Organization Address City/[facility]/Zipcode Phone Number [facility] * CARDIAC CATH REPORT - SCAN (03/13/2018 11:20 AM CDT) Narrative Performed At * TRANSFUSION SERVICE REPORT - SCAN (03/09/2018 6:09 PM CDT) Narrative Performed At * NM myocardial perfusion PET (rest and stress) (03/09/2018 2:56 PM CDT) Specimen Narrative Performed At FINAL REPORT [facility] PROCEDURE:Rest/Stress MYOCARDIAL PERFUSION PET with regadenoson\\XA9\\ CPT CODE: 69244 INDICATION: CAD HISTORY:Cardiac risk factors: Diabetes, hypertension, [...] MD Report Verified Date/Time:03/09/2018 16:42:51 Reading Location: [address] Reading Room Procedure Note Interface, External Ris In - 03/09/2018 4:45 PM CDT FINAL REPORT PROCEDURE: Rest/Stress MYOCARDIAL PERFUSION PET with regadenoson\\XA9\\ CPT CODE: 09198 INDICATION: CAD HISTORY: Cardiac risk factors: Diabetes, [...] Report Verified Date/Time: 03/09/2018 16:42:51 Reading Location: [address] Reading Room Performing Organization Address City/State/Zipcode Phone Number RIS * Treadmill tolerance(Non-Nuclear Treadmill) (03/09/2018 2:43 PM CDT) Specimen Narrative Performed At Protocol Name Regadenoson [facility] Time In Exercise Phase 00:01:00 Max. Systolic [...] metoprolol LIPITOR Confirmed by fellow Bev Arnold ([id number]) on 03/12/2018 8:24:14 AM Confirmed by MD ESTEVEZ JORGE ([id number]) on 03/29/2018 3:47:55 PM Procedure Note Interface, External Ris In - 03/29/2018 3:48 PM AUTO ADJUDICATION SPECIALIST Protocol Name Ariadna Time In Exercise Phase [...] 8:24:14 AM Confirmed by MD ESTEVEZ JORGE ([id number]) on 03/29/2018 3:47:55 PM Performing Organization Address City/State/[facility] Phone Number [facility] * CBC (Hemogram only) (03/09/2018 4:26 AM CDT) Only the most recent of 2 results within the time period is included. WBC 10.7 (H) 3.5 - 10.5 K/L [facility] RBC 3.56 (L) 4.63 - 6.08 M/L [facility] Hemoglobin 10.7 (L) 13.7 - 17.5 GM/DL [facility] Hematocrit 31.7 (L) 40.1 - 51.0 % [facility] MCV 89.0 79.0 - 92.2 fL [facility] MCH 30.1 25.7 - 32.2 pg [facility] MCHC 33.8 32.3 - 36.5 GM/DL [facility] RDW 13.6 11.6 - 14.4 % [facility] Platelets 196 150 - 450 K/CU MM [facility] MPV 10.3 9.4 - 12.4 fL [facility] nRBC 0 0 - 0 /100 WBC [facility] Specimen Blood Performing Organization Address City/State/Zipcode Phone Number [facility] [address] [place], [place] [address] [phone] [place] [address] * Type and screen, automated (03/08/2018 9:16 AM CDT) ABO/RH AUTOMATED (BEAKER) O POSITIVE [facility] Ab Scrn NEGATIVE [facility] Specimen Blood Performing Organization Address City/State/Zipcode Phone Number [facility] [address] [place] [address] [phone] [place] [address] * CTA chest (03/07/2018 12:00 PM CDT) Specimen Narrative Performed At Addendum Begins [facility] RIS REPORT STATUS:A Addendum: I agree with the previously described non vascular findings by Dr. Wilcox. Signed: Leo Mccloud MD Report Verified Date/Time:03/07/2018 16:03:23 Reading Location: [place] [address] Angio Body Reading Room Addendum Ends FINAL [...] and during intravenous contrast administration using a [facility] multidetector CT scanner. Images were obtained before [...] vascular structure identified medial to the expected [place] right SFA. Enhancement is suboptimal at this level. Please kindly correlate clinically. 2.Coronary atherosclerosis. Patient is post coronary artery bypass surgery. 3.The central pulmonary artery is at the upper limits of normal in calibre. No evidence of central pulmonary artery embolism is seen. 4.Other findings as described above. 5.An addendum will be dictated by the Sales Service Assistant Radiologist regarding the nonvascular findings. Signed: Jose Wilcox MD Report Verified Date/Time:03/07/2018 13:30:05 Reading Location: [place] [address] Cardiology MRI Procedure Note Interface, External Ris In - 03/07/2018 4:05 PM CDT Addendum Begins REPORT STATUS:A Addendum: I agree with the previously described non vascular findings by Dr. Wilcox. Signed: Leo Mccloud MD Report Verified Date/Time: 03/07/2018 16:03:23 Reading Location: [place] [id number] Angio Body Reading Room Addendum Ends FINAL [...] vascular structure identified medial to the expected [place] right SFA. Enhancement is suboptimal at this level. Please kindly correlate clinically. 2. Coronary atherosclerosis. Patient is post coronary artery bypass surgery. 3. The central pulmonary artery is at the upper limits of normal in calibre. No evidence of central pulmonary artery embolism is seen. 4. Other findings as described above. 5. An addendum will be dictated by the Sales Service Assistant Radiologist regarding the nonvascular findings. Signed: Jose Wilcox MD Report Verified Date/Time: 03/07/2018 13:30:05 Reading Location: [facility] P047 Cardiology MRI Performing Organization Address City/State/Zipcode Phone Number [facility] * CTA abdomen & pelvis (03/07/2018 12:00 PM CDT) Specimen Narrative Performed At Addendum Begins GE RIS REPORT STATUS:A Addendum: I agree with the previously described non vascular findings by Dr. Wilcox. Signed: Leo Mccloud MD Report Verified Date/Time:03/07/2018 16:03:23 Reading Location: [place] [id number] Angio Body Reading Room Addendum Ends FINAL [...] and during intravenous contrast administration using a [facility] multidetector CT scanner. Images were obtained before [...] vascular structure identified medial to the expected [place] right SFA. Enhancement is suboptimal at this level. Please kindly correlate clinically. 2.Coronary atherosclerosis. Patient is post coronary artery bypass surgery. 3.The central pulmonary artery is at the upper limits of normal in calibre. No evidence of central pulmonary artery embolism is seen. 4.Other findings as described above. 5.An addendum will be dictated by the Sales Service Assistant Radiologist regarding the nonvascular findings. Signed: Jose Wilcox MD Report Verified Date/Time:03/07/2018 13:30:05 Reading Location: [place] [address] Cardiology MRI Procedure Note Interface, External Ris In - 03/07/2018 4:05 PM CDT Addendum Begins REPORT STATUS:A Addendum: I agree with the previously described non vascular findings by Dr. Wilcox. Signed: Leo Mccloud MD Report Verified Date/Time: 03/07/2018 16:03:23 Reading Location: [place] [address] Angio Body Reading Room Addendum Ends FINAL [...] and during intravenous contrast administration using a [facility] multidetector CT scanner. Images were obtained before [...] vascular structure identified medial to the expected [place] right SFA. Enhancement is suboptimal at this level. Please kindly correlate clinically. 2. Coronary atherosclerosis. Patient is post coronary artery bypass surgery. 3. The central pulmonary artery is at the upper limits of normal in calibre. No evidence of central pulmonary artery embolism is seen. 4. Other findings as described above. 5. An addendum will be dictated by the Sales Service Assistant Radiologist regarding the nonvascular findings. Signed: Jose Wilcox MD Report Verified Date/Time: 03/07/2018 13:30:05 Reading Location: [place] [address] Cardiology MRI Performing Organization Address City/State/Zipcode Phone Number GE RIS * POC-Creatinine (03/07/2018 11:29 AM CDT) POC-Creatinine 1.3Comment: TESTED AT [facility]-KG 0.6 - 1.3 mg/dL [facility] [address] [place] [address] POC-EGFR Comment: Insufficient clinical mL/min/1.73M2 [facility] data to calculate estimated [facility] GFR Specimen Blood Narrative Performed At Performing Organization Address City/State/Zipcode Phone Number [facility] [address] [place] [address] [facility] after 12/01/2017 Insurance Payer Benefit Subscriber ID Type Phone Address Plan / Group MEDICARE MEDICARE A xxxxxxxxxxx Medicare B [employer] - MGD UNITED HMO xxxxxxxxx HMO/POS CARE POS SELECT CHOICE Advance Directives For more information, please contact: [facility] [address] [place], [place] [phone] Date Inactivated Comments Code Status Date Activated Full Code 04/24/2018 3:34 PM This code status was determined by: Patient 03/10/2018 7:38 PM Full Code 03/08/2018 8:39 AM This code status was determined by: Patient 05/13/2016 3:28 PM Full Code 05/13/2016 7:52 AM This code status was determined by: Patient
--- OUTSIDE RECORDS SUMMARY | 2018-12-02 09:49 | XMS REPORT | Continuity of Care Document ---
Author Author Disconnect Address Unknown Phone Unavailable Care Team Providers Care Assistant Store Manager Operations Name Role Phone Let's Talk Unavailable Unavailable Problems Problem Status Onset Date Classification Date Reported Comments Source Obstructive sleep apnea (pediatric) 04/18/2018 10/30/2018 [facility] FIRST NIGHT 93747 Active 04/09/2018 [facility] 49486/ 384.20 Active 01/24/2013 [facility] 388.60 - OTORRHEA NOS Active 01/08/2013 [facility] DIARRHEA Active 10/01/2012 [facility] EAR INFECTION Active 08/23/2012 [facility] CAD (Confirmed) Resolved Problem 10/30/2018 [facility] Cholesterol1 Resolved Problem 10/30/2018 [facility] [place],[facility] Diabetes mellitus type II Resolved Problem 10/30/2018 [facility] [place],[facility] History of - chronic ear infection Resolved Problem 10/30/2018 [facility] [place],[facility] HTN - Hypertension Resolved Problem 10/30/2018 [facility] [place],[facility] Neuropathy Resolved Problem 10/30/2018 [facility] Pseudomonas2 Active Problem 10/30/2018 Problem added by Discern Expert. [facility] [place] PVD (Confirmed) Resolved Problem 10/30/2018 [facility] CAD Resolved Problem 02/09/2013 [facility] Cholesterol1 Resolved Problem 02/09/2013 1high [facility], [facility] Diabetes mellitus type II Resolved Problem 02/09/2013 [facility] History of - chronic ear infection Resolved Problem 02/09/2013 [facility], [facility] HTN - Hypertension Resolved Problem 02/09/2013 [facility] Neuropathy Resolved Problem 02/09/2013 [facility] PVD Resolved Problem 02/09/2013 [facility] MASTOIDITIS NOS Active [facility] PERFORAT TYMPAN MEMB NOS Active [facility] OBSTRUCTIVE SLEEP APNEA (ADULT) (PEDIATR Active [facility] Medications Medication Details Route Status Patient Instructions Ordering Provider Order Date Source Vicodin 5/500 oral tablet 1-2 tablets, PO, Q4-6H, PRN, 20 tab, for Pain, Substitution Allowed, Maintenance PO Active Dulce Maria 02/07/2013 [facility] Bactrim DS oral tablet 1 tab, PO, BID, 14 tab, Substitution Allowed, Maintenance PO Active Dulce Maria 02/07/2013 [facility] ondansetron 4 mg, 2 mL, Route: IVP, Drug form: INJ, ONCE, Dosing Weight 114.545, kg, PRN Nausea & Vomiting, Start date: 02/07/13 13:37:00 IVP No Longer Active [facility] 02/07/2013 [facility] labetalol 5 mg, 1 mL, Route: IVP, Drug form: INJ, Q5Min, Dosing Weight 114.545, kg, PRN Elevated BP, Start date: 02/07/13 13:37:00, Duration: 5 doses or times, Stop date: Limited # of times IVP No Longer Active [facility] 02/07/2013 [facility] acetaminophen-10 mg/mL INTRAVENOUS solution 1,000 mg, 100 mL, Route: IV, Drug form: INJ, ONCE, Dosing Weight 114.545, kg, PRN Pain Score 4-6, Start date: 02/07/13 13:37:00, Duration: 1 doses or times, Stop date: Limited # of times, Infuse over 15 minutes (for patient weight 50 kg or greater)Infuse over 15 minutes (for patient weight 50 kg or greater) IV No Longer Active [facility] 02/07/2013 [facility] Lactated Ringers Injection IV 1,000 mL 1,000 mL, Rate: 50 ml/hr, Infuse over: 20 hr, Route: IV, Dosing Weight 114.545 kg, Total Volume: 1,000, Start date: 02/07/13 13:37:00, Duration: 30 day, Stop date: 03/09/13 13:36:00 IV No Longer Active [facility] 02/07/2013 [facility] flumazenil 0.2 mg, 2 mL, Route: IVP, Drug form: INJ, PRN, Dosing Weight 114.545, kg, PRN Benzodiazepine Reversal, Initial dose, Start date: 02/07/13 13:37:00, Duration: 30 day, Stop date: 03/09/13 13:36:00 [facility] meperidine 12.5 mg, 0.25 mL, Route: IVP, Drug form: INJ, Q30Min, Dosing Weight 114.545, kg, PRN Other -See Comment, For shivering, Start date: 02/07/13 13:37:00, Duration: 2 doses or times, Stop date: Limited # of times IVP No Longer Active [facility] 02/07/2013 [facility] naloxone 0.04 mg, 0.1 mL, Route: IVP, Drug form: INJ, Q2MIN, Dosing Weight 114.545, kg, PRN Narcotic Reversal, Start date: 02/07/13 13:37:00, Duration: 8 doses or times, Stop date: Limited # of times IVP No Longer Active [facility] 02/07/2013 [facility] acetaminophen-hydrocodone 325 mg-5 mg oral tablet 2 tab, Route: PO, Drug Form: TAB, Dosing Weight 114.545, kg, Q4H, PRN Pain Score 4-6, Start date: 02/07/13 13:37:00, Duration: 30 day, Stop date: 03/09/13 13:36:00 PO [facility]2013 [facility] acetaminophen-hydrocodone 300 mg-10 mg/15 mL oral liquid 15 mL, Route: PO, Drug Form: SOLN, Dosing Weight 114.545, kg, Q4H, PRN Pain Score 4-6, Start date: 02/07/13 13:37:00, Duration: 30 day, Stop date: 03/09/13 13:36:00 PO No Longer Active [facility] 02/07/2013 [facility] morphine Sulfate 2 mg, 1 mL, Route: IVP, Drug form: INJ, Q5Min, Dosing Weight 114.545, kg, PRN Pain Score 4-6, Start date: 02/07/13 13:37:00, Duration: 5 doses or times, Stop date: Limited # of times IVP No Longer [facility]2013 [facility] Lactated Ringers Injection IV 1,000 mL 1,000 mL, Rate: 25 ml/hr, Infuse over: 40 hr, Route: IV, Dosing Weight 114.545 kg, Total Volume: 1,000, Start date: 02/07/13 9:45:00, Duration: 30 day, Stop date: 03/09/13 9:44:00 IV No Longer Active [facility] 02/07/2013 [facility] Insulin Diluting Medium for Novolog intravenous solution IV, Substitution Allowed, Maintenance IV Active 02/05/2013 [facility] aspirin 81 mg tablet, enteric coated 81 mg, 1 tab, PO, Daily, 0 tab, Substitution Allowed, ECTAB PO Active 02/05/2013 [facility] lovastatin 20 mg oral tablet 20 mg, 1 tab, PO, Daily, Substitution Allowed PO Active 02/05/2013 [facility] lisinopril 20 mg oral tablet 20 mg, 1 tab, PO, Daily, Substitution Allowed PO Active 02/05/2013 [facility] Plavix 75 mg oral tablet 75 mg, 1 tab, PO, Daily, Substitution Allowed PO Active 02/05/2013 [facility] influenza virus vaccine, inactivated 0.5 mL, Route: IM, Drug Form: SUSP, ONCALL, Start date: 02/05/13 11:59:32, Stop date: 03/07/13 11:54:32 IM No Longer Active [facility] 02/05/2013 [facility] Phenergan 25 mg oral tablet 25 mg, 1 tab, PO, Q4H, PRN, 15 tab, Nausea, Substitution Allowed PO Active [facility] 10/02/2012 [facility] tramadol 50 mg oral tablet 50 mg, PO, Q4-6H, PRN, 20 tab, Pain, Substitution Allowed PO Active [facility] 10/02/2012 [facility] Flagyl 500 mg oral tablet 500 mg, 1 tab, PO, Q8H, 30 tab, Substitution Allowed PO Active [facility] 10/02/2012 [facility] Insulin regular 4 unit, Route: SUB-Q, ONCE, Dosing Weight 113.636, kg, Start date: 10/02/12 1:07:00, Stop date: 10/02/12 1:07:00 SUB-Q No Longer Active [facility] 10/02/2012 [facility] hydrALAZINE 20 mg, Route: IVP, ONCE, Dosing Weight 113.636, kg, Priority: STAT, Start date: 10/02/12 0:11:00, Stop date: 10/02/12 0:11:00 IVP No Longer Active [facility] 10/02/2012 [facility] clonidine 0.2 mg oral tablet 1 tab, Route: PO, ONCE, Dosing Weight 113.636, kg, Start date: 10/01/12 22:11:00, Stop date: 10/01/12 22:11:00 PO No Longer Active [facility] 10/02/2012 [facility] morphine Sulfate 4 mg, Route: IVP, ONCE, Dosing Weight 113.636, kg, Priority: STAT, Start date: 10/01/12 21:54:00, Stop date: 10/01/12 21:54:00 IVP No Longer Active [facility] 10/02/2012 [facility] ondansetron 4 mg, Route: IVP, ONCE, Dosing Weight 113.636, kg, Priority: STAT, Start date: 10/01/12 21:54:00, Stop date: 10/01/12 21:54:00 IVP No Longer Active [facility] 10/02/2012 [facility] Sodium Chloride 0.9% (Bolus) IV 500 mL 500 mL, Rate: 1,000 ml/hr, Infuse over: 30 minutes, Route: IV, Dosing Weight 113.636 kg, Total Volume: 500, Priority: STAT, Start date: 10/01/12 21:54:00, Duration: 1 doses or times, Stop date: 10/01/12 22:23:00 IV No Longer Active [facility] 10/02/2012 [facility] Saline Flush 0.9% 5 mL, Route: IVP, Drug Form: INJ, Dosing Weight 113.636, kg, PRN, PRN Line Flush, Start date: 10/01/12 21:54:00, Duration: 24 hr, Stop date: 10/02/12 21:53:00 IVP No Longer Active [facility] 10/02/2012 [facility] pneumococcal 23-valent vaccine 0.5 ml, Route: IM, Drug Form: INJ, Start date: 08/09/06 9:00:00 IM No Longer Active [facility] 08/09/2006 [facility], [facility] Allergies, Adverse Reactions, Alerts Substance Category Reaction Severity Reaction type Status Date Reported Comments Source Plastic Tape Assertion Propensity to adverse reactions to substance Active [facility] contrast media (iodine-based) Assertion Drug allergy Active [facility] Immunizations Immunization Date Given Site Status Last Updated Comments Source pneumococcal 23-valent vaccine 08/09/2006 Left Arm completed [facility] MARY KAY [facility] pneumococcal 23-valent vaccine 08/09/2006 completed [facility] Results Order Name Results Value Reference Range Date Interpretation Comments Source BEDSIDE GLUCOSE TESTING Gluc POC 110 70 - 99 02/07/2013 [facility] <sup>1</sup>Interpretive Data: Upper Reportable Limit: 200 mg/dL. [facility] BEDSIDE GLUCOSE TESTING Gluc POC 149 70 - 99 02/07/2013 [facility] <sup>2</sup>Interpretive Data: Upper Reportable Limit: 200 mg/dL. [facility] BEDSIDE GLUCOSE TESTING Gluc POC Comment 1 Notify RN/MD 02/07/2013 NA [facility] Microbiology Culture: Anaerobic 02/07/2013 [facility] Microbiology Culture: Aspirate/Body Fluid/Tissue 02/07/2013 [facility] CHEMISTRY eGFR 74 02/05/2013 NA <sup>3</sup>Result Comment: The eGFR is calculated using the CKD-EPI formula. In most young, healthy individuals the eGFR will be >90 mL/min/1.73m2. The eGFR declines with age. An eGFR of 60-89 may be normal in some populations, particularly the elderly, for whom the CKD-EPI formula has not been extensively validated. Use of the eGFR is not recommended in the following populations:& lt;br/>
Individuals with unstable creatinine concentrations, including patients [...] should be multiplied by the estimated BMI. [facility] CHEMISTRY Glucose Lvl 120 70 - 99 02/05/2013 [facility] <sup>4</sup>Interpretive Data: Adult reference range values reflect the clinical guidelines
of the [place] [employer]. [facility] CHEMISTRY Potassium Lvl 4.6 3.5 - 5.1 02/05/2013 Normal [facility] CHEMISTRY Sodium Lvl 142 135 - 145 02/05/2013 Normal [facility] CHEMISTRY Creatinine Lvl 1.1 0.5 - 1.4 02/05/2013 Normal [facility] CHEMISTRY BUN 17 7 - 22 02/05/2013 Normal [facility] CHEMISTRY Calcium Lvl 8.5 8.5 - 10.5 02/05/2013 Normal [facility] CHEMISTRY CO2 30 24 - 32 02/05/2013 Normal [facility] CHEMISTRY Chloride Lvl 104 95 - 109 02/05/2013 Normal [facility] CHEMISTRY AGAP 12.6 10.0 - 20.0 02/05/2013 Normal [facility] HEMATOLOGY Eosinophils 3.4 0.0 - 4.0 02/05/2013 Normal [facility] HEMATOLOGY Lymphocytes # 2.1 1.0 - 5.5 02/05/2013 Normal [facility] HEMATOLOGY Eosinophils # 0.3 0.0 - 0.5 02/05/2013 Normal [facility] HEMATOLOGY Basophils # 0.0 0.0 - 0.2 02/05/2013 Normal [facility] HEMATOLOGY Monocytes # 0.6 0.0 - 0.8 02/05/2013 Normal [facility] HEMATOLOGY Segs-Bands # 5.4 1.5 - 8.1 02/05/2013 Normal [facility] HEMATOLOGY Basophils 0.3 0.0 - 1.0 02/05/2013 Normal [facility] HEMATOLOGY Lymphocytes 25.4 20.0 - 40.0 02/05/2013 Normal [facility] HEMATOLOGY Monocytes 6.6 2.0 - 12.0 02/05/2013 Normal [facility] HEMATOLOGY Segs 64.3 45.0 - 75.0 02/05/2013 Normal [facility] HEMATOLOGY INR 1.06 0.85 - 1.17 02/05/2013 Normal <sup>5</sup>Interpretive Data: RECOMMENDED RANGES FOR PROTIME INR:
2.0-3.0 for most medical and surgical thromboembolic states.
2.5-3.5 for artificial heart valves and recurrent embolism.

INR SHOULD BE USED ONLY FOR PATIENTS ON STABLE ANTICOAGULANT THERAPY. [facility] HEMATOLOGY PT 13.7 12.0 - 14.7 02/05/2013 Normal [facility] HEMATOLOGY PTT 37.7 22.9 - 35.8 02/05/2013 [facility] <sup>6</sup>Interpretive Data: Heparin Therapeutic Range: 57 - 92 Seconds [facility] HEMATOLOGY RBC 4.05 4.70 - 6.10 02/05/2013 LOW [facility] HEMATOLOGY Hgb 12.1 14.0 - 18.0 02/05/2013 LOW [facility] HEMATOLOGY WBC 8.4 3.7 - 10.4 02/05/2013 Normal [facility] HEMATOLOGY MPV 8.0 7.4 - 10.4 02/05/2013 Normal [facility] HEMATOLOGY Platelet 243 133 - 450 02/05/2013 Normal [facility] HEMATOLOGY RDW 13.8 11.5 - 14.5 02/05/2013 Normal [facility] HEMATOLOGY MCHC 34.1 32.0 - 36.0 02/05/2013 Normal [facility] HEMATOLOGY Hct 35.3 42.0 - 54.0 02/05/2013 LOW [facility] HEMATOLOGY MCV 87.2 80.0 - 94.0 02/05/2013 Normal [facility] HEMATOLOGY MCH 29.8 27.0 - 31.0 02/05/2013 Normal [facility] URINALYSIS UA Color Ltyellow 10/02/2012 NA [facility] URINALYSIS UA Urobilinogen 0.1 - 1.0 10/02/2012 NA [facility] URINALYSIS UA Glucose 500 mg/dL *ABN* (10/01/2012 23:50:00) Negative 10/02/2012 ABN [facility] URINALYSIS UA Ketones Trace mg/dL *ABN* (10/01/2012 23:50:00) Negative 10/02/2012 ABN [facility] URINALYSIS UA Spec Grav 1.005 <=1.030 10/02/2012 Normal [facility] URINALYSIS UA pH 7.0 5.0 - 8.0 10/02/2012 Normal [facility] URINALYSIS UA Protein Negative mg/dL (10/01/2012 23:50:00) Negative 10/02/2012 Normal [facility] URINALYSIS UA Leuk Est Negative (10/01/2012 23:50:00) Negative 10/02/2012 Normal [facility] URINALYSIS UA WBC <1 0 - 5 10/02/2012 [facility] URINALYSIS UA Bili Negative *NA* (10/01/2012 23:50:00) Negative 10/02/2012 [facility] URINALYSIS UA Turbidity Clear (10/01/2012 23:50:00) Clear 10/02/2012 Normal [facility] URINALYSIS UA RBC 2 0 - 2 10/02/2012 Normal [facility] URINALYSIS UA Bacteria Occasional /HPF *NA* (10/01/2012 23:50:00) None Seen 10/02/2012 [facility] URINALYSIS UA Blood Small *ABN* (10/01/2012 23:50:00) Negative 10/02/2012 ABN [facility] URINALYSIS UA Nitrite Negative (10/01/2012 23:50:00) Negative 10/02/2012 Normal [facility] URINALYSIS UA Sq Epi None Seen 10/02/2012 NA [facility] Microbiology Culture: Urine 10/02/2012 [facility] CHEMISTRY A/G Ratio 1.0 0.7 - 1.6 10/02/2012 Normal [facility] CHEMISTRY Globulin 4.0 2.0 - 4.0 10/02/2012 Normal [facility] CHEMISTRY B/C Ratio 14 6 - 25 10/02/2012 Normal [facility] CHEMISTRY AGAP 13.4 10.0 - 20.0 10/02/2012 Normal [facility] CHEMISTRY eGFR 83 10/02/2012 NA <sup>1</sup>Result Comment: The eGFR is calculated using the CKD-EPI formula. In most young, healthy individuals the eGFR will be >90 mL/min/1.73m2. The eGFR declines with age. An eGFR of 60-89 may be normal in some populations, particularly the elderly, for whom the CKD-EPI formula has not been extensively validated. Use of the eGFR is not recommended in the following populations:& lt;br/>
Individuals with unstable creatinine concentrations, including patients [...] should be multiplied by the estimated BMI. [facility] CHEMISTRY Creatinine Lvl 1.0 0.5 - 1.4 10/02/2012 Normal [facility] CHEMISTRY CO2 30 24 - 32 10/02/2012 Normal [facility] CHEMISTRY Total Protein 8.1 6.4 - 8.4 10/02/2012 Normal [facility] CHEMISTRY Calcium Lvl 8.8 8.5 - 10.5 10/02/2012 Normal [facility] CHEMISTRY Alk Phos 85 39 - 136 10/02/2012 Normal [facility] CHEMISTRY ALT 40 0 - 65 10/02/2012 Normal [facility] CHEMISTRY Albumin Lvl 4.1 3.5 - 5.0 10/02/2012 Normal [facility] CHEMISTRY AST 37 0 - 37 10/02/2012 Normal [facility] CHEMISTRY Bili Total 0.7 0.2 - 1.3 10/02/2012 Normal [facility] CHEMISTRY BUN 14 7 - 22 10/02/2012 Normal [facility] CHEMISTRY Glucose Lvl 245 70 - 99 10/02/2012 [facility] <sup>2</sup>Interpretive Data: Adult reference range values reflect the clinical guidelines
of the [place] [employer]. [facility] CHEMISTRY Chloride Lvl 98 95 - 109 10/02/2012 Normal [facility] CHEMISTRY Sodium Lvl 137 135 - 145 10/02/2012 Normal [facility] CHEMISTRY Potassium Lvl 4.4 3.5 - 5.1 10/02/2012 Normal [facility] CHEMISTRY Lipase Lvl 70 73 - 393 10/02/2012 LOW [facility] HEMATOLOGY PTT 33.8 22.9 - 35.8 10/02/2012 Normal <sup>4</sup>Interpretive Data: Heparin Therapeutic Range: 57 - 92 Seconds [facility] HEMATOLOGY PT 14.4 12.0 - 14.7 10/02/2012 Normal [facility] HEMATOLOGY INR 1.10 0.85 - 1.17 10/02/2012 Normal <sup>3</sup>Interpretive Data: RECOMMENDED RANGES FOR PROTIME INR:
2.0-3.0 for most medical and surgical thromboembolic states.
2.5-3.5 for artificial heart valves and recurrent embolism.

INR SHOULD BE USED ONLY FOR PATIENTS ON STABLE ANTICOAGULANT THERAPY. [facility] HEMATOLOGY Hct 41.4 42.0 - 54.0 10/02/2012 LOW [facility] HEMATOLOGY MCV 88.0 80.0 - 94.0 10/02/2012 Normal [facility] HEMATOLOGY RBC 4.71 4.70 - 6.10 10/02/2012 Normal [facility] HEMATOLOGY Hgb 13.5 14.0 - 18.0 10/02/2012 LOW [facility] HEMATOLOGY MCH 28.6 27.0 - 31.0 10/02/2012 Normal [facility] HEMATOLOGY MCHC 32.5 32.0 - 36.0 10/02/2012 Normal [facility] HEMATOLOGY RDW 14.5 11.5 - 14.5 10/02/2012 Normal [facility] HEMATOLOGY WBC 14.0 3.7 - 10.4 10/02/2012 HI [facility] HEMATOLOGY MPV 7.9 7.4 - 10.4 10/02/2012 Normal [facility] HEMATOLOGY Platelet 267 133 - 450 10/02/2012 Normal [facility] HEMATOLOGY Basophils # 0.0 0.0 - 0.2 10/02/2012 Normal [facility] Hypochrom Slight (10/01/2012 22:45:00) None Seen 10/02/2012 Normal [facility] Eosinophils 0.4 0.0 - 4.0 10/02/2012 Normal [facility] Basophils 0.2 0.0 - 1.0 10/02/2012 Normal [facility] Segs-Bands # 12.2 1.5 - 8.1 10/02/2012 HI [facility] HEMATOLOGY Segs 86.7 45.0 - 75.0 10/02/2012 HI [facility] Lymphocytes 8.2 20.0 - 40.0 10/02/2012 LOW [facility] Monocytes 4.5 2.0 - 12.0 10/02/2012 Normal [facility] Lymphocytes # 1.2 1.0 - 5.5 10/02/2012 Normal [facility] Monocytes # 0.6 0.0 - 0.8 10/02/2012 Normal [facility] Eosinophils # 0.1 0.0 - 0.5 10/02/2012 Normal [facility] Plt Morph Normal (10/01/2012 22:45:00) 10/02/2012 Normal [facility] Pathology Reports No Data Provided for This Section Diagnostic Reports Report Value Date Source Knee wo contrast MRI EXAMINATION: MRI of the right knee without contrast. HISTORY: M25.569 Pain in unspecified knee; lateral right knee pain; right knee medial meniscus tear FINDINGS: Radiographs dated 08/24/2015 are reviewed demonstrating post surgical changes of rdivr-[id number] amputation. Multiplanar, multisequence magnetic resonance imaging of [...] in keeping with the patient's history of [id number] amputation. Cartilage: Within the medial compartment, there [...] in keeping with the patient's history of [id number] amputation. 5. Intact right knee cruciate and collateral ligaments without lateral or patellofemoral compartment chondrosis. 09/01/2015 MARY KAY Crowe Knee 1-2 Views unilateral DX Exam: Right [...] seen within the deep arterial system. 08/24/2015 MARY KAY Crowe Temporal bone wo contrast CT CT TEMPORAL [...] intact. The inner ear structures are normal and symmetrical in comparison with the contralateral side. [...] exclude underlying or developing cholesteatoma. SL:17 01/08/2013 [facility] Consultation Notes No Data Provided for This Section Discharge Summaries No Data Provided for This Section History and Physicals No Data Provided for This Section Vital Signs Vital Sign Value Date Comments Source Respitory Rate 13 02/07/2013 [facility] Systolic (mm Hg) 107 02/07/2013 [facility] Diastolic (mm Hg) 59 02/07/2013 [facility] Respitory Rate 15 02/07/2013 [facility] Systolic (mm Hg) 134 02/07/2013 [facility] Respitory Rate 14 02/07/2013 [facility] Diastolic (mm Hg) 69 02/07/2013 [facility] Systolic (mm Hg) 139 02/07/2013 [facility] Diastolic (mm Hg) 69 02/07/2013 [facility] Heart Rate 72 02/07/2013 [facility] Heart Rate 73 02/05/2013 [facility] Weight 114.545 02/05/2013 [facility] Height 193.04 cm 02/05/2013 [facility] Encounters Location Location Details Encounter Type Encounter Number Reason For Visit Attending Provider ADM Date DC Date Status Source [facility] Outpatient [id number] EAR INFECTION VERITO LINK 08/24/2012 Active [facility] Emergency [id number] GASTON SILVER 10/01/2012 10/02/2012 Discharged [facility] OD [id number] 388.60 - OTORRHEA NOS LYNNE SCHNEIDER 01/08/2013 01/08/2013 Active [facility] DS [id number] LYNNE SCHNEIDER 02/07/2013 02/07/2013 Discharged [facility] [place] [facility] [id number] Rohan Hernandez 08/24/2015 08/25/2015 [facility] [place] [facility] [id number] Rohan Hernandez 09/01/2015 09/02/2015 [facility] [place] [facility] [id number] Morejon 04/12/2018 04/12/2018 [facility] Procedures Procedure Code Date Perfomer Comments Source Allograft bypass of coronary artery [id number] [place] Amputation of toe [id number] [place] Excision of gallbladder [id number] [place] Allograft bypass of coronary artery [id number] [place] Amputation of toe 223868110 [place] Aorto-femoral arterial bypass 776027244 [place] Cardiac catheterization 12728658 [place] Excision of gallbladder 86302898 [place] Allograft bypass of coronary artery [id number] [facility] [place] Amputation of toe [id number] [facility] [place] Aorto-femoral arterial bypass [id number] [facility] [place] Cardiac catheterization [id number] [facility] [place] Excision of gallbladder [id number] [facility] [place] Aorto-femoral arterial bypass [facility] Cardiac catheterization [id number] [facility] Assessment and Plan No Data Provided for This Section Plan of Care No Data Provided for This Section Social History Social History Date Source No data available for this section 04/12/2018 [facility] No data available for this section 09/02/2015 MARY KAY Crowe Family History No Data Provided for This Section Advance Directives No Data Provided for This Section Functional Status No Data Provided for This Section
[2018-12-02] MEDS ORDERED: INSULIN REGULAR, HUMAN 3ML VL 100 UNIT in SODIUM CHLORIDE 0.9% 100 ML 100 ML IV SCH ×2 (10:00)
[2018-12-02 10:27] LABS: BASOPHILS % 0.1 % (0.0-1.0); EOSINOPHILS % 0.2 % (0.0-6.0); HEMATOCRIT 30.5 % (38.2-49.6); HEMOGLOBIN 10.3 g/dL (14.0-18.0); LYMPHOCYTES # (AUTO) 0.6 (1.0-3.2); MEAN CORPUSCULAR HEMOGLOBIN 31.2 pg (28-32); MEAN CORPUSCULAR HGB CONC 33.8 g/dL (31-35); MEAN CORPUSCULAR VOLUME 92.4 fL (81-99); MONOCYTES # (AUTO) 0.3 (0.2-0.8); MONOCYTES % 3.3 % (4.4-11.3); NEUTROPHILS # (AUTO) 7.3 (2.1-6.9); PLATELET COUNT 201 x10e3/uL (140-360); RED CELL DISTRIBUTION WIDTH 13.3 % (11.7-14.4)
[2018-12-02 10:43] LABS: ALBUMIN 3.5 g/dL (3.5-5.0); ALBUMIN/GLOBULIN RATIO 1.2 (0.8-2.0); ANION GAP 23.4 mmol/L (8-16); CALCIUM 9.1 mg/dL (8.4-10.2); CREATININE, SERUM 2.52 mg/dL (0.72-1.25); POTASSIUM 4.4 mmol/L (3.5-5.1)
[2018-12-02 10:49] LABS: CREATINE KINASE MB 1.7 ng/mL (0-5.0)
[2018-12-02] MEDS ORDERED: INSULIN REGULAR, HUMAN 100 UNIT/1 ML 3ML VIAL ONE (10:49)
[2018-12-02 10:56] LABS: BILIRUBIN,URINE NEGATIVE (NEGATIVE); CLARITY,URINE CLEAR (CLEAR); COLOR,URINE YELLOW (YELLOW); KETONES,URINE 1+ (NEGATIVE); LEUKOCYTE ESTERASE ,URINE NEGATIVE (NEGATIVE); NITRITE,URINE NEGATIVE (NEGATIVE); PROTEIN,URINE DIPSTICK NEGATIVE (NEGATIVE); URINE UROBILINOGEN 0.2 mg/dL (0.2 - 1)
[2018-12-02 11:01] LABS: WBC,URINE (MAN) 0-5 /HPF (0-5)
[2018-12-02 11:02] LABS: MUCUS,URINE FEW (RARE)
[2018-12-02] MEDS ORDERED: INSULIN REGULAR, HUMAN 100 UNIT/1 ML 3ML VIAL IV ONE (11:15)
[2018-12-02] MEDS ORDERED: SODIUM CHLORIDE 0.9% 1000ML 1,000 ML ONE (11:27)
[2018-12-02] MEDS ORDERED: MAGNESIUM SULF 1GRAM/DEXTROSE 100 ML IV PRN (11:30)
[2018-12-02] MEDS ORDERED: DIPHENHYDRAMINE HCL INJ 50 MG/ML VIAL IV PRN (11:30)
[2018-12-02] MEDS ORDERED: INSULIN REGULAR, HUMAN 3ML VL 100 UNIT in SODIUM CHLORIDE 0.9% 100 ML IV SCH ×2 (11:30)
[2018-12-02] MEDS ORDERED: POTASSIUM CHLORIDE 20MEQ/100ML 200 ML IV PRN (11:30)
[2018-12-02] MEDS ORDERED: MORPHINE SULFATE 2 MG/ML SYR 1ML IV PRN (11:30)
[2018-12-02] MEDS ORDERED: ACETAMINOPHEN 325 MG TAB PO PRN (11:30)
[2018-12-02] MEDS ORDERED: ONDANSETRON HCL INJ 2MG/ML 2ML 2 MG/ML VIAL IV PRN (11:30)
[2018-12-02] MEDS: SODIUM CHLORIDE 0.9% 1000ML 1,000 ML IV SCH ×3 (11:45→16:10)
[2018-12-02] MEDS ORDERED: MORPHINE SULFATE INJ 4 MG/ML INJ 1ML IV PRN (11:45)
--- OUTSIDE RECORDS SUMMARY | 2018-12-02 11:45 | XMS REPORT | Clinical Summary ---
Author Author D[facility] Address Unknown Phone Unavailable Care Team Providers Care Kitchen And Counter Worker Name Role Phone Rohan Hernandez PCP Allergies [...] Lin, Fang-Ying, MD Coronary artery disease involving duckwater coronary artery of duckwater heart without angina pectoris (Primary Dx); S/P CABG (coronary artery bypass graft); PAD (peripheral artery disease) ([facility]); Stenosis of carotid artery, unspecified laterality; Essential hypertension; Hyperlipidemia, unspecified hyperlipidemia type; Type 1 diabetes mellitus on insulin therapy ([facility]); Type 2 diabetes mellitus treated with insulin ([facility]) 04/24/2018 Hospital Cardiology - Encounter 04/27/2018 04/24/2018 Travel Polo Guzmán III, MD 04/24/2018 Orders Only Internal Medicine Segundo Hoyos MD L CATH & CORONARY ANGIOS 03/08/2018 Surgery Segundo Hoyos MD Coronary artery disease involving duckwater coronary artery of duckwater heart without angina pectoris; PAD (peripheral artery disease) ([facility]); Essential hypertension; Other hyperlipidemia; Stenosis of carotid artery, unspecified laterality; Type 1 diabetes mellitus with diabetic chronic kidney disease, unspecified CKD stage ([facility]); Status post left heart catheterization (LHC); S/P CABG (coronary artery bypass graft); SOB (shortness of breath) 03/08/2018 Hospital Cardiology - Encounter 03/10/2018 03/08/2018 Orders Only General Internal Medicine Segundo Hoyos MD PAD (peripheral artery disease) ([facility]); Coronary artery disease involving duckwater coronary artery of duckwater heart without angina pectoris 03/07/2018 Hospital Radiology Encounter Segundo Hoyos MD PAD (peripheral artery disease) (HCC); Coronary artery disease involving duckwater coronary artery of duckwater heart without angina pectoris 03/07/2018 Hospital Radiology Encounter Segundo Hoyos MD PAD (peripheral artery disease) ([facility]) (Primary Dx); Coronary artery disease involving duckwater coronary artery of duckwater heart without angina pectoris 03/06/2018 Outside Orders [...] Taken Vital Sign Reading 04/27/2018 12:57 PM GUN BARREL FINISHER Blood Pressure 140/65 04/27/2018 12:57 PM GUN BARREL FINISHER Pulse 78 04/27/2018 12:57 PM GUN BARREL FINISHER Temperature 36.7 C (98 F) 04/27/2018 12:57 PM GUN BARREL FINISHER Respiratory Rate 19 04/27/2018 12:57 PM GUN BARREL FINISHER Oxygen Saturation 100% 04/25/2018 11:51 PM GUN BARREL FINISHER Inhaled Oxygen 21% Concentration 04/26/2018 7:50 AM GUN BARREL FINISHER Weight 104.2 kg (229 lb 12.2 oz) 04/24/2018 3:30 PM GUN BARREL FINISHER Height 193 cm (6' 4") 04/26/2018 7:50 AM GUN BARREL FINISHER Body Mass Index 27.97 Plan of Treatment Not on file Implants Device Identifier Shelf Expiration Date Model / Serial / Lot Implanted Type Area [facility] [id number] 12/19/2018 [id number] / / [id number] Device Clsr Angio-Seal Vip 8fr Cardiovasc [facility] [id number] - [id number] esme MED:CARDIA Implanted: Qty: 1 on 04/25/2018 by Segundo Miller MD 06/03/2016 [id number] / / [id number] Zilvgermaine Ptx Drug-Eluting Stents-Per COOK Peripheral Stent ipheral VASCULAR Implanted: Qty: 1 on 05/13/2016 by Jass Hong MD 03/21/2019 [id number] / / [id number] Innova Vascular Stents-Per [place] Implanted: Qty: 1 on 05/13/2016 by NarusJass June MD [id number] 09/13/2019 [id number] / / [id number] Synergy [place] Implanted: Qty: 1 on 04/25/2018 by Segundo Kothari MD Procedures Comments Procedure Name Priority Date/Time Associated Diagnosis RHYTHM STRIP - SCAN 08/28/2018 8:50 AM CDT VASCULAR DIAGRAM -SCAN 05/07/2018 12:21 PM GUN BARREL FINISHER RHYTHM STRIP - SCAN 05/04/2018 10:01 AM GUN BARREL FINISHER CARDIAC CATH REPORT - 05/04/2018 SCAN 10:01 AM GUN BARREL FINISHER ECHOCARDIOGRAM REPORT - 04/27/2018 SCAN 4:20 PM GUN BARREL FINISHER 2D ECHO W/ DOPPLER Routine 04/27/2018 (CW/PW/COLOR) 11:05 AM GUN BARREL FINISHER POCT-GLUCOSE METER Routine 04/27/2018 9:48 AM GUN BARREL FINISHER T4, FREE Routine 04/27/2018 5:12 AM GUN BARREL FINISHER VITAMIN B12 AND FOLATE Routine 04/27/2018 5:12 AM GUN BARREL FINISHER HIV-1 ANTIGEN WITH Routine 04/27/2018 HIV-1/2 ANTIBODY 5:12 AM GUN BARREL FINISHER TSH/FREE T4 IF INDICATED Routine 04/27/2018 5:12 AM GUN BARREL FINISHER RPR Routine 04/27/2018 5:12 AM GUN BARREL FINISHER HEMOGLOBIN A1C Routine 04/27/2018 5:12 AM GUN BARREL FINISHER BASIC METABOLIC PANEL (7) Routine 04/27/2018 5:12 AM GUN BARREL FINISHER MR BRAIN WITHOUT IV STAT 04/26/2018 CONTRAST 10:20 PM GUN BARREL FINISHER MR MRA NECK WITHOUT IV STAT 04/26/2018 CONTRAST 10:20 PM GUN BARREL FINISHER MR MRA HEAD WITHOUT STAT 04/26/2018 CONTRAST 10:20 PM GUN BARREL FINISHER URINALYSIS WITH Routine 04/26/2018 MICROSCOPIC IF INDICATED 7:24 PM GUN BARREL FINISHER BLOOD CULTURE STAT 04/26/2018 7:24 PM GUN BARREL FINISHER CBC W/PLT COUNT & AUTO Routine 04/26/2018 DIFFERENTIAL 7:23 PM GUN BARREL FINISHER LACTIC ACID, VENOUS Routine 04/26/2018 7:23 PM GUN BARREL FINISHER PHOSPHORUS Routine 04/26/2018 7:23 PM GUN BARREL FINISHER MAGNESIUM Routine 04/26/2018 7:23 PM GUN BARREL FINISHER APTT Routine 04/26/2018 7:23 PM GUN BARREL FINISHER PROTHROMBIN TIME/INR Routine 04/26/2018 7:23 PM GUN BARREL FINISHER COMPREHENSIVE METABOLIC Routine 04/26/2018 PANEL 7:23 PM GUN BARREL FINISHER CBC W/PLT COUNT & AUTO Routine 04/26/2018 DIFFERENTIAL 7:23 PM GUN BARREL FINISHER POCT-GLUCOSE METER Routine 04/26/2018 6:21 PM GUN BARREL FINISHER POCT-GLUCOSE METER Routine 04/26/2018 6:[address] BRAIN WITHOUT IV STAT 04/26/2018 CONTRAST 5:16 PM GUN BARREL FINISHER POCT-GLUCOSE METER Routine 04/26/2018 11:36 AM GUN BARREL FINISHER POCT-GLUCOSE METER Routine 04/26/2018 7:57 AM GUN BARREL FINISHER CBC W/PLT COUNT & AUTO Routine 04/26/2018 DIFFERENTIAL 4:02 AM GUN BARREL FINISHER BASIC METABOLIC PANEL (7) Routine 04/26/2018 4:02 AM GUN BARREL FINISHER CBC W/PLT COUNT & AUTO Routine 04/26/2018 DIFFERENTIAL 4:02 AM GUN BARREL FINISHER PHOSPHORUS Routine 04/26/2018 4:02 AM GUN BARREL FINISHER MAGNESIUM Routine 04/26/2018 4:02 AM GUN BARREL FINISHER CALCIUM, IONIZED Routine 04/26/2018 4:02 AM GUN BARREL FINISHER POCT-GLUCOSE METER Routine 04/25/2018 9:21 PM GUN BARREL FINISHER ELECTROLYTE PANEL STAT 04/25/2018 4:09 PM GUN BARREL FINISHER CREATININE, RANDOM URINE Routine 04/25/2018 4:09 PM GUN BARREL FINISHER PROTEIN, RANDOM URINE Routine 04/25/2018 4:09 PM GUN BARREL FINISHER URINALYSIS W/ MICROSCOPIC Routine 04/25/2018 4:09 PM GUN BARREL FINISHER POCT-GLUCOSE METER Routine 04/25/2018 10:14 AM GUN BARREL FINISHER POCT-GLUCOSE METER Routine 04/25/2018 9:12 AM GUN BARREL FINISHER POCT-ACT Routine 04/25/2018 9:05 AM GUN BARREL FINISHER POCT-ACT Routine 04/25/2018 8:54 AM GUN BARREL FINISHER PCI 04/25/2018 Coronary artery disease 7:30 AM GUN BARREL FINISHER involving duckwater heart, angina presence unspecified, unspecified vessel or lesion type Case Notes (1) CASE POP6 . 663mGy POCT-GLUCOSE METER Routine 04/25/2018 6:35 AM GUN BARREL FINISHER CBC W/PLT COUNT & AUTO STAT 04/25/2018 DIFFERENTIAL 4:40 AM GUN BARREL FINISHER LIPID PANEL Routine 04/25/2018 4:40 AM GUN BARREL FINISHER PROTHROMBIN TIME/INR STAT 04/25/2018 4:40 AM GUN BARREL FINISHER BASIC METABOLIC PANEL (7) STAT 04/25/2018 4:40 AM GUN BARREL FINISHER CBC W/PLT COUNT & AUTO STAT 04/25/2018 DIFFERENTIAL 4:40 AM GUN BARREL FINISHER ECG 12-LEAD Routine 04/25/2018 4:33 AM GUN BARREL FINISHER POCT-GLUCOSE METER Routine 04/25/2018 2:51 AM GUN BARREL FINISHER POCT-GLUCOSE METER Routine 04/24/2018 11:32 PM GUN BARREL FINISHER POCT-GLUCOSE METER Routine 04/24/2018 10:08 PM GUN BARREL FINISHER BASIC METABOLIC PANEL (7) Routine 04/24/2018 7:06 PM GUN BARREL FINISHER RHYTHM STRIP - SCAN 03/13/2018 11:20 AM [...] ms QTC Calculatio n(Bazett) 520 ms P [place] 59 degrees R [place] 67 degrees T [place] 38 degrees Sinus rhythm with Premature atrial [...] Coronary artery disease 12:24 PM CDT involving duckwater coronary artery of duckwater heart, angina presence unspecified Case Notes POP6 PT ALLERGIC TO IODINE. Special Needs PT ALLERGIC TO IODINE ECG 12-LEAD Routine 03/08/2018 9:27 AM CDT Procedure Note - Interface, External Ris In - 03/08/2018 12:04 PM CDT Ventricula r Rate 78 BPM Atrial Rate 78 BPM P-R Interval 184 ms QRS Duration 170 ms Q-T Interval 424 ms QTC Calculatio n(Bazett) 483 ms P [place] 54 degrees R [place] 67 degrees T [place] 47 degrees Sinus rhythm with Premature atrial [...] CDT disease) (HCC) Coronary artery disease involving duckwater coronary artery of duckwater heart without angina pectoris CT/CTA CHEST Routine 03/07/2018 PAD (peripheral artery 12:00 PM CDT disease) (HCC) Coronary artery disease involving duckwater coronary artery of duckwater heart without angina pectoris POCT-CREATININE Routine 03/07/2018 11:29 AM CDT after 12/01/2017 Results * RHYTHM STRIP - SCAN (08/28/2018 8:50 AM CDT) Only the most recent of 3 results within the time period is included. Narrative Performed At * VASCULAR DIAGRAM -SCAN (05/07/2018 12:21 PM GUN BARREL FINISHER) Only the most recent of 2 results within the time period is included. Narrative Performed At * CARDIAC CATH REPORT - SCAN (05/04/2018 10:01 AM GUN BARREL FINISHER) Narrative Performed At * ECHOCARDIOGRAM REPORT - SCAN (04/27/2018 4:20 PM GUN BARREL FINISHER) Narrative Performed At * 2D Echo W/Doppler(CW/PW/Color) (04/27/2018 11:05 AM GUN BARREL FINISHER) Ejection Fraction [facility] Specimen Narrative Performed At Transthoracic Echocardiography Report (TTE) [facility]ographics [facility] Patient Name TIM COUCH Date of Study 04/27/2018 MAITAS [id number] Male Visit Number [id number] Room Number C624 Number Date of Birth1955Referring Physician Soha Crews Age62 year(s)Building Consultant Jsaen Douglas [facility] AnalystAlex Helio Olivares, Physician Procedure Type [...] External Ris In - 04/27/2018 3:51 PM GUN BARREL FINISHER Transthoracic Echocardiography Report (TTE) Demographics Patient Name RILEY TIM Date of Study 04/27/2018 MATIAS Gender Male Visit Number [id number] Race Room Number C624 Number Date of 1955 Referring Physician Soha Crews Age 62 year(s) Building Consultant Jasen Douglas RDCS Repairer Controller Tester Alberto Cadet Interpreting Rod Olivares, Physician Procedure [...] CPACS * POC-Glucose meter (04/27/2018 9:48 AM GUN BARREL FINISHER) Only the most recent of 28 results within the time period is included. POC-Glucose Meter 244 (H)Comment: TESTED AT 70 - 110 mg/dL [facility] [address] [place] [id number] Specimen Blood Performing Organization Address City/State/Zipcode Phone Number [phone] [place] [address] * Vitamin B12 and Folate (04/27/2018 5:12 AM GUN BARREL FINISHER) Vitamin B12 206 (L) 213 - 816 pg/mL [facility] Folate 11.1 >=7.0 ng/mL [facility] Specimen Blood Performing Organization Address City/[facility] Phone Number [phone] [place] [address] * TSH/Free T4 If Indicated (04/27/2018 5:12 AM GUN BARREL FINISHER) TSH 0.35 0.35 - 4.94 uIU/mL [facility] Specimen Blood Performing Organization Address City/[facility] Cent[facility]ode Phone Number [phone] [place] [address] * HIV-1 Antigen with HIV-1/2 Antibody (04/27/2018 5:12 AM GUN BARREL FINISHER) HIV-1 Antigen with HIV Nonreactive Nonreactive [facility] 1&2 Antibody [facility] Specimen Blood Performing Organization Address City/[facility] Cent[facility]ode Phone Number [address] * RPR (04/27/2018 5:12 AM GUN BARREL FINISHER) RPR Nonreactive Nonreactive [facility] Specimen Blood Performing Organization Address City/State/Zipcode Phone Number [address] * T4, free (04/27/2018 5:12 AM GUN BARREL FINISHER) Free T4 1.30 0.70 - 1.48 ng/dL [facility] Specimen Blood Performing Organization Address City/State/Zipcode Phone Number [facility] [address] [place] [address] [facility] * Hemoglobin A1c (04/27/2018 5:12 AM GUN BARREL FINISHER) Hemoglobin A1C 8.7 (H) 4.3 - 6.1 % [facility] Specimen Blood Performing Organization Address City/[facility] Cent[facility]ode Phone Number [facility] [address] [place], [place] [phone] [facility] * Basic Metabolic Panel (04/27/2018 5:12 AM GUN BARREL FINISHER) Only the most recent of 7 results within the time period is included. Sodium 139 136 - 145 meq/L [facility] Potassium 4.1 3.5 - 5.1 meq/L [facility] Chloride 104 98 - 107 meq/L [facility] CO2 24 22 - 29 meq/L [facility] BUN 24 (H) 7 - 21 mg/dL [facility] Creatinine 1.23 0.57 - 1.25 mg/dL [facility] Glucose 215 (H) 70 - 105 mg/dL [facility] Calcium 9.3 8.4 - 10.2 mg/dL [facility] EGFR 59Comment: ESTIMATED GFR IS mL/min/1.73 sq m [facility] NOT ACCURATE CREATININE [facility] CLEARANCE IN PREDICTING GLOMERULAR FILTRATION RATE. ESTIMATED GFR IS NOT APPLICABLE FOR DIALYSIS PATIENTS. Specimen Blood Performing Organization Address City/[facility]/Zipcode Phone Number [facility] [address] [place], [place] [phone] [facility] * MR brain without IV contrast (04/26/2018 10:20 PM GUN BARREL FINISHER) Specimen Narrative Performed At FINAL REPORT [employer] CLINICAL HISTORY: Stroke Ischemic Stroke Evaluation TECHNIQUE: MRI of the brain utilizing axial T2, FLAIR, GRE, DWI; sagittal and coronal T1-weighted images. MRA of the head utilizing 3-D thpf-kx-zxwyum technique, with 3-D reconstructions. MRA of the neck utilizing 2-D and 3-D nvle-ak-yjaahu technique, with 3-D reconstructions. COMPARISON: Same day [...] distal right petrous internal carotid artery. Multifocal tjnq-vl-cooznbin stenosis of the right A2 and A3 [...] MD Report Verified Date/Time:04/26/2018 23:11:40 Reading Location: [address] Transitional Reading Room Procedure Note Interface, External Ris In - 04/26/2018 11:13 PM GUN BARREL FINISHER FINAL REPORT CLINICAL HISTORY: Stroke Ischemic Stroke Evaluation TECHNIQUE: MRI of the brain utilizing axial T2, FLAIR, GRE, DWI; sagittal and coronal T1-weighted images. MRA of the head utilizing 3-D fmdp-rc-xhjgmz technique, with 3-D reconstructions. MRA of the neck utilizing 2-D and 3-D zbby-ov-kfbgmz technique, with 3-D reconstructions. COMPARISON: Same day [...] distal right petrous internal carotid artery. Multifocal ogei-jn-tqvretdx stenosis of the right A2 and A3 [...] Report Verified Date/Time: 04/26/2018 23:11:40 Reading Location: [address] Transitional Reading Room Performing Organization Address City/State/Zipcode Phone Number [employer] * MRA neck without IV contrast (04/26/2018 10:20 PM GUN BARREL FINISHER) Specimen Narrative Performed At FINAL REPORT [employer] CLINICAL HISTORY: Stroke Ischemic Stroke Evaluation TECHNIQUE: MRI of the brain utilizing axial T2, FLAIR, GRE, DWI; sagittal and coronal T1-weighted images. MRA of the head utilizing 3-D kodj-ir-mupitb technique, with 3-D reconstructions. MRA of the neck utilizing 2-D and 3-D vggy-kf-momrfi technique, with 3-D reconstructions. COMPARISON: Same day [...] distal right petrous internal carotid artery. Multifocal kpal-ze-pkmmglro stenosis of the right A2 and A3 [...] MD Report Verified Date/Time:04/26/2018 23:11:40 Reading Location: [facility] B1 C013T Transitional Reading Room Procedure Note Interface, External Ris In - 04/30/2018 11:08 PM GUN BARREL FINISHER FINAL REPORT CLINICAL HISTORY: Stroke Ischemic Stroke Evaluation TECHNIQUE: MRI of the brain utilizing axial T2, FLAIR, GRE, DWI; sagittal and coronal T1-weighted images. MRA of the head utilizing 3-D nvpm-hn-vekwev technique, with 3-D reconstructions. MRA of the neck utilizing 2-D and 3-D lvzi-bd-rbuokn technique, with 3-D reconstructions. COMPARISON: Same day [...] distal right petrous internal carotid artery. Multifocal ygoc-zx-lmgpwwun stenosis of the right A2 and A3 [...] telephone on 04/26/2018 11:10 PM. Signed: Katty Jraquin MD Report Verified Date/Time: 04/26/2018 23:11:40 Reading Location: [address] Reading Room Performing Organization Address City/State/Zipcode Phone Number [employer] * MRA head without IV contrast (04/26/2018 10:20 PM GUN BARREL FINISHER) Specimen Narrative Performed At FINAL REPORT [employer] CLINICAL HISTORY: Stroke Ischemic Stroke Evaluation TECHNIQUE: MRI of the brain utilizing axial T2, FLAIR, GRE, DWI; sagittal and coronal T1-weighted images. MRA of the head utilizing 3-D amfn-nd-qzsrgw technique, with 3-D reconstructions. MRA of the neck utilizing 2-D and 3-D qwdd-dt-aqvfzv technique, with 3-D reconstructions. COMPARISON: Same day [...] distal right petrous internal carotid artery. Multifocal mbtk-ge-hicqzfgz stenosis of the right A2 and A3 [...] MD Report Verified Date/Time:04/26/2018 23:11:40 Reading Location: [address] Transitional Reading Room Procedure Note Interface, External Ris In - 04/26/2018 11:13 PM GUN BARREL FINISHER FINAL REPORT CLINICAL HISTORY: Stroke Ischemic Stroke Evaluation TECHNIQUE: MRI of the brain utilizing axial T2, FLAIR, GRE, DWI; sagittal and coronal T1-weighted images. MRA of the head utilizing 3-D rcsq-dg-huwtkz technique, with 3-D reconstructions. MRA of the neck utilizing 2-D and 3-D dhnf-iy-sgblzm technique, with 3-D reconstructions. COMPARISON: Same day [...] distal right petrous internal carotid artery. Multifocal prgl-dl-lwiwbaza stenosis of the right A2 and A3 [...] Report Verified Date/Time: 04/26/2018 23:11:40 Reading Location: [facility] C0[facility] Transitional Reading Room Performing Organization Address City/[facility] Centercode Phone Number GE RIS * Urinalysis with Microscopic If Indicated (04/26/2018 7:24 PM GUN BARREL FINISHER) Color, UA Light Yellow [facility] Clarity, UA Clear [facility] Specific [place], UA 1.010 1.001 - 1.035 [facility] pH, UA 5.0 5.0 - 8.0 [facility] Protein, UA Negative Negative [facility] Glucose, UA Negative Negative [facility] Ketones, UA Negative Negative [facility] Bilirubin, UA Negative Negative [facility] Blood, UA Negative Negative [facility] Nitrite, UA Negative Negative [facility] Leukocytes, UA Negative Negative [facility] Urobilinogen, UA 0.2 0.2 - 1.0 mg/dL [facility] Specimen Source [facility] Specimen Urine Performing Organization Address City/[facility]/Zipcode Phone Number [facility] [address] [place] [address] [facility] * Blood culture (04/26/2018 7:24 PM GUN BARREL FINISHER) Result No growth in 5 days [facility] Specimen Blood Performing Organization Address City/State/Zipcode Phone Number [facility] [address] [place] [address] [facility] * CBC with platelet count + automated diff (04/26/2018 7:23 PM GUN BARREL FINISHER) Only the most recent of 4 results within the time period is included. WBC 13.9 (H) 3.5 - 10.5 K/L [facility] RBC 4.05 (L) 4.63 - 6.08 M/L [facility] Hemoglobin 12.2 (L) 13.7 - 17.5 GM/DL [facility] Hematocrit 36.6 (L) 40.1 - 51.0 % [facility] MCV 90.4 79.0 - 92.2 fL [facility] MCH 30.1 25.7 - 32.2 pg [facility] MCHC 33.3 32.3 - 36.5 GM/DL [facility] RDW 13.7 11.6 - 14.4 % [facility] Platelets 217 150 - 450 K/CU MM [facility] MPV 10.7 9.4 - 12.4 fL [facility] nRBC 0 0 - 0 /100 WBC [facility] % Neutros 74 % [facility] % Lymphs 19 % [facility] % Monos 6 % [facility] % Eos 1 % [facility] % Baso 0 % [facility] # Neutros 10.27 (H) 1.78 - 5.38 K/L [facility] # Lymphs 2.60 1.32 - 3.57 K/L [facility] # Monos 0.88 (H) 0.30 - 0.82 K/L [facility] # Eos 0.08 0.04 - 0.54 K/L [facility] # Baso 0.03 0.01 - 0.08 K/L [facility] Immature 0 0 - 1 % [facility] Granulocytes-Relative [facility] Specimen Blood Performing Organization Address City/[facility] Centercode Phone Number [address] [address] [facility] * Lactic acid, venous, whole blood (04/26/2018 7:23 PM GUN BARREL FINISHER) Lactate, Venous 1.8Comment: Specimen slightly 0.5 - 2.2 mmol/L [facility] hemolyzed [facility] Specimen Blood Performing Organization Address City/[facility] [place] [address] [facility] * aPTT (04/26/2018 7:23 PM GUN BARREL FINISHER) PTT 31.0 22.5 - 36.0 seconds [facility] Specimen Blood Performing Organization Address City/[facility] [place] [address] [facility] * Prothrombin time/INR (04/26/2018 7:23 PM GUN BARREL FINISHER) Only the most recent of 3 results within the time period is included. Protime 13.5 11.7 - 14.7 seconds [facility] INR 1.0 <=5.9 [facility] Specimen Blood Narrative Performed At RECOMMENDED COUMADIN/WARFARIN INR THERAPY RANGES [facility] STANDARD DOSE: 2.0 - 3.0 Includes: PROPHYLAXIS for venous thrombosis, [facility] systemic embolization; TREATMENT for venous thrombosis and/or pulmonary embolus. HIGH RISK: Target INR is 2.5-3.5 for patients with mechanical heart valves. Performing Organization Address City/[facility] Centercode Phone Number [address] [place] [address] [phone] * Phosphorus (04/26/2018 7:23 PM GUN BARREL FINISHER) Only the most recent of 3 results within the time period is included. Phosphorus 3.5Comment: Specimen markedly 2.3 - 4.7 mg/dL [facility] Specimen Blood Performing Organization Address [place]/[facility] Centercoal Phone Number [address] * Magnesium (04/26/2018 7:23 PM GUN BARREL FINISHER) Only the most recent of 4 results within the time period is included. Magnesium 3.1 (H)Comment: Specimen 1.6 - 2.6 mg/dL [facility] markedly [facility] Specimen Blood Performing Organization Address [place]/[facility] Phone Number [address] * Comprehensive metabolic panel (04/26/2018 7:23 PM GUN BARREL FINISHER) Protein, Total 8.5 (H)Comment: Specimen 6.0 - 8.3 gm/dL [facility] Albumin 4.2Comment: Specimen markedly 3.5 - 5.0 g/dL [facility] Alkaline Phosphatase 72 40 - 150 U/L [facility] Total Bilirubin 0.4Comment: Specimen markedly 0.2 - 1.2 mg/dL [facility] Sodium 139 136 - 145 meq/L [facility] Potassium 5.1Comment: Specimen markedly 3.5 - 5.1 meq/L [facility] Chloride 102 98 - 107 meq/L [facility] CO2 25 22 - 29 meq/L [facility] BUN 27 (H) 7 - 21 mg/dL [facility] Creatinine 1.34 (H)Comment: Specimen 0.57 - 1.25 mg/dL [facility] markedly hemolyzed [facility] Glucose 110 (H) 70 - 105 mg/dL [facility] Calcium 9.5 8.4 - 10.2 mg/dL [facility] AST 35 (H)Comment: Specimen 5 - 34 U/L [facility] markedly hemolyzed [facility] ALT 10Comment: Specimen markedly 6 - 55 U/L [facility] hemolyzed [facility] EGFR 54Comment: ESTIMATED GFR IS mL/min/1.73 sq m [facility] NOT ACCURATE CREATININE [facility] CLEARANCE IN PREDICTING GLOMERULAR FILTRATION RATE. ESTIMATED GFR IS NOT APPLICABLE FOR DIALYSIS PATIENTS. Specimen Blood Performing Organization Address City/State/Zipcode Phone Number [facility] [address] [place] [address] [facility] * CT brain without IV contrast (04/26/2018 5:16 PM GUN BARREL FINISHER) Specimen Narrative Performed At FINAL REPORT [employer] [facility] CT head without contrast 04/26/2018 5:12 PM [...] MD Report Verified Date/Time:04/26/2018 18:36:43 Reading Location: [facility] Radiology Reading Room Procedure Note Interface, External Ris In - 04/26/2018 6:49 PM GUN BARREL FINISHER FINAL REPORT CT head without contrast 04/26/2018 [...] Report Verified Date/Time: 04/26/2018 18:36:43 Reading Location: [facility] Radiology Reading Room Performing Organization Address City/[facility]/Zipcode Phone Number RIS * Calcium, Ionized (04/26/2018 4:02 AM GUN BARREL FINISHER) Calcium, Ion 1.13 1.12 - 1.27 mmol/L [facility] pH, Blood 7.39 [facility] Specimen Blood Performing Organization Address City/[facility]/Zipcode Phone Number [facility] [address] [place] [address] [facility] * Protein, random urine (04/25/2018 4:09 PM GUN BARREL FINISHER) Only the most recent of 2 results within the time period is included. Protein, Urine 20 (H) 0 - 14 mg/dL [facility] Specimen Urine Performing Organization Address [place]/[facility] Cent[facility] Phone Number [place] [phone] * Creatinine, random urine (04/25/2018 4:09 PM GUN BARREL FINISHER) Creatinine, Ur 73.5 mg/dL [facility] Specimen Urine Narrative Performed At Reference Range: No Normals [facility] Performing Organization Address [place]/[facility] Cent[facility]ode Phone Number [address] * Urinalysis w/Microscopic (04/25/2018 4:09 PM GUN BARREL FINISHER) Color, UA Yellow [facility] Clarity, UA Clear [facility] Specific [place], UA 1.037 (H) 1.001 - 1.035 [facility] pH, UA 5.0 5.0 - 8.0 [facility] Protein, UA 20 mg/dL (A) Negative [facility] Glucose, UA 500 mg/dL (A) Negative [facility] Ketones, UA Negative Negative [facility] Bilirubin, UA Negative Negative [facility] Blood, UA Trace (A) Negative [facility] Nitrite, UA Negative Negative [facility] Leukocytes, UA Negative Negative [facility] Urobilinogen, UA 0.2 0.2 - 1.0 mg/dL [facility] RBC, UA 1 /HPF [facility] WBC, UA <1 /HPF [facility] Squam Epithel, UA <1 /HPF [facility] Specimen Source [facility] Specimen Urine Performing Organization Address City/State/[place] [address] [facility] * Electrolytes (04/25/2018 4:09 PM GUN BARREL FINISHER) Sodium 136 136 - 145 meq/L [facility] Potassium 4.1 3.5 - 5.1 meq/L [facility] Chloride 103 98 - 107 meq/L [facility] CO2 23 22 - 29 meq/L [facility] Specimen Blood Narrative Performed At Call [phone] with results [facility] Performing Organization Address City/[facility]/[place] [address] [facility] * POC ACTIVATED CLOTTING TIME (04/25/2018 9:05 AM GUN BARREL FINISHER) Only the most recent of 2 results within the time period is included. Activated Clotting Time 362Comment: TESTED AT [facility] sec [address] Specimen Blood Performing Organization Address City/[facility]/Zipcode Phone Number [address] [address] [phone] [place] [address] * Lipid panel (04/25/2018 4:40 AM GUN BARREL FINISHER) Triglycerides 90 mg/dL [facility] Cholesterol 159 mg/dL [facility] HDL 35 mg/dL [facility] LDL Calculated 106 mg/dL [facility] Specimen Blood Narrative Performed At Triglyceride Reference Range: [facility] Low Risk <150 [facility] [id number] High Risk 200-499 Very High Risk>=500 Cholesterol Reference Range: Low Risk <200 [id number] High Risk>240 HDL Cholesterol Reference Range: Low Risk >=60 High Risk <40 LDL Cholesterol Reference Range: Optimal<100 Near [id number] Very High >=190 Performing Organization Address City/State/Zipcode Phone Number [facility] [address] [place] [address] [facility] * ECG 12 lead (04/25/2018 4:33 AM GUN BARREL FINISHER) Only the most recent of 3 results within the time period is included. Specimen Narrative Performed At Ventricular Rate 97 BPM GE MUSE Atrial Rate 97 BPM P-R Interval 188 ms QRS Duration 164 ms Q-T Interval 406 ms QTC Calculation(Bazett) 515 ms P [place] 61 degrees R [place] 151 degrees T [place] 22 degrees Normal sinus rhythm Right bundle branch block Abnormal ECG When compared with ECG of 09-MAR-2018 14:30, Premature atrial complexes are no longer Present Confirmed by MD ESTEVEZ JORGE ([id number]) on 04/25/2018 1:58:33 PM Procedure Note Interface, External Ris In - 04/25/2018 1:58 PM GUN BARREL FINISHER Ventricular Rate 97 BPM Atrial Rate 97 BPM P-R Interval 188 ms QRS Duration 164 ms Q-T Interval 406 ms QTC Calculation(Bazett) 515 ms P [place] 61 degrees R [place] 151 degrees T [place] 22 degrees Normal sinus rhythm Right bundle branch block Abnormal ECG When compared with ECG of 09-MAR-2018 14:30, Premature atrial complexes are no longer Present Confirmed by MD ESTEVEZ JORGE ([id number]) on 04/25/2018 1:58:33 PM Performing Organization Address City/[facility]/Zipcode Phone Number Stamped * CARDIAC CATH REPORT - SCAN (03/13/2018 11:20 AM CDT) Narrative Performed At * TRANSFUSION SERVICE REPORT - SCAN (03/09/2018 6:09 PM CDT) Narrative Performed At * NM myocardial perfusion PET (rest and stress) (03/09/2018 2:56 PM CDT) Specimen Narrative Performed At FINAL REPORT [employer] PROCEDURE:Rest/Stress MYOCARDIAL PERFUSION PET with regadenoson\\XA9\\ CPT CODE: 98533 INDICATION: CAD HISTORY:Cardiac risk factors: Diabetes, hypertension, [...] MD Report Verified Date/Time:03/09/2018 16:42:51 Reading Location: [address] Reading Room Procedure Note Interface, External Ris In - 03/09/2018 4:45 PM CDT FINAL REPORT PROCEDURE: Rest/Stress MYOCARDIAL PERFUSION PET with regadenoson\\XA9\\ CPT CODE: 24660 INDICATION: CAD HISTORY: Cardiac risk factors: Diabetes, [...] Report Verified Date/Time: 03/09/2018 16:42:51 Reading Location: [address] Reading Room Performing Organization Address City/State/Zipcode Phone Number RIS * Treadmill tolerance(Non-Nuclear Treadmill) (03/09/2018 2:43 PM CDT) Specimen Narrative Performed At Protocol Name Regadenoson Stamped Time In Exercise Phase 00:01:00 Max. Systolic [...] metoprolol LIPITOR Confirmed by fellow Bev Arnold ([id number]) on 03/12/2018 8:24:14 AM Confirmed by MD ESTEVEZ JORGE ([id number]) on 03/29/2018 3:47:55 PM Procedure Note Interface, External Ris In - 03/29/2018 3:48 PM GUN BARREL FINISHER Protocol Name [place] Time In Exercise Phase [...] 8:24:14 AM Confirmed by MD ESTEVEZ JORGE ([id number]) on 03/29/2018 3:47:55 PM Performing Organization Address City/State/[facility] Centercode Phone Number GE MUSE * CBC (Hemogram only) (03/09/2018 4:26 AM CDT) Only the most recent of 2 results within the time period is included. WBC 10.7 (H) 3.5 - 10.5 K/L [facility] RBC 3.56 (L) 4.63 - 6.08 M/L [facility] Hemoglobin 10.7 (L) 13.7 - 17.5 GM/DL [facility] Hematocrit 31.7 (L) 40.1 - 51.0 % [facility] MCV 89.0 79.0 - 92.2 fL [facility] MCH 30.1 25.7 - 32.2 pg [facility] MCHC 33.8 32.3 - 36.5 GM/DL [facility] RDW 13.6 11.6 - 14.4 % [facility] Platelets 196 150 - 450 K/CU MM [facility] MPV 10.3 9.4 - 12.4 fL [facility] nRBC 0 0 - 0 /100 WBC [facility] Specimen Blood Performing Organization Address City/State/Zipcode Phone Number [facility] [address] [place], [place] [phone] [place] [address] * Type and screen, automated (03/08/2018 9:16 AM CDT) ABO/RH AUTOMATED (BEAKER) O POSITIVE [facility] Ab Scrn NEGATIVE [facility] Specimen Blood Performing Organization Address City/State/Zipcode Phone Number [facility] [address] [place] [address] [phone] [place] [address] * CTA chest (03/07/2018 12:00 PM CDT) Specimen Narrative Performed At Addendum Begins [employer] RIS REPORT STATUS:A Addendum: I agree with the previously described non vascular findings by Dr. Wilcox. Signed: Leo Mccloud MD Report Verified Date/Time:03/07/2018 16:03:23 Reading Location: [place] [address] Angio Body Reading Room Addendum Ends FINAL [...] and during intravenous contrast administration using a [employer] multidetector CT scanner. Images were obtained before [...] vascular structure identified medial to the expected duck[place] right SFA. Enhancement is suboptimal at this level. Please kindly correlate clinically. 2.Coronary atherosclerosis. Patient is post coronary artery bypass surgery. 3.The central pulmonary artery is at the upper limits of normal in calibre. No evidence of central pulmonary artery embolism is seen. 4.Other findings as described above. 5.An addendum will be dictated by the Rac Specialist Radiologist regarding the nonvascular findings. Signed: Jose Wilcox MD Report Verified Date/Time:03/07/2018 13:30:05 Reading Location: [place] [address] Cardiology MRI Procedure Note Interface, External Ris In - 03/07/2018 4:05 PM CDT Addendum Begins REPORT STATUS:A Addendum: I agree with the previously described non vascular findings by Dr. Wilcox. Signed: Leo Mccloud MD Report Verified Date/Time: 03/07/2018 16:03:23 Reading Location: [place] [id number] Angio Body Reading Room Addendum Ends FINAL [...] vascular structure identified medial to the expected [place] right SFA. Enhancement is suboptimal at this level. Please kindly correlate clinically. 2. Coronary atherosclerosis. Patient is post coronary artery bypass surgery. 3. The central pulmonary artery is at the upper limits of normal in calibre. No evidence of central pulmonary artery embolism is seen. 4. Other findings as described above. 5. An addendum will be dictated by the Rac Specialist Radiologist regarding the nonvascular findings. Signed: Jose Wilcox MD Report Verified Date/Time: 03/07/2018 13:30:05 Reading Location: [facility] [address] Cardiology MRI Performing Organization Address City/State/Zipcode Phone Number [employer] * CTA abdomen & pelvis (03/07/2018 12:00 PM CDT) Specimen Narrative Performed At Addendum Begins GE RIS REPORT STATUS:A Addendum: I agree with the previously described non vascular findings by Dr. Wilcox. Signed: Leo Mccloud MD Report Verified Date/Time:03/07/2018 16:03:23 Reading Location: [place] [id number] Angio Body Reading Room Addendum Ends FINAL [...] and during intravenous contrast administration using a [employer] multidetector CT scanner. Images were obtained before [...] vascular structure identified medial to the expected [place] right SFA. Enhancement is suboptimal at this level. Please kindly correlate clinically. 2.Coronary atherosclerosis. Patient is post coronary artery bypass surgery. 3.The central pulmonary artery is at the upper limits of normal in calibre. No evidence of central pulmonary artery embolism is seen. 4.Other findings as described above. 5.An addendum will be dictated by the Rac Specialist Radiologist regarding the nonvascular findings. Signed: Jose Wilcox MD Report Verified Date/Time:03/07/2018 13:30:05 Reading Location: [place] [address] Cardiology MRI Procedure Note Interface, External Ris In - 03/07/2018 4:05 PM CDT Addendum Begins REPORT STATUS:A Addendum: I agree with the previously described non vascular findings by Dr. Wilcox. Signed: Leo Mccloud MD Report Verified Date/Time: 03/07/2018 16:03:23 Reading Location: [place] [address] Angio Body Reading Room Addendum Ends FINAL [...] and during intravenous contrast administration using a [employer] multidetector CT scanner. Images were obtained before [...] vascular structure identified medial to the expected duck[place] right SFA. Enhancement is suboptimal at this level. Please kindly correlate clinically. 2. Coronary atherosclerosis. Patient is post coronary artery bypass surgery. 3. The central pulmonary artery is at the upper limits of normal in calibre. No evidence of central pulmonary artery embolism is seen. 4. Other findings as described above. 5. An addendum will be dictated by the Rac Specialist Radiologist regarding the nonvascular findings. Signed: Jose Wilcox MD Report Verified Date/Time: 03/07/2018 13:30:05 Reading Location: [place] [address] Cardiology MRI Performing Organization Address City/State/Zipcode Phone Number GE RIS * POC-Creatinine (03/07/2018 11:29 AM CDT) POC-Creatinine 1.3Comment: TESTED AT [facility]-KG 0.6 - 1.3 mg/dL [facility] [address] [place] [address] POC-EGFR Comment: Insufficient clinical mL/min/1.73M2 [facility] data to calculate estimated [facility] GFR Specimen Blood Narrative Performed At Performing Organization Address City/State/Zipcode Phone Number [facility] [address] [place] [address] [facility] after 12/01/2017 Insurance Payer Benefit Subscriber ID Type Phone Address Plan / Group MEDICARE MEDICARE A xxxxxxxxxxx Medicare B [employer] - MGD UNITED HMO xxxxxxxxx HMO/POS CARE POS SELECT CHOICE Advance Directives For more information, please contact: [facility] [address] [place], [place] [phone] Date Inactivated Comments Code Status Date Activated Full Code 04/24/2018 3:34 PM This code status was determined by: Patient 03/10/2018 7:38 PM Full Code 03/08/2018 8:39 AM This code status was determined by: Patient 05/13/2016 3:28 PM Full Code 05/13/2016 7:52 AM This code status was determined by: Patient
[2018-12-02] MEDS: DEXTROSE 5%/0.45% SOD CHL 1,000 ML IV SCH ×2 (11:46→21:24)
--- OUTSIDE RECORDS SUMMARY | 2018-12-02 11:48 | XMS REPORT | Continuity of Care Document ---
Author Author Red Guru Address Unknown Phone Unavailable Care Team Providers Care [employer] Name Role Phone Audiam Unavailable Unavailable Problems Problem Status Onset Date Classification Date Reported Comments Source Obstructive sleep apnea (pediatric) 04/18/2018 10/30/2018 [facility] FIRST NIGHT 15584 Active 04/09/2018 [facility] 06683/ 384.20 Active 01/24/2013 [facility] 388.60 - OTORRHEA NOS Active 01/08/2013 [facility] DIARRHEA Active 10/01/2012 [facility] EAR INFECTION Active 08/23/2012 [facility] CAD (Confirmed) Resolved Problem 10/30/2018 [facility] Cholesterol1 Resolved Problem 10/30/2018 high [facility] [place],[facility] Diabetes mellitus type II Resolved Problem 10/30/2018 [facility] [place],[facility] History of - chronic ear infection Resolved Problem 10/30/2018 [facility] [place],[facility] HTN - Hypertension Resolved Problem 10/30/2018 [facility] [place],[facility] Neuropathy Resolved Problem 10/30/2018 [facility] Pseudomonas2 Active Problem 10/30/2018 Problem added by Discern Expert. [facility] [place] PVD (Confirmed) Resolved Problem 10/30/2018 [facility] CAD Resolved Problem 02/09/2013 [facility] Cholesterol1 Resolved Problem 02/09/2013 1high [facility], [facility] Diabetes mellitus type II Resolved Problem 02/09/2013 [facility] History of - chronic ear infection Resolved Problem 02/09/2013 [facility], [facility] HTN - Hypertension Resolved Problem 02/09/2013 [facility] Neuropathy Resolved Problem 02/09/2013 [facility] PVD Resolved Problem 02/09/2013 [facility] MASTOIDITIS NOS Active [facility] PERFORAT TYMPAN MEMB NOS Active [facility] OBSTRUCTIVE SLEEP APNEA (ADULT) (PEDIATR Active [facility] Medications Medication Details Route Status Patient Instructions Ordering Provider Order Date Source Vicodin 5/500 oral tablet 1-2 tablets, PO, Q4-6H, PRN, 20 tab, for Pain, Substitution Allowed, Maintenance PO Active Dulce Maria 02/07/2013 [facility] Bactrim DS oral tablet 1 tab, PO, BID, 14 tab, Substitution Allowed, Maintenance PO Active Dulce Maria 02/07/2013 [facility] ondansetron 4 mg, 2 mL, Route: IVP, Drug form: INJ, ONCE, Dosing Weight 114.545, kg, PRN Nausea & Vomiting, Start date: 02/07/13 13:37:00 IVP No Longer Active [facility] 02/07/2013 [facility] labetalol 5 mg, 1 mL, Route: IVP, Drug form: INJ, Q5Min, Dosing Weight 114.545, kg, PRN Elevated BP, Start date: 02/07/13 13:37:00, Duration: 5 doses or times, Stop date: Limited # of times IVP No Longer Active [facility] 02/07/2013 [facility] acetaminophen-10 mg/mL INTRAVENOUS solution 1,000 [...] kg or greater) IV No Longer Active [facility] 02/07/2013 [facility] Lactated Ringers Injection IV 1,000 mL 1,000 mL, Rate: 50 ml/hr, Infuse over: 20 hr, Route: IV, Dosing Weight 114.545 kg, Total Volume: 1,000, Start date: 02/07/13 13:37:00, Duration: 30 day, Stop date: 03/09/13 13:36:00 IV No Longer Active [facility] 02/07/2013 [facility] flumazenil 0.2 mg, 2 mL, Route: IVP, Drug form: INJ, PRN, Dosing Weight 114.545, kg, PRN Benzodiazepine Reversal, Initial dose, Start date: 02/07/13 13:37:00, Duration: 30 day, Stop date: 03/09/13 13:36:00 [facility] meperidine 12.5 mg, 0.25 mL, Route: IVP, Drug form: INJ, Q30Min, Dosing Weight 114.545, kg, PRN Other -See Comment, For shivering, Start date: 02/07/13 13:37:00, Duration: 2 doses or times, Stop date: Limited # of times IVP No Longer Active [facility] 02/07/2013 [facility] naloxone 0.04 mg, 0.1 mL, Route: IVP, Drug form: INJ, Q2MIN, Dosing Weight 114.545, kg, PRN Narcotic Reversal, Start date: 02/07/13 13:37:00, Duration: 8 doses or times, Stop date: Limited # of times IVP No Longer Active [facility] 02/07/2013 [facility] acetaminophen-hydrocodone 325 mg-5 mg oral tablet 2 tab, Route: PO, Drug Form: TAB, Dosing Weight 114.545, kg, Q4H, PRN Pain Score 4-6, Start date: 02/07/13 13:37:00, Duration: 30 day, Stop date: 03/09/13 13:36:00 PO No Longer [facility] 02/07/2013 [facility] acetaminophen-hydrocodone 300 mg-10 mg/15 mL oral liquid 15 mL, Route: PO, Drug Form: SOLN, Dosing Weight 114.545, kg, Q4H, PRN Pain Score 4-6, Start date: 02/07/13 13:37:00, Duration: 30 day, Stop date: 03/09/13 13:36:00 PO No Longer Active [facility] 02/07/2013 [facility] morphine Sulfate 2 mg, 1 mL, Route: IVP, Drug form: INJ, Q5Min, Dosing Weight 114.545, kg, PRN Pain Score 4-6, Start date: 02/07/13 13:37:00, Duration: 5 doses or times, Stop date: Limited # of times IVP No Longer [facility] 02/07/2013 [facility] Lactated Ringers Injection IV 1,000 mL 1,000 mL, Rate: 25 ml/hr, Infuse over: 40 hr, Route: IV, Dosing Weight 114.545 kg, Total Volume: 1,000, Start date: 02/07/13 9:45:00, Duration: 30 day, Stop date: 03/09/13 9:44:00 IV No Longer Active [facility] 02/07/2013 [facility] Insulin Diluting Medium for Novolog intravenous solution IV, Substitution Allowed, Maintenance IV Active 02/05/2013 [facility] aspirin 81 mg tablet, enteric coated 81 mg, 1 tab, PO, Daily, 0 tab, Substitution Allowed, ECTAB PO Active 02/05/2013 [facility] lovastatin 20 mg oral tablet 20 mg, 1 tab, PO, Daily, Substitution Allowed PO Active 02/05/2013 [facility] lisinopril 20 mg oral tablet 20 mg, 1 tab, PO, Daily, Substitution Allowed PO Active 02/05/2013 [facility] Plavix 75 mg oral tablet 75 mg, 1 tab, PO, Daily, Substitution Allowed PO Active 02/05/2013 [facility] influenza virus vaccine, inactivated 0.5 mL, Route: IM, Drug Form: SUSP, ONCALL, Start date: 02/05/13 11:59:32, Stop date: 03/07/13 11:54:32 IM No Longer Active [facility] 02/05/2013 [facility] Phenergan 25 mg oral tablet 25 mg, 1 tab, PO, Q4H, PRN, 15 tab, Nausea, Substitution Allowed PO Active [facility] 10/02/2012 [facility] tramadol 50 mg oral tablet 50 mg, PO, Q4-6H, PRN, 20 tab, Pain, Substitution Allowed PO Active [facility] 10/02/2012 [facility] Flagyl 500 mg oral tablet 500 mg, 1 tab, PO, Q8H, 30 tab, Substitution Allowed PO Active [facility] 10/02/2012 [facility] Insulin regular 4 unit, Route: SUB-Q, ONCE, Dosing Weight 113.636, kg, Start date: 10/02/12 1:07:00, Stop date: 10/02/12 1:07:00 SUB-Q No Longer Active [facility] 10/02/2012 [facility] hydrALAZINE 20 mg, Route: IVP, ONCE, Dosing Weight 113.636, kg, Priority: STAT, Start date: 10/02/12 0:11:00, Stop date: 10/02/12 0:11:00 IVP No Longer Active [facility] 10/02/2012 [facility] clonidine 0.2 mg oral tablet 1 tab, Route: PO, ONCE, Dosing Weight 113.636, kg, Start date: 10/01/12 22:11:00, Stop date: 10/01/12 22:11:00 PO No Longer Active [facility] 10/02/2012 [facility] morphine Sulfate 4 mg, Route: IVP, ONCE, Dosing Weight 113.636, kg, Priority: STAT, Start date: 10/01/12 21:54:00, Stop date: 10/01/12 21:54:00 IVP No Longer Active [facility] 10/02/2012 [facility] ondansetron 4 mg, Route: IVP, ONCE, Dosing Weight 113.636, kg, Priority: STAT, Start date: 10/01/12 21:54:00, Stop date: 10/01/12 21:54:00 IVP No Longer Active [facility] 10/02/2012 [facility] Sodium Chloride 0.9% (Bolus) IV 500 mL 500 mL, Rate: 1,000 ml/hr, Infuse over: 30 minutes, Route: IV, Dosing Weight 113.636 kg, Total Volume: 500, Priority: STAT, Start date: 10/01/12 21:54:00, Duration: 1 doses or times, Stop date: 10/01/12 22:23:00 IV No Longer Active [facility] 10/02/2012 [facility] Saline Flush 0.9% 5 mL, Route: IVP, Drug Form: INJ, Dosing Weight 113.636, kg, PRN, PRN Line Flush, Start date: 10/01/12 21:54:00, Duration: 24 hr, Stop date: 10/02/12 21:53:00 IVP No Longer Active [facility] 10/02/2012 [facility] pneumococcal 23-valent vaccine 0.5 ml, Route: IM, Drug Form: INJ, Start date: 08/09/06 9:00:00 IM No Longer Active [facility] 08/09/2006 [facility], [facility] Allergies, Adverse Reactions, Alerts Substance Category Reaction Severity Reaction type Status Date Reported Comments Source Plastic Tape Assertion Propensity to adverse reactions to substance Active [facility] contrast media (iodine-based) Assertion Drug allergy Active [facility] Immunizations Immunization Date Given Site Status Last Updated Comments Source pneumococcal 23-valent vaccine 08/09/2006 Left Arm completed [facility] MARY KAY [place],[facility] pneumococcal 23-valent vaccine 08/09/2006 completed [facility] Results Order Name Results Value Reference Range Date Interpretation Comments Source BEDSIDE GLUCOSE TESTING Gluc POC 110 70 - 99 02/07/2013 [place] <sup>1</sup>Interpretive Data: Upper Reportable Limit: 200 mg/dL. [facility] BEDSIDE GLUCOSE TESTING Gluc POC 149 70 - 99 02/07/2013 [place] <sup>2</sup>Interpretive Data: Upper Reportable Limit: 200 mg/dL. [facility] BEDSIDE GLUCOSE TESTING Gluc POC Comment 1 Notify RN/MD 02/07/2013 NA [facility] Microbiology Culture: Anaerobic 02/07/2013 [facility] Microbiology Culture: Aspirate/Body Fluid/Tissue 02/07/2013 [facility] CHEMISTRY eGFR 74 02/05/2013 NA <sup>3</sup>Result [...] should be multiplied by the estimated BMI. [facility] CHEMISTRY Glucose Lvl 120 70 - 99 02/05/2013 [place] <sup>4</sup>Interpretive Data: Adult reference range values reflect the clinical guidelines
of the [place] [employer]. [facility] CHEMISTRY Potassium Lvl 4.6 3.5 - 5.1 02/05/2013 Normal [facility] CHEMISTRY Sodium Lvl 142 135 - 145 02/05/2013 Normal [facility] CHEMISTRY Creatinine Lvl 1.1 0.5 - 1.4 02/05/2013 Normal [facility] CHEMISTRY BUN 17 7 - 22 02/05/2013 Normal [facility] CHEMISTRY Calcium Lvl 8.5 8.5 - 10.5 02/05/2013 Normal [facility] CHEMISTRY CO2 30 24 - 32 02/05/2013 Normal [facility] CHEMISTRY Chloride Lvl 104 95 - 109 02/05/2013 Normal [facility] CHEMISTRY AGAP 12.6 10.0 - 20.0 02/05/2013 Normal [facility] HEMATOLOGY Eosinophils 3.4 0.0 - 4.0 02/05/2013 Normal [facility] HEMATOLOGY Lymphocytes # 2.1 1.0 - 5.5 02/05/2013 Normal [facility] HEMATOLOGY Eosinophils # 0.3 0.0 - 0.5 02/05/2013 Normal [facility] HEMATOLOGY Basophils # 0.0 0.0 - 0.2 02/05/2013 Normal [facility] HEMATOLOGY Monocytes # 0.6 0.0 - 0.8 02/05/2013 Normal [facility] HEMATOLOGY Segs-Bands # 5.4 1.5 - 8.1 02/05/2013 Normal [facility] HEMATOLOGY Basophils 0.3 0.0 - 1.0 02/05/2013 Normal [facility] HEMATOLOGY Lymphocytes 25.4 20.0 - 40.0 02/05/2013 Normal [facility] HEMATOLOGY Monocytes 6.6 2.0 - 12.0 02/05/2013 Normal [facility] HEMATOLOGY Segs 64.3 45.0 - 75.0 02/05/2013 Normal [facility] HEMATOLOGY INR 1.06 0.85 - 1.17 02/05/2013 Normal <sup>5</sup>Interpretive Data: RECOMMENDED RANGES FOR PROTIME INR:
2.0-3.0 for most medical and surgical thromboembolic states.
2.5-3.5 for artificial heart valves and recurrent embolism.

INR SHOULD BE USED ONLY FOR PATIENTS ON STABLE ANTICOAGULANT THERAPY. [facility] HEMATOLOGY PT 13.7 12.0 - 14.7 02/05/2013 Normal [facility] HEMATOLOGY PTT 37.7 22.9 - 35.8 02/05/2013 [place] <sup>6</sup>Interpretive Data: Heparin Therapeutic Range: 57 - 92 Seconds [facility] HEMATOLOGY RBC 4.05 4.70 - 6.10 02/05/2013 LOW [facility] HEMATOLOGY Hgb 12.1 14.0 - 18.0 02/05/2013 LOW [facility] HEMATOLOGY WBC 8.4 3.7 - 10.4 02/05/2013 Normal [facility] HEMATOLOGY MPV 8.0 7.4 - 10.4 02/05/2013 Normal [facility] HEMATOLOGY Platelet 243 133 - 450 02/05/2013 Normal [facility] HEMATOLOGY RDW 13.8 11.5 - 14.5 02/05/2013 Normal [facility] HEMATOLOGY MCHC 34.1 32.0 - 36.0 02/05/2013 Normal [facility] HEMATOLOGY Hct 35.3 42.0 - 54.0 02/05/2013 LOW [facility] HEMATOLOGY MCV 87.2 80.0 - 94.0 02/05/2013 Normal [facility] HEMATOLOGY MCH 29.8 27.0 - 31.0 02/05/2013 Normal [facility] URINALYSIS UA Color Ltyellow 10/02/2012 NA [facility] URINALYSIS UA Urobilinogen 0.1 - 1.0 10/02/2012 NA [facility] URINALYSIS UA Glucose 500 mg/dL *ABN* (10/01/2012 23:50:00) Negative 10/02/2012 ABN [facility] URINALYSIS UA Ketones Trace mg/dL *ABN* (10/01/2012 23:50:00) Negative 10/02/2012 ABN [facility] URINALYSIS UA Spec Grav 1.005 <=1.030 10/02/2012 Normal [facility] URINALYSIS UA pH 7.0 5.0 - 8.0 10/02/2012 Normal [facility] URINALYSIS UA Protein Negative mg/dL (10/01/2012 23:50:00) Negative 10/02/2012 Normal [facility] URINALYSIS UA Leuk Est Negative (10/01/2012 23:50:00) Negative 10/02/2012 Normal [facility] URINALYSIS UA WBC <1 0 - 5 10/02/2012 Normal [facility] URINALYSIS UA Bili Negative *NA* (10/01/2012 23:50:00) Negative 10/02/2012 [facility] [place] URINALYSIS UA Turbidity Clear (10/01/2012 23:50:00) Clear 10/02/2012 Normal [facility] URINALYSIS UA RBC 2 0 - 2 10/02/2012 Normal [place] URINALYSIS UA Bacteria Occasional /HPF *NA* (10/01/2012 23:50:00) None Seen 10/02/2012 [facility] [place] URINALYSIS UA Blood Small *ABN* (10/01/2012 23:50:00) Negative 10/02/2012 ABN [facility] URINALYSIS UA Nitrite Negative (10/01/2012 23:50:00) Negative 10/02/2012 Normal [facility] URINALYSIS UA Sq Epi None Seen 10/02/2012 NA [facility] Microbiology Culture: Urine 10/02/2012 [facility] CHEMISTRY A/G Ratio 1.0 0.7 - 1.6 10/02/2012 Normal [facility] CHEMISTRY Globulin 4.0 2.0 - 4.0 10/02/2012 Normal [facility] CHEMISTRY B/C Ratio 14 6 - 25 10/02/2012 Normal [facility] CHEMISTRY AGAP 13.4 10.0 - 20.0 10/02/2012 Normal [facility] CHEMISTRY eGFR 83 10/02/2012 NA <sup>1</sup>Result Comment: [...] be multiplied by the estimated BMI. [facility] CHEMISTRY Creatinine Lvl 1.0 0.5 - 1.4 10/02/2012 Normal [facility] CHEMISTRY CO2 30 24 - 32 10/02/2012 Normal [facility] CHEMISTRY Total Protein 8.1 6.4 - 8.4 10/02/2012 Normal [facility] CHEMISTRY Calcium Lvl 8.8 8.5 - 10.5 10/02/2012 Normal [facility] CHEMISTRY Alk Phos 85 39 - 136 10/02/2012 Normal [facility] CHEMISTRY ALT 40 0 - 65 10/02/2012 Normal [facility] CHEMISTRY Albumin Lvl 4.1 3.5 - 5.0 10/02/2012 Normal [facility] CHEMISTRY AST 37 0 - 37 10/02/2012 Normal [facility] CHEMISTRY Bili Total 0.7 0.2 - 1.3 10/02/2012 Normal [facility] CHEMISTRY BUN 14 7 - 22 10/02/2012 Normal [facility] CHEMISTRY Glucose Lvl 245 70 - 99 10/02/2012 [facility] <sup>2</sup>Interpretive Data: Adult reference range values reflect the clinical guidelines
of the [place] [employer]. [facility] CHEMISTRY Chloride Lvl 98 95 - 109 10/02/2012 Normal [facility] CHEMISTRY Sodium Lvl 137 135 - 145 10/02/2012 Normal [facility] CHEMISTRY Potassium Lvl 4.4 3.5 - 5.1 10/02/2012 Normal [facility] CHEMISTRY Lipase Lvl 70 73 - 393 10/02/2012 LOW [facility] HEMATOLOGY PTT 33.8 22.9 - 35.8 10/02/2012 Normal <sup>4</sup>Interpretive Data: Heparin Therapeutic Range: 57 - 92 Seconds [facility] HEMATOLOGY PT 14.4 12.0 - 14.7 10/02/2012 Normal [facility] HEMATOLOGY INR 1.10 0.85 - 1.17 10/02/2012 Normal <sup>3</sup>Interpretive Data: RECOMMENDED RANGES FOR PROTIME INR:
2.0-3.0 for most medical and surgical thromboembolic states.
2.5-3.5 for artificial heart valves and recurrent embolism.

INR SHOULD BE USED ONLY FOR PATIENTS ON STABLE ANTICOAGULANT THERAPY. [facility] HEMATOLOGY Hct 41.4 42.0 - 54.0 10/02/2012 LOW [facility] HEMATOLOGY MCV 88.0 80.0 - 94.0 10/02/2012 Normal [facility] HEMATOLOGY RBC 4.71 4.70 - 6.10 10/02/2012 Normal [facility] HEMATOLOGY Hgb 13.5 14.0 - 18.0 10/02/2012 LOW [facility] HEMATOLOGY MCH 28.6 27.0 - 31.0 10/02/2012 Normal [facility] HEMATOLOGY MCHC 32.5 32.0 - 36.0 10/02/2012 Normal [facility] HEMATOLOGY RDW 14.5 11.5 - 14.5 10/02/2012 Normal [facility] HEMATOLOGY WBC 14.0 3.7 - 10.4 10/02/2012 HI [facility] HEMATOLOGY MPV 7.9 7.4 - 10.4 10/02/2012 Normal [facility] HEMATOLOGY Platelet 267 133 - 450 10/02/2012 Normal [facility] HEMATOLOGY Basophils # 0.0 0.0 - 0.2 10/02/2012 Normal [facility] Hypochrom Slight (10/01/2012 22:45:00) None Seen 10/02/2012 Normal [facility] Eosinophils 0.4 0.0 - 4.0 10/02/2012 Normal [facility] Basophils 0.2 0.0 - 1.0 10/02/2012 Normal [facility] Segs-Bands # 12.2 1.5 - 8.1 10/02/2012 HI [facility] HEMATOLOGY Segs 86.7 45.0 - 75.0 10/02/2012 HI [facility] Lymphocytes 8.2 20.0 - 40.0 10/02/2012 LOW [facility] Monocytes 4.5 2.0 - 12.0 10/02/2012 Normal [facility] Lymphocytes # 1.2 1.0 - 5.5 10/02/2012 Normal [facility] Monocytes # 0.6 0.0 - 0.8 10/02/2012 Normal [facility] Eosinophils # 0.1 0.0 - 0.5 10/02/2012 Normal [facility] Plt Morph Normal (10/01/2012 22:45:00) 10/02/2012 Normal [facility] Pathology Reports No Data Provided for This Section Diagnostic Reports Report Value Date Source Knee wo contrast MRI EXAMINATION: MRI of the right knee without contrast. HISTORY: M25.569 Pain in unspecified knee; lateral right knee pain; right knee medial meniscus tear FINDINGS: Radiographs dated 08/24/2015 are reviewed demonstrating post surgical changes of [id number] amputation. Multiplanar, multisequence magnetic resonance imaging of [...] in keeping with the patient's history of [id number] amputation. Cartilage: Within the medial compartment, there [...] in keeping with the patient's history of [id number] amputation. 5. Intact right knee cruciate and [...] exclude underlying or developing cholesteatoma. SL:17 01/08/2013 [facility] Consultation Notes No Data Provided for This Section Discharge Summaries No Data Provided for This Section History and Physicals No Data Provided for This Section Vital Signs Vital Sign Value Date Comments Source Respitory Rate 13 02/07/2013 [facility] Systolic (mm Hg) 107 02/07/2013 [facility] Diastolic (mm Hg) 59 02/07/2013 [facility] Respitory Rate 15 02/07/2013 [facility] Systolic (mm Hg) 134 02/07/2013 [facility] Respitory Rate 14 02/07/2013 [facility] Diastolic (mm Hg) 69 02/07/2013 [facility] Systolic (mm Hg) 139 02/07/2013 [facility] Diastolic (mm Hg) 69 02/07/2013 [facility] Heart Rate 72 02/07/2013 [facility] Heart Rate 73 02/05/2013 [facility] Weight 114.545 02/05/2013 [facility] Height 193.04 cm 02/05/2013 [facility] Encounters Location Location Details Encounter Type Encounter Number Reason For Visit Attending Provider ADM Date DC Date Status Source [facility] Outpatient [id number] EAR INFECTION VERITO LINK 08/24/2012 Active [facility] Emergency [id number] GASTON SILVER 10/01/2012 10/02/2012 Discharged [facility] OD [id number] 388.60 - OTORRHEA NOS LYNNE SCHNEIDER 01/08/2013 01/08/2013 Active [facility] DS [id number] LYNNE SCHNEIDER 02/07/2013 02/07/2013 Discharged [facility] [place] [facility] [id number] Rohan Hernandez 08/24/2015 [facility]25[facility] [place] [facility] [id number] Rohan Hernandez 09/01/2015 09/02/2015 [facility] [place] [facility] Outpatient [id number] Morejon 04/12/2018 04/12/2018 [facility] Procedures Procedure Code Date Perfomer Comments Source Allograft bypass of coronary artery [id number] [facility] Amputation of toe [id number] [facility] Excision of gallbladder 561939272 [facility] Allograft bypass of coronary artery 151929251 [facility] Amputation of toe 438727838 [facility] Aorto-femoral arterial bypass 179925755 [facility] Cardiac catheterization 58569569 [facility] Excision of gallbladder 65909517 [facility] Allograft bypass of coronary artery [id number] [facility] [place] Amputation of toe [id number] [facility] [place] Aorto-femoral arterial bypass [id number] [facility] [place] Cardiac catheterization [id number] [facility] [place] Excision of gallbladder [id number] [facility] [place] Aorto-femoral arterial bypass [facility] Cardiac catheterization [id number] [facility] Assessment and Plan No Data Provided for This Section Plan of Care No Data Provided for This Section Social History Social History Date Source No data available for this section 04/12/2018 [facility] No data available for this section 09/02/2015 MARY KAY Crowe Family History No Data Provided for This Section Advance Directives No Data Provided for This Section Functional Status No Data Provided for This Section
[2018-12-02] MEDS ORDERED: SINGULAIR10 MG PO (11:54)
--- NOTE | 2018-12-02 11:58 | NUR ---
notified of glucose of 545. Instructed to continue insulin drip at this time.
--- NOTE | 2018-12-02 12:49 | Diagnostic Imaging Report ---
EXAMINATION: CHEST SINGLE (PORTABLE) INDICATION: Chest pain, query CHF, query enlarged mediastinum. COMPARISON: Chest radiograph 10/23/2018. FINDINGS: TUBES and LINES: None. LUNGS: Low lung volumes which decreases sensitivity and specificity for pathology. There is no evidence of pneumonia or pulmonary edema. Minimal patchy right basilar opacity, likely atelectasis. PLEURA: No pleural effusion or pneumothorax. HEART AND MEDIASTINUM: The cardiomediastinal silhouette is unremarkable. BONES AND SOFT TISSUES: No acute osseous abnormality. Status post median sternotomy. UPPER ABDOMEN: No free air under the diaphragm. IMPRESSION: No acute radiographic abnormality. Signed by: Dr. Manish Hooker MD on 12/02/2018 10:45 AM
[2018-12-02 13:07] VITALS: BP 141/68
[2018-12-02 13:12] VITALS: BP 141/68
[2018-12-02] MEDS: HYDROCODONE/APAP 10MG-325MG TAB PO PRN ×2 (14:11→20:20)
[2018-12-02] MEDS: FAMOTIDINE 20 MG/2 ML VIAL IV SCH (16:10)
[2018-12-02 16:19] VITALS: BP 142/59
[2018-12-02 17:13] LABS: ANION GAP 12.6 mmol/L (8-16); CALCIUM 9.1 mg/dL (8.4-10.2); CREATININE, SERUM 1.84 mg/dL (0.72-1.25); POTASSIUM 3.6 mmol/L (3.5-5.1)
[2018-12-02] MEDS ORDERED: METOPROLOL SUCCINATE 50 MG TAB XL PO ONE (19:15)
[2018-12-02] MEDS ORDERED: CLOPIDOGREL BISULFATE 75 MG TAB PO ONE (19:15)
[2018-12-02] MEDS ORDERED: TRAZODONE HCL 50 MG TAB PO PRN (19:15)
[2018-12-02 19:35] VITALS: BP 139/70
[2018-12-02 20:04] VITALS: BP 139/70
--- NOTE | 2018-12-02 21:09 | NUR ---
H&P cc: n/v HPI: 63yoM, PCP , Endo , developed n/V, found to be in DKA. Pt blames his insulin pump. PAST MEDICAL HISTORY: 1. Diabetes mellitus, type 1, in DKA. 2. Coronary artery disease, status post coronary artery bypass grafting. 3. Hypertensive heart ds 4. Severe peripheral vascular disease, status post right BKA. 5. Diabetes-related gastroparesis. 6. Chronic pain syndrome. PAST SURGICAL HISTORY: 1. Right BKA. 2. Insulin pump placement. 3. CABG and angiograms. 4. Peripheral extremity artery stent placement. ALLERGIES: PER ELECTRONIC MEDICAL RECORD. FAMILY HISTORY: Unknown. SOCIAL HISTORY: The patient is . He has 3 children. Denies any alcohol, illicits or cigarettes. MEDICATIONS: Per electronic medical record. REVIEW OF SYSTEMS: no f/c/s/FOLEY/cp/sob/skin rash/back pain/vision changes/diarrhea/ PHYSICAL EXAMINATION: VITAL SIGNS: revd GENERAL: A tired-appearing man resting in bed. HEENT: Anicteric. Pupils are responsive to light. No oral lesions. CARDIOVASCULAR: Normal S1 and S2. Regular rhythm and rate. LUNGS: Moderate sounds throughout. No wheezing. ABDOMEN: Soft, nondistended. left abdominal wall with pump site tag in place EXTREMITIES: He has right BKA stump site well healed. Left leg: He has 4th and 5th digits absent, but surgical site is well healed. SKIN: Dry. PSYCHIATRIC: Flat affect. skin dry n. affect LABS: revd ASSESSMENT AND PLAN: 60-year-old man DKA Dehydation TASHA Hypertensive heat ds CAD PAD DM-gastroparesis Chr pain syndrome PLAN rehydrate insulin hba1c/lipids home meds scd Dispo; f/u labs Hernando Ma MD, PhD
[2018-12-02 21:47] LABS: ANION GAP 10.4 mmol/L (8-16); CALCIUM 8.7 mg/dL (8.4-10.2); CREATININE, SERUM 1.57 mg/dL (0.72-1.25); MAGNESIUM 1.9 MG/DL (1.3-2.1); POTASSIUM 3.4 mmol/L (3.5-5.1)
--- NOTE | 2018-12-02 22:32 | NUR ---
PATIENT BLOOD GLUCOSE 86 WHILE ON INSULIN DRIP, STILL AWAITING LABS TO COME BACK PER CHARGE NURSE DISCUSSION STOPPED PATIENT'S INSULIN DRIP AND WILL CONTINUE TO MONITOR PATIENT'S BLOOD GLUCOSE.
[2018-12-02] MEDS ORDERED: INSULIN REGULAR, HUMAN 3ML VL 300 UNIT in SODIUM CHLORIDE 0.45% 100 ML 300 ML IV SCH ×2 (22:41)
[2018-12-02 23:06] VITALS: BP 114/58
[2018-12-02] MEDS: ZOLPIDEM TARTRATE 5 MG TAB PO PRN (23:10)
[2018-12-03] VITALS (8 sets, daily range): BP systolic 111–159; BP diastolic 37–79
[2018-12-03] MEDS: HYDROCODONE/APAP 10MG-325MG TAB PO PRN ×3 (05:20→18:31)
[2018-12-03 05:41] LABS: CHOL/HDL RATIO 3.3 (3.9-4.7)
[2018-12-03] MEDS: DEXTROSE 5%/0.45% SOD CHL 1,000 ML IV SCH ×3 (06:17→18:28)
[2018-12-03 07:10] LABS: BASOPHILS % 0.3 % (0.0-1.0); EOSINOPHILS # (AUTO) 0.2 (0.0-0.4); EOSINOPHILS % 2.3 % (0.0-6.0); HEMATOCRIT 27.7 % (38.2-49.6); HEMOGLOBIN 9.6 g/dL (14.0-18.0); LYMPHOCYTES # (AUTO) 1.3 (1.0-3.2); LYMPHOCYTES % 17.8 % (18.0-39.1); MEAN CORPUSCULAR HEMOGLOBIN 31.1 pg (28-32); MEAN CORPUSCULAR HGB CONC 34.7 g/dL (31-35); MEAN CORPUSCULAR VOLUME 89.6 fL (81-99); MONOCYTES # (AUTO) 0.5 (0.2-0.8); MONOCYTES % 6.2 % (4.4-11.3); NEUTROPHILS # (AUTO) 5.3 (2.1-6.9); NEUTROPHILS % 73.1 % (38.7-80.0); PLATELET COUNT 170 x10e3/uL (140-360); RED BLOOD COUNT 3.09 x10e6/uL (4.3-5.7); RED CELL DISTRIBUTION WIDTH 13.8 % (11.7-14.4)
--- NOTE | 2018-12-03 07:12 | NUR ---
Report given to oncoming nurse,walking round done.
[2018-12-03 07:32] LABS: ANION GAP 10.4 mmol/L (8-16); CALCIUM 8.4 mg/dL (8.4-10.2); CREATININE, SERUM 1.38 mg/dL (0.72-1.25); MAGNESIUM 1.5 MG/DL (1.3-2.1); POTASSIUM 3.4 mmol/L (3.5-5.1)
[2018-12-03] MEDS: CLOPIDOGREL BISULFATE 75 MG TAB PO SCH (10:08)
[2018-12-03] MEDS: FAMOTIDINE 20 MG/2 ML VIAL IV SCH ×2 (10:08→18:31)
[2018-12-03] MEDS: METOPROLOL SUCCINATE 50 MG TAB XL PO SCH (10:09)
[2018-12-03] MEDS: LISINOPRIL 20 MG TAB PO SCH (10:09)
[2018-12-03] MEDS ORDERED: ONDANSETRON HCL 4 MG ORAL DISINTEGRATING TAB PO PRN (11:45)
[2018-12-03 14:25] LABS: FREE T4 (FREE THYROXINE) 0.99 ng/dL (0.8-1.8); THYROID STIMULATING HORMONE 0.552 uIU/mL (0.350-4.940)
[2018-12-03] MEDS ORDERED: INSULIN LISPRO 100 UNIT/1 ML 3ML VIAL SQ ONE (14:30)
--- NOTE | 2018-12-03 16:08 | NUR ---
IM- progress note O/N no events REVIEW OF SYSTEMS: no f/c/s/FOLEY/cp/sob/skin rash/back pain/vision changes/diarrhea/ PHYSICAL EXAMINATION: VITAL SIGNS: revd GENERAL: A tired-appearing man resting in bed. HEENT: Anicteric. Pupils are responsive to light. No oral lesions. CARDIOVASCULAR: Normal S1 and S2. Regular rhythm and rate. LUNGS: Moderate sounds throughout. No wheezing. ABDOMEN: Soft, nondistended. left abdominal wall with pump site tag in place EXTREMITIES: He has right BKA stump site well healed. Left leg: He has 4th and 5th digits absent, but surgical site is well healed. SKIN: Dry. PSYCHIATRIC: Flat affect. skin dry n. affect LABS: revd ASSESSMENT AND PLAN: 60-year-old man DKA Dehydation TASHA Hypertensive heat ds CAD PAD DM-gastroparesis Chr pain syndrome PLAN rehydrate insulin hba1c/lipids home meds scd Dispo; f/u labs Hba1c/LDL 11.5/45 Uncontrolled DM. cont care. Hernando Ma MD, PhD
[2018-12-03] MEDS: INSULIN LISPRO 100 UNIT/1 ML 3ML VIAL SQ SCH ×3 (17:08→21:00)
--- NOTE | 2018-12-03 17:30 | Consultation ---
DATE OF CONSULTATION: 12/03/2018 Endocrine Consultation The patient of Dr. Hernando Ma. Thank you very much for referring this patient. HISTORY OF PRESENT ILLNESS: This is a 63-year-old gentleman who was referred to me for evaluation of uncontrolled diabetes mellitus and diabetic ketoacidosis. According to the patient, he started having some dizziness and weakness for the last two days. He was brought to the hospital with a blood sugar of 798 and anion gap was 23.4. According to the patient, he has diabetes for almost 20+ years, has multiple complications related to diabetes including severe diabetic sensorimotor neuropathy. He has below-knee amputation on the right side and toe amputations on the left side. The patient also has status post CVA. He has chronic renal failure. He also has history of multiple CVAs in the past. The patient also has history of hypertension, hyperlipidemia, or osteoarthritis. He is status post CABG and stents done in the past. PHYSICAL EXAMINATION: GENERAL: Today, the patient is alert, awake, little bit of pain. He has a slightly slurred speech. VITAL SIGNS: His heart rate is around 78, blood pressure 140/80 mmHg. HEENT: Essentially unremarkable. Thyroid is palpable. Clinically, he is near euthyroid. CHEST: Bilateral vesicular breathing. No rales. CARDIOVASCULAR: First and second heart sounds. There is no third or fourth heart sounds with the systolic grade 2/6. CLINICAL IMPRESSION: Diabetes mellitus type 2, uncontrolled with complications, on insulin pump, diabetic ketoacidosis, status post BKA on the right side, status post toe amputations on the left side. Coronary artery disease, status post CABG, status post CVA, congestive cardiac failure and chronic renal failure. PLAN: The plan at this time is to taper off the insulin drip. Start him on the subcu insulin for now. The patient is having problems with the insulin pump at this time. We will start him on a combination of Lantus and Humalog and monitor his blood sugars closely. Thanks for referring this patient. I will be following this patient with you. MD KRIS Hammonds/TROY /[id number] MTDD
--- NOTE | 2018-12-03 19:58 | Diagnostic Imaging Report ---
Radiographs of the right shoulder - 2 views HISTORY: Pain COMPARISON: None available. FINDINGS: Bones: No acute displaced fracture. Osseous alignment is within normal limits. Joints: Scattered degenerative change. No osseous erosion Soft tissues: The soft tissues appear unremarkable. IMPRESSION: Scattered degenerative change. No osseous erosion Signed by: Dr. Dario Gibson M.D. on 12/03/2018 7:54 PM
[2018-12-03] MEDS ORDERED: POTASSIUM CHLORIDE 20 MEQ TAB CR PO ONE (21:00)
[2018-12-03] MEDS ORDERED: INSULIN GLARGINE 100 UNITS/ML VIAL SQ SCH (21:00)
[2018-12-03] MEDS: ZOLPIDEM TARTRATE 5 MG TAB PO PRN (22:24)
[2018-12-04] VITALS (11 sets, daily range): BP systolic 129–199; BP diastolic 56–91
[2018-12-04] MEDS: DEXTROSE 5%/0.45% SOD CHL 1,000 ML IV SCH ×2 (02:30→16:15)
[2018-12-04] MEDS: HYDROCODONE/APAP 10MG-325MG TAB PO PRN ×3 (04:12→17:10)
[2018-12-04 05:07] LABS: BASOPHILS % 0.4 % (0.0-1.0); EOSINOPHILS # (AUTO) 0.3 (0.0-0.4); EOSINOPHILS % 5.7 % (0.0-6.0); HEMATOCRIT 28.3 % (38.2-49.6); HEMOGLOBIN 9.6 g/dL (14.0-18.0); LYMPHOCYTES # (AUTO) 1.4 (1.0-3.2); LYMPHOCYTES % 31.4 % (18.0-39.1); MEAN CORPUSCULAR HEMOGLOBIN 30.8 pg (28-32); MEAN CORPUSCULAR HGB CONC 33.9 g/dL (31-35); MEAN CORPUSCULAR VOLUME 90.7 fL (81-99); MONOCYTES # (AUTO) 0.3 (0.2-0.8); MONOCYTES % 7.4 % (4.4-11.3); NEUTROPHILS # (AUTO) 2.5 (2.1-6.9); NEUTROPHILS % 54.9 % (38.7-80.0); PLATELET COUNT 161 x10e3/uL (140-360); RED BLOOD COUNT 3.12 x10e6/uL (4.3-5.7); RED CELL DISTRIBUTION WIDTH 14.1 % (11.7-14.4)
[2018-12-04] MEDS: CLOPIDOGREL BISULFATE 75 MG TAB PO SCH (08:03)
[2018-12-04] MEDS: FAMOTIDINE 20 MG/2 ML VIAL IV SCH ×2 (08:03→17:11)
[2018-12-04] MEDS: LISINOPRIL 20 MG TAB PO SCH (08:16)
[2018-12-04] MEDS: METOPROLOL SUCCINATE 50 MG TAB XL PO SCH (08:17)
[2018-12-04] MEDS: INSULIN LISPRO 100 UNIT/1 ML 3ML VIAL SQ SCH ×6 (08:19→20:38)
--- NOTE | 2018-12-04 13:36 | NUR ---
Handoff report to nurse Maureen IZAGUIRRE patient sitting in bed, verbalizing needs, denies pain, nurse made aware of patient's non-compliance with mopper. Received orders from Dr. Ma to document when patient not compliant with mopper.
--- NOTE | 2018-12-04 15:45 | NUR ---
Patient transferred to [facility] in stable condition at 1530.
--- NOTE | 2018-12-04 15:45 | NUR ---
RECEIVED PT FROM [facility], PT IS ALERT, AWAKE, NO S/S OF DISTRESS. PT WAS TRANSFERRED VIA HOSPITAL BED. PT HAS RIGHT LEG AMPUTATED, HAS PROSTHETIC LEG AT BEDSIDE. LEFT AC PIV 20G IS INTACT AND PATENT. IS AT THE BEDSIDE.
--- NOTE | 2018-12-04 16:00 | NUR ---
THERE ARE STILL ACTIVE ORDERS FOR INSULIN DRIP AND SCHEDULED SQ INSULIN. PAGED DR BE AND RECEIVED ORDERS TO DISCONTINUE ALL ACTIVE ORDERS OF INSULIN EXCEPT FOR THE HUMALOG SLIDING SCALE. DR. BE ALSO GAVE ORDERS TO CHANGE THE IVF TO D5 1/2 NS CONTINUOUS INFUSION @ 70ML/HR.
[2018-12-04] MEDS ORDERED: DEXTROSE 5%/0.45% SOD CHL 1,000 ML IV SCH (16:01)
[2018-12-04] MEDS ORDERED: INSULIN LISPRO 100 UNIT/1 ML 3ML VIAL SQ SCH (16:30)
[2018-12-04] MEDS: DOCUSATE SODIUM 100 MG CAP PO SCH (17:09)
--- NOTE | 2018-12-04 19:14 | NUR ---
WALKING ROUNDS PERFORMED, RECEIVED PT LAYING SEMI FOWLERS IN BED, AAOX3, RR EVEN AND NON-LABORED, ON ROOM AIR. NO S/SX OF DISTRESS NOTED. IV TO (L) AC NOTED TO BE LEAKING BY AM NURSE AND NO IV ACCESS WAS ABLE TO BE OBTAINED ON AM SHIFT. LEFT PT LAYING SEMI FOWLERS IN BED, BED IN LOW LOCKED POSITION, SIDE RAILS UPX2, CALL LIGHT AND PHONE WITHIN REACH. FAMILY AT BEDSIDE.
--- NOTE | 2018-12-04 19:59 | NUR ---
IV TO (L) AC DISCONTINUED. PRESSURE AND DRESSING APPLIED.
--- NOTE | 2018-12-04 20:35 | NUR ---
NEW IV STARTED TO (R) FA 22G. BLOOD RETURN NOTED AND FLUSHES WITHOUT DIFFICULTY.
[2018-12-04] MEDS: SENNOSIDES 8.6 MG TAB PO SCH (20:38)
[2018-12-04] MEDS ORDERED: INSULIN GLARGINE 100 UNITS/ML VIAL SQ SCH (21:00)
[2018-12-04] MEDS: ZOLPIDEM TARTRATE 5 MG TAB PO PRN (21:43)
--- NOTE | 2018-12-04 22:20 | NUR ---
WAS IN ANOTHER PATIENTS ROOM WHEN BED ALARM SOUND AND LOUD CRASH HEARD. IMMEDIATELY ENTERED PATIENTS ROOM AND FOUND PATIENT LAYING ON HIS BACK AGAINST WALL WITH PROSTHETIC ON (R) LOWER EXTREMITY, AND HIS HOUSE SHOE ON (L) FOOT. PT REPORTS HE WAS REACHING FOR HIS WALKER AND SLIPPED ONTO FLOOR HITTING THE TRASH CAN. LARGE AMOUNT OF WATER NOTED TO FLOOR, PT REPORTS HIS WATER SPILLED WHEN HE SLIPPED. 3 PERSON ASSIST PROVIDED TO ASSIST PATIENT TO STANDING POSITION AND TRANSFERRED BACK TO BED. ASSESSMENT PERFORMED. APPLIED YELLOW NON-SKID SOCK TO (L) FOOT. PT REPORTS (R) ARM HURTING AT THIS TIME. (R) MEDIAL AC SKIN TEAR NOTED. PT REMAINS AAOX3, RR EVEN AND NON-LABORED, ON ROOM AIR. VITALS OBTAINED. LEFT PT LAYING SEMI FOWLERS IN BED, BED IN LOW LOCKED POSITION, SIDE RAILS UPX3, CALL LIGHT AND PHONE WITHIN REACH. BED ALARM ACTIVATED ZONE 2.
--- NOTE | 2018-12-04 22:22 | NUR ---
CHARGE NURSE NOTIFIED
--- NOTE | 2018-12-04 22:30 | NUR ---
MD MENDEZ NOTIFIED OF PATIENT FALL, NEW ORDERS RECEIVED FOR MRI.
--- NOTE | 2018-12-04 22:32 | NUR ---
FAMILY MEMBER ENOCH RILEY AT [phone] NOTIFIED OF PATIENT FALL.
[2018-12-05] VITALS (9 sets, daily range): BP systolic 128–188; BP diastolic 73–90
--- NOTE | 2018-12-05 00:30 | NUR ---
PT RETURNED BY WHEELCHAIR TO ROOM FROM MRI. 2 PERSON ASSIST BACK TO BED. APPLIED TELEMETRY, LEFT PT LAYING SEMI FOWLERS IN BED, BED IN LOW LOCKED POSITION, SIDE RAILS UPX3, CALL LIGHT AND PHONE WITHIN REACH. BED ALARM ACTIVATED.
[2018-12-05] MEDS: HYDROCODONE/APAP 10MG-325MG TAB PO PRN ×4 (00:59→19:55)
--- NOTE | 2018-12-05 01:02 | Diagnostic Imaging Report ---
TECHNIQUE: Magnetic resonance imaging of the RIGHT SHOULDER was performed WITHOUT injected contrast. Motion artifact markedly limits sensitivity and specificity of the exam. HISTORY: Fall, rule out fracture previously provided COMPARISON: Right shoulder radiographs December 03, 2018 FINDINGS: MUSCLES AND TENDONS: Rotator Cuff: Tendons: Supraspinatus and Infraspinatus: Intact Teres Minor: Intact Subscapularis: Intact Muscles: Severe atrophy of the teres minor muscle. Biceps Tendon: The long head of the biceps tendon is within the intertubercular groove. Motion artifact limits evaluation. GLENOHUMERAL JOINT: Glenoid Labrum: The motion artifact markedly limits evaluation. Probable complex tearing of the anteroinferior labrum. Cordlike middle glenohumeral ligament and paucity of anterosuperior labral tissue, compatible with a view for complex (an anatomic variant). Articular Cartilage: Intermediate to high-grade erosion of the anterior glenoid. Joint Fluid: Small nonspecific effusion. ACROMIOCLAVICULAR JOINT: Mild hypertrophic degenerative changes of the acromioclavicular joint. Trace effusion. BONE: The acromion is unremarkable. No focal or infiltrative bone marrow replacing abnormality. No acute fracture. SOFT TISSUES: Otherwise, unremarkable. IMPRESSION: 1. Prominent motion artifact, which limits the evaluation. 2. Age-indeterminate complex tearing of the anteroinferior labrum. 3. Acromioclavicular and glenohumeral osteoarthrosis and nonspecific effusions. 4. Severe atrophy of the teres minor muscle, which can be seen in the setting of quadrilateral space syndrome and chronic humeral head decentering. 5. No acute displaced fracture. Signed by: Dr. Chi Gaytan D.O., M.M.M. on 12/05/2018 12:59 AM
[2018-12-05 05:31] LABS: BASOPHILS % 0.3 % (0.0-1.0); EOSINOPHILS # (AUTO) 0.3 (0.0-0.4); HEMATOCRIT 29.2 % (38.2-49.6); HEMOGLOBIN 9.8 g/dL (14.0-18.0); LYMPHOCYTES # (AUTO) 1.5 (1.0-3.2); LYMPHOCYTES % 26.3 % (18.0-39.1); MEAN CORPUSCULAR HEMOGLOBIN 30.6 pg (28-32); MEAN CORPUSCULAR HGB CONC 33.6 g/dL (31-35); MEAN CORPUSCULAR VOLUME 91.3 fL (81-99); MONOCYTES # (AUTO) 0.5 (0.2-0.8); NEUTROPHILS # (AUTO) 3.5 (2.1-6.9); NEUTROPHILS % 59.9 % (38.7-80.0); PLATELET COUNT 167 x10e3/uL (140-360)
[2018-12-05 05:47] LABS: ANION GAP 11.1 mmol/L (8-16); BLOOD UREA NITROGEN 9 mg/dL (7-26); BUN/CREATININE RATIO 8 (6-25); CARBON DIOXIDE 28 mmol/L (22-29); CHLORIDE 103 mmol/L (98-107); CREATININE, SERUM 1.17 mg/dL (0.72-1.25); EST GLOMERULAR FILTRATION RATE > 60 ML/MIN (60-); GLUCOSE 326 mg/dL (74-118); POTASSIUM 4.1 mmol/L (3.5-5.1); SODIUM 138 mmol/L (136-145)
[2018-12-05] MEDS: INSULIN LISPRO 100 UNIT/1 ML 3ML VIAL SQ SCH ×4 (07:30→19:39)
[2018-12-05] MEDS: DEXTROSE 5%/0.45% SOD CHL 1,000 ML IV SCH ×2 (08:28→21:56)
[2018-12-05] MEDS: SENNOSIDES 8.6 MG TAB PO SCH ×2 (08:31→19:55)
[2018-12-05] MEDS: DOCUSATE SODIUM 100 MG CAP PO SCH ×2 (08:31→17:36)
[2018-12-05] MEDS: CLOPIDOGREL BISULFATE 75 MG TAB PO SCH (08:31)
[2018-12-05] MEDS: FAMOTIDINE 20 MG/2 ML VIAL IV SCH (08:31)
[2018-12-05] MEDS: METOPROLOL SUCCINATE 50 MG TAB XL PO SCH (08:32)
[2018-12-05] MEDS: LISINOPRIL 20 MG TAB PO SCH (08:32)
[2018-12-05] MEDS ORDERED: COLACE100 MG PO (11:35)
--- NOTE | 2018-12-05 11:37 | NUR ---
DOS: 12/04/18 at 4pm IM- progress note O/N no events REVIEW OF SYSTEMS: no f/c/s/FOLEY/cp/sob/skin rash/back pain/vision changes/diarrhea/ PHYSICAL EXAMINATION: VITAL SIGNS: revd GENERAL: A tired-appearing man resting in bed. HEENT: Anicteric. Pupils are responsive to light. No oral lesions. CARDIOVASCULAR: Normal S1 and S2. Regular rhythm and rate. LUNGS: Moderate sounds throughout. No wheezing. ABDOMEN: Soft, nondistended. left abdominal wall with pump site tag in place EXTREMITIES: He has right BKA stump site well healed. Left leg: He has 4th and 5th digits absent, but surgical site is well healed. SKIN: Dry. PSYCHIATRIC: Flat affect. skin dry n. affect LABS: revd ASSESSMENT AND PLAN: 60-year-old man DKA Dehydation TASHA Hypertensive heat ds CAD PAD DM-gastroparesis Chr pain syndrome PLAN rehydrate insulin hba1c/lipids home meds scd Dispo; f/u labs Hba1c/LDL 11.5/45 Uncontrolled DM. cont care. DOS: 12/04/18 doing ok; Hernando Ma MD, PhD
--- NOTE | 2018-12-05 11:46 | NUR ---
D/C summary Principal Dx: DKA Dehydation TASHA Hypertensive heat ds Right shoulder arthralgia Age-indeterminate complex tearing of the anteroinferior labrum. Acromioclavicular and glenohumeral osteoarthrosis and nonspecific effusions. Severe atrophy of the teres minor muscle, which can be seen in the setting of quadrilateral space syndrome and chronic humeral head decentering. Secondary dx: CAD PAD DM-gastroparesis Chr pain syndrome PLAN rehydrate insulin hba1c/lipids home meds scd Dispo; f/u labs Hba1c/LDL 11.5/45 Uncontrolled DM. cont care. Encouraged to use diabetic diet and insulin regimen per . MRI showed Age-indeterminate complex tearing of the anteroinferior labrum. 3. Acromioclavicular and glenohumeral osteoarthrosis and nonspecific effusions. 4. Severe atrophy of the teres minor muscle, which can be seen in the setting of quadrilateral space syndrome and chronic humeral head decentering. 5. No acute displaced fracture.MRI of right shoulder was negative; only OA. d/c home f/u pcp 1 week and orthopedics 1 week and Endocrinology 1 week. Stable. Home with tylenlol#3 for shoulder pain. d/c>35mins Doing better; d/c planning; Hernando Ma MD, PhD
--- NOTE | 2018-12-05 12:34 | NUR ---
CM SPOKE TO PATIENT AT BEDSIDE REGARDING HOME HEALTH REFERRAL. PATIENT REQUESTED [facility] BECAUSE THEY WERE RECENTLY ON SERVICE WITH THEM. CHOICE LETTER SIGNED AND PLACED IN CHART. CLINICAL SENT TO [facility]. LIAISON RASHEEDA NOTIFIED. HOME HEALTH FOR SN EVAL AND PT/OT EVAL AND TREAT: [facility] (P) [phone] (F) [phone]
--- NOTE | 2018-12-05 12:38 | NUR ---
DISCHARGE DISPOSITION [facility] FOR SN EVAL, DIABETES MANAGEMENT AND PT/OT EVAL AND TREAT: [facility] (P) [phone] (F) [phone] LIAISON: RASHEEDA
--- NOTE | 2018-12-05 15:00 | NUR ---
per , hold discharge due to patient blood glucose elevated and insulin pump malfunction.
--- NOTE | 2018-12-05 15:04 | NUR ---
Visited pt in the room. Pt stated "I don't need anything. I am going home today." Will revisit if pt request for diet education.
[2018-12-05] MEDS: FAMOTIDINE 20 MG TAB PO SCH (17:36)
--- NOTE | 2018-12-05 19:00 | NUR ---
notified of request to hold discharge. per , ok to hold d/c and september d/c patient once cleared from endocrinology.
[2018-12-05] MEDS: ZOLPIDEM TARTRATE 5 MG TAB PO PRN (22:40)
[2018-12-06] VITALS (7 sets, daily range): BP systolic 150–196; BP diastolic 72–88
[2018-12-06] MEDS: HYDROCODONE/APAP 10MG-325MG TAB PO PRN (04:34)
[2018-12-06 05:50] LABS: BASOPHILS % 0.2 % (0.0-1.0); EOSINOPHILS # (AUTO) 0.2 (0.0-0.4); EOSINOPHILS % 4.6 % (0.0-6.0); HEMATOCRIT 28.8 % (38.2-49.6); HEMOGLOBIN 9.8 g/dL (14.0-18.0); LYMPHOCYTES # (AUTO) 1.5 (1.0-3.2); LYMPHOCYTES % 28.2 % (18.0-39.1); MEAN CORPUSCULAR HEMOGLOBIN 31.2 pg (28-32); MEAN CORPUSCULAR VOLUME 91.7 fL (81-99); MONOCYTES # (AUTO) 0.5 (0.2-0.8); MONOCYTES % 8.9 % (4.4-11.3); NEUTROPHILS % 57.9 % (38.7-80.0); PLATELET COUNT 165 x10e3/uL (140-360); RED BLOOD COUNT 3.14 x10e6/uL (4.3-5.7); RED CELL DISTRIBUTION WIDTH 14.2 % (11.7-14.4)
[2018-12-06 06:14] LABS: ANION GAP 11.3 mmol/L (8-16); BLOOD UREA NITROGEN 10 mg/dL (7-26); BUN/CREATININE RATIO 11 (6-25); CALCIUM 9.1 mg/dL (8.4-10.2); CARBON DIOXIDE 30 mmol/L (22-29); CHLORIDE 104 mmol/L (98-107); CREATININE, SERUM 0.93 mg/dL (0.72-1.25); EST GLOMERULAR FILTRATION RATE > 60 ML/MIN (60-); GLUCOSE 66 mg/dL (74-118); POTASSIUM 3.3 mmol/L (3.5-5.1); SODIUM 142 mmol/L (136-145)
[2018-12-06] MEDS: INSULIN LISPRO 100 UNIT/1 ML 3ML VIAL SQ SCH ×2 (07:30→11:57)
--- NOTE | 2018-12-06 07:44 | NUR ---
patient sitting up at side of bed with breakfast in front of him. patient AAOX4, denies dizziness, sweating or chills. blood glucose 45, [place] juice administered and encouraged to consume meal, patient agreed. bed alarm on, call light within reach.
[2018-12-06] MEDS: CLOPIDOGREL BISULFATE 75 MG TAB PO SCH (08:51)
[2018-12-06] MEDS: METOPROLOL SUCCINATE 50 MG TAB XL PO SCH (08:51)
[2018-12-06] MEDS: FAMOTIDINE 20 MG TAB PO SCH (08:51)
[2018-12-06] MEDS: SENNOSIDES 8.6 MG TAB PO SCH (08:51)
[2018-12-06] MEDS: DOCUSATE SODIUM 100 MG CAP PO SCH (08:51)
[2018-12-06] MEDS: LISINOPRIL 20 MG TAB PO SCH (08:51)
[2018-12-06] MEDS: DEXTROSE 5%/0.45% SOD CHL 1,000 ML IV SCH (11:44)
--- NOTE | 2018-12-06 16:50 | NUR ---
PIV removd with tip intact. telemetry removed. patient escorted to front lobby entrance where awaited in private auto. all personal belongings and d/c instructions with patient and .
== END 2018-12-06 16:53 | disposition home or self-care (01) | DRG 638 ==
LOC: ER 09:42 → ERHOLD 11:37 → IMCU 13:21 → MED/SURG2 12-04 15:36
PROVIDERS: ADMIT Internal Medicine; ATTEND Internal Medicine
DX: E10.10 Type 1 diabetes mellitus with ketoacidosis without coma (principal); N17.9 Acute kidney failure, unspecified; Z79.4 Long term (current) use of insulin; I25.10 Atherosclerotic heart disease of native coronary artery without angina pectoris; Z95.1 Presence of aortocoronary bypass graft; G89.4 Chronic pain syndrome; Z95.820 Peripheral vascular angioplasty status with implants and grafts; Z89.511 Acquired absence of right leg below knee; Z96.41 Presence of insulin pump (external) (internal); E86.0 Dehydration; E10.43 Type 1 diabetes mellitus with diabetic autonomic (poly)neuropathy; K31.84 Gastroparesis; I11.9 Hypertensive heart disease without heart failure; E10.51 Type 1 diabetes mellitus with diabetic peripheral angiopathy without gangrene; Z89.422 Acquired absence of other left toe(s); Z86.73 Personal history of transient ischemic attack (TIA), and cerebral infarction without residual deficits
CPT/HCPCS: 36415; 71045; 80048; 80053; 80061; 81001; 82550; 82553; 82948; 83036; 83605; 83735; 83880; 84439; 84443; 84484; 85025; 93005; 97139; 99284; J1815; J1817; J2270; J7030; J7050

== ENCOUNTER 2018-12-21 09:49 | Emergency (ER) | payer MEDICARE, OTHER ==
[~2018-12-21] VITALS: Ht 193 cm; Wt 95.3 kg
[~2018-12-21 09:49] MED LIST changes: +COLACE100 MG PO; +SINGULAIR10 MG PO
--- OUTSIDE RECORDS SUMMARY | 2018-12-21 09:53 | XMS REPORT | Clinical Summary ---
Author Author DARRON [facility] Address Unknown Phone Unavailable Care Team Providers Care Public Health Aide Name Role Phone Rohan eHrnandez PCP Allergies Comments Active Allergy Reactions Severity [...] Lin, Fang-Ying, MD Coronary artery disease involving galena coronary artery of galena heart without angina pectoris (Primary Dx); S/P CABG (coronary artery bypass graft); PAD (peripheral artery disease) ([facility]); Stenosis of carotid artery, unspecified laterality; Essential hypertension; Hyperlipidemia, unspecified hyperlipidemia type; Type 1 diabetes mellitus on insulin therapy ([facility]); Type 2 diabetes mellitus treated with insulin ([facility]) 04/24/2018 Hospital Cardiology - Encounter 04/27/2018 04/24/2018 Travel Polo Guzmán III, MD 04/24/2018 Orders Only Internal Medicine Segundo Hoyos MD L CATH & CORONARY ANGIOS 03/08/2018 Surgery Segundo Hoyos MD Coronary artery disease involving galena coronary artery of galena heart without angina pectoris; PAD (peripheral artery disease) ([facility]); Essential hypertension; Other hyperlipidemia; Stenosis of carotid artery, unspecified laterality; Type 1 diabetes mellitus with diabetic chronic kidney disease, unspecified CKD stage ([facility]); Status post left heart catheterization (LHC); S/P CABG (coronary artery bypass graft); SOB (shortness of breath) 03/08/2018 Hospital Cardiology - Encounter 03/10/2018 03/08/2018 Orders Only General Internal Medicine Segundo Hoyos MD PAD (peripheral artery disease) ([facility]); Coronary artery disease involving galena coronary artery of galena heart without angina pectoris 03/07/2018 Hospital Radiology Encounter Segundo Hoyos MD PAD (peripheral artery disease) (HCC); Coronary artery disease involving galena coronary artery of galena heart without angina pectoris 03/07/2018 Hospital Radiology Encounter Segundo Hoyos MD PAD (peripheral artery disease) ([facility]) (Primary Dx); Coronary artery disease involving galena coronary artery of galena heart without angina pectoris 03/06/2018 Outside Orders Radiology after 12/20/2017 Social History Date Tobacco Use Types Packs/Day [...] Taken Vital Sign Reading 04/27/2018 12:57 PM WEBBING INSPECTOR Blood Pressure 140/65 04/27/2018 12:57 PM WEBBING INSPECTOR Pulse 78 04/27/2018 12:57 PM WEBBING INSPECTOR Temperature 36.7 C (98 F) 04/27/2018 12:57 PM WEBBING INSPECTOR Respiratory Rate 19 04/27/2018 12:57 PM WEBBING INSPECTOR Oxygen Saturation 100% 04/25/2018 11:51 PM WEBBING INSPECTOR Inhaled Oxygen 21% Concentration 04/26/2018 7:50 AM WEBBING INSPECTOR Weight 104.2 kg (229 lb 12.2 oz) 04/24/2018 3:30 PM WEBBING INSPECTOR Height 193 cm (6' 4") 04/26/2018 7:50 AM WEBBING INSPECTOR Body Mass Index 27.97 Plan of Treatment Not on file Implants Device Identifier Shelf Expiration Date Model / Serial / Lot Implanted Type Area [facility] [id number] 12/19/2018 [id number] / / [id number] Device Clsr Angio-Seal Vip 8fr Cardiovasc [facility] [id number] - [id number] esme MED:CARDIA Implanted: Qty: 1 on 04/25/2018 by Segundo Miller MD 06/03/2016 [id number] / / [id number] Zilvgermaine Ptx Drug-Eluting Stents-Per COOK Peripheral Stent ipheral VASCULAR Implanted: Qty: 1 on 05/13/2016 by Jass Hong MD 03/21/2019 [id number] / / [id number] Innova Vascular Stents-Per [place] Implanted: Qty: 1 on 05/13/2016 by AppseeJass June MD [id number] 09/13/2019 [id number] / / [id number] Synergy [place] Implanted: Qty: 1 on 04/25/2018 by Segundo Kothari MD Procedures Comments Procedure Name Priority Date/Time Associated Diagnosis RHYTHM STRIP - SCAN 08/28/2018 8:50 AM CDT VASCULAR DIAGRAM -SCAN 05/07/2018 12:21 PM WEBBING INSPECTOR RHYTHM STRIP - SCAN 05/04/2018 10:01 AM WEBBING INSPECTOR CARDIAC CATH REPORT - 05/04/2018 SCAN 10:01 AM WEBBING INSPECTOR ECHOCARDIOGRAM REPORT - 04/27/2018 SCAN 4:20 PM WEBBING INSPECTOR 2D ECHO W/ DOPPLER Routine 04/27/2018 (CW/PW/COLOR) 11:05 AM WEBBING INSPECTOR POCT-GLUCOSE METER Routine 04/27/2018 9:48 AM WEBBING INSPECTOR T4, FREE Routine 04/27/2018 5:12 AM WEBBING INSPECTOR VITAMIN B12 AND FOLATE Routine 04/27/2018 5:12 AM WEBBING INSPECTOR HIV-1 ANTIGEN WITH Routine 04/27/2018 HIV-1/2 ANTIBODY 5:12 AM WEBBING INSPECTOR TSH/FREE T4 IF INDICATED Routine 04/27/2018 5:12 AM WEBBING INSPECTOR RPR Routine 04/27/2018 5:12 AM WEBBING INSPECTOR HEMOGLOBIN A1C Routine 04/27/2018 5:12 AM WEBBING INSPECTOR BASIC METABOLIC PANEL (7) Routine 04/27/2018 5:12 AM WEBBING INSPECTOR MR BRAIN WITHOUT IV STAT 04/26/2018 CONTRAST 10:20 PM WEBBING INSPECTOR MR MRA NECK WITHOUT IV STAT 04/26/2018 CONTRAST 10:20 PM WEBBING INSPECTOR MR MRA HEAD WITHOUT STAT 04/26/2018 CONTRAST 10:20 PM WEBBING INSPECTOR URINALYSIS WITH Routine 04/26/2018 MICROSCOPIC IF INDICATED 7:24 PM WEBBING INSPECTOR BLOOD CULTURE STAT 04/26/2018 7:24 PM WEBBING INSPECTOR CBC W/PLT COUNT & AUTO Routine 04/26/2018 DIFFERENTIAL 7:23 PM WEBBING INSPECTOR LACTIC ACID, VENOUS Routine 04/26/2018 7:23 PM WEBBING INSPECTOR PHOSPHORUS Routine 04/26/2018 7:23 PM WEBBING INSPECTOR MAGNESIUM Routine 04/26/2018 7:23 PM WEBBING INSPECTOR APTT Routine 04/26/2018 7:23 PM WEBBING INSPECTOR PROTHROMBIN TIME/INR Routine 04/26/2018 7:23 PM WEBBING INSPECTOR COMPREHENSIVE METABOLIC Routine 04/26/2018 PANEL 7:23 PM WEBBING INSPECTOR CBC W/PLT COUNT & AUTO Routine 04/26/2018 DIFFERENTIAL 7:23 PM WEBBING INSPECTOR POCT-GLUCOSE METER Routine 04/26/2018 6:21 PM WEBBING INSPECTOR POCT-GLUCOSE METER Routine 04/26/2018 6:[address] BRAIN WITHOUT IV STAT 04/26/2018 CONTRAST 5:16 PM WEBBING INSPECTOR POCT-GLUCOSE METER Routine 04/26/2018 11:36 AM WEBBING INSPECTOR POCT-GLUCOSE METER Routine 04/26/2018 7:57 AM WEBBING INSPECTOR CBC W/PLT COUNT & AUTO Routine 04/26/2018 DIFFERENTIAL 4:02 AM WEBBING INSPECTOR BASIC METABOLIC PANEL (7) Routine 04/26/2018 4:02 AM WEBBING INSPECTOR CBC W/PLT COUNT & AUTO Routine 04/26/2018 DIFFERENTIAL 4:02 AM WEBBING INSPECTOR PHOSPHORUS Routine 04/26/2018 4:02 AM WEBBING INSPECTOR MAGNESIUM Routine 04/26/2018 4:02 AM WEBBING INSPECTOR CALCIUM, IONIZED Routine 04/26/2018 4:02 AM WEBBING INSPECTOR POCT-GLUCOSE METER Routine 04/25/2018 9:21 PM WEBBING INSPECTOR ELECTROLYTE PANEL STAT 04/25/2018 4:09 PM WEBBING INSPECTOR CREATININE, RANDOM URINE Routine 04/25/2018 4:09 PM WEBBING INSPECTOR PROTEIN, RANDOM URINE Routine 04/25/2018 4:09 PM WEBBING INSPECTOR URINALYSIS W/ MICROSCOPIC Routine 04/25/2018 4:09 PM WEBBING INSPECTOR POCT-GLUCOSE METER Routine 04/25/2018 10:14 AM WEBBING INSPECTOR POCT-GLUCOSE METER Routine 04/25/2018 9:12 AM WEBBING INSPECTOR POCT-ACT Routine 04/25/2018 9:05 AM WEBBING INSPECTOR POCT-ACT Routine 04/25/2018 8:54 AM WEBBING INSPECTOR PCI 04/25/2018 Coronary artery disease 7:30 AM WEBBING INSPECTOR involving galena heart, angina presence unspecified, unspecified vessel or lesion type Case Notes (1) CASE POP6 . 663mGy POCT-GLUCOSE METER Routine 04/25/2018 6:35 AM WEBBING INSPECTOR CBC W/PLT COUNT & AUTO STAT 04/25/2018 DIFFERENTIAL 4:40 AM WEBBING INSPECTOR LIPID PANEL Routine 04/25/2018 4:40 AM WEBBING INSPECTOR PROTHROMBIN TIME/INR STAT 04/25/2018 4:40 AM WEBBING INSPECTOR BASIC METABOLIC PANEL (7) STAT 04/25/2018 4:40 AM WEBBING INSPECTOR CBC W/PLT COUNT & AUTO STAT 04/25/2018 DIFFERENTIAL 4:40 AM WEBBING INSPECTOR ECG 12-LEAD Routine 04/25/2018 4:33 AM WEBBING INSPECTOR POCT-GLUCOSE METER Routine 04/25/2018 2:51 AM WEBBING INSPECTOR POCT-GLUCOSE METER Routine 04/24/2018 11:32 PM WEBBING INSPECTOR POCT-GLUCOSE METER Routine 04/24/2018 10:08 PM WEBBING INSPECTOR BASIC METABOLIC PANEL (7) Routine 04/24/2018 7:06 PM WEBBING INSPECTOR RHYTHM STRIP - SCAN 03/13/2018 11:20 AM [...] ms QTC Calculatio n(Bazett) 520 ms P Fleming 59 degrees R Fleming 67 degrees T Fleming 38 degrees Sinus rhythm with Premature atrial [...] Coronary artery disease 12:24 PM CDT involving galena coronary artery of galena heart, angina presence unspecified Case Notes POP6 PT ALLERGIC TO IODINE. Special Needs PT ALLERGIC TO IODINE ECG 12-LEAD Routine 03/08/2018 9:27 AM CDT Procedure Note - Interface, External Ris In - 03/08/2018 12:04 PM CDT Ventricula r Rate 78 BPM Atrial Rate 78 BPM P-R Interval 184 ms QRS Duration 170 ms Q-T Interval 424 ms QTC Calculatio n(Bazett) 483 ms P Fleming 54 degrees R Fleming 67 degrees T Fleming 47 degrees Sinus rhythm with Premature atrial [...] CDT disease) (HCC) Coronary artery disease involving galena coronary artery of galena heart without angina pectoris CT/CTA CHEST Routine 03/07/2018 PAD (peripheral artery 12:00 PM CDT disease) (HCC) Coronary artery disease involving galena coronary artery of galena heart without angina pectoris POCT-CREATININE Routine 03/07/2018 11:29 AM CDT after 12/20/2017 Results * RHYTHM STRIP - SCAN (08/28/2018 8:50 AM CDT) Only the most recent of 3 results within the time period is included. Narrative Performed At * VASCULAR DIAGRAM -SCAN (05/07/2018 12:21 PM WEBBING INSPECTOR) Only the most recent of 2 results within the time period is included. Narrative Performed At * CARDIAC CATH REPORT - SCAN (05/04/2018 10:01 AM WEBBING INSPECTOR) Narrative Performed At * ECHOCARDIOGRAM REPORT - SCAN (04/27/2018 4:20 PM WEBBING INSPECTOR) Narrative Performed At * 2D Echo W/Doppler(CW/PW/Color) (04/27/2018 11:05 AM WEBBING INSPECTOR) Ejection Fraction [facility] Specimen Narrative Performed At Transthoracic Echocardiography Report (TTE) [facility] Patient Name TIM COUCH Date of Study 04/27/2018 MATIAS [id number] Male Visit Number [id number] Room Number C624 Number Date of Birth1955Referring Physician Soha Crews Age62 year(s)Pot Operator Jasen Douglas [facility] AnalystAlex Helio Olivares, Physician Procedure Type of [...] External Ris In - 04/27/2018 3:51 PM WEBBING INSPECTOR Transthoracic Echocardiography Report (TTE) Demographics Patient Name RILEY TIM Date of Study 04/27/2018 MATIAS Gender Male Visit Number [id number] Race Room Number C624 Number Date of 1955 Referring Physician Soha Crews Age 62 year(s) Pot Operator Jasen Douglas RDCS Line Pilot Alberto Cadet Interpreting Rod Olivares, Physician Procedure [...] CPACS * POC-Glucose meter (04/27/2018 9:48 AM WEBBING INSPECTOR) Only the most recent of 28 results within the time period is included. POC-Glucose Meter 244 (H)Comment: TESTED AT 70 - 110 mg/dL [facility] [address] [place] [id number] Specimen Blood Performing Organization Address City/State/Zipcode Phone Number [phone] [place] [address] * Vitamin B12 and Folate (04/27/2018 5:12 AM WEBBING INSPECTOR) Vitamin B12 206 (L) 213 - 816 pg/mL [facility] Folate 11.1 >=7.0 ng/mL [facility] Specimen Blood Performing Organization Address City/[facility] Phone Number [phone] [place] [address] * TSH/Free T4 If Indicated (04/27/2018 5:12 AM WEBBING INSPECTOR) TSH 0.35 0.35 - 4.94 uIU/mL [facility] Specimen Blood Performing Organization Address City/[facility] Cent[facility] Phone Number [phone] [place] [address] * HIV-1 Antigen with HIV-1/2 Antibody (04/27/2018 5:12 AM WEBBING INSPECTOR) HIV-1 Antigen with HIV Nonreactive Nonreactive [facility] 1&2 Antibody [facility] Specimen Blood Performing Organization Address City/[facility] Cent[facility] Phone Number [address] * RPR (04/27/2018 5:12 AM WEBBING INSPECTOR) RPR Nonreactive Nonreactive [facility] Specimen Blood Performing Organization Address City/State/Zipcode Phone Number [address] * T4, free (04/27/2018 5:12 AM WEBBING INSPECTOR) Free T4 1.30 0.70 - 1.48 ng/dL [facility] Specimen Blood Performing Organization Address City/State/Zipcode Phone Number [facility] [address] [place] [address] [facility] * Hemoglobin A1c (04/27/2018 5:12 AM WEBBING INSPECTOR) Hemoglobin A1C 8.7 (H) 4.3 - 6.1 % [facility] Specimen Blood Performing Organization Address City/[facility] Cent[facility]ode Phone Number [facility] [address], [place] [phone] [facility] * Basic Metabolic Panel (04/27/2018 5:12 AM WEBBING INSPECTOR) Only the most recent of 7 results [...] [facility] NOT ACCURATE CREATININE [facility] CLEARANCE IN PREDICTING GLOMERULAR FILTRATION RATE. ESTIMATED GFR IS NOT APPLICABLE FOR DIALYSIS PATIENTS. Specimen Blood Performing Organization Address City/[facility]/Zipcode Phone Number [facility] [address], [place] [phone] [facility] * MR brain without IV contrast (04/26/2018 10:20 PM WEBBING INSPECTOR) Specimen Narrative Performed At FINAL REPORT [employer] CLINICAL HISTORY: Stroke Ischemic Stroke Evaluation TECHNIQUE: MRI of the brain utilizing axial T2, FLAIR, GRE, DWI; sagittal and coronal T1-weighted images. MRA of the head utilizing 3-D fmjv-vg-oaenla technique, with 3-D reconstructions. MRA of the neck utilizing 2-D and 3-D lzhe-cg-hwrtyb technique, with 3-D reconstructions. COMPARISON: Same day [...] distal right petrous internal carotid artery. Multifocal puec-vm-raqeczcs stenosis of the right A2 and A3 [...] MD Report Verified Date/Time:04/26/2018 23:11:40 Reading Location: [address] Transitional Reading Room Procedure Note Interface, External Ris In - 04/26/2018 11:13 PM WEBBING INSPECTOR FINAL REPORT CLINICAL HISTORY: Stroke Ischemic Stroke Evaluation TECHNIQUE: MRI of the brain utilizing axial T2, FLAIR, GRE, DWI; sagittal and coronal T1-weighted images. MRA of the head utilizing 3-D sgbb-ot-vqfyst technique, with 3-D reconstructions. MRA of the neck utilizing 2-D and 3-D apbe-jm-ewiysk technique, with 3-D reconstructions. COMPARISON: Same day [...] distal right petrous internal carotid artery. Multifocal qumv-wo-zyhhkurs stenosis of the right A2 and A3 [...] Report Verified Date/Time: 04/26/2018 23:11:40 Reading Location: [address] Transitional Reading Room Performing Organization Address City/State/Zipcode Phone Number [employer] * MRA neck without IV contrast (04/26/2018 10:20 PM WEBBING INSPECTOR) Specimen Narrative Performed At FINAL REPORT [employer] CLINICAL HISTORY: Stroke Ischemic Stroke Evaluation TECHNIQUE: MRI of the brain utilizing axial T2, FLAIR, GRE, DWI; sagittal and coronal T1-weighted images. MRA of the head utilizing 3-D rfef-ts-iayvmf technique, with 3-D reconstructions. MRA of the neck utilizing 2-D and 3-D pdzl-nh-uislpa technique, with 3-D reconstructions. COMPARISON: Same day [...] distal right petrous internal carotid artery. Multifocal wjba-iq-kbpkyfpz stenosis of the right A2 and A3 [...] Report Verified Date/Time:04/26/2018 23:11:40 Reading Location: [facility] B1 [id number] Transitional Reading Room Procedure Note Interface, External Ris In - 04/30/2018 11:08 PM WEBBING INSPECTOR FINAL REPORT CLINICAL HISTORY: Stroke Ischemic Stroke Evaluation TECHNIQUE: MRI of the brain utilizing axial T2, FLAIR, GRE, DWI; sagittal and coronal T1-weighted images. MRA of the head utilizing 3-D ezbj-tp-netmph technique, with 3-D reconstructions. MRA of the neck utilizing 2-D and 3-D igwm-uq-hsenxy technique, with 3-D reconstructions. COMPARISON: Same day [...] distal right petrous internal carotid artery. Multifocal plto-qm-eoblozrv stenosis of the right A2 and A3 [...] Report Verified Date/Time: 04/26/2018 23:11:40 Reading Location: [address] Reading Room Performing Organization Address City/State/Zipcode Phone Number [employer] * MRA head without IV contrast (04/26/2018 10:20 PM WEBBING INSPECTOR) Specimen Narrative Performed At FINAL REPORT [employer] CLINICAL HISTORY: Stroke Ischemic Stroke Evaluation TECHNIQUE: MRI of the brain utilizing axial T2, FLAIR, GRE, DWI; sagittal and coronal T1-weighted images. MRA of the head utilizing 3-D dgxg-vz-hlfwtx technique, with 3-D reconstructions. MRA of the neck utilizing 2-D and 3-D xdfl-ue-pxxjqy technique, with 3-D reconstructions. COMPARISON: Same day [...] distal right petrous internal carotid artery. Multifocal xcvp-vd-zznbausx stenosis of the right A2 and A3 [...] MD Report Verified Date/Time:04/26/2018 23:11:40 Reading Location: [address] Transitional Reading Room Procedure Note Interface, External Ris In - 04/26/2018 11:13 PM WEBBING INSPECTOR FINAL REPORT CLINICAL HISTORY: Stroke Ischemic Stroke Evaluation TECHNIQUE: MRI of the brain utilizing axial T2, FLAIR, GRE, DWI; sagittal and coronal T1-weighted images. MRA of the head utilizing 3-D axbo-wb-boujkt technique, with 3-D reconstructions. MRA of the neck utilizing 2-D and 3-D hguu-ow-hqkgzm technique, with 3-D reconstructions. COMPARISON: Same day [...] distal right petrous internal carotid artery. Multifocal szde-ga-avcpjfsq stenosis of the right A2 and A3 [...] Report Verified Date/Time: 04/26/2018 23:11:40 Reading Location: [facility] Transitional Reading Room Performing Organization Address City/[facility] Cent[facility]ode Phone Number GE RIS * Urinalysis with Microscopic If Indicated (04/26/2018 7:24 PM WEBBING INSPECTOR) Color, UA Light Yellow [facility] Clarity, UA Clear [facility] Specific [place], UA 1.010 1.001 - 1.035 [facility] Specimen Urine Performing Organization Address City/[facility]/Zipcode Phone Number [facility] [address] [place] [address] [facility] * Blood culture (04/26/2018 7:24 PM WEBBING INSPECTOR) Result No growth in 5 days [facility] Specimen Blood Performing Organization Address City/State/Zipcode Phone Number [facility] [address] [place] [address] [facility] * CBC with platelet count + automated diff (04/26/2018 7:23 PM WEBBING INSPECTOR) Only the most recent of 4 results [...] 1 % [facility] Granulocytes-Relative [facility] Specimen Blood Performing Organization Address City/[facility] Centercode Phone Number [address] [address] [facility] * Lactic acid, venous, whole blood (04/26/2018 7:23 PM WEBBING INSPECTOR) Lactate, Venous 1.8Comment: Specimen slightly 0.5 - 2.2 mmol/L [facility] hemolyzed [facility] Specimen Blood Performing Organization Address City/[facility] [place] [address] [facility] * aPTT (04/26/2018 7:23 PM WEBBING INSPECTOR) PTT 31.0 22.5 - 36.0 seconds [facility] Specimen Blood Performing Organization Address City/[facility] [place] [address] [facility] * Prothrombin time/INR (04/26/2018 7:23 PM WEBBING INSPECTOR) Only the most recent of 3 results within the time period is included. Protime 13.5 11.7 - 14.7 seconds [facility] INR 1.0 <=5.9 [facility] Specimen Blood Narrative Performed At RECOMMENDED COUMADIN/WARFARIN INR THERAPY RANGES [facility] STANDARD DOSE: 2.0 - 3.0 Includes: PROPHYLAXIS for venous thrombosis, [facility] systemic embolization; TREATMENT for venous thrombosis and/or pulmonary embolus. HIGH RISK: Target INR is 2.5-3.5 for patients with mechanical heart valves. Performing Organization Address City/[facility] Cent[facility]ode Phone Number [address] [place] [address] [phone] * Phosphorus (04/26/2018 7:23 PM WEBBING INSPECTOR) Only the most recent of 3 results within the time period is included. Phosphorus 3.5Comment: Specimen markedly 2.3 - 4.7 mg/dL [facility] Specimen Blood Performing Organization Address [facility] Centercoin Phone Number [address] * Magnesium (04/26/2018 7:23 PM WEBBING INSPECTOR) Only the most recent of 4 results within the time period is included. Magnesium 3.1 (H)Comment: Specimen 1.6 - 2.6 mg/dL [facility] markedly [facility] Specimen Blood Performing Organization Address [facility] Centercoin Phone Number [address] * Comprehensive metabolic panel (04/26/2018 7:23 PM WEBBING INSPECTOR) Protein, Total 8.5 (H)Comment: Specimen 6.0 - 8.3 gm/dL [facility] Albumin 4.2Comment: Specimen markedly 3.5 - 5.0 g/dL [facility] Alkaline Phosphatase 72 40 - 150 U/L [facility] Total Bilirubin 0.4Comment: Specimen markedly 0.2 - 1.2 mg/dL [facility] Sodium 139 136 - 145 meq/L [facility] Potassium 5.1Comment: Specimen markedly 3.5 - 5.1 meq/L [facility] Chloride 102 98 - 107 meq/L [facility] CO2 25 22 - 29 meq/L [facility] BUN 27 (H) 7 - 21 mg/dL [facility] Creatinine 1.34 (H)Comment: Specimen 0.57 - 1.25 mg/dL [facility] markedly hemolyzed [facility] Glucose 110 (H) 70 - 105 mg/dL [facility] Calcium 9.5 8.4 - 10.2 mg/dL [facility] AST 35 (H)Comment: Specimen 5 - 34 U/L [facility] markedly hemolyzed [facility] ALT 10Comment: Specimen markedly 6 - 55 U/L [facility] hemolyzed [facility] EGFR 54Comment: ESTIMATED GFR IS mL/min/1.73 sq m [facility] NOT ACCURATE CREATININE [facility] CLEARANCE IN PREDICTING GLOMERULAR FILTRATION RATE. ESTIMATED GFR IS NOT APPLICABLE FOR DIALYSIS PATIENTS. Specimen Blood Performing Organization Address City/State/Zipcode Phone Number [facility] [address] [place] [address] [facility] C[facility] * CT brain without IV contrast (04/26/2018 5:16 PM WEBBING INSPECTOR) Specimen Narrative Performed At FINAL REPORT [employer] [facility] CT head without contrast 04/26/2018 5:12 [...] MD Report Verified Date/Time:04/26/2018 18:36:43 Reading Location: [facility] Radiology Reading Room Procedure Note Interface, External Ris In - 04/26/2018 6:49 PM WEBBING INSPECTOR FINAL REPORT CT head without contrast 04/26/2018 [...] Report Verified Date/Time: 04/26/2018 18:36:43 Reading Location: [facility] Radiology Reading Room Performing Organization Address City/[facility]/Zipcode Phone Number RIS * Calcium, Ionized (04/26/2018 4:02 AM WEBBING INSPECTOR) Calcium, Ion 1.13 1.12 - 1.27 mmol/L [facility] pH, Blood 7.39 [facility] Specimen Blood Performing Organization Address City/[facility]/Zipcode Phone Number [facility] [address] [place] [address] [facility] * Protein, random urine (04/25/2018 4:09 PM WEBBING INSPECTOR) Only the most recent of 2 results within the time period is included. Protein, Urine 20 (H) 0 - 14 mg/dL [facility] Specimen Urine Performing Organization Address [facility] Cent[facility] Phone Number [place] [phone] * Creatinine, random urine (04/25/2018 4:09 PM WEBBING INSPECTOR) Creatinine, Ur 73.5 mg/dL [facility] Specimen Urine Narrative Performed At Reference Range: No Normals [facility] Performing Organization Address [facility] Cent[facility]ode Phone Number [address] * Urinalysis w/Microscopic (04/25/2018 4:09 PM WEBBING INSPECTOR) Color, UA Yellow [facility] Clarity, UA Clear [facility] Specific [place], UA 1.037 (H) 1.001 - 1.035 [place] [...] Urine Performing Organization Address City/State/[place] [address] [facility] * Electrolytes (04/25/2018 4:09 PM WEBBING INSPECTOR) Sodium 136 136 - 145 meq/L [facility] Potassium 4.1 3.5 - 5.1 meq/L [facility] Chloride 103 98 - 107 meq/L [facility] CO2 23 22 - 29 meq/L [facility] Specimen Blood Narrative Performed At Call [phone] with results [facility] Performing Organization Address City/[facility]/[place] [address] [facility] * POC ACTIVATED CLOTTING TIME (04/25/2018 9:05 AM WEBBING INSPECTOR) Only the most recent of 2 results within the time period is included. Activated Clotting Time 362Comment: TESTED AT [facility] sec [address] Specimen Blood Performing Organization Address City/[facility]/Zipcode Phone Number [address] [address] [phone] [place] [address] * Lipid panel (04/25/2018 4:40 AM WEBBING INSPECTOR) Triglycerides 90 mg/dL [facility] Cholesterol 159 mg/dL [facility] HDL 35 mg/dL [facility] LDL Calculated 106 mg/dL [facility] Specimen Blood Narrative Performed At Triglyceride Reference Range: [facility] Low Risk <150 [facility] [id number] High Risk 200-499 Very High Risk>=500 Cholesterol Reference Range: Low Risk <200 [id number] High Risk>240 HDL Cholesterol Reference Range: Low Risk >=60 High Risk <40 LDL Cholesterol Reference Range: Optimal<100 Near [id number] [id number] Very High >=190 Performing Organization Address City/State/Zipcode Phone Number [facility] [address] [place] [address] [facility] * ECG 12 lead (04/25/2018 4:33 AM WEBBING INSPECTOR) Only the most recent of 3 results within the time period is included. Specimen Narrative Performed At Ventricular Rate 97 BPM GE MUSE Atrial Rate 97 BPM P-R Interval 188 ms QRS Duration 164 ms Q-T Interval 406 ms QTC Calculation(Bazett) 515 ms P Fleming 61 degrees R Fleming 151 degrees T Fleming 22 degrees Normal sinus rhythm Right bundle branch block Abnormal ECG When compared with ECG of 09-MAR-2018 14:30, Premature atrial complexes are no longer Present Confirmed by MD ESTEVEZ JORGE ([id number]) on 04/25/2018 1:58:33 PM Procedure Note Interface, External Ris In - 04/25/2018 1:58 PM WEBBING INSPECTOR Ventricular Rate 97 BPM Atrial Rate 97 BPM P-R Interval 188 ms QRS Duration 164 ms Q-T Interval 406 ms QTC Calculation(Bazett) 515 ms P Fleming 61 degrees R Fleming 151 degrees T Fleming 22 degrees Normal sinus rhythm Right bundle branch block Abnormal ECG When compared with ECG of 09-MAR-2018 14:30, Premature atrial complexes are no longer Present Confirmed by MD ESTEVEZ JORGE ([id number]) on 04/25/2018 1:58:33 PM Performing Organization Address City/[facility]/Zipcode Phone Number [facility] * CARDIAC CATH REPORT - SCAN (03/13/2018 11:20 AM CDT) Narrative Performed At * TRANSFUSION SERVICE REPORT - SCAN (03/09/2018 6:09 PM CDT) Narrative Performed At * NM myocardial perfusion PET (rest and stress) (03/09/2018 2:56 PM CDT) Specimen Narrative Performed At FINAL REPORT [facility] PROCEDURE:Rest/Stress MYOCARDIAL PERFUSION PET with regadenoson\\XA9\\ CPT CODE: 92647 INDICATION: CAD HISTORY:Cardiac risk factors: Diabetes, hypertension, [...] MD Report Verified Date/Time:03/09/2018 16:42:51 Reading Location: [address] Reading Room Procedure Note Interface, External Ris In - 03/09/2018 4:45 PM CDT FINAL REPORT PROCEDURE: Rest/Stress MYOCARDIAL PERFUSION PET with regadenoson\\XA9\\ CPT CODE: [id number] INDICATION: CAD HISTORY: Cardiac risk factors: Diabetes, [...] Report Verified Date/Time: 03/09/2018 16:42:51 Reading Location: [address] Reading Room Performing Organization Address City/State/Zipcode Phone Number RIS * Treadmill tolerance(Non-Nuclear Treadmill) (03/09/2018 2:43 PM CDT) Specimen Narrative Performed At Protocol Name Regadenoson [facility] Time In Exercise Phase 00:01:00 Max. 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 Protocol Name Ariadna Time In Exercise Phase [...] 8:24:14 AM Confirmed by MD ESTEVEZ JORGE ([id number]) on 03/29/2018 3:47:55 PM Performing Organization Address City/State/[facility] Centercode Phone Number GE MUSE * CBC [...] Blood Performing Organization Address City/State/Zipcode Phone Number [facility] [address], [place] [id number] [phone] [place] [address] * Type and screen, automated (03/08/2018 9:16 AM CDT) ABO/RH AUTOMATED (BEAKER) O POSITIVE [facility] Ab Scrn NEGATIVE [facility] Specimen Blood Performing Organization Address City/State/Zipcode Phone Number [facility] [address] [place] [address] [phone] [place] [address] * CTA chest (03/07/2018 12:00 PM CDT) Specimen Narrative Performed At Addendum Begins [employer] RIS REPORT STATUS:A Addendum: I agree with the previously described non vascular findings by Dr. Wilcox. Signed: Leo Mccloud MD Report Verified Date/Time:03/07/2018 16:03:23 Reading Location: [place] [address] Angio Body Reading Room Addendum Ends FINAL [...] and during intravenous contrast administration using a [employer] multidetector CT scanner. Images were obtained before [...] vascular structure identified medial to the expected galena right SFA. Enhancement is suboptimal at this level. Please kindly correlate clinically. 2.Coronary atherosclerosis. Patient is post coronary artery bypass surgery. 3.The central pulmonary artery is at the upper limits of normal in calibre. No evidence of central pulmonary artery embolism is seen. 4.Other findings as described above. 5.An addendum will be dictated by the Cdl Driver Radiologist regarding the nonvascular findings. Signed: Jose Wilcox MD Report Verified Date/Time:03/07/2018 13:30:05 Reading Location: [place] [address] Cardiology MRI Procedure Note Interface, External Ris In - 03/07/2018 4:05 PM CDT Addendum Begins REPORT STATUS:A Addendum: I agree with the previously described non vascular findings by Dr. Wilcox. Signed: Leo Mccloud MD Report Verified Date/Time: 03/07/2018 16:03:23 Reading Location: [place] [id number] Angio Body Reading Room Addendum Ends FINAL [...] vascular structure identified medial to the expected galena right SFA. Enhancement is suboptimal at this level. Please kindly correlate clinically. 2. Coronary atherosclerosis. Patient is post coronary artery bypass surgery. 3. The central pulmonary artery is at the upper limits of normal in calibre. No evidence of central pulmonary artery embolism is seen. 4. Other findings as described above. 5. An addendum will be dictated by the Cdl Driver Radiologist regarding the nonvascular findings. Signed: Jose Wilcox MD Report Verified Date/Time: 03/07/2018 13:30:05 Reading Location: [facility] [address]047 Cardiology MRI Performing Organization Address City/State/Zipcode Phone Number [employer] * CTA abdomen & pelvis (03/07/2018 12:00 PM CDT) Specimen Narrative Performed At Addendum Begins GE RIS REPORT STATUS:A Addendum: I agree with the previously described non vascular findings by Dr. Wilcox. Signed: Leo Mccloud MD Report Verified Date/Time:03/07/2018 16:03:23 Reading Location: [place] [id number] Angio Body Reading Room Addendum Ends FINAL [...] and during intravenous contrast administration using a [employer] multidetector CT scanner. Images were obtained before [...] vascular structure identified medial to the expected galena right SFA. Enhancement is suboptimal at this level. Please kindly correlate clinically. 2.Coronary atherosclerosis. Patient is post coronary artery bypass surgery. 3.The central pulmonary artery is at the upper limits of normal in calibre. No evidence of central pulmonary artery embolism is seen. 4.Other findings as described above. 5.An addendum will be dictated by the Cdl Driver Radiologist regarding the nonvascular findings. Signed: Jose Wilcox MD Report Verified Date/Time:03/07/2018 13:30:05 Reading Location: [place] [address] Cardiology MRI Procedure Note Interface, External Ris In - 03/07/2018 4:05 PM CDT Addendum Begins REPORT STATUS:A Addendum: I agree with the previously described non vascular findings by Dr. Wilcox. Signed: Leo Mccloud MD Report Verified Date/Time: 03/07/2018 16:03:23 Reading Location: [place] [address] Angio Body Reading Room Addendum Ends FINAL [...] and during intravenous contrast administration using a Int[employer] multidetector CT scanner. Images were obtained before [...] vascular structure identified medial to the expected galena right SFA. Enhancement is suboptimal at this level. Please kindly correlate clinically. 2. Coronary atherosclerosis. Patient is post coronary artery bypass surgery. 3. The central pulmonary artery is at the upper limits of normal in calibre. No evidence of central pulmonary artery embolism is seen. 4. Other findings as described above. 5. An addendum will be dictated by the Cdl Driver Radiologist regarding the nonvascular findings. Signed: Jose Wilcox MD Report Verified Date/Time: 03/07/2018 13:30:05 Reading Location: [place] [address] Cardiology MRI Performing Organization Address City/State/Zipcode Phone Number GE RIS * POC-Creatinine (03/07/2018 11:29 AM CDT) POC-Creatinine 1.3Comment: TESTED AT [facility]-KG 0.6 - 1.3 mg/dL [facility] [address] [place] [address] POC-EGFR Comment: Insufficient clinical mL/min/1.73M2 [facility] data to calculate estimated [facility] GFR Specimen Blood Narrative Performed At Performing Organization Address City/State/Zipcode Phone Number [facility] [address] [place] [address] [facility]ENTER after 12/20/2017 Insurance Payer Benefit Subscriber ID Type Phone Address Plan / Group MEDICARE MEDICARE A xxxxxxxxxxx Medicare B [employer] - MGD UNITED HMO xxxxxxxxx HMO/POS CARE POS SELECT CHOICE Advance Directives For more information, please contact: [facility] [address] [place], [place] [phone] Date Inactivated Comments Code Status Date Activated Full Code 04/24/2018 3:34 PM This code status was determined by: Patient 03/10/2018 7:38 PM Full Code 03/08/2018 8:39 AM This code status was determined by: Patient 05/13/2016 3:28 PM Full Code 05/13/2016 7:52 AM This code status was determined by: Patient
--- OUTSIDE RECORDS SUMMARY | 2018-12-21 09:54 | XMS REPORT | Continuity of Care Document ---
Author Author [employer] Address Unknown Phone Unavailable Care Team Providers Care Cross Country Coach Name Role Phone [employer] Unavailable Unavailable Problems Problem Status Onset Date Classification Date Reported Comments Source Obstructive sleep apnea (pediatric) 04/18/2018 10/30/2018 [facility] FIRST NIGHT 59481 Active 04/09/2018 [facility] 51908/ 384.20 Active 01/24/2013 [facility] 388.60 - OTORRHEA NOS Active 01/08/2013 [facility] DIARRHEA Active 10/01/2012 [facility] EAR INFECTION Active 08/23/2012 [facility] CAD (Confirmed) Resolved Problem 10/30/2018 [facility] Cholesterol1 Resolved Problem 10/30/2018 high [facility] [place],[facility] Diabetes mellitus type II Resolved Problem 10/30/2018 [facility] [place],[facility] History of - chronic ear infection Resolved Problem 10/30/2018 [facility] [place],[facility] HTN - Hypertension Resolved Problem 10/30/2018 [facility] [place],[facility] Neuropathy Resolved Problem 10/30/2018 [facility] Pseudomonas2 Active Problem 10/30/2018 [facility] by [facility] Expert. [facility] [place] PVD (Confirmed) Resolved Problem 10/30/2018 [facility] CAD Resolved Problem 02/09/2013 [facility] Cholesterol1 Resolved Problem 02/09/2013 1high [facility], [facility] Diabetes mellitus type II Resolved Problem 02/09/2013 [facility] History of - chronic ear infection Resolved Problem 02/09/2013 [facility], [facility] HTN - Hypertension Resolved Problem 02/09/2013 [facility] Neuropathy Resolved Problem 02/09/2013 [facility] PVD Resolved Problem 02/09/2013 [facility] MASTOIDITIS NOS Active [facility] PERFORAT TYMPAN MEMB NOS Active [facility] OBSTRUCTIVE SLEEP APNEA (ADULT) (PEDIATR Active [facility] Medications Medication Details Route Status Patient Instructions Ordering Provider Order Date Source Vicodin 5/500 oral tablet 1-2 tablets, PO, Q4-6H, PRN, 20 tab, for Pain, Substitution Allowed, Maintenance PO Active Dulce Maria 02/07/2013 [facility] Bactrim DS oral tablet 1 tab, PO, BID, 14 tab, Substitution Allowed, Maintenance PO Active Dulce Maria 02/07/2013 [facility] ondansetron 4 mg, 2 mL, Route: IVP, Drug form: INJ, ONCE, Dosing Weight 114.545, kg, PRN Nausea & Vomiting, Start date: 02/07/13 13:37:00 IVP No Longer Active [facility] 02/07/2013 [facility] labetalol 5 mg, 1 mL, Route: IVP, Drug form: INJ, Q5Min, Dosing Weight 114.545, kg, PRN Elevated BP, Start date: 02/07/13 13:37:00, Duration: 5 doses or times, Stop date: Limited # of times IVP No Longer Active [facility] 02/07/2013 [facility] acetaminophen-10 mg/mL INTRAVENOUS solution 1,000 [...] kg or greater) IV No Longer Active [facility] 02/07/2013 [facility] Lactated Ringers Injection IV 1,000 mL 1,000 mL, Rate: 50 ml/hr, Infuse over: 20 hr, Route: IV, Dosing Weight 114.545 kg, Total Volume: 1,000, Start date: 02/07/13 13:37:00, Duration: 30 day, Stop date: 03/09/13 13:36:00 IV No Longer Active [facility] 02/07/2013 [facility] flumazenil 0.2 mg, 2 mL, Route: IVP, Drug form: INJ, PRN, Dosing Weight 114.545, kg, PRN Benzodiazepine Reversal, Initial dose, Start date: 02/07/13 13:37:00, Duration: 30 day, Stop date: 03/09/13 13:36:00 [facility] meperidine 12.5 mg, 0.25 mL, Route: IVP, Drug form: INJ, Q30Min, Dosing Weight 114.545, kg, PRN Other -See Comment, For shivering, Start date: 02/07/13 13:37:00, Duration: 2 doses or times, Stop date: Limited # of times IVP No Longer Active [facility] 02/07/2013 [facility] naloxone 0.04 mg, 0.1 mL, Route: IVP, Drug form: INJ, Q2MIN, Dosing Weight 114.545, kg, PRN Narcotic Reversal, Start date: 02/07/13 13:37:00, Duration: 8 doses or times, Stop date: Limited # of times IVP No Longer Active [facility] 02/07/2013 [facility] acetaminophen-hydrocodone 325 mg-5 mg oral tablet 2 tab, Route: PO, Drug Form: TAB, Dosing Weight 114.545, kg, Q4H, PRN Pain Score 4-6, Start date: 02/07/13 13:37:00, Duration: 30 day, Stop date: 03/09/13 13:36:00 PO [facility] acetaminophen-hydrocodone 300 mg-10 mg/15 mL oral liquid 15 mL, Route: PO, Drug Form: SOLN, Dosing Weight 114.545, kg, Q4H, PRN Pain Score 4-6, Start date: 02/07/13 13:37:00, Duration: 30 day, Stop date: 03/09/13 13:36:00 PO No Longer Active [facility] 02/07/2013 [facility] morphine Sulfate 2 mg, 1 mL, Route: IVP, Drug form: INJ, Q5Min, Dosing Weight 114.545, kg, PRN Pain Score 4-6, Start date: 02/07/13 13:37:00, Duration: 5 doses or times, Stop date: Limited # of times IVP No Longer [facility] Lactated Ringers Injection IV 1,000 mL 1,000 mL, Rate: 25 ml/hr, Infuse over: 40 hr, Route: IV, Dosing Weight 114.545 kg, Total Volume: 1,000, Start date: 02/07/13 9:45:00, Duration: 30 day, Stop date: 03/09/13 9:44:00 IV No Longer Active [facility] 02/07/2013 [facility] Insulin Diluting Medium for Novolog intravenous solution IV, Substitution Allowed, Maintenance IV Active 02/05/2013 [facility] aspirin 81 mg tablet, enteric coated 81 mg, 1 tab, PO, Daily, 0 tab, Substitution Allowed, ECTAB PO Active 02/05/2013 [facility] lovastatin 20 mg oral tablet 20 mg, 1 tab, PO, Daily, Substitution Allowed PO Active 02/05/2013 [facility] lisinopril 20 mg oral tablet 20 mg, 1 tab, PO, Daily, Substitution Allowed PO Active 02/05/2013 [facility] Plavix 75 mg oral tablet 75 mg, 1 tab, PO, Daily, Substitution Allowed PO Active 02/05/2013 [facility] influenza virus vaccine, inactivated 0.5 mL, Route: IM, Drug Form: SUSP, ONCALL, Start date: 02/05/13 11:59:32, Stop date: 03/07/13 11:54:32 IM No Longer Active [facility] 02/05/2013 [facility] Phenergan 25 mg oral tablet 25 mg, 1 tab, PO, Q4H, PRN, 15 tab, Nausea, Substitution Allowed PO Active [facility] 10/02/2012 [facility] tramadol 50 mg oral tablet 50 mg, PO, Q4-6H, PRN, 20 tab, Pain, Substitution Allowed PO Active [facility] 10/02/2012 [facility] Flagyl 500 mg oral tablet 500 mg, 1 tab, PO, Q8H, 30 tab, Substitution Allowed PO Active [facility] 10/02/2012 [facility] Insulin regular 4 unit, Route: SUB-Q, ONCE, Dosing Weight 113.636, kg, Start date: 10/02/12 1:07:00, Stop date: 10/02/12 1:07:00 SUB-Q No Longer Active [facility] 10/02/2012 [facility] hydrALAZINE 20 mg, Route: IVP, ONCE, Dosing Weight 113.636, kg, Priority: STAT, Start date: 10/02/12 0:11:00, Stop date: 10/02/12 0:11:00 IVP No Longer Active [facility] 10/02/2012 [facility] clonidine 0.2 mg oral tablet 1 tab, Route: PO, ONCE, Dosing Weight 113.636, kg, Start date: 10/01/12 22:11:00, Stop date: 10/01/12 22:11:00 PO No Longer Active [facility] 10/02/2012 [facility] morphine Sulfate 4 mg, Route: IVP, ONCE, Dosing Weight 113.636, kg, Priority: STAT, Start date: 10/01/12 21:54:00, Stop date: 10/01/12 21:54:00 IVP No Longer Active [facility] 10/02/2012 [facility] ondansetron 4 mg, Route: IVP, ONCE, Dosing Weight 113.636, kg, Priority: STAT, Start date: 10/01/12 21:54:00, Stop date: 10/01/12 21:54:00 IVP No Longer Active [facility] 10/02/2012 [facility] Sodium Chloride 0.9% (Bolus) IV 500 mL 500 mL, Rate: 1,000 ml/hr, Infuse over: 30 minutes, Route: IV, Dosing Weight 113.636 kg, Total Volume: 500, Priority: STAT, Start date: 10/01/12 21:54:00, Duration: 1 doses or times, Stop date: 10/01/12 22:23:00 IV No Longer Active [facility] 10/02/2012 [facility] Saline Flush 0.9% 5 mL, Route: IVP, Drug Form: INJ, Dosing Weight 113.636, kg, PRN, PRN Line Flush, Start date: 10/01/12 21:54:00, Duration: 24 hr, Stop date: 10/02/12 21:53:00 IVP No Longer Active [facility] 10/02/2012 [facility] pneumococcal 23-valent vaccine 0.5 ml, Route: IM, Drug Form: INJ, Start date: 08/09/06 9:00:00 IM No Longer Active [facility] 08/09/2006 [facility], [facility] Allergies, Adverse Reactions, Alerts Substance Category Reaction Severity Reaction type Status Date Reported Comments Source Plastic Tape Assertion Propensity to adverse reactions to substance Active [facility] contrast media (iodine-based) Assertion Drug allergy Active [facility] Immunizations Immunization Date Given Site Status Last Updated Comments Source pneumococcal 23-valent vaccine 08/09/2006 Left Arm completed [facility] MARY KAY [facility] pneumococcal 23-valent vaccine 08/09/2006 completed [facility] Results Order Name Results Value Reference Range Date Interpretation Comments Source BEDSIDE GLUCOSE TESTING Gluc POC 110 70 - 99 02/07/2013 [facility] <sup>1</sup>Interpretive Data: Upper Reportable Limit: 200 mg/dL. [facility] BEDSIDE GLUCOSE TESTING Gluc POC 149 70 - 99 02/07/2013 [facility] <sup>2</sup>Interpretive Data: Upper Reportable Limit: 200 mg/dL. [facility] BEDSIDE GLUCOSE TESTING Gluc POC Comment 1 Notify RN/MD 02/07/2013 NA [facility] Microbiology Culture: Anaerobic 02/07/2013 [facility] Microbiology Culture: Aspirate/Body Fluid/Tissue 02/07/2013 [facility] CHEMISTRY eGFR 74 02/05/2013 NA [...] should be multiplied by the estimated BMI. [facility] CHEMISTRY Glucose Lvl 120 70 - 99 02/05/2013 [facility] <sup>4</sup>Interpretive Data: Adult reference range values reflect the clinical guidelines
of the [place] [employer]. [facility] CHEMISTRY Potassium Lvl 4.6 3.5 - 5.1 02/05/2013 Normal [facility] CHEMISTRY Sodium Lvl 142 135 - 145 02/05/2013 Normal [facility] CHEMISTRY Creatinine Lvl 1.1 0.5 - 1.4 02/05/2013 Normal [facility] CHEMISTRY BUN 17 7 - 22 02/05/2013 Normal [facility] CHEMISTRY Calcium Lvl 8.5 8.5 - 10.5 02/05/2013 Normal [facility] CHEMISTRY CO2 30 24 - 32 02/05/2013 Normal [facility] CHEMISTRY Chloride Lvl 104 95 - 109 02/05/2013 Normal [facility] CHEMISTRY AGAP 12.6 10.0 - 20.0 02/05/2013 Normal [facility] HEMATOLOGY Eosinophils 3.4 0.0 - 4.0 02/05/2013 Normal [facility] HEMATOLOGY Lymphocytes # 2.1 1.0 - 5.5 02/05/2013 Normal [facility] HEMATOLOGY Eosinophils # 0.3 0.0 - 0.5 02/05/2013 Normal [facility] HEMATOLOGY Basophils # 0.0 0.0 - 0.2 02/05/2013 Normal [facility] HEMATOLOGY Monocytes # 0.6 0.0 - 0.8 02/05/2013 Normal [facility] HEMATOLOGY Segs-Bands # 5.4 1.5 - 8.1 02/05/2013 Normal [facility] HEMATOLOGY Basophils 0.3 0.0 - 1.0 02/05/2013 Normal [facility] HEMATOLOGY Lymphocytes 25.4 20.0 - 40.0 02/05/2013 Normal [facility] HEMATOLOGY Monocytes 6.6 2.0 - 12.0 02/05/2013 Normal [facility] HEMATOLOGY Segs 64.3 45.0 - 75.0 02/05/2013 Normal [facility] HEMATOLOGY INR 1.06 0.85 - 1.17 02/05/2013 Normal <sup>5</sup>Interpretive Data: RECOMMENDED RANGES FOR PROTIME INR:
2.0-3.0 for most medical and surgical thromboembolic states.
2.5-3.5 for artificial heart valves and recurrent embolism.

INR SHOULD BE USED ONLY FOR PATIENTS ON STABLE ANTICOAGULANT THERAPY. [facility] HEMATOLOGY PT 13.7 12.0 - 14.7 02/05/2013 Normal [facility] HEMATOLOGY PTT 37.7 22.9 - 35.8 02/05/2013 [facility] <sup>6</sup>Interpretive Data: Heparin Therapeutic Range: 57 - 92 Seconds [facility] HEMATOLOGY RBC 4.05 4.70 - 6.10 02/05/2013 LOW [facility] HEMATOLOGY Hgb 12.1 14.0 - 18.0 02/05/2013 LOW [facility] HEMATOLOGY WBC 8.4 3.7 - 10.4 02/05/2013 Normal [facility] HEMATOLOGY MPV 8.0 7.4 - 10.4 02/05/2013 Normal [facility] HEMATOLOGY Platelet 243 133 - 450 02/05/2013 Normal [facility] HEMATOLOGY RDW 13.8 11.5 - 14.5 02/05/2013 Normal [facility] HEMATOLOGY MCHC 34.1 32.0 - 36.0 02/05/2013 Normal [facility] HEMATOLOGY Hct 35.3 42.0 - 54.0 02/05/2013 LOW [facility] HEMATOLOGY MCV 87.2 80.0 - 94.0 02/05/2013 Normal [facility] HEMATOLOGY MCH 29.8 27.0 - 31.0 02/05/2013 Normal [facility] URINALYSIS UA Color Ltyellow 10/02/2012 NA [facility] URINALYSIS UA Urobilinogen 0.1 - 1.0 10/02/2012 NA [facility] URINALYSIS UA Glucose 500 mg/dL *ABN* (10/01/2012 23:50:00) Negative 10/02/2012 ABN [facility] URINALYSIS UA Ketones Trace mg/dL *ABN* (10/01/2012 23:50:00) Negative 10/02/2012 ABN [facility] URINALYSIS UA Spec Grav 1.005 <=1.030 10/02/2012 Normal [facility] URINALYSIS UA pH 7.0 5.0 - 8.0 10/02/2012 Normal [facility] URINALYSIS UA Protein Negative mg/dL (10/01/2012 23:50:00) Negative 10/02/2012 Normal [facility] URINALYSIS UA Leuk Est Negative (10/01/2012 23:50:00) Negative 10/02/2012 Normal [facility] URINALYSIS UA WBC <1 0 - 5 10/02/2012 Normal [facility] URINALYSIS UA Bili Negative *NA* (10/01/2012 23:50:00) Negative 10/02/2012 [facility] URINALYSIS UA Turbidity Clear (10/01/2012 23:50:00) Clear 10/02/2012 Normal [facility] URINALYSIS UA RBC 2 0 - 2 10/02/2012 Normal [facility] URINALYSIS UA Bacteria Occasional /HPF *NA* (10/01/2012 23:50:00) None Seen 10/02/2012 [facility] URINALYSIS UA Blood Small *ABN* (10/01/2012 23:50:00) Negative 10/02/2012 ABN [facility] URINALYSIS UA Nitrite Negative (10/01/2012 23:50:00) Negative 10/02/2012 Normal [facility] URINALYSIS UA Sq Epi None Seen 10/02/2012 NA [facility] Microbiology Culture: Urine 10/02/2012 [facility] CHEMISTRY A/G Ratio 1.0 0.7 - 1.6 10/02/2012 Normal [facility] CHEMISTRY Globulin 4.0 2.0 - 4.0 10/02/2012 Normal [facility] CHEMISTRY B/C Ratio 14 6 - 25 10/02/2012 Normal [facility] CHEMISTRY AGAP 13.4 10.0 - 20.0 10/02/2012 Normal [facility] CHEMISTRY eGFR 83 10/02/2012 NA <sup>1</sup>Result [...] should be multiplied by the estimated BMI. [facility] CHEMISTRY Creatinine Lvl 1.0 0.5 - 1.4 10/02/2012 Normal [facility] CHEMISTRY CO2 30 24 - 32 10/02/2012 Normal [facility] CHEMISTRY Total Protein 8.1 6.4 - 8.4 10/02/2012 Normal [facility] CHEMISTRY Calcium Lvl 8.8 8.5 - 10.5 10/02/2012 Normal [facility] CHEMISTRY Alk Phos 85 39 - 136 10/02/2012 Normal [facility] CHEMISTRY ALT 40 0 - 65 10/02/2012 Normal [facility] CHEMISTRY Albumin Lvl 4.1 3.5 - 5.0 10/02/2012 Normal [facility] CHEMISTRY AST 37 0 - 37 10/02/2012 Normal [facility] CHEMISTRY Bili Total 0.7 0.2 - 1.3 10/02/2012 Normal [facility] CHEMISTRY BUN 14 7 - 22 10/02/2012 Normal [facility] CHEMISTRY Glucose Lvl 245 70 - 99 10/02/2012 [facility] <sup>2</sup>Interpretive Data: Adult reference range values reflect the clinical guidelines
of the [place] [employer]. [facility] CHEMISTRY Chloride Lvl 98 95 - 109 10/02/2012 Normal [facility] CHEMISTRY Sodium Lvl 137 135 - 145 10/02/2012 Normal [facility] CHEMISTRY Potassium Lvl 4.4 3.5 - 5.1 10/02/2012 Normal [facility] CHEMISTRY Lipase Lvl 70 73 - 393 10/02/2012 LOW [facility] HEMATOLOGY PTT 33.8 22.9 - 35.8 10/02/2012 Normal <sup>4</sup>Interpretive Data: Heparin Therapeutic Range: 57 - 92 Seconds [facility] HEMATOLOGY PT 14.4 12.0 - 14.7 10/02/2012 Normal [facility] HEMATOLOGY INR 1.10 0.85 - 1.17 10/02/2012 Normal <sup>3</sup>Interpretive Data: RECOMMENDED RANGES FOR PROTIME INR:
2.0-3.0 for most medical and surgical thromboembolic states.
2.5-3.5 for artificial heart valves and recurrent embolism.

INR SHOULD BE USED ONLY FOR PATIENTS ON STABLE ANTICOAGULANT THERAPY. [facility] HEMATOLOGY Hct 41.4 42.0 - 54.0 10/02/2012 LOW [facility] HEMATOLOGY MCV 88.0 80.0 - 94.0 10/02/2012 Normal [facility] HEMATOLOGY RBC 4.71 4.70 - 6.10 10/02/2012 Normal [facility] HEMATOLOGY Hgb 13.5 14.0 - 18.0 10/02/2012 LOW [facility] HEMATOLOGY MCH 28.6 27.0 - 31.0 10/02/2012 Normal [facility] HEMATOLOGY MCHC 32.5 32.0 - 36.0 10/02/2012 Normal [facility] HEMATOLOGY RDW 14.5 11.5 - 14.5 10/02/2012 Normal [facility] HEMATOLOGY WBC 14.0 3.7 - 10.4 10/02/2012 HI [facility] HEMATOLOGY MPV 7.9 7.4 - 10.4 10/02/2012 Normal [facility] HEMATOLOGY Platelet 267 133 - 450 10/02/2012 Normal [facility] HEMATOLOGY Basophils # 0.0 0.0 - 0.2 10/02/2012 Normal [facility] Hypochrom Slight (10/01/2012 22:45:00) None Seen 10/02/2012 Normal [facility] Eosinophils 0.4 0.0 - 4.0 10/02/2012 Normal [facility] Basophils 0.2 0.0 - 1.0 10/02/2012 Normal [facility] Segs-Bands # 12.2 1.5 - 8.1 10/02/2012 HI [facility] HEMATOLOGY Segs 86.7 45.0 - 75.0 10/02/2012 HI [facility] Lymphocytes 8.2 20.0 - 40.0 10/02/2012 LOW [facility] Monocytes 4.5 2.0 - 12.0 10/02/2012 Normal [facility] Lymphocytes # 1.2 1.0 - 5.5 10/02/2012 Normal [facility] Monocytes # 0.6 0.0 - 0.8 10/02/2012 Normal [facility] Eosinophils # 0.1 0.0 - 0.5 10/02/2012 Normal [facility] Plt Morph Normal (10/01/2012 22:45:00) 10/02/2012 Normal [facility] Pathology Reports No Data Provided for This Section Diagnostic Reports Report Value Date Source Knee wo contrast MRI EXAMINATION: MRI of the right knee without contrast. HISTORY: M25.569 Pain in unspecified knee; lateral right knee pain; right knee medial meniscus tear FINDINGS: Radiographs dated 08/24/2015 are reviewed demonstrating post surgical changes of hbtyg-bet-[id number] amputation. Multiplanar, multisequence magnetic resonance imaging of [...] in keeping with the patient's history of [id number] amputation. Cartilage: Within the medial compartment, there [...] in keeping with the patient's history of flsbj-yuv-kbtb amputation. 5. Intact right knee cruciate and [...] exclude underlying or developing cholesteatoma. SL:17 01/08/2013 [facility] Consultation Notes No Data Provided for This Section Discharge Summaries No Data Provided for This Section History and Physicals No Data Provided for This Section Vital Signs Vital Sign Value Date Comments Source Respitory Rate 13 02/07/2013 [facility] Systolic (mm Hg) 107 02/07/2013 [facility] Diastolic (mm Hg) 59 02/07/2013 [facility] Respitory Rate 15 02/07/2013 [facility] Systolic (mm Hg) 134 02/07/2013 [facility] Respitory Rate 14 02/07/2013 [facility] Diastolic (mm Hg) 69 02/07/2013 [facility] Systolic (mm Hg) 139 02/07/2013 [facility] Diastolic (mm Hg) 69 02/07/2013 [facility] Heart Rate 72 02/07/2013 [facility] Heart Rate 73 02/05/2013 [facility] Weight 114.545 02/05/2013 [facility] Height 193.04 cm 02/05/2013 [facility] Encounters Location Location Details Encounter Type Encounter Number Reason For Visit Attending Provider ADM Date DC Date Status Source [facility] Outpatient [id number] EAR INFECTION VERITO LINK 08/24/2012 Active [facility] Emergency [id number] GASTON SILVER 10/01/2012 10/02/2012 Discharged [facility] OD [id number] 388.60 - OTORRHEA NOS LYNNE SCHNEIDER 01/08/2013 01/08/2013 Active [facility] DS [id number] LYNNE SCHNEIDER 02/07/2013 02/07/2013 Discharged [facility] [id number] Rohan Hernandez 08/24/2015 [facility] [id number] Rohan Hernandez 09/01/2015 09/02/2015 [facility] Outpatient [id number] Morejon 04/12/2018 04/12/2018 [facility] Procedures Procedure Code Date Perfomer Comments Source Allograft bypass of coronary artery [id number] [facility] Amputation of toe [id number] [facility] Excision of gallbladder 655155021 [facility] Allograft bypass of coronary artery 841963002 [facility] Amputation of toe 156996886 [facility] Aorto-femoral arterial bypass 428153157 [facility] Cardiac catheterization 63840153 [facility] Excision of gallbladder 69976400 [facility] Allograft bypass of coronary artery [id number] [facility] Amputation of toe [id number] [facility] Aorto-femoral arterial bypass [id number] [facility] Cardiac catheterization [id number] [facility] Excision of gallbladder [id number] [facility] Aorto-femoral arterial bypass [facility] Cardiac catheterization [id number] [facility] Assessment and Plan No Data Provided for This Section Plan of Care No Data Provided for This Section Social History Social History Date Source No data available for this section 04/12/2018 [facility] No data available for this section 09/02/2015 MARY KAY Crowe Family History No Data Provided for This Section Advance Directives No Data Provided for This Section Functional Status No Data Provided for This Section
[2018-12-21] MEDS ORDERED: SODIUM CHLORIDE 0.9% 1000ML 1,000 ML IV STA (10:10)
[2018-12-21] MEDS ORDERED: CEFTRIAXONE SOD 1 GM/NS 50 ML 50 ML IV SCH (10:15)
[2018-12-21] MEDS ORDERED: ACETAMINOPHEN 325 MG TAB PO NR ×2 (10:30→12:45)
[2018-12-21 10:59] LABS: BASOPHILS % 0.2 % (0.0-1.0); EOSINOPHILS % 0.1 % (0.0-6.0); HEMATOCRIT 31.3 % (38.2-49.6); HEMOGLOBIN 10.4 g/dL (14.0-18.0); LYMPHOCYTES # (AUTO) 0.4 (1.0-3.2); LYMPHOCYTES % 4.6 % (18.0-39.1); MEAN CORPUSCULAR HEMOGLOBIN 30.7 pg (28-32); MEAN CORPUSCULAR HGB CONC 33.2 g/dL (31-35); MEAN CORPUSCULAR VOLUME 92.3 fL (81-99); MONOCYTES # (AUTO) 0.4 (0.2-0.8); NEUTROPHILS # (AUTO) 8.6 (2.1-6.9); NEUTROPHILS % 90.7 % (38.7-80.0); PLATELET COUNT 217 x10e3/uL (140-360); RED BLOOD COUNT 3.39 x10e6/uL (4.3-5.7)
[2018-12-21 11:19] LABS: ALANINE AMINOTRANSFERASE 13 IU/L (0-55); ALBUMIN 3.3 g/dL (3.5-5.0); ALKALINE PHOSPHATASE 68 IU/L (40-150); BLOOD UREA NITROGEN 15 mg/dL (7-26); BUN/CREATININE RATIO 13 (6-25); CALCIUM 9.2 mg/dL (8.4-10.2); CARBON DIOXIDE 27 mmol/L (22-29); CHLORIDE 104 mmol/L (98-107); CREATINE KINASE 81 IU/L (30-200); CREATININE, SERUM 1.18 mg/dL (0.72-1.25); EST GLOMERULAR FILTRATION RATE > 60 ML/MIN (60-); GLUCOSE 102 mg/dL (74-118); SODIUM 140 mmol/L (136-145)
--- NOTE | 2018-12-21 11:26 | NUR ---
RADIOLOGY AT BEDSIDE FOR CXR AT THIS TIME.
--- NOTE | 2018-12-21 12:14 | Diagnostic Imaging Report ---
EXAMINATION: CHEST SINGLE (PORTABLE) INDICATION: Fever COMPARISON: Chest radiograph of 12/02/2018 FINDINGS: LINES/TUBES:EKG leads overlie the chest. Sternotomy wires intact. LUNGS:The lungs are moderately inflated. There is perihilar fullness and indistinctness of the pulmonary vasculature. No focal consolidation. PLEURA:No pleural effusion or pneumothorax. MEDIASTINUM:The cardiomediastinal silhouette appears unchanged in size and shape. BONES/SOFT TISSUES:No acute osseous injury. ABDOMEN:No free air under the diaphragm. IMPRESSION: Mild pulmonary edema. No focal pneumonia. Signed by: Miles Morin MD on 12/21/2018 12:10 PM
--- NOTE | 2018-12-21 12:28 | NUR ---
PT REQUESTING HOME DOSE OF NORCO 10 FOR CHRONIC LEG PAIN, C/O PAIN 12/29 AT THIS TIME, INFORMED DR. DUMAS, RECEIVED VERBAL ORDERS TO MEDICATE, SEE eMAR.
[2018-12-21 12:30] LABS: BILIRUBIN,URINE NEGATIVE (NEGATIVE); CLARITY,URINE CLEAR (CLEAR); COLOR,URINE YELLOW (YELLOW); KETONES,URINE NEGATIVE (NEGATIVE); LEUKOCYTE ESTERASE ,URINE NEGATIVE (NEGATIVE); NITRITE,URINE NEGATIVE (NEGATIVE); PROTEIN,URINE DIPSTICK TRACE (NEGATIVE); URINE UROBILINOGEN 0.2 mg/dL (0.2 - 1)
[2018-12-21] MEDS ORDERED: HYDROCODONE/APAP 10MG-325MG TAB PO ONE (12:45)
[2018-12-21] MEDS ORDERED: ACETAMINOPHEN 325 MG TAB PO ONE (12:45)
[2018-12-21 12:46] LABS: AMORPHOUS SEDIMENT,URINE FEW (FEW); BACTERIA,URINE FEW /HPF; EPITHELIAL CELLS,URINE FEW /LPF; RBC,URINE 0-5 /HPF (0-5); WBC,URINE (MAN) 0-5 /HPF (0-5)
--- NOTE | 2018-12-21 13:23 | NUR ---
PT C/O SYMPTOMATIC HYPOGLYCEMIA, STATES INSULIN PUMP READING AT 40, BEDSIDE GLUCOSE PERFORMED RESULTED WITH 33; INFORMED DR. DUMAS, RECEIVED VERBAL ORDER FOR 1 AMP D50 NOW, SEE eMAR.
[2018-12-21] MEDS ORDERED: DEXTROSE 50% SYRINGE 50 ML IV ONE (13:27)
[2018-12-21] MEDS ORDERED: DEXTROSE 50% SYRINGE 50 ML IV STA (13:30)
[2018-12-21 13:49] VITALS: BP 149/73
== END 2018-12-21 14:05 | disposition home or self-care (01) ==
LOC: ER 09:49
DX: B34.9 Viral infection, unspecified (principal); R50.9 Fever, unspecified; Z88.1 Allergy status to other antibiotic agents; Z91.041 Radiographic dye allergy status; Z91.048 Other nonmedicinal substance allergy status
CPT/HCPCS: 36415; 71045; 80053; 81001; 82550; 82553; 83605; 84484; 85025; 87040; 87086; 99284; J0696; J7030; J7799

== ENCOUNTER → 2019-05-01 | Day surgery (SDC) | payer MEDICARE, OTHER ==
[2019-04-29 12:40] LABS: BASOPHILS % 0.3 % (0.0-1.0); EOSINOPHILS # (AUTO) 0.3 (0.0-0.4); EOSINOPHILS % 2.9 % (0.0-6.0); HEMATOCRIT 29.9 % (38.2-49.6); HEMOGLOBIN 9.9 g/dL (14.0-18.0); LYMPHOCYTES # (AUTO) 1.4 (1.0-3.2); LYMPHOCYTES % 13.5 % (18.0-39.1); MEAN CORPUSCULAR HEMOGLOBIN 30.3 pg (28-32); MEAN CORPUSCULAR HGB CONC 33.1 g/dL (31-35); MEAN CORPUSCULAR VOLUME 91.4 fL (81-99); MONOCYTES # (AUTO) 0.4 (0.2-0.8); MONOCYTES % 4.1 % (4.4-11.3); NEUTROPHILS % 78.7 % (38.7-80.0); PLATELET COUNT 295 x10e3/uL (140-360); RED BLOOD COUNT 3.27 x10e6/uL (4.3-5.7); RED CELL DISTRIBUTION WIDTH 15.1 % (11.7-14.4)
[2019-04-29 13:15] LABS: ALBUMIN 3.4 g/dL (3.5-5.0); ANION GAP 13.2 mmol/L (8-16); CALCIUM 9.5 mg/dL (8.4-10.2); CREATININE, SERUM 1.47 mg/dL (0.72-1.25); POTASSIUM 4.2 mmol/L (3.5-5.1)
--- NOTE | 2019-04-29 16:20 | NUR ---
Dr. Sobia Arnold notified of patient has allergy to iodine and abnormal labs: hemoglobin 9.9, creatinine 1.47, eGFR 48. Dr. Conor Arnold ordered to give benadryl 50mg IV one time before procedure. Dr. Conor Arnold ordered to give Solumedrol 125mg IV one time before procedure.
[~2019-05-01] VITALS: Ht 193 cm; Wt 99.8 kg
[2019-05-01] VITALS (7 sets, daily range): BP systolic 122–143; BP diastolic 68–87
[~2019-05-01] MED LIST changes: +BASAGLAR K100 UNIT/1; +BRILINTA90 MG; +DIPHENHYDRAMINE HCL INJ 50 MG/ML VIAL ONE; +FENTANYL CITRATE/PF 100MCG/2 ML INJ ONE; +HEPARIN SOD (PORCINE) 1000 UNIT/ML 30ML ONE; +HEPARIN SOD/SOD CHLORIDE 2,000 ML ONE; +IOPAMIDOL 300MG/ML 100 ML INFUS..BTL IV ONE; +LIDOCAINE HCL 2% LOCAL 20 ML VIAL ONE; +METHYLPREDNISOLONE SOD SUCC 125 MG/2ML VIAL ONE; +METOPROLOL TART25 MG PO; +MIDAZOLAM HCL 2 MG/2 ML VIAL ONE; +NITROGLYCERIN/D5W 200 MCG/ML 250 ML ONE; +NITROSTAT0.4 MG SL; +ONDANSETRON HCL INJ 2MG/ML 2ML 2 MG/ML VIAL ONE; +PANTOPRAZOLE SO40 MG PO; +QUETIAPINE FUMA25 MG PO; +SODIUM CHLORIDE 0.9% 1000ML 1,000 ML ONE; +VERAPAMIL HCL 2.5 MG/ML 2 ML VIAL ONE; +VITAMIN D400 UNIT PO
--- NOTE | 2019-05-01 15:30 | NUR ---
1530pt ,Rm #9 s/p for procedure. Alert oriented and appropriate, PERRLA, respirations even and unlabored to room air. Pulses x2 left leg DP/PT.Rt mynx site with no gross issues pain,pallor,pressure or dysrhythmia. Skin warm and dry integrity appears intact in general. IV started and presents healthy w/o s/s of infiltration or complaint. NS 0.9% started at 100ml/hr per dial flow. Abdomen soft and supple. pt offered toileting, denies need to urinate or defecate. Personal affects with patient. Family at bedside. Pt and family verbalizes POC dc at 6pm HOB and rt leg stump down till them. Tolerate po intake. ds/rn
--- NOTE | 2019-05-01 18:00 | NUR ---
1800t meets DC criteria. rt groin mynx site assessed for s/s of complication and presecence of hematoma. Skin warm, dry, no discolor, and pulses present. IV removed from let arm. Distal tip appears intact. VS WNL. Pt denies pain, sob, or need at this time. Family at bedside Review of discharge paperwork and follow up instructions. verbalized understanding. Pt to wheelchair and transported to front of hospital. Transferred to private vehicle under own strength w/o incident with DC paperwork in hand. -ds/rn
--- NOTE | 2019-05-03 04:37 | Operative Report ---
DATE OF PROCEDURE: SURGEON: Jeffery Arnold MD INDICATIONS FOR PROCEDURE: Peripheral arterial disease and claudication. PREPROCEDURE ASSESSMENT: Risks, benefits, and alternatives, of treatment were explained to the patient prior to the procedure. The patient was deemed to be an appropriate candidate for moderate sedation. Informed consent was signed and documented in the medical chart. MEDICATIONS: Please see nursing notes for medications administered during the procedure. PROCEDURES PERFORMED: 1. Abdominal aortography. 2. Bilateral lower extremity peripheral angiography. 3. Catheter placement, third order. 4. Arthrectomy and balloon angioplasty of left tibioperoneal trunk. 5. Secondary thrombectomy. 6. Vascular closure device. 7. Moderate sedation time 90 minutes. PROCEDURE IN DETAIL: The patient was brought to the cardiac catheterization laboratory in a fasting state. Right groin was prepped and draped in a sterile fashion. Right common femoral artery was accessed using modified Seldinger technique under ultrasound guidance with some difficulty due to severe calcification, however, we were able to dilate with the dilator and advanced a 6-Upper Sorbian short sheath into the right common femoral artery. Abdominal aortography was performed using a 5-Upper Sorbian Omni Flush catheter. A [place] Advantage wire was then used through the Omni Flush catheter to access the contralateral iliac system and advance into the left superficial femoral artery without difficulty. Omni Flush catheter was advanced over the [place] Advantage wire into the left common femoral artery and multiple digital subtraction angiograms were performed of the left lower extremity circulation patent SFA stent and severe 90% to 95% stenosis with severe calcification of left tibioperoneal trunk with only one vessel runoff of left peroneal artery all the way down to the level of the ankle, distal PDA and posterior tibial system will be lateral only. For intervention of the left tibioperoneal trunk, the patient was wired using a dermal run-through wire, which was then exchanged over a Seeker catheter or Wiper wire. Arthrectomy was performed at low and medium speeds using CSI Diamondback 1.5 classic bur. At the end of arthrectomy there was some thrombus adherent to the vessel noted and secondary thrombectomy was performed through the vascular sheath from the SFA. Balloon angioplasty was then performed using 4-0 x 100 mm Lutonix drug coated balloon deployed at 6 atmospheres for 3 minutes. This resulted in excellent angiographic result without any residual thrombus dissection. Final angiogram demonstrated brisk flow all the way down to the level of the foot with much improved collateralization of the tissues in the foot. All wires and catheters were removed. Destination sheath was exchanged over [place] Advantage wire for a short Slender sheath. Angiogram of the right lower extremity was performed through the short sheath in the right common femoral artery access site was deemed amenable to which was deployed without any bleeding complication. Hemostasis was achieved and the patient tolerated the procedure well. ACT near 300 was maintained with one time 10,000 unit bolus of IV heparin. The patient was already taking dual antiplatelet therapy due to his cardiac conditions, which will be continued findings. No significant aortoiliac disease bilaterally. Patent stents in the left SFA with [id number] plaquing only at the distal stent edge, 90% severely calcified stenosis of the left tibioperoneal trunk. One vessel runoff below the knee on the left with [employer] and diffuse disease of the anterior tibial and posterior tibial arteries. No obvious ostia or distal targets for retrograde approach, severe disease below the level of the common femoral artery on the right with [employer] and diffuse calcification of the right SFA, small collateral supply to the right thigh, which is coming from deep femoral artery. ESTIMATED BLOOD LOSS: 50 mL. GRAFTS AND IMPLANTS: None. SPECIMENS REMOVED: None. COMPLICATIONS: None. FINAL RECOMMENDATIONS: 1. Continue dual antiplatelet therapy with aspirin and Brilinta for his cardiac indications. 2. Continue helping with therapy and risk factor control as needed by cardiac conditions with focus on diabetes control. 3. Followup in clinic next week post discharge for followup on renal function. MD LUIS FELIPE Gusman/TROY /[id number]
== END | disposition home or self-care (01) ==
LOC: CATH LAB 09:52
PROVIDERS: ATTEND Internal Medicine
DX: I73.9 Peripheral vascular disease, unspecified (principal); I25.118 Atherosclerotic heart disease of native coronary artery with other forms of angina pectoris; I50.22 Chronic systolic (congestive) heart failure; E78.2 Mixed hyperlipidemia; N18.3 Chronic kidney disease, stage 3 (moderate); I13.0 Hypertensive heart and chronic kidney disease with heart failure and stage 1 through stage 4 chronic kidney disease, or unspecified chronic kidney disease; R09.89 Other specified symptoms and signs involving the circulatory and respiratory systems; Z13.6 Encounter for screening for cardiovascular disorders; Z01.812 Encounter for preprocedural laboratory examination
CPT/HCPCS: 36415 ×2; 37186; 37229; 75625; 75710; 75716; 76937; 80053; 82948; 85025; C1724; C1760; C1769 ×3; C1887 ×2; J1200; J1644; J2001; J2250; J2405; J2930; J3010; J7030; Q9967; 36247; 99152; 99153

== ENCOUNTER 2019-07-02 11:20 | Outpatient (RCR) | payer MEDICARE, OTHER ==
[~2019-07-02 11:20] MED LIST changes: -DIPHENHYDRAMINE HCL INJ 50 MG/ML VIAL ONE; -FENTANYL CITRATE/PF 100MCG/2 ML INJ ONE; -HEPARIN SOD (PORCINE) 1000 UNIT/ML 30ML ONE; -HEPARIN SOD/SOD CHLORIDE 2,000 ML ONE; -IOPAMIDOL 300MG/ML 100 ML INFUS..BTL IV ONE; -LIDOCAINE HCL 2% LOCAL 20 ML VIAL ONE; -METHYLPREDNISOLONE SOD SUCC 125 MG/2ML VIAL ONE; -MIDAZOLAM HCL 2 MG/2 ML VIAL ONE; -NITROGLYCERIN/D5W 200 MCG/ML 250 ML ONE; -ONDANSETRON HCL INJ 2MG/ML 2ML 2 MG/ML VIAL ONE; -SODIUM CHLORIDE 0.9% 1000ML 1,000 ML ONE; -VERAPAMIL HCL 2.5 MG/ML 2 ML VIAL ONE
== END 2019-07-20 ==
LOC: ST 11:20
PROVIDERS: ATTEND Internal Medicine Endocrinology, Diabetes & Metabolism
DX: I69.898 Other sequelae of other cerebrovascular disease (principal); R13.10 Dysphagia, unspecified

== ENCOUNTER → 2019-07-03 | Outpatient (CLI) | payer MEDICARE, OTHER ==
--- NOTE | 2019-07-03 13:24 | Diagnostic Imaging Report ---
Exam: Modified barium swallow Clinical history: Dysphasia Total fluoroscopy time 2.6 minutes Total images 21 Findings: Modified barium swallow was performed by the speech pathologist. Radiologist was not present during the evaluation. Please refer to the speech pathology report for further details. Signed by: Dr. Surya Thomas MD on 07/03/2019 1:21 PM
== END ==
LOC: DX 12:05
PROVIDERS: ATTEND Internal Medicine Endocrinology, Diabetes & Metabolism
DX: I69.891 Dysphagia following other cerebrovascular disease (principal); R13.13 Dysphagia, pharyngeal phase
CPT/HCPCS: 74230

== ENCOUNTER 2019-07-18 11:00 | Outpatient (RCR) | payer MEDICARE, OTHER | END 2019-07-20 | LOC: PT 11:00 | PROVIDERS: ATTEND Internal Medicine Endocrinology, Diabetes & Metabolism | DX: I69.898 Other sequelae of other cerebrovascular disease (principal); R13.13 Dysphagia, pharyngeal phase ==

== ENCOUNTER 2019-08-05 11:00 | Outpatient (RCR) | payer MEDICARE, OTHER | END 2019-08-20 | LOC: PT 11:00 | PROVIDERS: ATTEND Internal Medicine Endocrinology, Diabetes & Metabolism | DX: M25.511 Pain in right shoulder (principal) ==

== ENCOUNTER 2020-11-14 19:17 | Emergency (ER) | payer MEDICARE ==
[~2020-11-14] VITALS: Ht 193 cm; Wt 99.8 kg
[2020-11-14] MEDS ORDERED: CLINDAMYCIN HC150 MG PO (20:01)
[2020-11-14 21:06] VITALS: BP 160/72
== END 2020-11-14 21:07 | disposition home or self-care (01) ==
LOC: ER 19:59
DX: T25.122A Burn of first degree of left foot, initial encounter (principal); X12.XXXA Contact with other hot fluids, initial encounter; Y92.008 Other place in unspecified non-institutional (private) residence as the place of occurrence of the external cause; I10 Essential (primary) hypertension; E11.9 Type 2 diabetes mellitus without complications; E78.5 Hyperlipidemia, unspecified; F32.9 Major depressive disorder, single episode, unspecified; Z89.511 Acquired absence of right leg below knee; Z95.1 Presence of aortocoronary bypass graft; Z95.5 Presence of coronary angioplasty implant and graft; Z86.73 Personal history of transient ischemic attack (TIA), and cerebral infarction without residual deficits
CPT/HCPCS: 99282

== ENCOUNTER 2021-01-07 14:38 | Inpatient (IN) | payer MEDICARE, OTHER ==
[~2021-01-07] VITALS: Ht 162.6 cm; Wt 99.8 kg
[~2021-01-07 14:38] MED LIST changes: +CLINDAMYCIN HC150 MG PO
[2021-01-07 15:10] LABS: BASOPHILS % 0.2 % (0.0-1.0); EOSINOPHILS # (AUTO) 0.1 (0.0-0.4); EOSINOPHILS % 0.6 % (0.0-6.0); HEMATOCRIT 26.5 % (38.2-49.6); HEMOGLOBIN 8.3 g/dL (14.0-18.0); LYMPHOCYTES # (AUTO) 0.9 (1.0-3.2); LYMPHOCYTES % 4.6 % (18.0-39.1); MEAN CORPUSCULAR HEMOGLOBIN 26.7 pg (28-32); MEAN CORPUSCULAR HGB CONC 31.3 g/dL (31-35); MEAN CORPUSCULAR VOLUME 85.2 fL (81-99); MONOCYTES # (AUTO) 0.7 (0.2-0.8); MONOCYTES % 3.6 % (4.4-11.3); NEUTROPHILS # (AUTO) 16.9 (2.1-6.9); NEUTROPHILS % 89.4 % (38.7-80.0); PLATELET COUNT 418 x10e3/uL (140-360); RED BLOOD COUNT 3.11 x10e6/uL (4.3-5.7); RED CELL DISTRIBUTION WIDTH 15.3 % (11.7-14.4)
[2021-01-07 15:27] LABS: ALBUMIN 1.9 g/dL (3.5-5.0); ALBUMIN/GLOBULIN RATIO 0.3 (0.8-2.0); CALCIUM 8.1 mg/dL (8.4-10.2); CREATININE, SERUM 2.64 mg/dL (0.72-1.25)
[2021-01-07] MEDS: CLINDAMYCIN 600MG / 50ML 50 ML IV ONE ×3 (17:06→21:00)
[2021-01-07 17:28] VITALS: BP 137/72
[2021-01-07] MEDS ORDERED: CLINDAMYCIN 600MG / 50ML 50 ML IV ONE (17:45)
[2021-01-07 17:48] VITALS: BP 137/72
[2021-01-07 18:05] VITALS: BP 137/72
[2021-01-07 20:00] VITALS: BP 142/60
[2021-01-07 21:00] VITALS: BP 142/60
[2021-01-07] MEDS ORDERED: DEXTROSE 50% SYRINGE 50 ML IV PRN (21:00)
[2021-01-07] MEDS: INSULIN REGULAR, HUMAN 100 UNIT/1 ML SQ SCH (21:00)
[2021-01-07] MEDS ORDERED: Vancomycin IV 1 GM in SODIUM CHLORIDE 0.9% 250ML 250 ML IV SCH (21:00)
[2021-01-07] MEDS: PIPERACILLIN/TAZOBACTAM 2.25 GM in SODIUM CHLORIDE 0.9% 50ML 50 ML IV SCH (21:36)
[2021-01-07] MEDS: ACETAMINOPHEN 325 MG TAB PO PRN (21:37)
[2021-01-07] MEDS: HYDROCODONE/APAP 10MG-325MG TAB PO PRN (21:37)
[2021-01-07] MEDS ORDERED: SODIUM CHLORIDE 0.9% 250ML 250 ML ONE (21:42)
[2021-01-08] VITALS (9 sets, daily range): BP systolic 119–154; BP diastolic 50–84
[2021-01-08] MEDS: HYDROMORPHONE 1MG/1ML INJ IV PRN (02:30)
[2021-01-08] MEDS: PIPERACILLIN/TAZOBACTAM 2.25 GM in SODIUM CHLORIDE 0.9% 50ML 50 ML IV SCH ×3 (05:52→21:22)
[2021-01-08] MEDS: PANTOPRAZOLE SOD 40 MG TABEC PO SCH (07:30)
[2021-01-08] MEDS: INSULIN REGULAR, HUMAN 100 UNIT/1 ML SQ SCH ×4 (07:30→21:29)
[2021-01-08] MEDS: TICAGRELOR 90 MG TABLET PO SCH ×2 (08:39→16:44)
[2021-01-08] MEDS: MONTELUKAST SODIUM 10 MG TAB PO SCH (08:40)
[2021-01-08] MEDS: TRAMADOL HCL 50 MG TAB PO SCH ×2 (08:40→16:45)
[2021-01-08] MEDS: ATORVASTATIN 40 MG TAB PO SCH (08:40)
[2021-01-08] MEDS: QUETIAPINE FUMARATE 25 MG TAB PO SCH ×2 (08:40→16:45)
[2021-01-08] MEDS: METOPROLOL TARTRATE 25 MG TAB PO SCH ×2 (08:40→16:44)
[2021-01-08] MEDS: LINEZOLID 600 MG/D5W 300ML 300 ML IV SCH ×2 (12:00→23:38)
[2021-01-08] MEDS: HYDROCODONE/APAP 10MG-325MG TAB PO PRN ×2 (13:36→22:00)
[2021-01-08] MEDS ORDERED: COLLAGENASE OINTMENT 30 GM TUBE TP SCH (17:00)
[2021-01-08] MEDS: ACETAMINOPHEN 325 MG TAB PO PRN (23:38)
[2021-01-09] VITALS (8 sets, daily range): BP systolic 111–146; BP diastolic 51–64
[2021-01-09] MEDS: ACETAMINOPHEN 325 MG TAB PO PRN ×2 (00:54→04:00)
[2021-01-09] MEDS: COLLAGENASE 5 GM TUBE TOP SCH ×2 (05:00→18:37)
[2021-01-09 05:50] LABS: BASOPHILS # (AUTO) 0.1 (0.0-0.1); BASOPHILS % 0.3 % (0.0-1.0); EOSINOPHILS # (AUTO) 0.2 (0.0-0.4); EOSINOPHILS % 1.3 % (0.0-6.0); HEMATOCRIT 22.6 % (38.2-49.6); HEMOGLOBIN 7.3 g/dL (14.0-18.0); LYMPHOCYTES % 5.2 % (18.0-39.1); MEAN CORPUSCULAR HEMOGLOBIN 26.6 pg (28-32); MEAN CORPUSCULAR HGB CONC 32.3 g/dL (31-35); MEAN CORPUSCULAR VOLUME 82.5 fL (81-99); MONOCYTES # (AUTO) 1.3 (0.2-0.8); NEUTROPHILS # (AUTO) 16.1 (2.1-6.9); NEUTROPHILS % 84.7 % (38.7-80.0); PLATELET COUNT 442 x10e3/uL (140-360); RED BLOOD COUNT 2.74 x10e6/uL (4.3-5.7); RED CELL DISTRIBUTION WIDTH 15.4 % (11.7-14.4)
[2021-01-09] MEDS: PIPERACILLIN/TAZOBACTAM 2.25 GM in SODIUM CHLORIDE 0.9% 50ML 50 ML IV SCH ×3 (06:07→21:37)
[2021-01-09 06:14] LABS: CALCIUM 7.6 mg/dL (8.4-10.2); CREATININE, SERUM 3.1 mg/dL (0.72-1.25)
[2021-01-09 06:33] LABS: THYROID STIMULATING HORMONE 0.452 uIU/mL (0.350-4.940)
[2021-01-09] MEDS: INSULIN REGULAR, HUMAN 100 UNIT/1 ML SQ SCH ×4 (07:30→20:40)
[2021-01-09] MEDS ORDERED: COLLAGENASE OINTMENT 30 GM TUBE TP SCH (09:00)
[2021-01-09] MEDS ORDERED: BALSAM PERU/CASTOR OIL 60 GM OINT...G. TP SCH (09:00)
[2021-01-09] MEDS: HYDROCODONE/APAP 10MG-325MG TAB PO PRN (09:42)
[2021-01-09] MEDS: TRAMADOL HCL 50 MG TAB PO SCH ×2 (10:08→18:37)
[2021-01-09] MEDS: PANTOPRAZOLE SOD 40 MG TABEC PO SCH (10:08)
[2021-01-09] MEDS: MONTELUKAST SODIUM 10 MG TAB PO SCH (10:09)
[2021-01-09] MEDS: ATORVASTATIN 40 MG TAB PO SCH (10:09)
[2021-01-09] MEDS: METOPROLOL TARTRATE 25 MG TAB PO SCH ×2 (10:09→18:33)
[2021-01-09] MEDS: QUETIAPINE FUMARATE 25 MG TAB PO SCH ×2 (10:09→18:37)
[2021-01-09] MEDS: TICAGRELOR 90 MG TABLET PO SCH ×2 (10:10→18:32)
[2021-01-09] MEDS: LINEZOLID 600 MG/D5W 300ML 300 ML IV SCH (14:32)
[2021-01-10] VITALS (8 sets, daily range): BP systolic 99–122; BP diastolic 47–73
[2021-01-10] MEDS: LINEZOLID 600 MG/D5W 300ML 300 ML IV SCH ×2 (01:00→14:09)
[2021-01-10] MEDS: COLLAGENASE 5 GM TUBE TOP SCH ×2 (05:30→21:24)
[2021-01-10] MEDS: PIPERACILLIN/TAZOBACTAM 2.25 GM in SODIUM CHLORIDE 0.9% 50ML 50 ML IV SCH ×3 (05:40→21:23)
[2021-01-10] MEDS: ACETAMINOPHEN 325 MG TAB PO PRN (05:50)
[2021-01-10 06:12] LABS: BASOPHILS # (AUTO) 0.1 (0.0-0.1); BASOPHILS % 0.3 % (0.0-1.0); EOSINOPHILS # (AUTO) 0.2 (0.0-0.4); EOSINOPHILS % 0.8 % (0.0-6.0); HEMATOCRIT 23.4 % (38.2-49.6); HEMOGLOBIN 7.7 g/dL (14.0-18.0); LYMPHOCYTES % 4.1 % (18.0-39.1); MEAN CORPUSCULAR HEMOGLOBIN 26.9 pg (28-32); MEAN CORPUSCULAR HGB CONC 32.9 g/dL (31-35); MEAN CORPUSCULAR VOLUME 81.8 fL (81-99); MONOCYTES # (AUTO) 1.1 (0.2-0.8); MONOCYTES % 4.6 % (4.4-11.3); NEUTROPHILS # (AUTO) 20.7 (2.1-6.9); NEUTROPHILS % 89.1 % (38.7-80.0); PLATELET COUNT 478 x10e3/uL (140-360); RED BLOOD COUNT 2.86 x10e6/uL (4.3-5.7); RED CELL DISTRIBUTION WIDTH 15.4 % (11.7-14.4)
[2021-01-10 06:37] LABS: ALBUMIN 1.6 g/dL (3.5-5.0); ALBUMIN/GLOBULIN RATIO 0.3 (0.8-2.0); ANION GAP 19.6 mmol/L (8-16); CALCIUM 7.6 mg/dL (8.4-10.2); CREATININE, SERUM 3.69 mg/dL (0.72-1.25); POTASSIUM 4.6 mmol/L (3.5-5.1)
[2021-01-10] MEDS: INSULIN REGULAR, HUMAN 100 UNIT/1 ML SQ SCH ×4 (09:51→21:00)
[2021-01-10] MEDS: TICAGRELOR 90 MG TABLET PO SCH ×2 (09:55→16:41)
[2021-01-10] MEDS: PANTOPRAZOLE SOD 40 MG TABEC PO SCH (09:55)
[2021-01-10] MEDS: ATORVASTATIN 40 MG TAB PO SCH (09:55)
[2021-01-10] MEDS: METOPROLOL TARTRATE 25 MG TAB PO SCH ×2 (09:59→16:42)
[2021-01-10] MEDS: MONTELUKAST SODIUM 10 MG TAB PO SCH (09:59)
[2021-01-10] MEDS: QUETIAPINE FUMARATE 25 MG TAB PO SCH ×2 (09:59→16:42)
[2021-01-10] MEDS: TRAMADOL HCL 50 MG TAB PO SCH ×2 (10:00→16:42)
[2021-01-10] MEDS: HYDROCODONE/APAP 10MG-325MG TAB PO PRN (11:23)
[2021-01-10] MEDS ORDERED: BISACODYL 10 MG SUPP PR PRN (11:45)
[2021-01-10] MEDS ORDERED: SODIUM CHLORIDE 0.9% 500ML 500 ML IV ONE (12:00)
[2021-01-10] MEDS: SODIUM FERRIC GLUCONATE COMPLX 125 MG in SODIUM CHLORIDE 0.9% 100 ML 100 ML IV SCH (14:09)
[2021-01-10] MEDS: INSULIN GLARGINE 100 UNITS/ML VIAL SQ SCH ×4 (15:53→21:00)
[2021-01-10] MEDS ORDERED: SODIUM CHLORIDE 0.9% 500ML 500 ML ONE (16:10)
[2021-01-10] MEDS: DOCUSATE SODIUM 100 MG CAP PO SCH (16:41)
[2021-01-11] VITALS (7 sets, daily range): BP systolic 108–125; BP diastolic 52–60
[2021-01-11] MEDS: HYDROCODONE/APAP 10MG-325MG TAB PO PRN ×2 (02:32→18:37)
[2021-01-11 05:34] LABS: BASOPHILS # (AUTO) 0.1 (0.0-0.1); BASOPHILS % 0.3 % (0.0-1.0); EOSINOPHILS # (AUTO) 0.2 (0.0-0.4); EOSINOPHILS % 1.1 % (0.0-6.0); HEMATOCRIT 24.3 % (38.2-49.6); HEMOGLOBIN 7.8 g/dL (14.0-18.0); LYMPHOCYTES # (AUTO) 0.7 (1.0-3.2); LYMPHOCYTES % 3.5 % (18.0-39.1); MEAN CORPUSCULAR HEMOGLOBIN 26.3 pg (28-32); MEAN CORPUSCULAR HGB CONC 32.1 g/dL (31-35); MEAN CORPUSCULAR VOLUME 81.8 fL (81-99); MONOCYTES # (AUTO) 0.9 (0.2-0.8); MONOCYTES % 4.2 % (4.4-11.3); NEUTROPHILS # (AUTO) 18.7 (2.1-6.9); NEUTROPHILS % 89.9 % (38.7-80.0); PLATELET COUNT 459 x10e3/uL (140-360); RED BLOOD COUNT 2.97 x10e6/uL (4.3-5.7); RED CELL DISTRIBUTION WIDTH 15.4 % (11.7-14.4)
[2021-01-11] MEDS: PIPERACILLIN/TAZOBACTAM 2.25 GM in SODIUM CHLORIDE 0.9% 50ML 50 ML IV SCH ×3 (06:00→23:52)
[2021-01-11 06:38] LABS: ANION GAP 19.5 mmol/L (8-16); CALCIUM 7.4 mg/dL (8.4-10.2); CREATININE, SERUM 4.39 mg/dL (0.72-1.25); MAGNESIUM 2.2 MG/DL (1.3-2.1); POTASSIUM 4.5 mmol/L (3.5-5.1)
[2021-01-11] MEDS ORDERED: INSULIN GLARGINE 100 UNITS/ML VIAL SQ STA (06:53)
[2021-01-11] MEDS: INSULIN GLARGINE 100 UNITS/ML VIAL SQ SCH ×3 (07:30→21:00)
[2021-01-11] MEDS: PANTOPRAZOLE SOD 40 MG TABEC PO SCH (07:30)
[2021-01-11] MEDS: INSULIN REGULAR, HUMAN 100 UNIT/1 ML SQ SCH ×2 (07:30→11:30)
[2021-01-11 08:44] LABS: EOSINOPHILS % (MANUAL) 2 % (0-7); LYMPHOCYTES % (MANUAL) 4 % (19-48); MONOCYTES % (MANUAL) 3 % (3.4-9.0); NEUTROPHILS % (MANUAL) 91 % (40-74); PLATELET ESTIMATE SLIGHTLY INCREASED; RBC MORPHOLOGY COMMENT NORMAL
[2021-01-11 08:45] LABS: PLATELET MORPHOLOGY COMMENT NORMAL
[2021-01-11 08:46] LABS: ANISOCYTOSIS SLIGHT
[2021-01-11] MEDS: DOCUSATE SODIUM 100 MG CAP PO SCH ×2 (08:54→17:00)
[2021-01-11] MEDS: ATORVASTATIN 40 MG TAB PO SCH (08:56)
[2021-01-11] MEDS: MONTELUKAST SODIUM 10 MG TAB PO SCH (08:57)
[2021-01-11] MEDS: METOPROLOL TARTRATE 25 MG TAB PO SCH ×2 (08:57→17:00)
[2021-01-11] MEDS: QUETIAPINE FUMARATE 25 MG TAB PO SCH ×2 (08:57→17:00)
[2021-01-11] MEDS: TRAMADOL HCL 50 MG TAB PO SCH ×2 (08:58→17:00)
[2021-01-11] MEDS: TICAGRELOR 90 MG TABLET PO SCH ×2 (09:00→17:00)
[2021-01-11] MEDS: SODIUM FERRIC GLUCONATE COMPLX 125 MG in SODIUM CHLORIDE 0.9% 100 ML 100 ML IV SCH (09:06)
[2021-01-11] MEDS: COLLAGENASE 5 GM TUBE TOP SCH ×2 (09:06→21:45)
[2021-01-11] MEDS: LINEZOLID 600 MG/D5W 300ML 300 ML IV SCH ×2 (13:30)
[2021-01-11] MEDS ORDERED: DEXTROSE 50% SYRINGE 50 ML IV PRN (14:00)
[2021-01-11] MEDS: SODIUM CHLORIDE 0.9% 1000ML 1,000 ML IV SCH (14:04)
[2021-01-11] MEDS: HYDROMORPHONE 1MG/1ML INJ IV PRN (14:30)
[2021-01-11] MEDS: INSULIN LISPRO 100 UNIT/1 ML 3ML VIAL SQ SCH ×2 (16:30→21:00)
[2021-01-12] VITALS (7 sets, daily range): BP systolic 112–143; BP diastolic 46–60
[2021-01-12] MEDS: SODIUM CHLORIDE 0.9% 1000ML 1,000 ML IV SCH ×3 (02:38→22:08)
[2021-01-12 05:45] LABS: BASOPHILS % 0.3 % (0.0-1.0); EOSINOPHILS # (AUTO) 0.5 (0.0-0.4); EOSINOPHILS % 3.3 % (0.0-6.0); HEMATOCRIT 23.4 % (38.2-49.6); HEMOGLOBIN 7.7 g/dL (14.0-18.0); LYMPHOCYTES # (AUTO) 0.7 (1.0-3.2); LYMPHOCYTES % 5.4 % (18.0-39.1); MEAN CORPUSCULAR HEMOGLOBIN 26.5 pg (28-32); MEAN CORPUSCULAR HGB CONC 32.9 g/dL (31-35); MEAN CORPUSCULAR VOLUME 80.4 fL (81-99); MONOCYTES # (AUTO) 0.7 (0.2-0.8); MONOCYTES % 4.7 % (4.4-11.3); NEUTROPHILS # (AUTO) 11.7 (2.1-6.9); NEUTROPHILS % 85.4 % (38.7-80.0); PLATELET COUNT 425 x10e3/uL (140-360); RED BLOOD COUNT 2.91 x10e6/uL (4.3-5.7); RED CELL DISTRIBUTION WIDTH 15.4 % (11.7-14.4)
[2021-01-12] MEDS: INSULIN LISPRO 100 UNIT/1 ML 3ML VIAL SQ SCH ×4 (07:30→22:06)
[2021-01-12 08:04] LABS: ALBUMIN/GLOBULIN RATIO 0.5 (0.8-2.0); ANION GAP 16.6 mmol/L (8-16); CALCIUM 7.2 mg/dL (8.4-10.2); CREATININE, SERUM 4.62 mg/dL (0.72-1.25); POTASSIUM 3.6 mmol/L (3.5-5.1)
[2021-01-12] MEDS: INSULIN GLARGINE 100 UNITS/ML VIAL SQ SCH (09:00)
[2021-01-12] MEDS: PANTOPRAZOLE SOD 40 MG TABEC PO SCH (09:20)
[2021-01-12] MEDS: SODIUM FERRIC GLUCONATE COMPLX 125 MG in SODIUM CHLORIDE 0.9% 100 ML 100 ML IV SCH (09:21)
[2021-01-12] MEDS: PIPERACILLIN/TAZOBACTAM 2.25 GM in SODIUM CHLORIDE 0.9% 50ML 50 ML IV SCH ×2 (09:21→12:22)
[2021-01-12] MEDS: DOCUSATE SODIUM 100 MG CAP PO SCH ×2 (09:21→17:19)
[2021-01-12] MEDS: TICAGRELOR 90 MG TABLET PO SCH ×2 (09:21→17:19)
[2021-01-12] MEDS: QUETIAPINE FUMARATE 25 MG TAB PO SCH ×2 (09:22→17:19)
[2021-01-12] MEDS: TRAMADOL HCL 50 MG TAB PO SCH ×2 (09:22→17:00)
[2021-01-12] MEDS: METOPROLOL TARTRATE 25 MG TAB PO SCH ×2 (09:26→17:20)
[2021-01-12] MEDS: MONTELUKAST SODIUM 10 MG TAB PO SCH (09:26)
[2021-01-12] MEDS: ATORVASTATIN 40 MG TAB PO SCH (09:33)
[2021-01-12] MEDS: COLLAGENASE 5 GM TUBE TOP SCH ×2 (09:35→22:08)
[2021-01-12] MEDS ORDERED: DEXTROSE 50% SYRINGE 50 ML IV PRN (10:45)
[2021-01-12] MEDS: HYDROCODONE/APAP 10MG-325MG TAB PO PRN (11:05)
[2021-01-12] MEDS: LINEZOLID 600 MG/D5W 300ML 300 ML IV SCH ×2 (13:30)
[2021-01-12] MEDS: HYDROMORPHONE 1MG/1ML INJ IV PRN (14:20)
[2021-01-12] MEDS: FERROUS SULFATE 325 MG TAB PO SCH (17:19)
[2021-01-13] VITALS (8 sets, daily range): BP systolic 107–134; BP diastolic 47–67
[2021-01-13] MEDS: PIPERACILLIN/TAZOBACTAM 2.25 GM in SODIUM CHLORIDE 0.9% 50ML 50 ML IV SCH ×3 (01:28→18:31)
[2021-01-13] MEDS: LINEZOLID 600 MG/D5W 300ML 300 ML IV SCH ×2 (01:28→18:31)
[2021-01-13] MEDS ORDERED: ACETAMINOPHEN 325 MG TAB PO PRN (01:30)
[2021-01-13] MEDS: ACETAMINOPHEN 325 MG TAB PO PRN (02:01)
[2021-01-13] MEDS: HYDROMORPHONE 1MG/1ML INJ IV PRN ×3 (04:11→18:31)
[2021-01-13 04:47] LABS: BASOPHILS # (AUTO) 0.1 (0.0-0.1); BASOPHILS % 0.3 % (0.0-1.0); EOSINOPHILS # (AUTO) 0.4 (0.0-0.4); EOSINOPHILS % 2.1 % (0.0-6.0); HEMATOCRIT 22.7 % (38.2-49.6); HEMOGLOBIN 7.5 g/dL (14.0-18.0); LYMPHOCYTES % 5.9 % (18.0-39.1); MEAN CORPUSCULAR HEMOGLOBIN 26.4 pg (28-32); MEAN CORPUSCULAR VOLUME 79.9 fL (81-99); MONOCYTES # (AUTO) 0.8 (0.2-0.8); MONOCYTES % 4.5 % (4.4-11.3); NEUTROPHILS # (AUTO) 15.3 (2.1-6.9); NEUTROPHILS % 86.2 % (38.7-80.0); PLATELET COUNT 378 x10e3/uL (140-360); RED BLOOD COUNT 2.84 x10e6/uL (4.3-5.7); RED CELL DISTRIBUTION WIDTH 15.6 % (11.7-14.4)
[2021-01-13 05:07] LABS: ANION GAP 17.1 mmol/L (8-16); CALCIUM 7.1 mg/dL (8.4-10.2); CREATININE, SERUM 4.93 mg/dL (0.72-1.25); POTASSIUM 4.1 mmol/L (3.5-5.1)
[2021-01-13] MEDS: PANTOPRAZOLE SOD 40 MG TABEC PO SCH (07:30)
[2021-01-13] MEDS: INSULIN LISPRO 100 UNIT/1 ML 3ML VIAL SQ SCH ×4 (07:30→20:26)
[2021-01-13] MEDS: MONTELUKAST SODIUM 10 MG TAB PO SCH (09:00)
[2021-01-13] MEDS: TICAGRELOR 90 MG TABLET PO SCH (09:00)
[2021-01-13] MEDS: ATORVASTATIN 40 MG TAB PO SCH (09:00)
[2021-01-13] MEDS: TRAMADOL HCL 50 MG TAB PO SCH ×2 (09:00→17:00)
[2021-01-13] MEDS: DOCUSATE SODIUM 100 MG CAP PO SCH ×2 (09:00→18:31)
[2021-01-13] MEDS: QUETIAPINE FUMARATE 25 MG TAB PO SCH ×2 (09:00→17:00)
[2021-01-13] MEDS: FERROUS SULFATE 325 MG TAB PO SCH ×2 (09:05→18:31)
[2021-01-13] MEDS: COLLAGENASE 5 GM TUBE TOP SCH (09:07)
[2021-01-13] MEDS: SODIUM CHLORIDE 0.9% 1000ML 1,000 ML IV SCH ×2 (09:29→16:00)
[2021-01-13] MEDS: METOPROLOL TARTRATE 25 MG TAB PO SCH ×2 (09:30→17:00)
[2021-01-13 12:33] LABS: % IRON SATURATION 17 % (15-50); IRON 22 ug/dL (65-175); TOTAL IRON BINDING CAPACITY 129 ug/dL (261-478); TRANSFERRIN 92 mg/dL (174-364)
[2021-01-13] MEDS: HYDROCODONE/APAP 10MG-325MG TAB PO PRN (20:30)
[2021-01-14] VITALS (7 sets, daily range): BP systolic 110–130; BP diastolic 52–63
[2021-01-14] MEDS: ZOLPIDEM TARTRATE 5 MG TAB PO PRN (00:38)
[2021-01-14] MEDS: HYDROMORPHONE 1MG/1ML INJ IV PRN (00:56)
[2021-01-14] MEDS: LINEZOLID 600 MG/D5W 300ML 300 ML IV SCH (00:56)
[2021-01-14] MEDS: PIPERACILLIN/TAZOBACTAM 2.25 GM in SODIUM CHLORIDE 0.9% 50ML 50 ML IV SCH ×2 (02:35→08:55)
[2021-01-14 05:11] LABS: BASOPHILS % 0.2 % (0.0-1.0); EOSINOPHILS # (AUTO) 0.2 (0.0-0.4); EOSINOPHILS % 1.4 % (0.0-6.0); HEMATOCRIT 22.7 % (38.2-49.6); HEMOGLOBIN 7.3 g/dL (14.0-18.0); LYMPHOCYTES # (AUTO) 1.2 (1.0-3.2); LYMPHOCYTES % 7.5 % (18.0-39.1); MEAN CORPUSCULAR HEMOGLOBIN 26.2 pg (28-32); MEAN CORPUSCULAR HGB CONC 32.2 g/dL (31-35); MEAN CORPUSCULAR VOLUME 81.4 fL (81-99); MONOCYTES # (AUTO) 0.5 (0.2-0.8); MONOCYTES % 3.3 % (4.4-11.3); NEUTROPHILS % 86.7 % (38.7-80.0); PLATELET COUNT 308 x10e3/uL (140-360); RED BLOOD COUNT 2.79 x10e6/uL (4.3-5.7); RED CELL DISTRIBUTION WIDTH 15.9 % (11.7-14.4)
[2021-01-14] MEDS: SODIUM CHLORIDE 0.9% 1000ML 1,000 ML IV SCH ×2 (05:20→18:40)
[2021-01-14 05:38] LABS: ANION GAP 20.9 mmol/L (8-16); CALCIUM 7.2 mg/dL (8.4-10.2); CREATININE, SERUM 5.08 mg/dL (0.72-1.25); POTASSIUM 4.9 mmol/L (3.5-5.1)
[2021-01-14] MEDS: PANTOPRAZOLE SOD 40 MG TABEC PO SCH (08:55)
[2021-01-14] MEDS: MONTELUKAST SODIUM 10 MG TAB PO SCH (08:55)
[2021-01-14] MEDS: FERROUS SULFATE 325 MG TAB PO SCH ×2 (08:55→18:29)
[2021-01-14] MEDS: ATORVASTATIN 40 MG TAB PO SCH (08:55)
[2021-01-14] MEDS: DOCUSATE SODIUM 100 MG CAP PO SCH ×2 (08:55→15:59)
[2021-01-14] MEDS: METOPROLOL TARTRATE 25 MG TAB PO SCH ×2 (08:55→15:59)
[2021-01-14] MEDS: QUETIAPINE FUMARATE 25 MG TAB PO SCH ×2 (08:55→16:00)
[2021-01-14] MEDS: TRAMADOL HCL 50 MG TAB PO SCH ×2 (08:56→18:29)
[2021-01-14] MEDS: INSULIN LISPRO 100 UNIT/1 ML 3ML VIAL SQ SCH ×4 (08:57→23:40)
[2021-01-14] MEDS ORDERED: HEPARIN SOD (PORCINE) 1000 UNIT/ML SDV ONE (09:59)
[2021-01-14] MEDS ORDERED: LIDOCAINE HCL 1% LOCAL INJ 20 ML VIAL ONE (10:15)
[2021-01-14] MEDS ORDERED: SODIUM CHLORIDE 0.9% 250ML 250 ML IV ONE (11:00)
[2021-01-14] MEDS ORDERED: SODIUM CHLORIDE 0.9% 250ML 750 ML IV PRN (13:45)
[2021-01-14] MEDS ORDERED: HEPARIN SOD (PORCINE) 1000 UNIT/ML SDV IV PRN ×2 (13:45→15:15)
[2021-01-14] MEDS ORDERED: MANNITOL 25% 12.5GM/50 ML VIAL IV PRN (13:45)
[2021-01-14] MEDS ORDERED: SODIUM CHLORIDE 0.9% 1000ML 2,000 ML IV PRN (13:45)
[2021-01-14] MEDS ORDERED: MANNITOL 25% 12.5GM/50ML 100 ML ONE (14:51)
[2021-01-15] VITALS (8 sets, daily range): BP systolic 116–153; BP diastolic 53–68
[2021-01-15] MEDS: TRAMADOL HCL 50 MG TAB PO SCH ×2 (00:36→08:40)
[2021-01-15 05:49] LABS: BASOPHILS % 0.2 % (0.0-1.0); EOSINOPHILS # (AUTO) 0.3 (0.0-0.4); EOSINOPHILS % 2.2 % (0.0-6.0); HEMATOCRIT 25.5 % (38.2-49.6); HEMOGLOBIN 8.2 g/dL (14.0-18.0); LYMPHOCYTES # (AUTO) 0.9 (1.0-3.2); LYMPHOCYTES % 6.5 % (18.0-39.1); MEAN CORPUSCULAR HEMOGLOBIN 26.7 pg (28-32); MEAN CORPUSCULAR HGB CONC 32.2 g/dL (31-35); MEAN CORPUSCULAR VOLUME 83.1 fL (81-99); MONOCYTES # (AUTO) 0.4 (0.2-0.8); MONOCYTES % 2.5 % (4.4-11.3); NEUTROPHILS # (AUTO) 12.2 (2.1-6.9); NEUTROPHILS % 87.8 % (38.7-80.0); PLATELET COUNT 201 x10e3/uL (140-360); RED BLOOD COUNT 3.07 x10e6/uL (4.3-5.7); RED CELL DISTRIBUTION WIDTH 15.5 % (11.7-14.4)
[2021-01-15 06:20] LABS: CALCIUM 7.1 mg/dL (8.4-10.2); CREATININE, SERUM 3.78 mg/dL (0.72-1.25)
[2021-01-15] MEDS: PANTOPRAZOLE SOD 40 MG TABEC PO SCH (08:40)
[2021-01-15] MEDS: MONTELUKAST SODIUM 10 MG TAB PO SCH (08:41)
[2021-01-15] MEDS: QUETIAPINE FUMARATE 25 MG TAB PO SCH ×2 (08:41→16:47)
[2021-01-15] MEDS: DOCUSATE SODIUM 100 MG CAP PO SCH ×2 (08:41→16:47)
[2021-01-15] MEDS: ASPIRIN 81 MG CHEW TAB PO SCH (08:41)
[2021-01-15] MEDS: METOPROLOL TARTRATE 25 MG TAB PO SCH ×2 (08:41→16:47)
[2021-01-15] MEDS: ATORVASTATIN 40 MG TAB PO SCH (08:41)
[2021-01-15] MEDS: INSULIN GLARGINE 100 UNITS/ML VIAL SQ SCH (08:46)
[2021-01-15] MEDS: INSULIN LISPRO 100 UNIT/1 ML 3ML VIAL SQ SCH ×4 (08:46→21:06)
[2021-01-15] MEDS: FERROUS SULFATE 325 MG TAB PO SCH ×2 (08:47→16:47)
[2021-01-15] MEDS: SODIUM CHLORIDE 0.9% 1000ML 1,000 ML IV SCH ×2 (11:51→21:20)
[2021-01-15] MEDS: ACETAMINOPHEN 325 MG TAB PO PRN (11:52)
[2021-01-16] VITALS (11 sets, daily range): BP systolic 120–164; BP diastolic 66–77
[2021-01-16] MEDS: PANTOPRAZOLE SOD 40 MG TABEC PO SCH (07:30)
[2021-01-16] MEDS: FERROUS SULFATE 325 MG TAB PO SCH ×2 (08:00→16:59)
[2021-01-16] MEDS: INSULIN LISPRO 100 UNIT/1 ML 3ML VIAL SQ SCH ×4 (08:10→21:07)
[2021-01-16] MEDS: DOCUSATE SODIUM 100 MG CAP PO SCH ×2 (09:00→16:59)
[2021-01-16] MEDS: QUETIAPINE FUMARATE 25 MG TAB PO SCH ×2 (09:00→16:59)
[2021-01-16] MEDS: ATORVASTATIN 40 MG TAB PO SCH (09:00)
[2021-01-16] MEDS: ASPIRIN 81 MG CHEW TAB PO SCH (09:00)
[2021-01-16] MEDS: MONTELUKAST SODIUM 10 MG TAB PO SCH (09:00)
[2021-01-16] MEDS: METOPROLOL TARTRATE 25 MG TAB PO SCH ×2 (09:00→16:59)
[2021-01-16] MEDS: INSULIN GLARGINE 100 UNITS/ML VIAL SQ SCH (09:15)
[2021-01-16 09:47] LABS: BASOPHILS % 0.2 % (0.0-1.0); EOSINOPHILS # (AUTO) 0.3 (0.0-0.4); EOSINOPHILS % 3.7 % (0.0-6.0); HEMATOCRIT 26.7 % (38.2-49.6); HEMOGLOBIN 8.7 g/dL (14.0-18.0); LYMPHOCYTES # (AUTO) 1.2 (1.0-3.2); LYMPHOCYTES % 12.7 % (18.0-39.1); MEAN CORPUSCULAR HEMOGLOBIN 27.4 pg (28-32); MEAN CORPUSCULAR HGB CONC 32.6 g/dL (31-35); MONOCYTES # (AUTO) 0.4 (0.2-0.8); MONOCYTES % 4.1 % (4.4-11.3); NEUTROPHILS # (AUTO) 7.1 (2.1-6.9); NEUTROPHILS % 78.6 % (38.7-80.0); PLATELET COUNT 165 x10e3/uL (140-360); RED BLOOD COUNT 3.18 x10e6/uL (4.3-5.7); RED CELL DISTRIBUTION WIDTH 15.4 % (11.7-14.4)
[2021-01-16 10:06] LABS: ANION GAP 20.8 mmol/L (8-16); CALCIUM 7.6 mg/dL (8.4-10.2); CREATININE, SERUM 2.67 mg/dL (0.72-1.25); POTASSIUM 3.8 mmol/L (3.5-5.1)
[2021-01-16] MEDS: ACETAMINOPHEN 325 MG TAB PO PRN ×2 (11:27→17:00)
[2021-01-16 11:41] LABS: EOSINOPHILS % (MANUAL) 4 % (0-7); HYPOCHROMASIA SLIGHT; LYMPHOCYTES % (MANUAL) 7 % (19-48); MONOCYTES % (MANUAL) 1 % (3.4-9.0); NEUTROPHILS % (MANUAL) 86 % (40-74)
[2021-01-16 11:42] LABS: PLATELET ESTIMATE ADEQUATE; PLATELET MORPHOLOGY COMMENT NORMAL; RBC MORPHOLOGY COMMENT NORMAL
[2021-01-16] MEDS ORDERED: SODIUM CHLORIDE 0.9% 1000ML 1,000 ML ONE (12:49)
[2021-01-17] VITALS (7 sets, daily range): BP systolic 133–170; BP diastolic 64–80
[2021-01-17 05:30] LABS: BASOPHILS % 0.2 % (0.0-1.0); EOSINOPHILS # (AUTO) 0.3 (0.0-0.4); EOSINOPHILS % 2.6 % (0.0-6.0); HEMATOCRIT 26.6 % (38.2-49.6); HEMOGLOBIN 8.5 g/dL (14.0-18.0); LYMPHOCYTES # (AUTO) 1.3 (1.0-3.2); LYMPHOCYTES % 11.9 % (18.0-39.1); MEAN CORPUSCULAR HEMOGLOBIN 27.2 pg (28-32); MONOCYTES # (AUTO) 0.4 (0.2-0.8); MONOCYTES % 3.9 % (4.4-11.3); NEUTROPHILS # (AUTO) 8.7 (2.1-6.9); NEUTROPHILS % 80.8 % (38.7-80.0); PLATELET COUNT 131 x10e3/uL (140-360); RED BLOOD COUNT 3.13 x10e6/uL (4.3-5.7); RED CELL DISTRIBUTION WIDTH 15.3 % (11.7-14.4)
[2021-01-17 05:54] LABS: ANION GAP 16.3 mmol/L (8-16); CALCIUM 7.7 mg/dL (8.4-10.2); CREATININE, SERUM 1.86 mg/dL (0.72-1.25); POTASSIUM 3.3 mmol/L (3.5-5.1)
[2021-01-17] MEDS: ASPIRIN 81 MG CHEW TAB PO SCH (08:46)
[2021-01-17] MEDS: FERROUS SULFATE 325 MG TAB PO SCH ×2 (08:46→16:30)
[2021-01-17] MEDS: DOCUSATE SODIUM 100 MG CAP PO SCH ×2 (08:46→16:30)
[2021-01-17] MEDS: PANTOPRAZOLE SOD 40 MG TABEC PO SCH (08:47)
[2021-01-17] MEDS: INSULIN LISPRO 100 UNIT/1 ML 3ML VIAL SQ SCH ×4 (08:47→20:39)
[2021-01-17] MEDS: ATORVASTATIN 40 MG TAB PO SCH (08:47)
[2021-01-17] MEDS: MONTELUKAST SODIUM 10 MG TAB PO SCH (08:47)
[2021-01-17] MEDS: METOPROLOL TARTRATE 25 MG TAB PO SCH ×2 (08:47→16:30)
[2021-01-17] MEDS: INSULIN GLARGINE 100 UNITS/ML VIAL SQ SCH (08:47)
[2021-01-17] MEDS: QUETIAPINE FUMARATE 25 MG TAB PO SCH ×2 (08:47→16:30)
[2021-01-17] MEDS: ACETAMINOPHEN 325 MG TAB PO PRN (12:53)
[2021-01-17] MEDS ORDERED: ACETAMINOPHEN/CODEINE 300MG - 30MG TAB PO PRN (13:45)
[2021-01-17] MEDS: TRAMADOL HCL 50 MG TAB PO PRN ×2 (16:30→21:56)
[2021-01-17] MEDS: ZOLPIDEM TARTRATE 5 MG TAB PO PRN (21:55)
[2021-01-18] VITALS (8 sets, daily range): BP systolic 140–175; BP diastolic 68–88
[2021-01-18 08:07] LABS: BASOPHILS % 0.3 % (0.0-1.0); EOSINOPHILS # (AUTO) 0.3 (0.0-0.4); EOSINOPHILS % 2.7 % (0.0-6.0); HEMATOCRIT 24.5 % (38.2-49.6); LYMPHOCYTES # (AUTO) 1.9 (1.0-3.2); LYMPHOCYTES % 19.5 % (18.0-39.1); MEAN CORPUSCULAR HEMOGLOBIN 27.2 pg (28-32); MEAN CORPUSCULAR HGB CONC 31.8 g/dL (31-35); MEAN CORPUSCULAR VOLUME 85.4 fL (81-99); MONOCYTES # (AUTO) 0.6 (0.2-0.8); MONOCYTES % 5.8 % (4.4-11.3); NEUTROPHILS # (AUTO) 6.8 (2.1-6.9); PLATELET COUNT 146 x10e3/uL (140-360); RED BLOOD COUNT 2.87 x10e6/uL (4.3-5.7)
[2021-01-18 08:11] LABS: HEMOGLOBIN 7.8 g/dL (14.0-18.0)
[2021-01-18] MEDS: INSULIN LISPRO 100 UNIT/1 ML 3ML VIAL SQ SCH ×4 (08:30→21:23)
[2021-01-18 09:00] LABS: ANION GAP 13.4 mmol/L (8-16); CALCIUM 7.2 mg/dL (8.4-10.2); CREATININE, SERUM 2.09 mg/dL (0.72-1.25); POTASSIUM 3.4 mmol/L (3.5-5.1)
[2021-01-18] MEDS: INSULIN GLARGINE 100 UNITS/ML VIAL SQ SCH (09:00)
[2021-01-18] MEDS: TRAMADOL HCL 50 MG TAB PO PRN ×2 (09:34→16:04)
[2021-01-18] MEDS: ATORVASTATIN 40 MG TAB PO SCH (09:34)
[2021-01-18] MEDS: FERROUS SULFATE 325 MG TAB PO SCH ×2 (09:35→18:03)
[2021-01-18] MEDS: DOCUSATE SODIUM 100 MG CAP PO SCH ×2 (09:35→18:04)
[2021-01-18] MEDS: MONTELUKAST SODIUM 10 MG TAB PO SCH (09:35)
[2021-01-18] MEDS: QUETIAPINE FUMARATE 25 MG TAB PO SCH ×2 (09:35→17:00)
[2021-01-18] MEDS: PANTOPRAZOLE SOD 40 MG TABEC PO SCH (09:35)
[2021-01-18 09:46] LABS: EOSINOPHILS % (MANUAL) 1 % (0-7); LYMPHOCYTES % (MANUAL) 10 % (19-48); MONOCYTES % (MANUAL) 4 % (3.4-9.0); NEUTROPHILS % (MANUAL) 84 % (40-74); PLATELET ESTIMATE ADEQUATE; PLATELET MORPHOLOGY COMMENT NORMAL
[2021-01-18 09:47] LABS: ANISOCYTOSIS SLIGHT; HYPOCHROMASIA SLIGHT; RBC MORPHOLOGY COMMENT NORMAL
[2021-01-18] MEDS: ASPIRIN 81 MG CHEW TAB PO SCH (09:51)
[2021-01-18] MEDS: METOPROLOL TARTRATE 25 MG TAB PO SCH ×2 (09:52→18:03)
[2021-01-18] MEDS ORDERED: POTASSIUM CHLORIDE 20 MEQ TAB CR PO ONE (11:30)
[2021-01-18] MEDS: ACETAMINOPHEN 325 MG TAB PO PRN (13:05)
[2021-01-18] MEDS: ZOLPIDEM TARTRATE 5 MG TAB PO PRN (20:48)
[2021-01-19] VITALS (7 sets, daily range): BP systolic 124–167; BP diastolic 52–83
[2021-01-19 05:33] LABS: ALBUMIN/GLOBULIN RATIO 0.5 (0.8-2.0); ANION GAP 12.7 mmol/L (8-16); CALCIUM 7.1 mg/dL (8.4-10.2); CREATININE, SERUM 2.16 mg/dL (0.72-1.25); POTASSIUM 3.7 mmol/L (3.5-5.1)
[2021-01-19] MEDS: PANTOPRAZOLE SOD 40 MG TABEC PO SCH (08:02)
[2021-01-19] MEDS: ATORVASTATIN 40 MG TAB PO SCH (08:03)
[2021-01-19] MEDS: DOCUSATE SODIUM 100 MG CAP PO SCH ×2 (08:03→16:29)
[2021-01-19] MEDS: ASPIRIN 81 MG CHEW TAB PO SCH (08:03)
[2021-01-19] MEDS: FERROUS SULFATE 325 MG TAB PO SCH ×2 (08:03→16:29)
[2021-01-19] MEDS: METOPROLOL TARTRATE 25 MG TAB PO SCH ×2 (08:04→16:29)
[2021-01-19] MEDS: MONTELUKAST SODIUM 10 MG TAB PO SCH (08:04)
[2021-01-19] MEDS: TRAMADOL HCL 50 MG TAB PO PRN (08:04)
[2021-01-19] MEDS: INSULIN LISPRO 100 UNIT/1 ML 3ML VIAL SQ SCH ×3 (08:30→18:00)
[2021-01-19] MEDS: QUETIAPINE FUMARATE 25 MG TAB PO SCH ×2 (08:43→16:33)
[2021-01-19] MEDS: INSULIN GLARGINE 100 UNITS/ML VIAL SQ SCH (09:00)
[2021-01-19] MEDS ORDERED: AMBIEN5 MG PO (16:51)
[2021-01-19] MEDS ORDERED: ASPIRIN CHEW81 MG PO (16:51)
[2021-01-19] MEDS ORDERED: Ferrous Sulfate PO (16:51)
== END 2021-01-19 20:07 | DRG 853 ==
LOC: ER 14:41 → ERHOLD 16:24 → MED/SURG2 17:12
PROVIDERS: ADMIT Internal Medicine; ATTEND Internal Medicine
PROC: 0Y6J0Z2 Detachment at Left Lower Leg, Mid, Open Approach (ICD-10-PCS; 2021-01-13)
PROC: 30233N1 Transfusion of Nonautologous Red Blood Cells into Peripheral Vein, Percutaneous Approach (ICD-10-PCS; 2021-01-13)
PROC: 5A1D70Z Performance of Urinary Filtration, Intermittent, Less than 6 Hours Per Day (ICD-10-PCS; principal; 2021-01-14)
DX: A41.9 Sepsis, unspecified organism (principal); N17.0 Acute kidney failure with tubular necrosis; I50.23 Acute on chronic systolic (congestive) heart failure; I63.411 Cerebral infarction due to embolism of right middle cerebral artery; E11.52 Type 2 diabetes mellitus with diabetic peripheral angiopathy with gangrene; M86.8X7 Other osteomyelitis, ankle and foot; I96 Gangrene, not elsewhere classified; L03.116 Cellulitis of left lower limb; I13.0 Hypertensive heart and chronic kidney disease with heart failure and stage 1 through stage 4 chronic kidney disease, or unspecified chronic kidney disease; L97.529 Non-pressure chronic ulcer of other part of left foot with unspecified severity; E11.69 Type 2 diabetes mellitus with other specified complication; R65.20 Severe sepsis without septic shock; E11.621 Type 2 diabetes mellitus with foot ulcer; E78.00 Pure hypercholesterolemia, unspecified; I25.10 Atherosclerotic heart disease of native coronary artery without angina pectoris; E11.22 Type 2 diabetes mellitus with diabetic chronic kidney disease; N18.30 Chronic kidney disease, stage 3 unspecified; D63.1 Anemia in chronic kidney disease; Z95.1 Presence of aortocoronary bypass graft; Z89.511 Acquired absence of right leg below knee; Z83.3 Family history of diabetes mellitus; Z82.49 Family history of ischemic heart disease and other diseases of the circulatory system; Z90.49 Acquired absence of other specified parts of digestive tract; Z88.1 Allergy status to other antibiotic agents; Z88.5 Allergy status to narcotic agent; Z88.8 Allergy status to other drugs, medicaments and biological substances; Z91.048 Other nonmedicinal substance allergy status; Z95.820 Peripheral vascular angioplasty status with implants and grafts; Z79.4 Long term (current) use of insulin; Z86.73 Personal history of transient ischemic attack (TIA), and cerebral infarction without residual deficits; E78.5 Hyperlipidemia, unspecified; Z89.422 Acquired absence of other left toe(s); E11.40 Type 2 diabetes mellitus with diabetic neuropathy, unspecified; Z20.822 Contact with and (suspected) exposure to COVID-19
CPT/HCPCS: 36415; 36556; 70544; 70547; 70551; 71046; 76770; 76937; 77001; 80048; 80053; 82728; 82948; 83036; 83090; 83540; 83605; 83735; 83880; 84311; 84443; 84466; 85025; 86704; 86706; 86850; 86900; 86920; 87040; 87071; 87186; 87205; 87340; 88307; 88311; 93005; 93306; 93926; 95812; 97139; 99251; 99284; J1170; J1644; J1815; J1817; J2001; J2020; J2150; J2543; J2916; J7030; J7040; J7050; P9016; U0002

== ENCOUNTER 2022-07-01 18:40 | Inpatient (IN) | payer MEDICARE, OTHER ==
[~2022-07-01] VITALS: Ht 162.6 cm; Wt 99.8 kg
[~2022-07-01 18:40] MED LIST changes: +ASPIRIN CHEW81 MG PO; +Ferrous Sulfate PO
[2022-07-01 19:30] LABS: BASOPHILS % 0.2 % (0.0-1.0); EOSINOPHILS # (AUTO) 0.9 (0.0-0.4); EOSINOPHILS % 18.3 % (0.0-6.0); LYMPHOCYTES # (AUTO) 1.5 (1.0-3.2); LYMPHOCYTES % 29.8 % (18.0-39.1); MEAN CORPUSCULAR HEMOGLOBIN 37.3 pg (28-32); MEAN CORPUSCULAR HGB CONC 32.8 g/dL (31-35); MEAN CORPUSCULAR VOLUME 113.6 fL (81-99); MONOCYTES # (AUTO) 0.3 (0.2-0.8); MONOCYTES % 6.4 % (4.4-11.3); NEUTROPHILS # (AUTO) 2.3 (2.1-6.9); NEUTROPHILS % 45.1 % (38.7-80.0); PLATELET COUNT 206 x10e3/uL (140-360); RED BLOOD COUNT 1.69 x10e6/uL (4.3-5.7); RED CELL DISTRIBUTION WIDTH 18.4 % (11.7-14.4)
[2022-07-01 19:34] LABS: HEMOGLOBIN 6.3 g/dL (14.0-18.0)
[2022-07-01 19:35] LABS: HEMATOCRIT 19.2 % (38.2-49.6)
[2022-07-01] MEDS ORDERED: SODIUM CHLORIDE 0.9% 250ML 250 ML IV ONE (19:45)
[2022-07-01 19:48] LABS: ALBUMIN 3.2 g/dL (3.5-5.0); ALBUMIN/GLOBULIN RATIO 0.8 (0.8-2.0); ANION GAP 13.3 mmol/L (8-16); CALCIUM 8.7 mg/dL (8.4-10.2); CREATININE, SERUM 2.4 mg/dL (0.72-1.25); POTASSIUM 4.3 mmol/L (3.5-5.1)
[2022-07-01 20:06] LABS: CLARITY,URINE CLOUDY (CLEAR); COLOR,URINE YELLOW (YELLOW); LEUKOCYTE ESTERASE ,URINE LARGE (NEGATIVE); NITRITE,URINE POSITIVE (NEGATIVE)
[2022-07-01 20:07] LABS: KETONES,URINE NEGATIVE (NEGATIVE); PROTEIN,URINE DIPSTICK 2+ (NEGATIVE); URINE UROBILINOGEN 0.2 mg/dL (0.2 - 1)
[2022-07-01 20:18] LABS: BACTERIA,URINE FEW /HPF; WBC,URINE (MAN) >50 /HPF (0-5)
[2022-07-01] MEDS ORDERED: SODIUM CHLORIDE FLUSH 10 ML SYR INJ PRN (20:45)
[2022-07-01] MEDS ORDERED: ONDANSETRON HCL INJ 2MG/ML 2ML 2 MG/ML VIAL IV PRN (20:45)
[2022-07-01 21:23] LABS: FERRITIN 232.89 ng/mL (21.81-274.66)
[2022-07-01 22:24] VITALS: BP 143/72
[2022-07-01] MEDS ORDERED: CLOPIDOGREL75 MG PO (22:26)
[2022-07-01] MEDS ORDERED: AMLODIPINE BESYL5 MG PO (22:26)
[2022-07-01] MEDS ORDERED: MIRTAZAPINE15 MG PO (22:26)
[2022-07-01] MEDS ORDERED: TOLTERODINE TART4 MG PO (22:26)
[2022-07-02] MEDS ORDERED: SODIUM CHLORIDE 0.9% 250ML 250 ML ONE ×2 (00:50→08:54)
[2022-07-02 07:02] VITALS: BP 141/53
[2022-07-02 07:08] LABS: BASOPHILS % 0.5 % (0.0-1.0); EOSINOPHILS # (AUTO) 0.8 (0.0-0.4); EOSINOPHILS % 20.4 % (0.0-6.0); HEMATOCRIT 23.9 % (38.2-49.6); HEMOGLOBIN 7.6 g/dL (14.0-18.0); LYMPHOCYTES % 23.1 % (18.0-39.1); MEAN CORPUSCULAR HEMOGLOBIN 33.5 pg (28-32); MEAN CORPUSCULAR HGB CONC 31.8 g/dL (31-35); MEAN CORPUSCULAR VOLUME 105.3 fL (81-99); MONOCYTES # (AUTO) 0.2 (0.2-0.8); MONOCYTES % 4.6 % (4.4-11.3); NEUTROPHILS # (AUTO) 2.1 (2.1-6.9); NEUTROPHILS % 51.2 % (38.7-80.0); PLATELET COUNT 173 x10e3/uL (140-360); RED BLOOD COUNT 2.27 x10e6/uL (4.3-5.7); RED CELL DISTRIBUTION WIDTH 19.8 % (11.7-14.4)
[2022-07-02 07:29] LABS: ALBUMIN 3.1 g/dL (3.5-5.0); ALBUMIN/GLOBULIN RATIO 0.9 (0.8-2.0); ANION GAP 12.3 mmol/L (8-16); CALCIUM 8.5 mg/dL (8.4-10.2); CREATININE, SERUM 2.3 mg/dL (0.72-1.25); POTASSIUM 4.3 mmol/L (3.5-5.1)
[2022-07-02 07:55] VITALS: BP 118/51
[2022-07-02 08:50] VITALS: BP 118/51
[2022-07-02] MEDS ORDERED: HYDROCODONE/APAP 10MG-325MG TAB PO PRN (10:15)
[2022-07-02 10:36] LABS: ANISOCYTOSIS SLIGHT; EOSINOPHILS % (MANUAL) 17 % (0-7); LYMPHOCYTES % (MANUAL) 24 % (19-48); MONOCYTES % (MANUAL) 7 % (3.4-9.0); NEUTROPHILS % (MANUAL) 52 % (40-74); PLATELET ESTIMATE ADEQUATE; PLATELET MORPHOLOGY COMMENT NORMAL; RBC MORPHOLOGY COMMENT NORMAL
[2022-07-02 11:29] VITALS: BP 140/59
[2022-07-02] MEDS: TRAMADOL HCL 50 MG TAB PO PRN ×2 (14:40→21:41)
[2022-07-02 15:43] VITALS: BP 138/69
[2022-07-02] MEDS: INSULIN LISPRO 100 UNIT/1 ML 3ML VIAL SQ SCH ×2 (17:00→21:22)
[2022-07-02] MEDS: INSULIN GLARGINE 100 UNITS/ML VIAL SC SCH (17:00)
[2022-07-02] MEDS ORDERED: QUETIAPINE FUMARATE 25 MG TAB PO SCH (17:00)
[2022-07-02] MEDS: MONTELUKAST SODIUM 10 MG TAB PO SCH (17:15)
[2022-07-02] MEDS: TOLTERODINE TARTRATE 4 MG CAPCR PO SCH (17:20)
[2022-07-02] MEDS: AMLODIPINE BESYLATE 10 MG TAB PO SCH (17:20)
[2022-07-02] MEDS: ATORVASTATIN 40 MG TAB PO SCH (20:16)
[2022-07-02 20:19] VITALS: BP 138/64
[2022-07-02] MEDS: MIRTAZAPINE 15 MG TAB PO SCH (21:14)
[2022-07-03] VITALS (9 sets, daily range): BP systolic 126–140; BP diastolic 54–71
[2022-07-03 07:03] LABS: BASOPHILS % 0.2 % (0.0-1.0); EOSINOPHILS % 17.4 % (0.0-6.0); HEMATOCRIT 24.9 % (38.2-49.6); HEMOGLOBIN 8.5 g/dL (14.0-18.0); LYMPHOCYTES # (AUTO) 2.4 (1.0-3.2); LYMPHOCYTES % 39.2 % (18.0-39.1); MEAN CORPUSCULAR HEMOGLOBIN 33.7 pg (28-32); MEAN CORPUSCULAR HGB CONC 34.1 g/dL (31-35); MEAN CORPUSCULAR VOLUME 98.8 fL (81-99); MONOCYTES # (AUTO) 0.3 (0.2-0.8); NEUTROPHILS # (AUTO) 2.3 (2.1-6.9); PLATELET COUNT 181 x10e3/uL (140-360); RED BLOOD COUNT 2.52 x10e6/uL (4.3-5.7); RED CELL DISTRIBUTION WIDTH 20.4 % (11.7-14.4)
[2022-07-03] MEDS: DEXTROSE 50% SYRINGE 50 ML IV PRN (07:08)
[2022-07-03] MEDS: INSULIN LISPRO 100 UNIT/1 ML 3ML VIAL SQ SCH ×4 (07:30→21:00)
[2022-07-03 07:34] LABS: ANION GAP 8.3 mmol/L (8-16); CALCIUM 8.6 mg/dL (8.4-10.2); CREATININE, SERUM 2.37 mg/dL (0.72-1.25); POTASSIUM 4.3 mmol/L (3.5-5.1)
[2022-07-03] MEDS: INSULIN GLARGINE 100 UNITS/ML VIAL SC SCH ×2 (09:00→17:30)
[2022-07-03] MEDS ORDERED: TOLTERODINE TARTRATE 4 MG CAPCR PO SCH (09:00)
[2022-07-03] MEDS ORDERED: MONTELUKAST SODIUM 10 MG TAB PO SCH (09:00)
[2022-07-03] MEDS ORDERED: AMLODIPINE BESYLATE 5 MG TAB PO SCH (09:00)
[2022-07-03] MEDS: CYANOCOBALAMIN INJ 1,000 MCG/ML VIAL IM SCH (09:01)
[2022-07-03] MEDS: AMLODIPINE BESYLATE 10 MG TAB PO SCH (09:01)
[2022-07-03] MEDS: MONTELUKAST SODIUM 10 MG TAB PO SCH (09:02)
[2022-07-03] MEDS: TOLTERODINE TARTRATE 4 MG CAPCR PO SCH (09:02)
[2022-07-03] MEDS: TRAMADOL HCL 50 MG TAB PO PRN ×2 (11:08→21:42)
[2022-07-03] MEDS ORDERED: BACITRACIN ZINC 15 GM OINT TOP SCH (13:30)
[2022-07-03] MEDS ORDERED: POLYETHYLENE GLYCOL 3350 17 GM PACK PO PRN (14:00)
[2022-07-03] MEDS: ATORVASTATIN 40 MG TAB PO SCH (21:43)
[2022-07-03] MEDS: MIRTAZAPINE 15 MG TAB PO SCH (21:43)
[2022-07-04] VITALS (7 sets, daily range): BP systolic 119–135; BP diastolic 57–71
[2022-07-04] MEDS: DEXTROSE 50% SYRINGE 50 ML IV PRN (01:48)
[2022-07-04 06:02] LABS: BASOPHILS % 0.2 % (0.0-1.0); EOSINOPHILS # (AUTO) 1.1 (0.0-0.4); EOSINOPHILS % 20.1 % (0.0-6.0); HEMATOCRIT 23.7 % (38.2-49.6); HEMOGLOBIN 7.5 g/dL (14.0-18.0); LYMPHOCYTES # (AUTO) 1.3 (1.0-3.2); LYMPHOCYTES % 24.3 % (18.0-39.1); MEAN CORPUSCULAR HEMOGLOBIN 33.5 pg (28-32); MEAN CORPUSCULAR HGB CONC 31.6 g/dL (31-35); MEAN CORPUSCULAR VOLUME 105.8 fL (81-99); MONOCYTES # (AUTO) 0.3 (0.2-0.8); MONOCYTES % 4.9 % (4.4-11.3); NEUTROPHILS # (AUTO) 2.7 (2.1-6.9); NEUTROPHILS % 50.3 % (38.7-80.0); PLATELET COUNT 203 x10e3/uL (140-360); RED BLOOD COUNT 2.24 x10e6/uL (4.3-5.7); RED CELL DISTRIBUTION WIDTH 19.4 % (11.7-14.4)
[2022-07-04 06:25] LABS: ANION GAP 12.9 mmol/L (8-16); CALCIUM 8.6 mg/dL (8.4-10.2); CREATININE, SERUM 2.53 mg/dL (0.72-1.25); POTASSIUM 3.9 mmol/L (3.5-5.1)
[2022-07-04] MEDS: INSULIN LISPRO 100 UNIT/1 ML 3ML VIAL SQ SCH ×4 (07:30→21:09)
[2022-07-04 08:04] LABS: EOSINOPHILS % (MANUAL) 9 % (0-7); LYMPHOCYTES % (MANUAL) 24 % (19-48); MONOCYTES % (MANUAL) 8 % (3.4-9.0); NEUTROPHILS % (MANUAL) 59 % (40-74); PLATELET ESTIMATE ADEQUATE; PLATELET MORPHOLOGY COMMENT NORMAL; RBC MORPHOLOGY COMMENT NORMAL
[2022-07-04] MEDS: INSULIN GLARGINE 100 UNITS/ML VIAL SC SCH (09:00)
[2022-07-04] MEDS: TOLTERODINE TARTRATE 4 MG CAPCR PO SCH (09:26)
[2022-07-04] MEDS: MONTELUKAST SODIUM 10 MG TAB PO SCH (09:26)
[2022-07-04] MEDS: AMLODIPINE BESYLATE 10 MG TAB PO SCH (09:26)
[2022-07-04] MEDS: CYANOCOBALAMIN INJ 1,000 MCG/ML VIAL IM SCH (09:26)
[2022-07-04] MEDS: DEXTROSE 5%/0.225% SOD CHL 1,000 ML IV SCH (12:10)
[2022-07-04] MEDS ORDERED: ONDANSETRON HCL 4 MG ORAL DISINTEGRATING TAB PO PRN (14:15)
[2022-07-04] MEDS ORDERED: LIDOCAINE JELLY 2% 10ML URO-JET ONE (14:29)
[2022-07-04] MEDS ORDERED: SILVER NITRATE SWABS ONE (14:44)
[2022-07-04] MEDS: MIRTAZAPINE 15 MG TAB PO SCH (20:59)
[2022-07-04] MEDS: ATORVASTATIN 40 MG TAB PO SCH (20:59)
[2022-07-04] MEDS: TRAMADOL HCL 50 MG TAB PO PRN (21:00)
[2022-07-05] VITALS (8 sets, daily range): BP systolic 105–137; BP diastolic 52–85
[2022-07-05] MEDS: DEXTROSE 5%/0.225% SOD CHL 1,000 ML IV SCH ×2 (01:27→13:40)
[2022-07-05] MEDS: INSULIN LISPRO 100 UNIT/1 ML 3ML VIAL SQ SCH ×4 (07:30→20:00)
[2022-07-05] MEDS: AMLODIPINE BESYLATE 10 MG TAB PO SCH (09:00)
[2022-07-05] MEDS: CYANOCOBALAMIN INJ 1,000 MCG/ML VIAL IM SCH (09:10)
[2022-07-05] MEDS: MONTELUKAST SODIUM 10 MG TAB PO SCH (09:11)
[2022-07-05] MEDS: TOLTERODINE TARTRATE 4 MG CAPCR PO SCH (09:11)
[2022-07-05] MEDS: INSULIN GLARGINE 100 UNITS/ML VIAL SC SCH (09:12)
[2022-07-05] MEDS ORDERED: LACTULOSE SYRUP 20 GM/30 ML UDC PO ONE (11:45)
[2022-07-05] MEDS: TRAMADOL HCL 50 MG TAB PO PRN ×2 (14:35→18:47)
[2022-07-05 15:52] LABS: BASOPHILS % 0.2 % (0.0-1.0); EOSINOPHILS # (AUTO) 0.6 (0.0-0.4); EOSINOPHILS % 7.8 % (0.0-6.0); HEMATOCRIT 22.8 % (38.2-49.6); HEMOGLOBIN 7.9 g/dL (14.0-18.0); LYMPHOCYTES % 11.9 % (18.0-39.1); MEAN CORPUSCULAR HEMOGLOBIN 34.3 pg (28-32); MEAN CORPUSCULAR HGB CONC 34.6 g/dL (31-35); MEAN CORPUSCULAR VOLUME 99.1 fL (81-99); MONOCYTES # (AUTO) 0.4 (0.2-0.8); MONOCYTES % 4.4 % (4.4-11.3); NEUTROPHILS # (AUTO) 6.1 (2.1-6.9); NEUTROPHILS % 75.2 % (38.7-80.0); PLATELET COUNT 150 x10e3/uL (140-360); RED CELL DISTRIBUTION WIDTH 20.8 % (11.7-14.4)
[2022-07-05] MEDS ORDERED: MIRALAX17 GM PO (16:58)
[2022-07-05] MEDS ORDERED: PANTOPRAZOLE SO40 MG PO (16:58)
[2022-07-05] MEDS: PANTOPRAZOLE SOD 40 MG TABEC PO SCH (18:47)
[2022-07-05] MEDS ORDERED: ACETAMINOPHEN 325 MG TAB PO ONE (19:30)
[2022-07-05] MEDS: ATORVASTATIN 40 MG TAB PO SCH (20:00)
[2022-07-05] MEDS: MIRTAZAPINE 15 MG TAB PO SCH (20:00)
[2022-07-05 20:16] LABS: BASOPHILS % 0.3 % (0.0-1.0); EOSINOPHILS # (AUTO) 0.8 (0.0-0.4); HEMOGLOBIN 7.6 g/dL (14.0-18.0); LYMPHOCYTES # (AUTO) 1.9 (1.0-3.2); LYMPHOCYTES % 18.1 % (18.0-39.1); MEAN CORPUSCULAR HEMOGLOBIN 34.4 pg (28-32); MEAN CORPUSCULAR HGB CONC 34.5 g/dL (31-35); MEAN CORPUSCULAR VOLUME 99.5 fL (81-99); MONOCYTES # (AUTO) 0.6 (0.2-0.8); MONOCYTES % 6.1 % (4.4-11.3); NEUTROPHILS # (AUTO) 6.9 (2.1-6.9); PLATELET COUNT 151 x10e3/uL (140-360); RED BLOOD COUNT 2.21 x10e6/uL (4.3-5.7); RED CELL DISTRIBUTION WIDTH 20.8 % (11.7-14.4)
[2022-07-06] VITALS (9 sets, daily range): BP systolic 120–132; BP diastolic 51–63
[2022-07-06] MEDS: DEXTROSE 5%/0.225% SOD CHL 1,000 ML IV SCH ×2 (05:09→15:38)
[2022-07-06] MEDS: INSULIN LISPRO 100 UNIT/1 ML 3ML VIAL SQ SCH ×4 (07:30→20:37)
[2022-07-06] MEDS: TOLTERODINE TARTRATE 4 MG CAPCR PO SCH (08:58)
[2022-07-06] MEDS: CYANOCOBALAMIN INJ 1,000 MCG/ML VIAL IM SCH (08:58)
[2022-07-06] MEDS: AMLODIPINE BESYLATE 10 MG TAB PO SCH (08:58)
[2022-07-06] MEDS: MONTELUKAST SODIUM 10 MG TAB PO SCH (08:58)
[2022-07-06] MEDS: PANTOPRAZOLE SOD 40 MG TABEC PO SCH ×2 (08:58→17:09)
[2022-07-06] MEDS: INSULIN GLARGINE 100 UNITS/ML VIAL SC SCH (09:00)
[2022-07-06 13:52] LABS: BASOPHILS % 0.1 % (0.0-1.0); EOSINOPHILS % 13.5 % (0.0-6.0); HEMOGLOBIN 7.1 g/dL (14.0-18.0); LYMPHOCYTES # (AUTO) 1.4 (1.0-3.2); LYMPHOCYTES % 19.9 % (18.0-39.1); MEAN CORPUSCULAR HEMOGLOBIN 34.1 pg (28-32); MEAN CORPUSCULAR HGB CONC 33.8 g/dL (31-35); MONOCYTES # (AUTO) 0.4 (0.2-0.8); MONOCYTES % 6.1 % (4.4-11.3); NEUTROPHILS # (AUTO) 4.2 (2.1-6.9); PLATELET COUNT 140 x10e3/uL (140-360); RED BLOOD COUNT 2.08 x10e6/uL (4.3-5.7); RED CELL DISTRIBUTION WIDTH 20.9 % (11.7-14.4)
[2022-07-06] MEDS: TRAMADOL HCL 50 MG TAB PO PRN (15:39)
[2022-07-06] MEDS ORDERED: SODIUM CHLORIDE 0.9% 250ML 250 ML IV ONE (17:00)
[2022-07-06] MEDS: MIRTAZAPINE 15 MG TAB PO SCH (20:39)
[2022-07-06] MEDS: ATORVASTATIN 40 MG TAB PO SCH (20:39)
[2022-07-07] VITALS (7 sets, daily range): BP systolic 116–132; BP diastolic 52–63
[2022-07-07] MEDS ORDERED: SODIUM CHLORIDE 0.9% 250ML 250 ML ONE (02:29)
[2022-07-07] MEDS: DEXTROSE 5%/0.225% SOD CHL 1,000 ML IV SCH (05:40)
[2022-07-07 08:04] LABS: BASOPHILS % 0.1 % (0.0-1.0); EOSINOPHILS # (AUTO) 1.2 (0.0-0.4); EOSINOPHILS % 15.4 % (0.0-6.0); HEMATOCRIT 24.7 % (38.2-49.6); HEMOGLOBIN 8.3 g/dL (14.0-18.0); LYMPHOCYTES # (AUTO) 1.8 (1.0-3.2); LYMPHOCYTES % 23.6 % (18.0-39.1); MEAN CORPUSCULAR HEMOGLOBIN 32.8 pg (28-32); MEAN CORPUSCULAR HGB CONC 33.6 g/dL (31-35); MEAN CORPUSCULAR VOLUME 97.6 fL (81-99); MONOCYTES # (AUTO) 0.6 (0.2-0.8); MONOCYTES % 7.6 % (4.4-11.3); NEUTROPHILS # (AUTO) 3.9 (2.1-6.9); NEUTROPHILS % 52.6 % (38.7-80.0); PLATELET COUNT 149 x10e3/uL (140-360); RED BLOOD COUNT 2.53 x10e6/uL (4.3-5.7); RED CELL DISTRIBUTION WIDTH 20.5 % (11.7-14.4)
[2022-07-07 08:21] LABS: ANION GAP 14.1 mmol/L (8-16); CALCIUM 8.5 mg/dL (8.4-10.2); CREATININE, SERUM 2.99 mg/dL (0.72-1.25); POTASSIUM 4.1 mmol/L (3.5-5.1)
[2022-07-07] MEDS: MONTELUKAST SODIUM 10 MG TAB PO SCH (08:22)
[2022-07-07] MEDS: TOLTERODINE TARTRATE 4 MG CAPCR PO SCH (08:23)
[2022-07-07] MEDS: INSULIN GLARGINE 100 UNITS/ML VIAL SC SCH (08:23)
[2022-07-07] MEDS: PANTOPRAZOLE SOD 40 MG TABEC PO SCH (08:23)
[2022-07-07] MEDS: AMLODIPINE BESYLATE 10 MG TAB PO SCH (08:23)
[2022-07-07] MEDS: CYANOCOBALAMIN INJ 1,000 MCG/ML VIAL IM SCH (08:23)
[2022-07-07] MEDS: INSULIN LISPRO 100 UNIT/1 ML 3ML VIAL SQ SCH (08:24)
[2022-07-07] MEDS: TRAMADOL HCL 50 MG TAB PO PRN (09:47)
[2022-07-07] MEDS ORDERED: FUROSEMIDE40 MG PO (14:10)
== END 2022-07-07 15:00 | disposition home or self-care (01) | DRG 982 ==
LOC: ER 18:53 → ERHOLD 20:38 → MED/SURG2 22:06 → OBSVTOIN 07-03 13:34
PROVIDERS: ADMIT Internal Medicine; ATTEND Internal Medicine
PROC: 0W3R8ZZ Control Bleeding in Genitourinary Tract, Via Natural or Artificial Opening Endoscopic (ICD-10-PCS; principal; 2022-07-04 14:20)
DX: D50.0 Iron deficiency anemia secondary to blood loss (chronic) (principal); I12.0 Hypertensive chronic kidney disease with stage 5 chronic kidney disease or end stage renal disease; T83.511A Infection and inflammatory reaction due to indwelling urethral catheter, initial encounter; N39.0 Urinary tract infection, site not specified; N17.9 Acute kidney failure, unspecified; N18.5 Chronic kidney disease, stage 5; Z20.822 Contact with and (suspected) exposure to COVID-19; E53.8 Deficiency of other specified B group vitamins; R31.9 Hematuria, unspecified; B96.4 Proteus (mirabilis) (morganii) as the cause of diseases classified elsewhere; I25.10 Atherosclerotic heart disease of native coronary artery without angina pectoris; E10.51 Type 1 diabetes mellitus with diabetic peripheral angiopathy without gangrene; E10.22 Type 1 diabetes mellitus with diabetic chronic kidney disease; F32.A Depression, unspecified; E78.5 Hyperlipidemia, unspecified; M19.90 Unspecified osteoarthritis, unspecified site; K31.84 Gastroparesis; E10.43 Type 1 diabetes mellitus with diabetic autonomic (poly)neuropathy; E10.21 Type 1 diabetes mellitus with diabetic nephropathy; G89.4 Chronic pain syndrome; Z95.1 Presence of aortocoronary bypass graft; Z95.5 Presence of coronary angioplasty implant and graft; Z89.511 Acquired absence of right leg below knee; Z86.73 Personal history of transient ischemic attack (TIA), and cerebral infarction without residual deficits; Z90.49 Acquired absence of other specified parts of digestive tract; Z89.422 Acquired absence of other left toe(s); Z79.4 Long term (current) use of insulin
CPT/HCPCS: 36415; 74176; 80048; 80053; 81001; 82270; 82607; 82728; 82948; 83540; 84466; 85025; 86850; 86900; 86920; 87086; 87186; 93306; 96372; 99252; 99284; G0378; J0696; J1815; J2405; J3420; J7050; J7799; P9016

== ENCOUNTER 2022-08-16 11:41 | Inpatient (IN) | payer MEDICARE, OTHER ==
[~2022-08-16] VITALS: Ht 162.6 cm; Wt 99.8 kg
[~2022-08-16 11:41] MED LIST changes: +AMLODIPINE BESYL5 MG PO; +CLOPIDOGREL75 MG PO; +FUROSEMIDE40 MG PO; +MIRALAX17 GM PO; +MIRTAZAPINE15 MG PO; +TOLTERODINE TART4 MG PO
[2022-08-16 12:26] LABS: BASOPHILS # (AUTO) 0.1 (0.0-0.1); BASOPHILS % 0.6 % (0.0-1.0); EOSINOPHILS % 12.1 % (0.0-6.0); HEMATOCRIT 32.1 % (38.2-49.6); HEMOGLOBIN 10.6 g/dL (14.0-18.0); LYMPHOCYTES # (AUTO) 1.5 (1.0-3.2); LYMPHOCYTES % 18.3 % (18.0-39.1); MEAN CORPUSCULAR HEMOGLOBIN 32.4 pg (28-32); MEAN CORPUSCULAR VOLUME 98.2 fL (81-99); MONOCYTES # (AUTO) 0.6 (0.2-0.8); MONOCYTES % 6.7 % (4.4-11.3); NEUTROPHILS # (AUTO) 5.2 (2.1-6.9); NEUTROPHILS % 61.9 % (38.7-80.0); PLATELET COUNT 238 x10e3/uL (140-360); RED BLOOD COUNT 3.27 x10e6/uL (4.3-5.7); RED CELL DISTRIBUTION WIDTH 15.3 % (11.7-14.4)
[2022-08-16] MEDS ORDERED: ONDANSETRON HCL INJ 2MG/ML 2ML 2 MG/ML VIAL IV PRN ×2 (12:45→20:30)
[2022-08-16 12:51] LABS: INR 1.12; PROTHROMBIN TIME 14.9 seconds (11.9-14.5)
[2022-08-16 13:00] LABS: ALBUMIN 3.1 g/dL (3.5-5.0); ALBUMIN/GLOBULIN RATIO 0.8 (0.8-2.0); CALCIUM 8.6 mg/dL (8.4-10.2); CREATININE, SERUM 2.73 mg/dL (0.72-1.25); MAGNESIUM 1.9 MG/DL (1.3-2.1)
[2022-08-16] MEDS: LINEZOLID 600 MG/D5W 300ML 300 ML IV SCH ×2 (14:27→20:13)
[2022-08-16 16:38] VITALS: BP 145/77
[2022-08-16] MEDS ORDERED: ASPIRIN81 MG PO (17:55)
[2022-08-16 18:05] VITALS: BP 145/77
[2022-08-16 19:40] VITALS: BP 145/77
[2022-08-16] MEDS ORDERED: DEXTROSE 50% SYRINGE 50 ML IV PRN (20:30)
[2022-08-16] MEDS ORDERED: POLYETHYLENE GLYCOL 3350 17 GM PACK PO PRN (20:30)
[2022-08-16] MEDS ORDERED: HYDRALAZINE HCL 20 MG/ML VIAL IV PRN (20:30)
[2022-08-16] MEDS: ACETAMINOPHEN 325 MG TAB PO PRN (20:41)
[2022-08-16 20:45] VITALS: BP 146/66
[2022-08-16] MEDS: PANTOPRAZOLE SOD 40 MG TABEC PO SCH (21:00)
[2022-08-16] MEDS: INSULIN LISPRO 100 UNIT/1 ML 3ML VIAL SQ SCH (21:11)
[2022-08-16] MEDS: MIRTAZAPINE 15 MG TAB PO SCH (21:54)
[2022-08-17] VITALS (9 sets, daily range): BP systolic 108–142; BP diastolic 65–75
[2022-08-17 06:01] LABS: BASOPHILS # (AUTO) 0.1 (0.0-0.1); EOSINOPHILS % 16.2 % (0.0-6.0); HEMATOCRIT 28.4 % (38.2-49.6); HEMOGLOBIN 9.8 g/dL (14.0-18.0); LYMPHOCYTES # (AUTO) 0.9 (1.0-3.2); LYMPHOCYTES % 15.3 % (18.0-39.1); MEAN CORPUSCULAR HEMOGLOBIN 33.9 pg (28-32); MEAN CORPUSCULAR HGB CONC 34.5 g/dL (31-35); MEAN CORPUSCULAR VOLUME 98.3 fL (81-99); MONOCYTES # (AUTO) 0.4 (0.2-0.8); MONOCYTES % 6.9 % (4.4-11.3); NEUTROPHILS # (AUTO) 3.7 (2.1-6.9); NEUTROPHILS % 60.4 % (38.7-80.0); PLATELET COUNT 192 x10e3/uL (140-360); RED BLOOD COUNT 2.89 x10e6/uL (4.3-5.7); RED CELL DISTRIBUTION WIDTH 15.4 % (11.7-14.4)
[2022-08-17 06:25] LABS: ALBUMIN/GLOBULIN RATIO 0.8 (0.8-2.0); ANION GAP 12.8 mmol/L (8-16); CALCIUM 8.7 mg/dL (8.4-10.2); CREATININE, SERUM 2.87 mg/dL (0.72-1.25); POTASSIUM 3.8 mmol/L (3.5-5.1)
[2022-08-17 06:55] LABS: CHOL/HDL RATIO 3.8 (3.9-4.7)
[2022-08-17 07:11] LABS: THYROID STIMULATING HORMONE 2.017 uIU/mL (0.350-4.940)
[2022-08-17] MEDS ORDERED: TRAMADOL HCL 50 MG TAB PO PRN (08:00)
[2022-08-17] MEDS ORDERED: HYDROCODONE/APAP 7.5MG-325MG 1 EA TAB PO PRN (08:15)
[2022-08-17] MEDS: INSULIN LISPRO 100 UNIT/1 ML 3ML VIAL SQ SCH ×4 (08:49→20:48)
[2022-08-17] MEDS: POLYETHYLENE GLYCOL 3350 17 GM PACK PO PRN (08:54)
[2022-08-17] MEDS: PANTOPRAZOLE SOD 40 MG TABEC PO SCH ×2 (08:54→20:44)
[2022-08-17] MEDS: ATORVASTATIN 40 MG TAB PO SCH (08:54)
[2022-08-17] MEDS: MONTELUKAST SODIUM 10 MG TAB PO SCH (08:55)
[2022-08-17] MEDS: FUROSEMIDE 40 MG TAB PO SCH (08:55)
[2022-08-17] MEDS: TOLTERODINE TARTRATE 4 MG CAPCR PO SCH (08:55)
[2022-08-17] MEDS: METOPROLOL TARTRATE 25 MG TAB PO SCH ×2 (08:55→16:11)
[2022-08-17] MEDS: ASPIRIN 81 MG CHEW TAB PO SCH (08:55)
[2022-08-17] MEDS: LINEZOLID 600 MG/D5W 300ML 300 ML IV SCH ×2 (08:56→20:44)
[2022-08-17] MEDS ORDERED: DOCUSATE SODIUM 100 MG CAP PO SCH (09:00)
[2022-08-17] MEDS ORDERED: POLYETHYLENE GLYCOL 3350 17 GM PACK PO SCH (09:00)
[2022-08-17] MEDS ORDERED: SODIUM CHLORIDE 0.9% 250ML 250 ML ONE (09:00)
[2022-08-17] MEDS ORDERED: TRAMADOL HCL 50 MG TAB PO SCH (09:00)
[2022-08-17] MEDS: AMLODIPINE BESYLATE 10 MG TAB PO SCH (09:10)
[2022-08-17] MEDS: DOCUSATE SODIUM 100 MG CAP PO SCH ×2 (15:29→20:44)
[2022-08-17] MEDS: HYDROMORPHONE 1MG/1ML INJ IV PRN (16:10)
[2022-08-17] MEDS: POLYETHYLENE GLYCOL 3350 17 GM PACK PO SCH (16:11)
[2022-08-17] MEDS: MIRTAZAPINE 15 MG TAB PO SCH (20:44)
[2022-08-18] VITALS (8 sets, daily range): BP systolic 112–140; BP diastolic 54–78
[2022-08-18] MEDS: HYDROMORPHONE 1MG/1ML INJ IV PRN ×4 (06:47→18:45)
[2022-08-18] MEDS: INSULIN LISPRO 100 UNIT/1 ML 3ML VIAL SQ SCH ×4 (08:49→21:00)
[2022-08-18] MEDS: POLYETHYLENE GLYCOL 3350 17 GM PACK PO SCH ×2 (09:00→16:59)
[2022-08-18] MEDS: LINEZOLID 600 MG/D5W 300ML 300 ML IV SCH ×2 (10:56→21:52)
[2022-08-18] MEDS: MONTELUKAST SODIUM 10 MG TAB PO SCH (10:58)
[2022-08-18] MEDS: ATORVASTATIN 40 MG TAB PO SCH (10:59)
[2022-08-18] MEDS: TOLTERODINE TARTRATE 4 MG CAPCR PO SCH (10:59)
[2022-08-18] MEDS: METOPROLOL TARTRATE 25 MG TAB PO SCH ×2 (10:59→17:02)
[2022-08-18] MEDS: DOCUSATE SODIUM 100 MG CAP PO SCH ×3 (10:59→21:52)
[2022-08-18] MEDS: ASPIRIN 81 MG CHEW TAB PO SCH (10:59)
[2022-08-18] MEDS: ONDANSETRON HCL 4 MG ORAL DISINTEGRATING TAB PO PRN ×2 (11:00→18:44)
[2022-08-18] MEDS: PANTOPRAZOLE SOD 40 MG TABEC PO SCH ×2 (11:00→21:52)
[2022-08-18] MEDS: AMLODIPINE BESYLATE 10 MG TAB PO SCH (11:00)
[2022-08-18] MEDS: FUROSEMIDE 40 MG TAB PO SCH (11:03)
[2022-08-18] MEDS: MIRTAZAPINE 15 MG TAB PO SCH (21:52)
[2022-08-19] VITALS (8 sets, daily range): BP systolic 95–128; BP diastolic 42–92
[2022-08-19] MEDS: HYDROMORPHONE 1MG/1ML INJ IV PRN ×2 (04:28→20:47)
[2022-08-19] MEDS: ASPIRIN 81 MG CHEW TAB PO SCH (08:27)
[2022-08-19] MEDS: MONTELUKAST SODIUM 10 MG TAB PO SCH (08:27)
[2022-08-19] MEDS: PANTOPRAZOLE SOD 40 MG TABEC PO SCH ×2 (08:27→20:46)
[2022-08-19] MEDS: AMLODIPINE BESYLATE 10 MG TAB PO SCH (08:27)
[2022-08-19] MEDS: TOLTERODINE TARTRATE 4 MG CAPCR PO SCH (08:27)
[2022-08-19] MEDS: METOPROLOL TARTRATE 25 MG TAB PO SCH ×2 (08:28→16:14)
[2022-08-19] MEDS: DOCUSATE SODIUM 100 MG CAP PO SCH ×3 (08:28→20:46)
[2022-08-19] MEDS: LINEZOLID 600 MG/D5W 300ML 300 ML IV SCH (08:28)
[2022-08-19] MEDS: FUROSEMIDE 40 MG TAB PO SCH (08:30)
[2022-08-19] MEDS: INSULIN LISPRO 100 UNIT/1 ML 3ML VIAL SQ SCH ×4 (08:35→21:00)
[2022-08-19] MEDS: POLYETHYLENE GLYCOL 3350 17 GM PACK PO SCH ×2 (08:35→16:14)
[2022-08-19] MEDS: ACETAMINOPHEN 325 MG TAB PO PRN (18:07)
[2022-08-19] MEDS: MIRTAZAPINE 15 MG TAB PO SCH (20:46)
[2022-08-19] MEDS: ATORVASTATIN 40 MG TAB PO SCH (20:46)
[2022-08-20] VITALS (7 sets, daily range): BP systolic 115–140; BP diastolic 50–58
[2022-08-20] MEDS: LINEZOLID 600 MG/D5W 300ML 300 ML IV SCH ×2 (05:11→17:16)
[2022-08-20] MEDS: HYDROMORPHONE 1MG/1ML INJ IV PRN (05:54)
[2022-08-20] MEDS: INSULIN LISPRO 100 UNIT/1 ML 3ML VIAL SQ SCH (07:30)
[2022-08-20] MEDS ORDERED: INSULIN GLARGINE 100 UNITS/ML VIAL SQ ONE (08:00)
[2022-08-20] MEDS ORDERED: DEXTROSE 50% SYRINGE 50 ML IV PRN ×2 (08:15→22:45)
[2022-08-20] MEDS: MONTELUKAST SODIUM 10 MG TAB PO SCH (08:36)
[2022-08-20] MEDS: AMLODIPINE BESYLATE 10 MG TAB PO SCH (08:36)
[2022-08-20] MEDS: DOCUSATE SODIUM 100 MG CAP PO SCH ×3 (08:37→20:39)
[2022-08-20] MEDS: PANTOPRAZOLE SOD 40 MG TABEC PO SCH ×2 (08:37→20:40)
[2022-08-20] MEDS: ASPIRIN 81 MG CHEW TAB PO SCH (08:37)
[2022-08-20] MEDS: METOPROLOL TARTRATE 25 MG TAB PO SCH ×2 (08:37→17:18)
[2022-08-20] MEDS: POLYETHYLENE GLYCOL 3350 17 GM PACK PO SCH ×2 (08:37→17:17)
[2022-08-20] MEDS: TOLTERODINE TARTRATE 4 MG CAPCR PO SCH (08:37)
[2022-08-20] MEDS: FUROSEMIDE 40 MG TAB PO SCH (09:00)
[2022-08-20 09:29] LABS: ALBUMIN 3.2 g/dL (3.5-5.0); ALBUMIN/GLOBULIN RATIO 0.9 (0.8-2.0); ANION GAP 23.7 mmol/L (8-16); CALCIUM 8.8 mg/dL (8.4-10.2); CREATININE, SERUM 3.12 mg/dL (0.72-1.25); POTASSIUM 4.7 mmol/L (3.5-5.1)
[2022-08-20] MEDS ORDERED: INSULIN LISPRO 100 UNIT/1 ML 3ML VIAL SQ SCH (10:45)
[2022-08-20] MEDS: INSULIN REGULAR, HUMAN 100 UNIT/1 ML SQ SCH ×3 (14:02→20:47)
[2022-08-20] MEDS: ACETAMINOPHEN 325 MG TAB PO PRN (17:29)
[2022-08-20] MEDS: MIRTAZAPINE 15 MG TAB PO SCH (20:40)
[2022-08-20] MEDS: ATORVASTATIN 40 MG TAB PO SCH (20:40)
[2022-08-21] VITALS (9 sets, daily range): BP systolic 125–140; BP diastolic 47–68
[2022-08-21] MEDS: LINEZOLID 600 MG/D5W 300ML 300 ML IV SCH ×2 (03:58→16:22)
[2022-08-21] MEDS ORDERED: INSULIN GLARGINE 100 UNITS/ML VIAL SQ SCH ×3 (08:00→21:00)
[2022-08-21] MEDS: INSULIN REGULAR, HUMAN 100 UNIT/1 ML SQ SCH ×4 (08:08→20:59)
[2022-08-21] MEDS: ASPIRIN 81 MG CHEW TAB PO SCH (09:29)
[2022-08-21] MEDS: POLYETHYLENE GLYCOL 3350 17 GM PACK PO SCH ×2 (09:29→18:04)
[2022-08-21] MEDS: AMLODIPINE BESYLATE 10 MG TAB PO SCH (09:30)
[2022-08-21] MEDS: MONTELUKAST SODIUM 10 MG TAB PO SCH (09:30)
[2022-08-21] MEDS: PANTOPRAZOLE SOD 40 MG TABEC PO SCH ×2 (09:30→20:53)
[2022-08-21] MEDS: METOPROLOL TARTRATE 25 MG TAB PO SCH ×2 (09:30→18:03)
[2022-08-21] MEDS: DOCUSATE SODIUM 100 MG CAP PO SCH ×3 (09:30→20:53)
[2022-08-21] MEDS: TOLTERODINE TARTRATE 4 MG CAPCR PO SCH (09:30)
[2022-08-21] MEDS: FUROSEMIDE 40 MG TAB PO SCH (09:35)
[2022-08-21] MEDS: MIRTAZAPINE 15 MG TAB PO SCH (20:53)
[2022-08-21] MEDS: ATORVASTATIN 40 MG TAB PO SCH (20:53)
[2022-08-21] MEDS: ACETAMINOPHEN 325 MG TAB PO PRN (20:53)
[2022-08-22 04:00] VITALS: BP 128/53
[2022-08-22] MEDS: LINEZOLID 600 MG/D5W 300ML 300 ML IV SCH ×2 (04:11→16:12)
[2022-08-22 06:19] LABS: BASOPHILS % 0.6 % (0.0-1.0); EOSINOPHILS # (AUTO) 0.7 (0.0-0.4); EOSINOPHILS % 10.2 % (0.0-6.0); HEMATOCRIT 27.3 % (38.2-49.6); HEMOGLOBIN 9.5 g/dL (14.0-18.0); LYMPHOCYTES # (AUTO) 1.8 (1.0-3.2); LYMPHOCYTES % 24.6 % (18.0-39.1); MEAN CORPUSCULAR HEMOGLOBIN 34.2 pg (28-32); MEAN CORPUSCULAR HGB CONC 34.8 g/dL (31-35); MEAN CORPUSCULAR VOLUME 98.2 fL (81-99); MONOCYTES # (AUTO) 0.4 (0.2-0.8); MONOCYTES % 5.7 % (4.4-11.3); NEUTROPHILS # (AUTO) 4.2 (2.1-6.9); NEUTROPHILS % 58.6 % (38.7-80.0); PLATELET COUNT 186 x10e3/uL (140-360); RED BLOOD COUNT 2.78 x10e6/uL (4.3-5.7); RED CELL DISTRIBUTION WIDTH 14.6 % (11.7-14.4)
[2022-08-22 06:36] LABS: ANION GAP 14.4 mmol/L (8-16); CALCIUM 8.7 mg/dL (8.4-10.2); CREATININE, SERUM 3.1 mg/dL (0.72-1.25); POTASSIUM 3.4 mmol/L (3.5-5.1)
[2022-08-22 08:13] VITALS: BP 119/59
[2022-08-22 08:24] VITALS: BP 119/59
[2022-08-22] MEDS: POLYETHYLENE GLYCOL 3350 17 GM PACK PO SCH ×2 (09:00→16:11)
[2022-08-22] MEDS: HYDROMORPHONE 1MG/1ML INJ IV PRN (09:38)
[2022-08-22] MEDS: POLYETHYLENE GLYCOL 3350 17 GM PACK PO PRN (09:39)
[2022-08-22] MEDS: PANTOPRAZOLE SOD 40 MG TABEC PO SCH (09:39)
[2022-08-22] MEDS: TOLTERODINE TARTRATE 4 MG CAPCR PO SCH (09:39)
[2022-08-22] MEDS: ASPIRIN 81 MG CHEW TAB PO SCH (09:39)
[2022-08-22] MEDS: MONTELUKAST SODIUM 10 MG TAB PO SCH (09:39)
[2022-08-22] MEDS: DOCUSATE SODIUM 100 MG CAP PO SCH ×2 (09:39→16:12)
[2022-08-22] MEDS: AMLODIPINE BESYLATE 10 MG TAB PO SCH (09:40)
[2022-08-22] MEDS: METOPROLOL TARTRATE 25 MG TAB PO SCH ×2 (09:40→16:13)
[2022-08-22] MEDS: FUROSEMIDE 40 MG TAB PO SCH (09:46)
[2022-08-22] MEDS: INSULIN REGULAR, HUMAN 100 UNIT/1 ML SQ SCH ×2 (09:46→11:07)
[2022-08-22] MEDS ORDERED: POTASSIUM CHLORIDE 20MEQ/100ML 200 ML IV ONE (11:00)
[2022-08-22] MEDS ORDERED: SODIUM CHLORIDE 0.9% 500ML 500 ML ONE (11:04)
[2022-08-22 11:59] VITALS: BP 132/59
[2022-08-22] MEDS ORDERED: ONDANSETRON ODT4 MG PO (13:31)
[2022-08-22] MEDS ORDERED: Docusate Sodium PO (13:31)
[2022-08-22] MEDS: ACETAMINOPHEN 325 MG TAB PO PRN (16:20)
[2022-08-22] MEDS ORDERED: INSULIN LISPRO 100 UNIT/1 ML 3ML VIAL SQ SCH (16:30)
[2022-08-22 16:35] VITALS: BP 126/65
== END 2022-08-22 18:10 | disposition home or self-care (01) | DRG 690 ==
LOC: ER 12:05 → ERHOLD 12:58 → INTOOBSV 12:58 → MED/SURG2 15:00 → OBSVTOIN 08-18 12:53
PROVIDERS: ADMIT Internal Medicine; ATTEND Internal Medicine
DX: N30.90 Cystitis, unspecified without hematuria (principal); T83.592A Infection and inflammatory reaction due to indwelling ureteral stent, initial encounter; I13.0 Hypertensive heart and chronic kidney disease with heart failure and stage 1 through stage 4 chronic kidney disease, or unspecified chronic kidney disease; N17.9 Acute kidney failure, unspecified; N18.4 Chronic kidney disease, stage 4 (severe); Z16.342 Resistance to multiple antimycobacterial drugs; F32.A Depression, unspecified; E78.5 Hyperlipidemia, unspecified; M19.90 Unspecified osteoarthritis, unspecified site; E53.8 Deficiency of other specified B group vitamins; I25.10 Atherosclerotic heart disease of native coronary artery without angina pectoris; K31.84 Gastroparesis; G89.4 Chronic pain syndrome; E10.43 Type 1 diabetes mellitus with diabetic autonomic (poly)neuropathy; N40.1 Benign prostatic hyperplasia with lower urinary tract symptoms; R33.8 Other retention of urine; E10.22 Type 1 diabetes mellitus with diabetic chronic kidney disease; H91.90 Unspecified hearing loss, unspecified ear; E10.51 Type 1 diabetes mellitus with diabetic peripheral angiopathy without gangrene; B95.62 Methicillin resistant Staphylococcus aureus infection as the cause of diseases classified elsewhere; I50.9 Heart failure, unspecified; E10.65 Type 1 diabetes mellitus with hyperglycemia; E10.69 Type 1 diabetes mellitus with other specified complication; E10.21 Type 1 diabetes mellitus with diabetic nephropathy; D63.1 Anemia in chronic kidney disease; Z79.4 Long term (current) use of insulin; Z86.73 Personal history of transient ischemic attack (TIA), and cerebral infarction without residual deficits; Z95.1 Presence of aortocoronary bypass graft; Z90.49 Acquired absence of other specified parts of digestive tract; Z95.5 Presence of coronary angioplasty implant and graft; Z89.511 Acquired absence of right leg below knee; Z89.512 Acquired absence of left leg below knee; Z87.891 Personal history of nicotine dependence; Z99.3 Dependence on wheelchair
CPT/HCPCS: 0223U; 36415; 80048; 80053; 80061; 82948; 83036; 83735; 84443; 85025; 85610; 87040; 87086; 87186; 94799; 96360; 96361; 96372; 99252; 99284; G0378; J1170; J2020; J2185; J3480; J7040; J7050; Q0162